=== PATIENT | male | born 1960 | race Caucasian/White ===

== ENCOUNTER 2022-08-12 09:40 | Inpatient (IN) ==
--- NOTE | 2022-08-12 10:23 | Emergency Department Note ---
Impression & Plan Acute hypoxemic respiratory failure, Acute hyperglycemia, Acute dehydration, COVID-19 ED Provider Note NAME: KOKO ALLEN AGE: 61 SEX: M : 1960 ARRIVES VIA: Ambulance INFORMANT: Patient, ED PROVIDER(S): Salinas Sharp MD Chief Complaint: Shortness of breath, respiratory distress, concern for self-injurious behavior HPI: Very limited history as per review of the medical record the patient does have a known history of aphasia from a prior stroke. Only report is that EMS had been called out as there was concern for superficial lacerations to bilateral list and upon presentation they noted the patient to be in respiratory distress with associated rhonchi and oxygen saturations in the 70s. The patient was placed on BiPAP and brought in. Patient does have difficulty with communicating as the patient is aphasic but the patient does respond to yes or no questions by shaking or nodding his head. Patient denies any chest pain or shortness of breath. The patient denies any true abdominal pain and there is a history of aspiration. Patient denies any current nausea. Patient did receive a breathing treatment and 125 Solu-Medrol in route. ROS: See HPI for pertinent positives and negatives. A total of 10 systems were reviewed and otherwise negative. Past medical history: See below Surgical history: See below Social history: See below Physical Exam: GENERAL: Mild tachypnea, BiPAP mask in place. EYE EXAM: Normal conjunctiva. PERRL, no anisocoria and EOM's grossly intact w/o pain. NECK: Supple, no nuchal rigidity, no adenopathy, non-tender. No signs of meningismus. FROM of the neck with good chin to chest and neck extension. No stridor. LUNGS: Tachypnea noted, rhonchi throughout. HEART: Tachycardic and regular, no MRG. ABDOMEN: Abdomen soft, non-tender, normo-active bowel sounds, no masses, no rebound or guarding. BACK: No CVA TTP. SKIN: No rashes and no bruising. UPPER EXTREMITIES: Upper extremities are grossly normal. LOWER EXTREMITIES: Grossly normal, no edema. NEURO EXAM: A&O x3, cranial nerves II-XII grossly intact, normal speech, moves all 4 extremities. Differential diagnoses: Reactive airway disease, pneumonia, pneumothorax, COPD, CHF, infections, cardiac ischemia, pulmonary embolism, musculoskeletal, gastrointestinal, as well as other pathologies. Course: Patient was seen and evaluated the bedside. Full history physical exam was performed. EKG interpreted by me Sinus tachycardia, rate of 116 normal intervals normal axis T wave version in aVL noncontiguous leads, significant motion artifact in V1 and V2 no obvious ST elevations. Imaging Studies: See Below Cardiac monitoring: An order was placed for continuous cardiac monitoring. The monitor shows a rate of 112 with tachycardic and regular rhythm. MDM: Patient was seen due to concern for shortness of breath. No obvious concerns with regard to self-injurious behavior. The patient did have superficial abrasions noted. No large laceration. Sepsis protocol was initiated. I did review the patient's medical records which show no evidence of prior heart failure and the patient does not appear to be volume overloaded although the patient does have significant rhonchi throughout. The patient did have a 2 L IV fluid bolus ordered vancomycin and Zosyn, MRSA swab viral imaging as well as Pro-Ilya and blood work. Patient was ordered additional breathing treatments. The patient had received Solu-Medrol and a breathing treatment in route. Patient was noted to have a significant leukocytosis. Patient was ordered dose of vancomycin. The patient did have a CT angiography of the chest as well as abdomen pelvis ordered given the patient significant leukocytosis and coarse breath sounds. Hemoglobin is elevated. The patient does have significant prerenal azotemia. Patient was ordered IV fluids. Patient's bicarb is normal. Sodium of 125 likely pseudohyponatremia given the sugar of 608. Patient was ordered 10 of IV insulin. Positive for COVID-negative for flu and RSV. Patient did already see Methylpred 125 with regard to the patient's COVID hypoxemia. Patient did have a CT of the abdomen pelvis as well as chest ordered given patient's significant leukocytosis. Patient's CT of the abdomen pelvis as well as CT angiography of the chest does not show any evidence of PE. The patient does have findings suggestive of infectious or inflammatory pneumonitis. Hepatic steatosis noted. The patient may have evidence of esophagitis. The patient does appear clinically improved and stable on the BiPAP. I did speak with the on-call hospitalist Dr. Thibodeaux and the patient was admitted to the medicine service. Critical Care: I have personally spent 75 minutes of critical care time in direct management of this patient. This includes bedside care, interpretation of diagnostic studies, and testing, discussion with consultants, patient, and family members, and other require inpatient management activities. This 75 minutes is in excess of all separately billable procedures. Past Med/Surg History Medical History Aphasia following cerebral infarction Asthma BPH (benign prostatic hyperplasia) Cerebral infarction due to unspecified 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 COPD (chronic obstructive pulmonary disease) Dysphagia, oropharyngeal phase Dysphasia following cerebral infarction Essential (primary) hypertension History of CVA with residual deficit Opioid abuse Opioid dependence 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 Type 2 diabetes mellitus Surgical History Gastrostomy status S/P percutaneous endoscopic gastrostomy (PEG) tube placement Family History Other Family history non-contributory Social History Smoking Status: Unknown if ever smoked Tobacco Type: Cigarettes Preferred Language: Brazilian Current Living Situation: Other Current Living Situation Comment: [facility] Feels Safe at Home: Yes Assistive Devices: Other Allergies Allergies Allergy/AdvReac Type Severity Reaction Status Date / Time No Known Drug Allergies Allergy Unknown Verified 07/26/22 09:53 Home Meds Home Medications Medication Instructions Recorded Confirmed acetaminophen 325 mg capsule 650 mg PO Q6H PRN pain/fever > 100 07/26/22 07/26/22 F or above acetaminophen 500 mg tablet 500 mg PO BID 07/26/22 07/26/22 (Tylenol Extra Strength) acetylcysteine 100 mg/mL (10 %) 6 ml inhalation QID copd/hypoxemia 07/26/22 07/26/22 solution ascorbic acid (vitamin C) 500 mg 500 mg PO DAILY 07/26/22 07/26/22 capsule aspirin 81 mg tablet,delayed 81 mg PO DAILY 07/26/22 07/26/22 release bisacodyl 10 mg rectal suppository 10 mg NV UD PRN CONSTIPATION 07/26/22 07/26/22 (Dulcolax (bisacodyl)) cholecalciferol (vitamin D3) 25 25 mcg PO DAILY 07/26/22 07/26/22 mcg (1,000 unit) tablet clopidogrel 75 mg tablet 75 mg PO DAILY 07/26/22 07/26/22 diclofenac sodium 1 % topical gel 2 g topical Q8H PRN left shoulder 07/26/22 07/26/22 pain doxazosin 1 mg tablet 1 mg PO DAILY 07/26/22 07/26/22 gabapentin 300 mg tablet 300 mg PO TID 07/26/22 07/26/22 guaifenesin 100 mg/5 mL oral 200 mg PO Q8H PRN cough 07/26/22 07/26/22 liquid (Evon-Tussin) lisinopril 2.5 mg tablet 2.5 mg PO DAILY 07/26/22 07/26/22 ondansetron HCl 4 mg tablet 4 mg PO Q6H PRN nausea/vomiting 07/26/22 07/26/22 salmeterol 50 mcg/dose blister 1 inh inhalation BID copd 07/26/22 07/26/22 powder for inhalation tiotropium bromide 18 mcg capsule 1 cap inhalation DAILY 07/26/22 07/26/22 with inhalation device (Spiriva with HandiHaler) zinc oxide 1 applic topical BID for prevention 07/26/22 07/26/22 zinc oxide 20 % topical ointment 1 applic topical UD preventative 07/26/22 07/26/22 care Results & Data (ED) Vital Signs Vital Signs - 24 hr 08/12/22 10:03 08/12/22 10:06 08/12/22 10:06 Temperature 36.6 C Temperature Source Temporal Artery Scan Pulse Rate 114 H 107 H Pulse Rate [Finger] Pulse Rate from SpO2 Sensor Pulse Rhythm Regular Respiratory Rate 28 H 28 H Respiratory Effort / Characteristics Spontaneous Labored Short of Breath Short of Breath Respiratory Depth Deep Respiratory Pattern Tachypnea Regular Blood Pressure 139/87 Blood Pressure Mean 104 Blood Pressure Position Sitting Pulse Oximetry 93 93 Oxygen Delivery Method BiPAP BiPAP Fraction of Inspired Oxygen 50 40 40 SaO2/FiO2 Ratio 232 Sepsis Recent Fever Within 48 Hours No Sepsis New/Unexplained Change in Mental Status No Sepsis Action Taken by Nursing Physician Notified 08/12/22 10:17 08/12/22 10:54 08/12/22 10:00 Temperature Temperature Source Pulse Rate 116 H Pulse Rate [Finger] 104 H Pulse Rate from SpO2 Sensor 116 H Pulse Rhythm Respiratory Rate 28 H 31 H Respiratory Effort / Characteristics Spontaneous Respiratory Depth Respiratory Pattern Blood Pressure 139/87 Blood Pressure Mean 104 Blood Pressure Position Pulse Oximetry 95 96 90 Oxygen Delivery Method BiPAP BiPAP Fraction of Inspired Oxygen 40 40 SaO2/FiO2 Ratio 237 Sepsis Recent Fever Within 48 Hours Sepsis New/Unexplained Change in Mental Status Sepsis Action Taken by Nursing 08/12/22 10:30 08/12/22 11:30 08/12/22 12:16 Temperature Temperature Source Pulse Rate 106 H 94 H 91 H Pulse Rate [Finger] Pulse Rate from SpO2 Sensor 94 H 91 H Pulse Rhythm Respiratory Rate 26 H 16 17 Respiratory Effort / Characteristics Respiratory Depth Respiratory Pattern Blood Pressure 132/87 131/87 105/72 Blood Pressure Mean 102 101 83 Blood Pressure Position Pulse Oximetry 97 99 Oxygen Delivery Method Fraction of Inspired Oxygen SaO2/FiO2 Ratio Sepsis Recent Fever Within 48 Hours Sepsis New/Unexplained Change in Mental Status Sepsis Action Taken by Nursing 08/12/22 12:30 Temperature Temperature Source Pulse Rate 89 Pulse Rate [Finger] Pulse Rate from SpO2 Sensor 89 Pulse Rhythm Respiratory Rate 18 Respiratory Effort / Characteristics Respiratory Depth Respiratory Pattern Blood Pressure 115/67 Blood Pressure Mean 83 Blood Pressure Position Pulse Oximetry 97 Oxygen Delivery Method Fraction of Inspired Oxygen SaO2/FiO2 Ratio Sepsis Recent Fever Within 48 Hours Sepsis New/Unexplained Change in Mental Status Sepsis Action Taken by Intermediate Medications Current Medication List: was personally reviewed by me Laboratory Data Attestation: I reviewed the patient's lab results. Result diagrams: 08/12/22 09:55 08/12/22 13:35 Lab Results 08/12/22 08/12/22 08/12/22 Range/Units 09:55 09:55 09:55 WBC 34.14 H* (4.8-10.8) K/ul RBC 6.44 H (4.63-6.08) M/uL Hgb 19.4 H (14.0-18.0) g/dl Hct 55.0 H (40.1-51.0) % MCV 85.4 (80.0-100.0) fL MCH 30.1 (25.0-34.0) pg MCHC 35.3 (32.0-36.0) g/dL RDW Std Deviation 39.8 (36.4-46.3) fL RDW Coeff of Jessica 13.2 (11.5-14.5) % Plt Count 370 (130-400) K/uL MPV 11.0 (9.4-12.4) fL Immature Gran % (Auto) 1.1 % Neut % (Auto) 85.0 % Lymph % (Auto) 6.6 % Dougherty % (Auto) 7.0 % Eos % (Auto) 0.0 % Baso % (Auto) 0.3 % Neut # (Auto) 29.03 H (1.4-6.5) K/uL Lymph # (Auto) 2.27 (1.2-3.4) K/uL Dougherty # (Auto) 2.38 H (0.24-0.82) K/uL Eos # (Auto) 0.01 (0-0.50) K/uL Baso # (Auto) 0.09 (0-0.2) K/uL Immature Gran # (Auto) 0.36 H (0.00-0.02) K/uL Toxic Vacuolation 1+ Polychromasia 1+ Tear Drop Cells 1+ PT 10.4 (9.0-12.0) Seconds INR 1.0 (0.9-1.1) APTT 25.0 (21.0-31.0) Seconds PTT Ratio 0.9 Sodium 125 L (136-145) mmol/L Potassium 5.5 H (3.5-5.1) mmol/L Chloride 90 L (98-107) mmol/L Carbon Dioxide 23 (21-32) mmol/L Anion Gap 12 H (3-11) BUN 53 H (6-23) mg/dl Creatinine 1.39 (0.6-1.4) mg/dl Est Cr Clr Drug Dosing Not Reportable Est GFR ( Amer) 62.9 ml/min Est GFR (Non-Af Amer) 54.3 ml/min BUN/Creatinine Ratio 38.1 H (10-20) Glucose 608 H* (70-99(Fasting)) mg/dl Lactate (0.4-2.0) mmol/L Calcium 9.4 (8.5-10.1) mg/dl Magnesium 2.2 (1.7-2.4) mg/dl Total Bilirubin 0.8 (0.2-1.0) mg/dl AST 8 L (13-39) U/L ALT 9 (7-52) U/L Alkaline Phosphatase 60 (34-104) U/L Troponin I High Sens 16.0 (0-20) pg/ml Total Protein 7.0 (6.0-8.3) gm/dl Albumin 3.6 (3.4-5.0) gm/dl Globulin 3.4 (2.5-4.0) gm/dl Albumin/Globulin Ratio 1.1 (0.9-2) Procalcitonin (0-0.5) ng/ml Urine Color Urine Appearance (Clear) Urine pH (4.5-7.5) Ur Specific [place] (1.000-1.030) Urine Protein (Negative) Urine Glucose (UA) (Negative) Urine Ketones (Negative) Urine Blood (Negative) Urine Nitrite (Negative) Urine Bilirubin (Negative) Urine Urobilinogen (Negative) Ur Leukocyte Esterase (Negative) SARS-CoV-2 (PCR) (Negative) Influenza Type A (PCR) (Neg) Influenza Type B (PCR) (Neg) RSV (RT-PCR) (Neg) 08/12/22 08/12/22 08/12/22 Range/Units 09:55 10:00 10:52 WBC (4.8-10.8) K/ul RBC (4.63-6.08) M/uL Hgb (14.0-18.0) g/dl Hct (40.1-51.0) % MCV (80.0-100.0) fL MCH (25.0-34.0) pg MCHC (32.0-36.0) g/dL RDW Std Deviation (36.4-46.3) fL RDW Coeff of Jessica (11.5-14.5) % Plt Count (130-400) K/uL MPV (9.4-12.4) fL Immature Gran % (Auto) % Neut % (Auto) % Lymph % (Auto) % Dougherty % (Auto) % Eos % (Auto) % Baso % (Auto) % Neut # (Auto) (1.4-6.5) K/uL Lymph # (Auto) (1.2-3.4) K/uL Dougherty # (Auto) (0.24-0.82) K/uL Eos # (Auto) (0-0.50) K/uL Baso # (Auto) (0-0.2) K/uL Immature Gran # (Auto) (0.00-0.02) K/uL Toxic Vacuolation Polychromasia Tear Drop Cells PT (9.0-12.0) Seconds INR (0.9-1.1) APTT (21.0-31.0) Seconds PTT Ratio Sodium (136-145) mmol/L Potassium (3.5-5.1) mmol/L Chloride (98-107) mmol/L Carbon Dioxide (21-32) mmol/L Anion Gap (3-11) BUN (6-23) mg/dl Creatinine (0.6-1.4) mg/dl Est Cr Clr Drug Dosing Est GFR ( Amer) ml/min Est GFR (Non-Af Amer) ml/min BUN/Creatinine Ratio (10-20) Glucose (70-99(Fasting)) mg/dl Lactate 1.3 (0.4-2.0) mmol/L Calcium (8.5-10.1) mg/dl Magnesium (1.7-2.4) mg/dl Total Bilirubin (0.2-1.0) mg/dl AST (13-39) U/L ALT (7-52) U/L Alkaline Phosphatase (34-104) U/L Troponin I High Sens (0-20) pg/ml Total Protein (6.0-8.3) gm/dl Albumin (3.4-5.0) gm/dl Globulin (2.5-4.0) gm/dl Albumin/Globulin Ratio (0.9-2) Procalcitonin 0.26 (0-0.5) ng/ml Urine Color Urine Appearance (Clear) Urine pH (4.5-7.5) Ur Specific [place] (1.000-1.030) Urine Protein (Negative) Urine Glucose (UA) (Negative) Urine Ketones (Negative) Urine Blood (Negative) Urine Nitrite (Negative) Urine Bilirubin (Negative) Urine Urobilinogen (Negative) Ur Leukocyte Esterase (Negative) SARS-CoV-2 (PCR) POSITIVE A* (Negative) Influenza Type A (PCR) Negative (Neg) Influenza Type B (PCR) Negative (Neg) RSV (RT-PCR) Negative (Neg) 08/12/22 Range/Units 11:27 WBC (4.8-10.8) K/ul RBC (4.63-6.08) M/uL Hgb (14.0-18.0) g/dl Hct (40.1-51.0) % MCV (80.0-100.0) fL MCH (25.0-34.0) pg MCHC (32.0-36.0) g/dL RDW Std Deviation (36.4-46.3) fL RDW Coeff of Jessica (11.5-14.5) % Plt Count (130-400) K/uL MPV (9.4-12.4) fL Immature Gran % (Auto) % Neut % (Auto) % Lymph % (Auto) % Dougherty % (Auto) % Eos % (Auto) % Baso % (Auto) % Neut # (Auto) (1.4-6.5) K/uL Lymph # (Auto) (1.2-3.4) K/uL Dougherty # (Auto) (0.24-0.82) K/uL Eos # (Auto) (0-0.50) K/uL Baso # (Auto) (0-0.2) K/uL Immature Gran # (Auto) (0.00-0.02) K/uL Toxic Vacuolation Polychromasia Tear Drop Cells PT (9.0-12.0) Seconds INR (0.9-1.1) APTT (21.0-31.0) Seconds PTT Ratio Sodium (136-145) mmol/L Potassium (3.5-5.1) mmol/L Chloride (98-107) mmol/L Carbon Dioxide (21-32) mmol/L Anion Gap (3-11) BUN (6-23) mg/dl Creatinine (0.6-1.4) mg/dl Est Cr Clr Drug Dosing Est GFR ( Amer) ml/min Est GFR (Non-Af Amer) ml/min BUN/Creatinine Ratio (10-20) Glucose (70-99(Fasting)) mg/dl Lactate (0.4-2.0) mmol/L Calcium (8.5-10.1) mg/dl Magnesium (1.7-2.4) mg/dl Total Bilirubin (0.2-1.0) mg/dl AST (13-39) U/L ALT (7-52) U/L Alkaline Phosphatase (34-104) U/L Troponin I High Sens (0-20) pg/ml Total Protein (6.0-8.3) gm/dl Albumin (3.4-5.0) gm/dl Globulin (2.5-4.0) gm/dl Albumin/Globulin Ratio (0.9-2) Procalcitonin (0-0.5) ng/ml Urine Color Yellow Urine Appearance Clear (Clear) Urine pH 5.5 (4.5-7.5) Ur Specific [place] 1.034 H (1.000-1.030) Urine Protein Negative (Negative) Urine Glucose (UA) 3+ H (Negative) Urine Ketones Trace H (Negative) Urine Blood Negative (Negative) Urine Nitrite Negative (Negative) Urine Bilirubin Negative (Negative) Urine Urobilinogen Negative (Negative) Ur Leukocyte Esterase Negative (Negative) SARS-CoV-2 (PCR) (Negative) Influenza Type A (PCR) (Neg) Influenza Type B (PCR) (Neg) RSV (RT-PCR) (Neg) Administered Medications Insulin Human Regular 250 (units/ Sodium Chloride) 250 mls @ 2.6 mls/hr IV .Q24H [facility]; Protocol Stop: 09/11/22 13:14 Last Titration: 08/12/22 15:00 Dose: 2.6 units/hr, 2.6 mls/hr Documented By: VICTORINO Co-signed By: ROME Admin: 08/12/22 13:48 Dose: 2.2 units/hr, 2.2 mls/hr Documented By: VICTORINO Co-signed By: HS Discontinued Medications Albuterol (Albut/Ipratrop 3mg/0.5mg Neb 3 Ml Vial) 12 ml NEB ONE ONE; Protocol Stop: 08/12/22 10:33 Last Admin: 08/12/22 10:53 Dose: 12 ml Documented By: JUANPABLO Piperacillin Sod/Tazobactam Sod (Zosyn) 4.5 gm in 120 mls @ 240 mls/hr IV NOW ONE Stop: 08/12/22 11:01 Last Infusion: 08/12/22 12:55 Dose: 0 mls/hr Documented By: Admin: 08/12/22 11:26 Dose: 240 mls/hr Documented By: VICTORINO Sodium Chloride (Nss 1000ml) 2,000 mls @ 999 mls/hr IV .Q2H1M ONE Stop: 08/12/22 12:49 Last Infusion: 08/12/22 15:04 Dose: 0 mls/hr Documented By: Admin: 08/12/22 11:26 Dose: 999 mls/hr Documented By: VICTORINO Vancomycin HCl 2,250 mg/ (Sodium Chloride) 545 mls @ 200 mls/hr IV NOW ONE Stop: 08/12/22 13:37 Last Admin: 08/12/22 11:26 Dose: 200 mls/hr Documented By: VICTORINO Pantoprazole Sodium 40 mg/ (Syringe) 10 mls @ 5 mls/min IV 1315 ONE Stop: 08/12/22 13:16 Last Admin: 08/12/22 13:37 Dose: 5 mls/min Documented By: VICTORINO Insulin Human Regular (Novolin-R Insulin Per Unit Charge) 10 units IV NOW STA Stop: 08/12/22 11:18 Last Admin: 08/12/22 11:52 Dose: 10 units Documented By: RODRIGUEZ Co-signed By: VICTORINO Insulin Human Regular (Novolin-R Bolus From Bag) 2 units IV ONE ONE Stop: 08/12/22 13:16 Last Admin: 08/12/22 13:48 Dose: 2 units Documented By: VICTORINO Co-signed By: RODRIGUEZ Ioversol (Optiray 320 500ml) 106 ml IV ONCE ONE Stop: 08/12/22 12:05 Last Admin: 08/12/22 12:08 Dose: 106 ml Documented By: TIERA Ondansetron HCl (Ondansetron Inj 2 Mg/Ml 2 Ml Vial) 4 mg IV NOW STA Stop: 08/12/22 11:20 Last Admin: 08/12/22 11:53 Dose: 4 mg Documented By: RODRIGUEZ Imaging Data Radiologist's Impression: Chest X-Ray 08/12/22 10:04 SINGLE VIEW CHEST CLINICAL HISTORY: Sepsis FINDINGS: An AP, portable, upright chest radiograph is compared to study dated 04/16/2022. The examination is degraded by portable technique and apical lordotic positioning. The cardiomediastinal silhouette is unremarkable noting atherosclerotic calcification of the thoracic aorta. Emphysema and chronic interstitial thickening is similar to previous. Postoperative change is seen in the right midlung. Airspace opacities are seen in the mid to lower lungs. No large pleural effusion or pneumothorax is identified. The skeletal structures are osteopenic. There are numerous healed left-sided rib fractures. A left shoulder arthroplasty is in place. IMPRESSION: 1. There are airspace opacities in the lower lungs typical for pneumonia/aspiration pneumonitis. Clinical correlation required and radiographic follow-up to resolution is recommended. 2. Emphysema. ACT 112: Negative or not required by law. Electronically signed by: Douglas Colunga M.D. 08/12/2022 10:33 AM Abdomen/Pelvis CT 08/12/22 10:58 CT ANGIOGRAM OF THE CHEST; CT SCAN OF THE ABDOMEN AND PELVIS WITH IV CONTRAST CLINICAL HISTORY: Aphasia. Leukocytosis. Respiratory distress. COMPARISON STUDY: Chest x-ray dated 08/12/2022. TECHNIQUE: Following the IV administration of 106 of Optiray 320, CT angiogram of the chest is performed from the upper abdomen to the thoracic inlet utilizing the pulmonary embolus protocol. Images are reviewed in the axial, sagittal, coronal planes. 3-D MIPS images are created and assessed. Subsequently, CT scan of the abdomen and pelvis was performed from the lung bases to the proximal femora. Images are reviewed in the axial, sagittal, and coronal planes. IV contrast was administered without complication. A dose lowering technique was utilized adhering to the principles of ALARA. The examinations are degraded by motion artifact. CT DOSE: 1051.15 mGy.cm FINDINGS: CHEST: Thyroid: Imaged portions of the thyroid gland are normal in size and attenuation. Thoracic aorta: There is a sclerotic calcification of the thoracic aorta, which is normal in caliber and demonstrates standard 3-vessel arch anatomy. No dissection is seen. Pulmonary vasculature: The pulmonary trunk is normal in caliber. There are no filling defects identified in the main, lobar, or proximal segmental pulmonary arteries to indicate pulmonary embolus. Evaluation of the distal segmental and subsegmental branches is compromised by motion artifact. Heart: The heart is normal in size and without pericardial effusion. There are coronary artery calcifications. Lungs and pleural spaces: Emphysematous change is noted. Postsurgical changes seen in the right upper lung. The trachea and central airways are clear. Extensive tree-in-bud nodularity seen throughout both lungs with associated patchy groundglass change. More irregular nodular foci are noted. A independent sales representative nodule at the right apex on image #[id number] measures 10 mm, and within the left lower lobe on image #150 measures 11 mm. No pleural effusion is identified. Foci of parenchymal scarring are seen throughout both lungs. Subpleural fat deposition is noted the right lung base. Mediastinum: There is no mediastinal lymphadenopathy. Esophagus: The esophageal wall appears thickened. Ale: Mildly enlarged hilar nodes measuring up to 12 mm in short axis are likely reactive. Axillae: There is no axillary lymphadenopathy. Bony thorax: The skeletal structures are osteopenic. No lytic or blastic lesions are identified. A left shoulder arthroplasty is in place. Arthritic change is seen in the right shoulder. There is chronic deformity of the ribs seen bilaterally. ABDOMEN AND PELVIS: Liver: The contrast-enhanced liver is normal in size and contour. The liver demonstrates diffusely diminished attenuation indicating steatosis. There is no intrahepatic biliary ductal dilatation. The hepatic veins and portal veins are patent. Gallbladder: Unremarkable. Spleen: Normal in size and attenuation. Pancreas: Unremarkable. Adrenal glands: Unremarkable. Kidneys: The contrast enhanced kidneys are normal in size and without hydronephrosis. The kidneys enhance symmetrically. Abdominal vasculature: There is moderate to advanced atherosclerotic calcification and mild ectasia of the abdominal aorta. Stomach and bowel: A small hiatal hernia is noted: A percutaneous gastrostomy is in place. There is moderate colonic fecal retention. No bowel obstruction is seen. The appendix is well-visualized and normal. Peritoneum: There is no intraperitoneal free air or abdominal ascites. A small hiatal hernia is noted. Lymphadenopathy: A mildly enlarged gastrohepatic node on image #103 measures up to 11 mm short axis. Pelvic viscera: The prostate gland is diminutive and heterogeneous. The bladder and seminal vesicles are normal as imaged. There are small bilateral fat- containing inguinal hernias. Skeletal structures: The skeletal structures are osteopenic. There is mild to moderate lumbosacral spondylosis. Bilateral pars defects are noted at L5 with grade 1 anterolisthesis at L5-S1. No lytic or blastic lesions are seen. There are healed left pubic ring fractures. IMPRESSION: 1. Emphysema with postoperative change from right-sided pulmonary resection. 2. There is no evidence of pulmonary embolus in the main, lobar, or proximal segmental pulmonary arteries. Evaluation of the distal segmental and subsegmental branches is compromised by motion artifact. 3. There is extensive tree-in-bud nodularity and groundglass consolidation seen throughout both lungs. The appearance suggests an infectious/inflammatory pneumonitis. Clinical correlation will be required. A follow-up chest CT in 3-4 months time is recommend diagnostic and resolution, and to evaluate for underlying nodularity. 4. No acute infectious or inflammatory findings are identified in the abdomen or pelvis. 5. Hepatic steatosis. 6. The esophageal wall appears circumferentially thickened. Correlate clinically for evidence of esophagitis. 7. A mildly enlarged gastrohepatic node is nonspecific and may be reactive. 8. Additional findings as above. ACT 112: Negative or not required by law. Electronically signed by: Douglas Colunga M.D. 08/12/2022 12:27 PM Chest CTA 08/12/22 10:58 CT ANGIOGRAM OF THE CHEST; CT SCAN OF THE ABDOMEN AND PELVIS WITH IV CONTRAST CLINICAL HISTORY: Aphasia. Leukocytosis. Respiratory distress. COMPARISON STUDY: Chest x-ray dated 08/12/2022. TECHNIQUE: Following the IV administration of 106 of Optiray 320, CT angiogram of the chest is performed from the upper abdomen to the thoracic inlet utilizing the pulmonary embolus protocol. Images are reviewed in the axial, sagittal, coronal planes. 3-D MIPS images are created and assessed. Subsequently, CT scan of the abdomen and pelvis was performed from the lung bases to the proximal femora. Images are reviewed in the axial, sagittal, and coronal planes. IV contrast was administered without complication. A dose lowering technique was utilized adhering to the principles of ALARA. The examinations are degraded by motion artifact. CT DOSE: 1051.15 mGy.cm FINDINGS: CHEST: Thyroid: Imaged portions of the thyroid gland are normal in size and attenuation. Thoracic aorta: There is a sclerotic calcification of the thoracic aorta, which is normal in caliber and demonstrates standard 3-vessel arch anatomy. No dissection is seen. Pulmonary vasculature: The pulmonary trunk is normal in caliber. There are no filling defects identified in the main, lobar, or proximal segmental pulmonary arteries to indicate pulmonary embolus. Evaluation of the distal segmental and subsegmental branches is compromised by motion artifact. Heart: The heart is normal in size and without pericardial effusion. There are coronary artery calcifications. Lungs and pleural spaces: Emphysematous change is noted. Postsurgical changes seen in the right upper lung. The trachea and central airways are clear. Extensive tree-in-bud nodularity seen throughout both lungs with associated patchy groundglass change. More irregular nodular foci are noted. A independent sales representative nodule at the right apex on image #[id number] measures 10 mm, and within the left lower lobe on image #150 measures 11 mm. No pleural effusion is identified. Foci of parenchymal scarring are seen throughout both lungs. Subpleural fat deposition is noted the right lung base. Mediastinum: There is no mediastinal lymphadenopathy. Esophagus: The esophageal wall appears thickened. Ale: Mildly enlarged hilar nodes measuring up to 12 mm in short axis are likely reactive. Axillae: There is no axillary lymphadenopathy. Bony thorax: The skeletal structures are osteopenic. No lytic or blastic lesions are identified. A left shoulder arthroplasty is in place. Arthritic change is seen in the right shoulder. There is chronic deformity of the ribs seen bilaterally. ABDOMEN AND PELVIS: Liver: The contrast-enhanced liver is normal in size and contour. The liver demonstrates diffusely diminished attenuation indicating steatosis. There is no intrahepatic biliary ductal dilatation. The hepatic veins and portal veins are patent. Gallbladder: Unremarkable. Spleen: Normal in size and attenuation. Pancreas: Unremarkable. Adrenal glands: Unremarkable. Kidneys: The contrast enhanced kidneys are normal in size and without hydronephrosis. The kidneys enhance symmetrically. Abdominal vasculature: There is moderate to advanced atherosclerotic calcification and mild ectasia of the abdominal aorta. Stomach and bowel: A small hiatal hernia is noted: A percutaneous gastrostomy is in place. There is moderate colonic fecal retention. No bowel obstruction is seen. The appendix is well-visualized and normal. Peritoneum: There is no intraperitoneal free air or abdominal ascites. A small hiatal hernia is noted. Lymphadenopathy: A mildly enlarged gastrohepatic node on image #103 measures up to 11 mm short axis. Pelvic viscera: The prostate gland is diminutive and heterogeneous. The bladder and seminal vesicles are normal as imaged. There are small bilateral fat- containing inguinal hernias. Skeletal structures: The skeletal structures are osteopenic. There is mild to moderate lumbosacral spondylosis. Bilateral pars defects are noted at L5 with grade 1 anterolisthesis at L5-S1. No lytic or blastic lesions are seen. There are healed left pubic ring fractures. IMPRESSION: 1. Emphysema with postoperative change from right-sided pulmonary resection. 2. There is no evidence of pulmonary embolus in the main, lobar, or proximal segmental pulmonary arteries. Evaluation of the distal segmental and subsegm ental branches is compromised by motion artifact. 3. There is extensive tree-in-bud nodularity and groundglass consolidation seen throughout both lungs. The appearance suggests an infectious/inflammatory pneumonitis. Clinical correlation will be required. A follow-up chest CT in 3-4 months time is recommend diagnostic and resolution, and to evaluate for underlying nodularity. 4. No acute infectious or inflammatory findings are identified in the abdomen or pelvis. 5. Hepatic steatosis. 6. The esophageal wall appears circumferentially thickened. Correlate clinically for evidence of esophagitis. 7. A mildly enlarged gastrohepatic node is nonspecific and may be reactive. 8. Additional findings as above. ACT 112: Negative or not required by law. Electronically signed by: Douglas Colunga M.D. 08/12/2022 12:27 PM Discharge Plan Visit Data Chief Complaint: Respiratory Distress Stated Complaint: RESP. DISTRESS, CUTS TO WRIST ED Provider: [facility] Sharp Discharge Problem: Acute hypoxemic respiratory failure, Acute hyperglycemia, Acute dehydration, COVID-19 Patient Disposition: Admitted As Inpatient Discharge Instructions Interventions: ED Discharge Assessment Last Done: 08/12/22 15:12
[2022-08-12 10:32] LABS: Partial Thromboplastin Ratio 0.9; Prothrombin Time 10.4 Seconds (9.0-12.0)
[2022-08-12] MEDS ORDERED: PIPERACILLIN/TAZOBACTAM 4.5 GM/120 ML BAG IV ONE (10:32)
[2022-08-12] MEDS ORDERED: ALBUT/IPRATROP 3MG/0.5MG NEB 3 ML VIAL NEB ONE (10:32)
--- NOTE | 2022-08-12 10:34 | XRay Report ---
SINGLE VIEW CHEST CLINICAL HISTORY: Sepsis FINDINGS: An AP, portable, upright chest radiograph is compared to study dated 04/16/2022. The examina tion is degraded by portable technique and apical lordotic positioning. The cardiomediastinal silhoue tte is unremarkable noting atherosclerotic calcification of the thoracic aorta. Emphysema and chronic interstitial thickening is similar to previous. Postoperative change is seen in the right midlung. A irspace opacities are seen in the mid to lower lungs. No large pleural effusion or pneumothorax is id entified. The skeletal structures are osteopenic. There are numerous healed left-sided rib fractures. A left shoulder arthroplasty is in place. IMPRESSION: 1. There are airspace opacities in the lower lungs typical for pneumonia/aspiration pneumonitis. Clin ical correlation required and radiographic follow-up to resolution is recommended. 2. Emphysema. ACT 112: Negative or not required by law. Electronically signed by: Douglas Colunga M.D. 08/12/2022 10:33 AM
[2022-08-12 10:40] LABS: Basophils # (auto) 0.09 K/uL (0-0.2); Basophils % (auto) 0.3 %; Eosinophils # (auto) 0.01 K/uL (0-0.50); Hemoglobin 19.4 g/dl (14.0-18.0); Immature Granulocytes # (auto) 0.36 K/uL (0.00-0.02); Immature Granulocytes % (auto) 1.1 %; Lymphocytes # (auto) 2.27 K/uL (1.2-3.4); Lymphocytes % (auto) 6.6 %; Mean Corpuscular Hemoglobin 30.1 pg (25.0-34.0); Mean Corpuscular Hgb Conc 35.3 g/dL (32.0-36.0); Mean Corpuscular Volume 85.4 fL (80.0-100.0); Monocytes # (auto) 2.38 K/uL (0.24-0.82); Neutrophils # (auto) 29.03 K/uL (1.4-6.5); Platelet Count 370 K/uL (130-400); Polychromasia 1+; RDW Coefficient of Variation 13.2 % (11.5-14.5); RDW Standard Deviation 39.8 fL (36.4-46.3); Red Blood Count 6.44 M/uL (4.63-6.08); Tear Drop Cells 1+; Toxic Vacuolation 1+
[2022-08-12] MEDS ORDERED: SODIUM CHLORIDE 0.9% 1000ML 2,000 ML IV ONE (10:49)
[2022-08-12 10:52] LABS: White Blood Count 34.14 K/ul (4.8-10.8)
[2022-08-12] MEDS ORDERED: VANCOMYCIN HCL 2,250 MG in SODIUM CHLORIDE 0.9% 500 ML IV ONE (10:54)
[2022-08-12] MEDS ORDERED: VANCOMYCIN CONSULT ACTIVE PRN ×2 (10:54→15:13)
[2022-08-12 11:02] LABS: Influenza A virus by PCR Negative (Neg); Influenza B virus by PCR Negative (Neg); RSV by PCR Negative (Neg)
[2022-08-12 11:11] LABS: Alanine Aminotransferase 9 U/L (7-52); Albumin Globulin Ratio 1.1 (0.9-2); Albumin Level 3.6 gm/dl (3.4-5.0); Alkaline Phosphatase 60 U/L (34-104); Anion Gap 12 (3-11); Aspartate Aminotransferase 8 U/L (13-39); BUN Creatinine Ratio 38.1 (10-20); Bilirubin,Total 0.8 mg/dl (0.2-1.0); Blood Urea Nitrogen 53 mg/dl (6-23); Calcium 9.4 mg/dl (8.5-10.1); Carbon Dioxide 23 mmol/L (21-32); Chloride 90 mmol/L (98-107); Est GFR (African American) 62.9 ml/min; Est GFR (Non-African American) 54.3 ml/min; Globulin 3.4 gm/dl (2.5-4.0); Glucose 608 mg/dl (70-99(Fasting)); Magnesium 2.2 mg/dl (1.7-2.4); Potassium 5.5 mmol/L (3.5-5.1); Sodium 125 mmol/L (136-145)
[2022-08-12 11:15] LABS: SARS CoV2 RNA(COVID-19) Ceph POSITIVE (Negative)
[2022-08-12] MEDS ORDERED: NovoLIN-R INSULIN PER UNIT CHARGE IV STA (11:17)
[2022-08-12] MEDS ORDERED: ONDANSETRON INJ 2 MG/ML 2 ML VIAL IV STA (11:19)
[2022-08-12 11:39] LABS: Appearance Urine Clear (Clear); Bilirubin Urine Negative (Negative); Blood Urine Negative (Negative); Color Urine Yellow; Glucose Urine UA 3+ (Negative); Ketones Urine Trace (Negative); Leukocyte Esterase Urine Negative (Negative); Nitrite Urine Negative (Negative); Protein Urine Negative (Negative); Specific Gravity Urine 1.034 (1.000-1.030); Urobilinogen Urine Negative (Negative); pH Urine 5.5 (4.5-7.5)
[2022-08-12] MEDS ORDERED: OPTIRAY 320 500ml IV ONE (12:04)
--- NOTE | 2022-08-12 12:28 | CT Scan Report ---
CT ANGIOGRAM OF THE CHEST; CT SCAN OF THE ABDOMEN AND PELVIS WITH IV CONTRAST CLINICAL HISTORY: Aphasia. Leukocytosis. Respiratory distress. COMPARISON STUDY: Chest x-ray dated 08/12/2022. TECHNIQUE: Following the IV administration of 106 of Optiray 320, CT angiogram of the chest is perfor med from the upper abdomen to the thoracic inlet utilizing the pulmonary embolus protocol. Images are reviewed in the axial, sagittal, coronal planes. 3-D MIPS images are created and assessed. Subsequen tly, CT scan of the abdomen and pelvis was performed from the lung bases to the proximal femora. Imag es are reviewed in the axial, sagittal, and coronal planes. IV contrast was administered without comp lication. A dose lowering technique was utilized adhering to the principles of ALARA. The examination s are degraded by motion artifact. CT DOSE: 1051.15 mGy.cm FINDINGS: CHEST: Thyroid: Imaged portions of the thyroid gland are normal in size and attenuation. Thoracic aorta: There is a sclerotic calcification of the thoracic aorta, which is normal in caliber and demonstrates standard 3-vessel arch anatomy. No dissection is seen. Pulmonary vasculature: The pulmonary trunk is normal in caliber. There are no filling defects identif ied in the main, lobar, or proximal segmental pulmonary arteries to indicate pulmonary embolus. Evalu ation of the distal segmental and subsegmental branches is compromised by motion artifact. Heart: The heart is normal in size and without pericardial effusion. There are coronary artery calcif ications. Lungs and pleural spaces: Emphysematous change is noted. Postsurgical changes seen in the right upper lung. The trachea and central airways are clear. Extensive tree-in-bud nodularity seen throughout jaxon th lungs with associated patchy groundglass change. More irregular nodular foci are noted. A represen tative nodule at the right apex on image #[id number] measures 10 mm, and within the left lower lobe on imag e #150 measures 11 mm. No pleural effusion is identified. Foci of parenchymal scarring are seen throu ghout both lungs. Subpleural fat deposition is noted the right lung base. Mediastinum: There is no mediastinal lymphadenopathy. Esophagus: The esophageal wall appears thickened. Ale: Mildly enlarged hilar nodes measuring up to 12 mm in short axis are likely reactive. Axillae: There is no axillary lymphadenopathy. Bony thorax: The skeletal structures are osteopenic. No lytic or blastic lesions are identified. A le ft shoulder arthroplasty is in place. Arthritic change is seen in the right shoulder. There is chroni c deformity of the ribs seen bilaterally. ABDOMEN AND PELVIS: Liver: The contrast-enhanced liver is normal in size and contour. The liver demonstrates diffusely di minished attenuation indicating steatosis. There is no intrahepatic biliary ductal dilatation. The he patic veins and portal veins are patent. Gallbladder: Unremarkable. Spleen: Normal in size and attenuation. Pancreas: Unremarkable. Adrenal glands: Unremarkable. Kidneys: The contrast enhanced kidneys are normal in size and without hydronephrosis. The kidneys enh ance symmetrically. Abdominal vasculature: There is moderate to advanced atherosclerotic calcification and mild ectasia o f the abdominal aorta. Stomach and bowel: A small hiatal hernia is noted: A percutaneous gastrostomy is in place. There is m oderate colonic fecal retention. No bowel obstruction is seen. The appendix is well-visualized and n ormal. Peritoneum: There is no intraperitoneal free air or abdominal ascites. A small hiatal hernia is noted . Lymphadenopathy: A mildly enlarged gastrohepatic node on image #103 measures up to 11 mm short axis. Pelvic viscera: The prostate gland is diminutive and heterogeneous. The bladder and seminal vesicles are normal as imaged. There are small bilateral fat-containing inguinal hernias. Skeletal structures: The skeletal structures are osteopenic. There is mild to moderate lumbosacral sp ondylosis. Bilateral pars defects are noted at L5 with grade 1 anterolisthesis at L5-S1. No lytic or blastic lesions are seen. There are healed left pubic ring fractures. IMPRESSION: 1. Emphysema with postoperative change from right-sided pulmonary resection. 2. There is no evidence of pulmonary embolus in the main, lobar, or proximal segmental pulmonary fermín helene. Evaluation of the distal segmental and subsegmental branches is compromised by motion artifact. 3. There is extensive tree-in-bud nodularity and groundglass consolidation seen throughout both lungs . The appearance suggests an infectious/inflammatory pneumonitis. Clinical correlation will be requir ed. A follow-up chest CT in 3-4 months time is recommend diagnostic and resolution, and to evaluate f or underlying nodularity. 4. No acute infectious or inflammatory findings are identified in the abdomen or pelvis. 5. Hepatic steatosis. 6. The esophageal wall appears circumferentially thickened. Correlate clinically for evidence of esop hagitis. 7. A mildly enlarged gastrohepatic node is nonspecific and may be reactive. 8. Additional findings as above. ACT 112: Negative or not required by law. Electronically signed by: Douglas Colunga M.D. 08/12/2022 12:27 PM
--- NOTE | 2022-08-12 12:43 | History & Physical Report ---
Date of Service August 12, 2022 Assessment & Plan (1) Acute hypoxemic respiratory failure: Plan: - Patient was tachypneic with accessory muscle use on presentation, placed on BIPAP by EMS. - No home O2 requirement. - WBC 34, lactate and procal wnl. - Suspect leukocytosis is in part due to severe dehydration/reactive with elevated BSG. - CXR: There are airspace opacities in the lower lungs typical for pneumonia/aspiration pneumonitis. Clinical correlation required and radiographic follow-up to resolution is recommended. Emphysema. - Chest CTA: There is extensive tree-in-bud nodularity and groundglass consolidation seen throughout both lungs. The appearance suggests an infectious/inflammatory pneumonitis. Clinical correlation will be required. A follow-up chest CT in 3-4 months time is recommend diagnostic and resolution, and to evaluate for underlying nodularity. There is no evidence of pulmonary embolus in the main, lobar, or proximal segmental pulmonary arteries. Evaluation of the distal segmental and subsegmental branches is compromised by motion artifact. Emphysema with postoperative change from right-sided pulmonary resection. - Covering with vancomycin and Zosyn for now for healthcare associated pneumonia, blood cultures collected in ED. - Will continue home inhalers, incentive spirometry/flutter valve. Tylenol for pain/fever. - NPO except meds. Aspiration precautions. Speech evaluation ordered. - LRs overnight. - Continue to wean off BIPAP. (2) Pneumonia: (3) Aphasia following cerebral infarction: Plan: - Patient is difficulty with verbal communication, can nod head yes/no. - Has a PEG tube, however speech evaluation this March cleared him for p.o. intake, however patient has continued to aspirate. - He has been allowed a regular diet at [facility], as he is refusing to use the PEG and refuses further speech evalustiond. - We will make him n.p.o. except for meds given concern for aspiration pneumonia, and placed speech evaluate while admitted. - Continue ASA + Plavix. (4) Acute hyperglycemia: Plan: - Secondary to daily Decadron since 07/29 for COVID infection, with ? history of DM2. Not on any meds for this per [facility] report. - Presented with BSG of 608, AG 8. - Started on insulin drip, pharmacy consulted to assist with glycemic management. - BMP/electrolytes Q6h/daily. - Oral steroids will be discontinued as he is >10 days out from COVID infection. - Suspect a degree of his leukocytosis is due to dehydration secondary to elevated BSG as his Hgb is also quite elevated at 19.4. (5) Essential (primary) hypertension: Plan: - Continue lisinopril, hold for SBP < 100. (6) COPD (chronic obstructive pulmonary disease): Plan: - Acute respiratory failure secondary to pneumonia, on BiPAP. - Continue home inhalers. (7) BPH (benign prostatic hyperplasia): Plan: - Continue doxazosin. (8) Wrist laceration: Plan: - EMS initially called to [facility] due to superficial b/l wrist lacerations. None are deep, patient currently denying active SI/HI. - Given the above findings above as well as patient pulling at PEG tube, patient will have 1-1 sitter and a psychiatry consult while admitted. (9) Esophagitis: Plan: - Noted on CT, no complaints of abdominal pain, n/v, melena. - IV PPI daily. Plan - Admit to PCU. - SCDs, Lovenox for VTE PPx. History of Present Illness Chief Complaint: EMS summoned for b/l wrist lacerations, found to be in respiratory distress Primary Care Provider: [facility] Anthony Guerrero is a 61-year-old male with past medical history of CVA with residual aphasia, COPD, hypertension, recent COVID infection earlier this month who is presenting today from [facility]. Apparently, EMS was initially summoned d/t concern for self injurious behavior as patient has b/l superficial wrist la cerations. When EMS arrived, he was noted to be tachypneic and using respiratory muscles to breathe. He was diagnosed with COVID on 07/29 and has been treated with steroids since then. He is also recently diagnosed with an aspiration pneumonia by CXR taken at [facility], staff notes that due to his previous stroke he does aspirate, however was cleared for regular diet by speech study in March. He has been taking clindamycin and continued on steroids. He was given DuoNebs and Solu-Medrol en route to the ED, also placed on BIPAP. Allergies Allergy/AdvReac Type Severity Reaction Status Date / Time No Known Drug Allergies Allergy Unknown Verified 07/26/22 09:53 Home Medications Medication Instructions Recorded Confirmed Type acetaminophen 325 mg capsule 650 mg PO Q6H PRN pain/fever > 100 07/26/22 08/12/22 History F or above acetaminophen 500 mg tablet 500 mg PO BID 07/26/22 08/12/22 History (Tylenol Extra Strength) acetylcysteine 100 mg/mL (10 %) 6 ml inhalation QID copd/hypoxemia 07/26/22 08/12/22 History solution ascorbic acid (vitamin C) 500 mg 500 mg PO DAILY 07/26/22 08/12/22 History capsule aspirin 81 mg tablet,delayed 81 mg PO DAILY 07/26/22 08/12/22 History release bisacodyl 10 mg rectal suppository 10 mg [place] UD PRN CONSTIPATION 07/26/22 08/12/22 History (Dulcolax (bisacodyl)) cholecalciferol (vitamin D3) 25 25 mcg PO DAILY 07/26/22 08/12/22 History mcg (1,000 unit) tablet clopidogrel 75 mg tablet 75 mg PO DAILY 07/26/22 08/12/22 History diclofenac sodium 1 % topical gel 2 g topical Q8H PRN left shoulder 07/26/22 08/12/22 History pain doxazosin 1 mg tablet 1 mg PO DAILY 07/26/22 08/12/22 History guaifenesin 100 mg/5 mL oral 200 mg PO Q8H PRN cough 07/26/22 08/12/22 History liquid (Evon-Tussin) lisinopril 2.5 mg tablet 2.5 mg PO DAILY 07/26/22 08/12/22 History ondansetron HCl 4 mg tablet 4 mg PO Q6H PRN nausea/vomiting 07/26/22 08/12/22 History salmeterol 50 mcg/dose blister 1 inh inhalation BID copd 07/26/22 08/12/22 History powder for inhalation tiotropium bromide 18 mcg capsule 1 cap inhalation DAILY 07/26/22 08/12/22 History with inhalation device (Spiriva with HandiHaler) zinc oxide 1 applic topical BID for prevention 07/26/22 08/12/22 History gabapentin 300 mg capsule 300 mg PO TID 08/12/22 08/12/22 History Past Med/Surg History Medical History (Updated 08/12/22 @ 18:46 by Yolanda Brantley PA-C) Aphasia following cerebral infarction Asthma BPH (benign prostatic hyperplasia) Cerebral infarction due to unspecified 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 COPD (chronic obstructive pulmonary disease) Dysphagia, oropharyngeal phase Dysphasia following cerebral infarction Essential (primary) hypertension History of CVA with residual deficit Opioid abuse Opioid dependence 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 Type 2 diabetes mellitus Surgical History Gastrostomy status S/P percutaneous endoscopic gastrostomy (PEG) tube placement Family History Other Family history non-contributory Social History Smoking Status: Current every day smoker Tobacco Type: Cigarettes Second Hand Exposure: No; Do You Dip or Chew Tobacco: No; Tobacco Cessation Education Requested by Patient: No Hx Alcohol Use: No Hx Substance Use: Yes Substance Use Type Other:: OPIOD ABUSE LISTED WITH FAXED INFORMATION...UNKNOWN FURTHER DETAILS Preferred Language: Greenlandic Communication Ability: Unable Log Loader Required: No Beliefs That Will Affect Care: None Current Living Situation: Half-Way Current Living Situation Comment: [facility] Other Information That Helps Us Care for You: No Feels Safe at Home: Yes Safety Concerns: Feels Safe At This Time Assistive Devices: None, Denture - Upper, Denture - Lower and Glasses Review of Systems Review of Systems: Other HPI/ROS limited to residual aphasia from prior CVA Physical Exam Physical Exam: General: awake, alert, no apparent distress Head: Normocephalic, atraumatic ENT: PERRL, EOMI, no pharyngeal exudate, mucous membranes moist Chest: Rhonchi heard throughout lung [place], on BiPAP Cardiac: Regular rate and rhythm, no murmur, no JVD, normal peripheral pulses, good capillary refill Abdominal: NABS x 4 quadrants, soft, nontender to palpation, no rebound, guarding or tenderness Extremities: Normal inspection, no peripheral edema or erythema, calfs nontender to palpation Psych: Normal mood and affect Neuro: AAO x 3, strength intact bilaterally and rated 5/5, no motor deficits, speech is clear, no peripheral sensory deficits Skin: superficial b/l wrist abrasions, nonbleeding Results & Data Results & Data ([facility]) Vital Signs (Past 12 Hours) Vital Signs Temp Pulse Pulse Resp BP Pulse Ox O2 Del Method 08/12/22 11:30 94 H 16 131/87 97 08/12/22 10:30 106 H 26 H 132/87 08/12/22 10:00 116 H 31 H 139/87 90 08/12/22 10:54 104 H 28 H 96 BiPAP 08/12/22 10:17 95 BiPAP 08/12/22 10:06 BiPAP 08/12/22 10:06 36.6 C 107 H 28 H 139/87 93 BiPAP 08/12/22 10:03 114 H 28 H 93 FiO2 08/12/22 11:30 08/12/22 10:30 08/12/22 10:00 08/12/22 10:54 40 08/12/22 10:17 40 08/12/22 10:06 40 08/12/22 10:06 40 08/12/22 10:03 50 Laboratory Results Abnormal lab results 08/12/22 08/12/22 08/12/22 Range/Units 09:55 09:55 10:00 WBC 34.14 H* (4.8-10.8) K/ul RBC 6.44 H (4.63-6.08) M/uL Hgb 19.4 H (14.0-18.0) g/dl Hct 55.0 H (40.1-51.0) % Neut # (Auto) 29.03 H (1.4-6.5) K/uL [place] # (Auto) 2.38 H (0.24-0.82) K/uL Immature Gran # (Auto) 0.36 H (0.00-0.02) K/uL Sodium 125 L (136-145) mmol/L Potassium 5.5 H (3.5-5.1) mmol/L Chloride 90 L (98-107) mmol/L Anion Gap 12 H (3-11) BUN 53 H (6-23) mg/dl BUN/Creatinine Ratio 38.1 H (10-20) Glucose 608 H* (70-99(Fasting)) mg/dl POC Glucose (70-99) mg/dl AST 8 L (13-39) U/L Ur Specific [place] (1.000-1.030) Urine Glucose (UA) (Negative) Urine Ketones (Negative) SARS-CoV-2 (PCR) POSITIVE A* (Negative) 08/12/22 08/12/22 08/12/22 Range/Units 11:27 13:32 13:35 WBC (4.8-10.8) K/ul RBC (4.63-6.08) M/uL Hgb (14.0-18.0) g/dl Hct (40.1-51.0) % Neut # (Auto) (1.4-6.5) K/uL [place] # (Auto) (0.24-0.82) K/uL Immature Gran # (Auto) (0.00-0.02) K/uL Sodium 129 L (136-145) mmol/L Potassium (3.5-5.1) mmol/L Chloride 96 L (98-107) mmol/L Anion Gap (3-11) BUN 50 H (6-23) mg/dl BUN/Creatinine Ratio 38.5 H (10-20) Glucose 434 H* (70-99(Fasting)) mg/dl POC Glucose 422 H* (70-99) mg/dl AST (13-39) U/L Ur Specific [place] 1.034 H (1.000-1.030) Urine Glucose (UA) 3+ H (Negative) Urine Ketones Trace H (Negative) SARS-CoV-2 (PCR) (Negative) 08/12/22 Range/Units 14:53 WBC (4.8-10.8) K/ul RBC (4.63-6.08) M/uL Hgb (14.0-18.0) g/dl Hct (40.1-51.0) % Neut # (Auto) (1.4-6.5) K/uL [place] # (Auto) (0.24-0.82) K/uL Immature Gran # (Auto) (0.00-0.02) K/uL Sodium (136-145) mmol/L Potassium (3.5-5.1) mmol/L Chloride (98-107) mmol/L Anion Gap (3-11) BUN (6-23) mg/dl BUN/Creatinine Ratio (10-20) Glucose (70-99(Fasting)) mg/dl POC Glucose 415 H* (70-99) mg/dl AST (13-39) U/L Ur Specific [place] (1.000-1.030) Urine Glucose (UA) (Negative) Urine Ketones (Negative) SARS-CoV-2 (PCR) (Negative) Diagnostic Findings Chest X-Ray 08/12/22 10:04 SINGLE VIEW CHEST CLINICAL HISTORY: Sepsis FINDINGS: An AP, portable, upright chest radiograph is compared to study dated 04/16/2022. The examination is degraded by portable technique and apical lordotic positioning. The cardiomediastinal silhouette is unremarkable noting atherosclerotic calcification of the thoracic aorta. Emphysema and chronic interstitial thickening is similar to previous. Postoperative change is seen in the right midlung. Airspace opacities are seen in the mid to lower lungs. No large pleural effusion or pneumothorax is identified. The skeletal structures are osteopenic. There are numerous healed left-sided rib fractures. A left shoulder arthroplasty is in place. IMPRESSION: 1. There are airspace opacities in the lower lungs typical for pneumonia/aspiration pneumonitis. Clinical correlation required and radiographic follow-up to resolution is recommended. 2. Emphysema. ACT 112: Negative or not required by law. Electronically signed by: Douglas Colunga M.D. 08/12/2022 10:33 AM Abdomen/Pelvis CT 08/12/22 10:58 CT ANGIOGRAM OF THE CHEST; CT SCAN OF THE ABDOMEN AND PELVIS WITH IV CONTRAST CLINICAL HISTORY: Aphasia. Leukocytosis. Respiratory distress. COMPARISON STUDY: Chest x-ray dated 08/12/2022. TECHNIQUE: Following the IV administration of 106 of Optiray 320, CT angiogram of the chest is performed from the upper abdomen to the thoracic inlet utilizing the pulmonary embolus protocol. Images are reviewed in the axial, sagittal, coronal planes. 3-D MIPS images are created and assessed. Subsequently, CT scan of the abdomen and pelvis was performed from the lung bases to the proximal femora. Images are reviewed in the axial, sagittal, and coronal planes. IV contrast was administered without complication. A dose lowering technique was utilized adhering to the principles of ALARA. The examinations are degraded by motion artifact. CT DOSE: 1051.15 mGy.cm FINDINGS: CHEST: Thyroid: Imaged portions of the thyroid gland are normal in size and attenuation. Thoracic aorta: There is a sclerotic calcification of the thoracic aorta, which is normal in caliber and demonstrates standard 3-vessel arch anatomy. No dissection is seen. Pulmonary vasculature: The pulmonary trunk is normal in caliber. There are no filling defects identified in the main, lobar, or proximal segmental pulmonary arteries to indicate pulmonary embolus. Evaluation of the distal segmental and subsegmental branches is compromised by motion artifact. Heart: The heart is normal in size and without pericardial effusion. There are coronary artery calcifications. Lungs and pleural spaces: Emphysematous change is noted. Postsurgical changes seen in the right upper lung. The trachea and central airways are clear. Extensive tree-in-bud nodularity seen throughout both lungs with associated patchy groundglass change. More irregular nodular foci are noted. A factory representative nodule at the right apex on image #[id number] measures 10 mm, and within the left lower lobe on image #150 measures 11 mm. No pleural effusion is identified. Foci of parenchymal scarring are seen throughout both lungs. Subpleural fat deposition is noted the right lung base. Mediastinum: There is no mediastinal lymphadenopathy. Esophagus: The esophageal wall appears thickened. Ale: Mildly enlarged hilar nodes measuring up to 12 mm in short axis are likely reactive. Axillae: There is no axillary lymphadenopathy. Bony thorax: The skeletal structures are osteopenic. No lytic or blastic lesions are identified. A left shoulder arthroplasty is in place. Arthritic change is seen in the right shoulder. There is chronic deformity of the ribs seen bilaterally. ABDOMEN AND PELVIS: Liver: The contrast-enhanced liver is normal in size and contour. The liver demonstrates diffusely diminished attenuation indicating steatosis. There is no intrahepatic biliary ductal dilatation. The hepatic veins and portal veins are patent. Gallbladder: Unremarkable. Spleen: Normal in size and attenuation. Pancreas: Unremarkable. Adrenal glands: Unremarkable. Kidneys: The contrast enhanced kidneys are normal in size and without hydronephrosis. The kidneys enhance symmetrically. Abdominal vasculature: There is moderate to advanced atherosclerotic calcification and mild ectasia of the abdominal aorta. Stomach and bowel: A small hiatal hernia is noted: A percutaneous gastrostomy is in place. There is moderate colonic fecal retention. No bowel obstruction is seen. The appendix is well-visualized and normal. Peritoneum: There is no intraperitoneal free air or abdominal ascites. A small hiatal hernia is noted. Lymphadenopathy: A mildly enlarged gastrohepatic node on image #103 measures up to 11 mm short axis. Pelvic viscera: The prostate gland is diminutive and heterogeneous. The bladder and seminal vesicles are normal as imaged. There are small bilateral fat- containing inguinal hernias. Skeletal structures: The skeletal structures are osteopenic. There is mild to moderate lumbosacral spondylosis. Bilateral pars defects are noted at L5 with grade 1 anterolisthesis at L5-S1. No lytic or blastic lesions are seen. There a re healed left pubic ring fractures. IMPRESSION: 1. Emphysema with postoperative change from right-sided pulmonary resection. 2. There is no evidence of pulmonary embolus in the main, lobar, or proximal segmental pulmonary arteries. Evaluation of the distal segmental and subsegmental branches is compromised by motion artifact. 3. There is extensive tree-in-bud nodularity and groundglass consolidation seen throughout both lungs. The appearance suggests an infectious/inflammatory pneumonitis. Clinical correlation will be required. A follow-up chest CT in 3-4 months time is recommend diagnostic and resolution, and to evaluate for underlying nodularity. 4. No acute infectious or inflammatory findings are identified in the abdomen or pelvis. 5. Hepatic steatosis. 6. The esophageal wall appears circumferentially thickened. Correlate clinically for evidence of esophagitis. 7. A mildly enlarged gastrohepatic node is nonspecific and may be reactive. 8. Additional findings as above. ACT 112: Negative or not required by law. Electronically signed by: Douglas Colunga M.D. 08/12/2022 12:27 PM Chest CTA 08/12/22 10:58 CT ANGIOGRAM OF THE CHEST; CT SCAN OF THE ABDOMEN AND PELVIS WITH IV CONTRAST CLINICAL HISTORY: Aphasia. Leukocytosis. Respiratory distress. COMPARISON STUDY: Chest x-ray dated 08/12/2022. TECHNIQUE: Following the IV administration of 106 of Optiray 320, CT angiogram of the chest is performed from the upper abdomen to the thoracic inlet utilizing the pulmonary embolus protocol. Images are reviewed in the axial, sagittal, coronal planes. 3-D MIPS images are created and assessed. Subsequently, CT scan of the abdomen and pelvis was performed from the lung bases to the proximal femora. Images are reviewed in the axial, sagittal, and coronal planes. IV contrast was administered without complication. A dose lowering technique was utilized adhering to the principles of ALARA. The examinations are degraded by motion artifact. CT DOSE: 1051.15 mGy.cm FINDINGS: CHEST: Thyroid: Imaged portions of the thyroid gland are normal in size and attenuation. Thoracic aorta: There is a sclerotic calcification of the thoracic aorta, which is normal in caliber and demonstrates standard 3-vessel arch anatomy. No dissection is seen. Pulmonary vasculature: The pulmonary trunk is normal in caliber. There are no filling defects identified in the main, lobar, or proximal segmental pulmonary arteries to indicate pulmonary embolus. Evaluation of the distal segmental and subsegmental branches is compromised by motion artifact. Heart: The heart is normal in size and without pericardial effusion. There are coronary artery calcifications. Lungs and pleural spaces: Emphysematous change is noted. Postsurgical changes seen in the right upper lung. The trachea and central airways are clear. Extensive tree-in-bud nodularity seen throughout both lungs with associated patchy groundglass change. More irregular nodular foci are noted. A factory representative nodule at the right apex on image #[id number] measures 10 mm, and within the left lower lobe on image #150 measures 11 mm. No pleural effusion is identified. Foci of parenchymal scarring are seen throughout both lungs. Subpleural fat deposition is noted the right lung base. Mediastinum: There is no mediastinal lymphadenopathy. Esophagus: The esophageal wall appears thickened. Ale: Mildly enlarged hilar nodes measuring up to 12 mm in short axis are likely reactive. Axillae: There is no axillary lymphadenopathy. Bony thorax: The skeletal structures are osteopenic. No lytic or blastic lesions are identified. A left shoulder arthroplasty is in place. Arthritic change is seen in the right shoulder. There is chronic deformity of the ribs seen bi laterally. ABDOMEN AND PELVIS: Liver: The contrast-enhanced liver is normal in size and contour. The liver demonstrates diffusely diminished attenuation indicating steatosis. There is no intrahepatic biliary ductal dilatation. The hepatic veins and portal veins are patent. Gallbladder: Unremarkable. Spleen: Normal in size and attenuation. Pancreas: Unremarkable. Adrenal glands: Unremarkable. Kidneys: The contrast enhanced kidneys are normal in size and without hydronephrosis. The kidneys enhance symmetrically. Abdominal vasculature: There is moderate to advanced atherosclerotic calcification and mild ectasia of the abdominal aorta. Stomach and bowel: A small hiatal hernia is noted: A percutaneous gastrostomy is in place. There is moderate colonic fecal retention. No bowel obstruction is seen. The appendix is well-visualized and normal. Peritoneum: There is no intraperitoneal free air or abdominal ascites. A small hiatal hernia is noted. Lymphadenopathy: A mildly enlarged gastrohepatic node on image #103 measures up to 11 mm short axis. Pelvic viscera: The prostate gland is diminutive and heterogeneous. The bladder and seminal vesicles are normal as imaged. There are small bilateral fat- containing inguinal hernias. Skeletal structures: The skeletal structures are osteopenic. There is mild to moderate lumbosacral spondylosis. Bilateral pars defects are noted at L5 with grade 1 anterolisthesis at L5-S1. No lytic or blastic lesions are seen. There are healed left pubic ring fractures. IMPRESSION: 1. Emphysema with postoperative change from right-sided pulmonary resection. 2. There is no evidence of pulmonary embolus in the main, lobar, or proximal segmental pulmonary arteries. Evaluation of the distal segmental and subsegmental branches is compromised by motion artifact. 3. There is extensive tree-in-bud nodularity and groundglass consolidation seen throughout both lungs. The appearance suggests an infectious/inflammatory pneumonitis. Clinical correlation will be required. A follow-up chest CT in 3-4 months time is recommend diagnostic and resolution, and to evaluate for underlying nodularity. 4. No acute infectious or inflammatory findings are identified in the abdomen or pelvis. 5. Hepatic steatosis. 6. The esophageal wall appears circumferentially thickened. Correlate clinically for evidence of esophagitis. 7. A mildly enlarged gastrohepatic node is nonspecific and may be reactive. 8. Additional findings as above. ACT 112: Negative or not required by law. Electronically signed by: Douglas Colunga M.D. 08/12/2022 12:27 PM Code Status & VTE Plan Code Status Full Code. Supervising Physician Co-Signing Physician Notes I personally saw and examined the patient. I verified all cuellar points and agree with Yolanda Brantley PA-C with the following exceptions and/or additions: 61-year-old male presents to the ER due to a respiratory distress. Patient is a resident of [facility]. EMS initially called due to concern for self-injurious behavior however was noted to be tachypneic and in respiratory distress on arrival. He was diagnosed with COVID on July 29 and has been treated with steroids. Currently on clindamycin for concerns for aspiration pneumonia. Unable to get any history from the patient due to aphasia. When I entered the room his main concern was gesturing to drink water. He was given a few sips of water and clearly aspirated at bedside while still requesting more water. O/E patient is alert and chronically aphasic, Chest b/l rhonchi anteriorly, HS RRR, no murmurs, Abdo SNT A/P COVID-19 -initial diagnosis on July 29 however is still symptomatic therefore will continue on isolation precautions. Since he is over 10 days of steroids will discontinue further steroids at this time, especially since they are c ausing steroid-induced hyperglycemia. HAP/aspiration PNA - Vancomycin + zosyn pending MRSA nasal swab. SLT assessment. Suspect acutely more risk from aspiration due to COVID-19 diagnosis and acutely dehydrated due to his glucose levels running high due to steroid-induced hyperglycemia. Steroid-induced hyperglycemia with type 2 diabetes -recommended insulin intravenously given Solu-Medrol was given on route in addition to mild hyperkalemia unlikely to overshoot/undershoot subcutaneous dosing at this time. Likely can be transitioned off intravenous insulin tomorrow. Esophagitis -noted on CT scan. 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
[2022-08-12] MEDS ORDERED: STAT INSULIN DRIP STA (12:55)
[2022-08-12] MEDS ORDERED: STAT IV STA (13:03)
[2022-08-12] MEDS ORDERED: MODERATE STRESS LEVEL ONE (13:03)
[2022-08-12] MEDS ORDERED: INSULIN PROTOCOL GOAL RANGE ONE (13:03)
[2022-08-12] MEDS ORDERED: DEXTROSE 50% 50 ML SYRINGE IV PRN ×2 (13:15→15:13)
[2022-08-12] MEDS ORDERED: PANTOprazole 40 MG in SYRINGE 0 ML IV ONE (13:15)
[2022-08-12] MEDS ORDERED: INSULIN REGULAR 250 UNITS in SODIUM CHLORIDE 0.9% 247.5 ML IV SCH (13:15)
[2022-08-12] MEDS ORDERED: GLUCAGON FOR INJ 1 MG VIAL IM PRN (13:15)
[2022-08-12] MEDS ORDERED: GLUCOSE 40% GEL 15 GM TUBE PO PRN ×2 (13:15→15:13)
[2022-08-12] MEDS ORDERED: CARBOHYDRATES FOR HYPOGLYCEMIA PO PRN ×2 (13:15→15:13)
[2022-08-12] MEDS ORDERED: NovoLIN-R BOLUS FROM BAG IV ONE (13:15)
[2022-08-12] MEDS ORDERED: GLUCOSE 10 TAB/TUBE PO PRN ×2 (13:15→15:13)
[2022-08-12] MEDS ORDERED: Patient's HEIGHT &/or WEIGHT Needed SCH (13:30)
[2022-08-12] MEDS ORDERED: Patient's HEIGHT &/or WEIGHT Needed STA (14:19)
[2022-08-12 14:25] LABS: Anion Gap 8 (3-11); BUN Creatinine Ratio 38.5 (10-20); Blood Urea Nitrogen 50 mg/dl (6-23); Calcium 8.5 mg/dl (8.5-10.1); Carbon Dioxide 25 mmol/L (21-32); Chloride 96 mmol/L (98-107); Est GFR (African American) 68.3 ml/min; Est GFR (Non-African American) 58.9 ml/min; Glucose 434 mg/dl (70-99(Fasting)); Magnesium 2.2 mg/dl (1.7-2.4); Phosphorus 3.6 mg/dl (2.5-4.9); Potassium 4.7 mmol/L (3.5-5.1); Sodium 129 mmol/L (136-145)
[2022-08-12] MEDS ORDERED: PHARMACY GLYCEMIC MGMT CONSULT PRN (15:13)
[2022-08-12] MEDS ORDERED: ONDANSETRON INJ 2 MG/ML 2 ML VIAL IV PRN (15:13)
[2022-08-12] MEDS ORDERED: GLUCAGON FOR INJ 1 MG VIAL SQ PRN (15:13)
[2022-08-12] MEDS ORDERED: guaiFENesin SUGAR FREE 100 MG/5 ML UDC PO PRN (15:13)
[2022-08-12] MEDS ORDERED: DICLOFENAC SOD 1% GEL 100 GM TUBE EXT PRN (15:13)
[2022-08-12] MEDS ORDERED: bisacodyL 10 MG SUPP PR PRN (15:13)
[2022-08-12] MEDS ORDERED: ALUMINUM/MAGNESIUM SUSP 30 ML UDC PO PRN (15:13)
[2022-08-12] MEDS ORDERED: NON-FORMULARY MEDICATION (Zinc Oxide 20 % Ointment) TOP SCH (15:13)
[2022-08-12] MEDS ORDERED: PIPERACILLIN/TAZOBACTAM 4.5 GM in DEXTROSE 5% 100 ML IV SCH (15:13)
[2022-08-12] MEDS ORDERED: POLYETHYLENE (MIRALAX) 17 GM PACK PO PRN (15:13)
[2022-08-12] MEDS: ACETYLCYSTEINE 10% INHAL SOLN 4 ML **DISPENSED BY RESP. INH SCH ×2 (15:31→19:41)
[2022-08-12] MEDS ORDERED: ALBUTEROL 0.083% NEBU SOLN 3 ML VIAL NEB PRN (16:10)
[2022-08-12] MEDS: GABAPENTIN 300 MG CAP PO SCH ×2 (17:44→20:54)
[2022-08-12] MEDS: INSULIN ASPART PER UNIT SC SCH ×2 (17:45→20:04)
[2022-08-12] MEDS: ENOXAPARIN INJ 40 MG/0.4 ML SYR SQ SCH (17:45)
[2022-08-12] MEDS: PIPERACILLIN/TAZOBACTAM 3.375 GM in DEXTROSE 5% 100 ML IV SCH (18:15)
[2022-08-12] MEDS: LACTATED RINGER'S 1,000 ML IV SCH (19:39)
[2022-08-12] MEDS ORDERED: PNEUMOCOCCAL Polysaccharide Vaccine 25mcg/0.5mL vial/Syr IM ONE (20:15)
[2022-08-12 20:25] LABS: BUN Creatinine Ratio 36.1 (10-20); Calcium 8.3 mg/dl (8.5-10.1); Creatinine Clr Calc Pharmacy 76.8 ml/min; Est GFR (African American) 85.4 ml/min; Est GFR (Non-African American) 73.7 ml/min; Magnesium 2.2 mg/dl (1.7-2.4); Phosphorus 3.2 mg/dl (2.5-4.9); Potassium 4.6 mmol/L (3.5-5.1)
[2022-08-12] MEDS ORDERED: BUTT PASTE (ZINC OXIDE 16%) 171 APPLN/57 GM JAR EXT SCH (21:00)
[2022-08-12] MEDS: OLODATEROL HCL 2.5MCG/ACTUATION 60 PUFFS/INHALER INH SCH (22:11)
[2022-08-13] MEDS ORDERED: VANCOMYCIN HCL 1,500 MG in SODIUM CHLORIDE 0.9% 500 ML IV SCH
[2022-08-13] MEDS: PIPERACILLIN/TAZOBACTAM 3.375 GM in DEXTROSE 5% 100 ML IV SCH ×4 (01:30→23:56)
[2022-08-13] MEDS: LACTATED RINGER'S 1,000 ML IV SCH ×3 (03:04→20:58)
[2022-08-13] MEDS ORDERED: INSULIN ASPART PER UNIT SC SCH ×2 (07:05→07:30)
[2022-08-13] MEDS ORDERED: LANTUS PER UNIT CHARGE SQ ONE ×2 (07:15→21:00)
[2022-08-13] MEDS: ACETYLCYSTEINE 10% INHAL SOLN 4 ML **DISPENSED BY RESP. INH SCH ×2 (07:22→11:34)
[2022-08-13 08:08] LABS: Estimated Average Glucose 243 mg/dl; Hemoglobin A1C 10.1 % (4.5-5.6)
[2022-08-13 08:12] LABS: Basophils # (auto) 0.03 K/uL (0-0.2); Basophils % (auto) 0.1 %; Eosinophils # (auto) 0.01 K/uL (0-0.50); Hematocrit (blood only) 45.1 % (40.1-51.0); Hemoglobin 15.5 g/dl (14.0-18.0); Immature Granulocytes # (auto) 0.16 K/uL (0.00-0.02); Immature Granulocytes % (auto) 0.7 %; Lymphocytes # (auto) 2.09 K/uL (1.2-3.4); Lymphocytes % (auto) 9.7 %; Mean Corpuscular Hemoglobin 29.9 pg (25.0-34.0); Mean Corpuscular Hgb Conc 34.4 g/dL (32.0-36.0); Mean Corpuscular Volume 86.9 fL (80.0-100.0); Mean Platelet Volume 10.6 fL (9.4-12.4); Monocytes # (auto) 1.31 K/uL (0.24-0.82); Monocytes % (auto) 6.1 %; Neutrophils # (auto) 17.84 K/uL (1.4-6.5); Neutrophils % (auto) 83.4 %; Platelet Count 267 K/uL (130-400); RDW Coefficient of Variation 13.1 % (11.5-14.5); RDW Standard Deviation 41.3 fL (36.4-46.3); Red Blood Count 5.19 M/uL (4.63-6.08); White Blood Count 21.44 K/ul (4.8-10.8)
[2022-08-13] MEDS: BUTT PASTE (ZINC OXIDE 16%) 171 APPLN/57 GM JAR EXT SCH (08:32)
[2022-08-13] MEDS: UMECLIDINIUM BROMIDE 62.5MCG/BLISTER 7 PUFFS/INHALER INH SCH (08:32)
[2022-08-13] MEDS: OLODATEROL HCL 2.5MCG/ACTUATION 60 PUFFS/INHALER INH SCH (08:33)
[2022-08-13] MEDS: NYSTATIN SUSP 500,000 U/5 ML UDC PO SCH ×4 (08:35→21:00)
--- NOTE | 2022-08-13 08:52 | Pharmacy Report ---
Pharmacy Glycemic Short Note 2 - Date of Service August 13, 2022 - Glycemic Short BSG Results (Last 24 hours): 08/12/22 08/12/22 08/12/22 09:55 13:32 13:35 Glucose 608 H* 434 H* POC Glucose 422 H* 08/12/22 08/12/22 08/12/22 14:53 15:51 16:56 Glucose POC Glucose 415 H* 425 H* 364 H* 08/12/22 08/12/22 08/12/22 18:25 19:28 19:47 Glucose 344 H* POC Glucose 348 H* 306 H* 08/12/22 08/12/22 08/12/22 20:29 21:32 22:27 Glucose POC Glucose 284 H 260 H 212 H 08/12/22 08/13/22 08/13/22 23:27 00:25 01:26 Glucose POC Glucose 286 H 145 H 151 H 08/13/22 08/13/22 08/13/22 02:26 02:29 02:31 Glucose POC Glucose 61 L* 77 64 L* 08/13/22 08/13/22 08/13/22 02:57 03:27 03:46 Glucose POC Glucose 129 H 96 146 H 08/13/22 08/13/22 08/13/22 04:29 05:27 06:30 Glucose POC Glucose 161 H 197 H 141 H 08/13/22 07:29 Glucose POC Glucose 128 H OUTPATIENT ANTIDIABETIC REGIMEN: * n/a * HbA1c 10.1% (08/13/22) ASSESSMENT: * DC is a 61 year old male who presented from [facility] via EMS on 08/12/22 with acute hypoxemic respiratory failure * Vancomycin/Zosyn initiated upon presentation given concern for pneumonia (subsequently de-escalated to Zosyn monotherapy) * Presumed new diagnosis of T2DM based on HbA1c of 10.1% and lack of history noted in PMH * Acute hyperglycemia on admission (BSG of 608 mg/dL), insulin infusion initiated and continued throughout the day/evening yesterday * Insulin gtt max rate overnight of 10.4 units/hr, more recently ~2 units/hr, gtt ultimately held for most recent BSG of 128 mg/dL * Will transition insulin gtt to SC basal/bolus today, patient remains NPO so will give ~0.2 unit/kg Lantus dose this morning and reassess for increased dose this afternoon. Patient remains NPO at this time. * Patient will require antidiabetic regimen upon discharge (CDE consulted) PLAN FOR INPATIENT GLYCEMIC CONTROL: * Basal insulin * Lantus 16 units SC x 1 this morning (~0.2 unit/kg) * Lantus 0-15 units SC HS (see EHR for details) - to provide dose ~up to weight-based stress of 2 * Bolus insulin * NovoLog per scale ACHS or Q6hrs while NPO * Goal Range: Low 110 mg/dL - High 140 mg/dL * Correction Factor: 25 mg/dL/unit * Nutritional / Prandial insulin per carb ratio of 1 unit per 8 grams CHO consumed
[2022-08-13] MEDS ORDERED: VANCOMYCIN HCL 1,250 MG in SODIUM CHLORIDE 0.9% 500 ML IV SCH (09:00)
[2022-08-13] MEDS: CHOLECALCIFEROL 1,000 UNITS 25 MCG TAB PO SCH (09:26)
[2022-08-13] MEDS: lisinopril 2.5 MG TAB PO SCH (09:26)
[2022-08-13] MEDS: ASCORBIC ACID 500 MG TAB PO SCH (09:26)
[2022-08-13] MEDS: DOXAZOSIN MESYLATE 1 MG TAB PO SCH (09:26)
[2022-08-13] MEDS: CLOPIDOGREL BISULFATE 75 MG TAB PO SCH (09:26)
[2022-08-13] MEDS: ASPIRIN 81 MG ECTAB PO SCH (09:26)
[2022-08-13] MEDS: GABAPENTIN 300 MG CAP PO SCH ×3 (09:27→21:00)
[2022-08-13 10:09] LABS: Creatinine Clr Calc Pharmacy 82.5 ml/min; Est GFR (African American) 93.7 ml/min; Est GFR (Non-African American) 80.9 ml/min; Phosphorus 3.2 mg/dl (2.5-4.9); Potassium 4.3 mmol/L (3.5-5.1)
[2022-08-13] MEDS: INSULIN ASPART PER UNIT SC SCH ×3 (11:19→20:52)
[2022-08-13] MEDS: PANTOprazole 40 MG in SYRINGE 0 ML IV SCH (11:22)
--- NOTE | 2022-08-13 12:47 | Communication Note ---
Date of Service: August 13, 2022 consult request reviewed. Patient has difficulty communicating at baseline due to aphasia and is currently in isolation. Liaison spoke with David, reconfirmed 07/29 dx COVID, appears daily decadron since with bingeing on food. 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 Was found on toilet at SNF with safety razor, will only have electric razor and plastic silverware on return. differential includes delirium, COVID encephalopathy, mixed episode due to steroids--multiple metabolic derangements with sepsis, hypoxia (found with O2 sats in 70s), steroid, hyponatremia. does not appear to be acutely agitated but reached out to hospitalist to determine best timing for full consultation. If requires prn would suggest low dose Haldol for delirium, less likely to affect blood sugars than Zyprexa was hyperphagic while on steroids.
[2022-08-13] MEDS: ENOXAPARIN INJ 40 MG/0.4 ML SYR SQ SCH (15:51)
--- NOTE | 2022-08-13 18:10 | Hospitalist Progress Note ---
Date of Service August 13, 2022 Assessment & Plan (1) Acute hypoxemic respiratory failure: Plan: -Presented with acute hypoxic respiratory failure, bilateral multifocal pneumonia presented on the imaging studies, responded well, white cell count dropped to 25,000 today, currently on room air, continue current management, possible discharge within next 24 to 48 hours, off BiPAP - WBC 34, lactate and procal wnl. - Suspect leukocytosis is in part due to severe dehydration/reactive with elevated BSG. - CXR: There are airspace opacities in the lower lungs typical for pneumonia/aspiration pneumonitis. Clinical correlation required and radiographic follow-up to resolution is recommended. Emphysema. - Chest CTA: There is extensive tree-in-bud nodularity and groundglass consolidation seen throughout both lungs. The appearance suggests an infectious/inflammatory pneumonitis. Clinical correlation will be required. A follow-up chest CT in 3-4 months time is recommend diagnostic and resolution, and to evaluate for underlying nodularity. There is no evidence of pulmonary embolus in the main, lobar, or proximal segmental pulmonary arteries. Evaluation of the distal segmental and subsegmental branches is compromised by motion artifact. Emphysema with postoperative change from right-sided pulmonary resection. - Covering with vancomycin and Zosyn for now for healthcare associated pneumonia, blood cultures collected in ED. - Will continue home inhalers, incentive spirometry/flutter valve. Tylenol for pain/fever. - NPO except meds. Aspiration precautions. Speech evaluation ordered. - LRs overnight. P. (2) Pneumonia: (3) Aphasia following cerebral infarction: Plan: - Patient history of stroke complicated with expressive aphasia, only can speak few words, extensive PEG tube, patient seen prior and today by speech, patient can answer regular diet, however after initiating him a regular diet he complains of abdominal pain, no patient full liquid diet patient would like to take PEG tube out before discharging from the hospital, will be discussed with the GI if we need to stop aspirin and Plavix. - Continue ASA + Plavix. (4) Acute hyperglycemia: Plan: - Secondary to daily Decadron since 07/29 for COVID infection, with ? history of DM2. Not on any meds for this per [facility] report. - Presented with BSG of 608, AG 8. - Started on insulin drip, pharmacy consulted to assist with glycemic management. - BMP/electrolytes Q6h/daily. - Oral steroids will be discontinued as he is >10 days out from COVID infection. - Suspect a degree of his leukocytosis is due to dehydration secondary to elevated BSG as his Hgb is also quite elevated at 19.4. (5) Essential (primary) hypertension: Plan: - Continue lisinopril, hold for SBP < 100. (6) COPD (chronic obstructive pulmonary disease): Plan: - Acute respiratory failure secondary to pneumonia, on BiPAP. - Continue home inhalers. (7) BPH (benign prostatic hyperplasia): Plan: - Continue doxazosin. (8) Wrist laceration: Plan: - EMS initially called to [facility] due to superficial b/l wrist lacerations. None are deep, patient currently denying active SI/HI. - Given the above findings above as well as patient pulling at PEG tube, patient will have 1-1 sitter and a psychiatry consult while admitted. (9) Esophagitis: Plan: - Noted on CT, no complaints of abdominal pain, n/v, melena. - IV PPI daily. Plan - Admit to PCU. - SCDs, Lovenox for VTE PPx. Admission and Anticipated Discharge Date Admission Date: August 12, 2022 Review of Systems Review of Systems: HPI/ROS limited to residual aphasia from prior CVA Physical Exam Physical Exam: General: awake, alert, no apparent distress Head: Normocephalic, atraumatic ENT: PERRL, EOMI, no pharyngeal exudate, mucous membranes moist Chest: Rhonchi heard throughout lung is[place], on BiPAP Cardiac: Regular rate and rhythm, no murmur, no JVD, normal peripheral pulses, good capillary refill Abdominal: NABS x 4 quadrants, soft, nontender to palpation, no rebound, guarding or tenderness Extremities: Normal inspection, no peripheral edema or erythema, calfs nontender to palpation Psych: Normal mood and affect Neuro: AAO x 3, strength intact bilaterally and rated 5/5, no motor deficits, speech is clear, no peripheral sensory deficits Skin: superficial b/l wrist abrasions, nonbleeding Results & Data Results & Data ([facility]) Vital Signs (Past 12 Hours) Vital Signs Temp Pulse Pulse Resp BP Pulse Ox Pulse Ox 08/13/22 16:12 98 H 08/13/22 15:13 98 08/13/22 15:45 98 08/13/22 14:25 12/20/22 09:00 08/13/22 11:04 36.3 C L 70 18 132/63 96 08/13/22 07:00 54 L 08/13/22 07:22 54 L 18 95 08/13/22 07:03 36.3 C L 57 L 18 155/79 H 100 Pulse Ox O2 Del Method O2 Del Method O2 Flow Rate O2 Flow Rate O2 Flow Rate 08/13/22 16:12 08/13/22 15:13 Nasal Cannula 3 08/13/22 15:45 08/13/22 14:25 97 3 08/13/22 09:00 Nasal Cannula 2 08/13/22 11:04 Nasal Cannula 3 08/13/22 07:00 08/13/22 07:22 Oxymask 5 08/13/22 07:03 Oxymask 5 PG Care Time/CCT Total # of Minutes Spent Total Time Spent with Patient: Total time spent is greater than 50% in coordination of care (as documented) at patient's floor/unit and/or counseling patient: Coding Level of Care Code 96213 Inpt Consult Level 2 Diagnoses Acute hypoxemic respiratory failure J96.01 Pneumonia J18.9 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
[2022-08-13] MEDS: ACETAMINOPHEN 325 MG TAB PO PRN (21:40)
--- NOTE | 2022-08-13 22:04 | Electrocardiogram Report ---
Test Reason : Blood Pressure : / mmHG Vent. Rate : 116 BPM Atrial Rate : 116 BPM P-R Int : 132 ms QRS Dur : 068 ms QT Int : 312 ms P-R-T Axes : 079 039 073 degrees QTc Int : 433 ms Poor data quality, interpretation may be adversely affected Sinus tachycardia Right atrial enlargement Borderline ECG When compared with ECG of 16-APR-2022 00:18, DC interval has decreased Vent. rate has increased BY 60 BPM Confirmed by Jamarcus Chinchilla ([id number]) on 08/13/2022 10:04:16 PM Referred By: REFERRED SELF Confirmed By:Jamarcus Chinchilla
[2022-08-14] MEDS: LACTATED RINGER'S 1,000 ML IV SCH ×2 (05:29→14:02)
[2022-08-14] MEDS: LANTUS PER UNIT CHARGE SQ SCH ×2 (08:35→20:53)
[2022-08-14] MEDS: INSULIN ASPART PER UNIT SC SCH ×4 (08:35→20:52)
[2022-08-14] MEDS: CLOPIDOGREL BISULFATE 75 MG TAB PO SCH (08:44)
[2022-08-14] MEDS: CHOLECALCIFEROL 1,000 UNITS 25 MCG TAB PO SCH (08:44)
[2022-08-14] MEDS: ASPIRIN 81 MG ECTAB PO SCH (08:44)
[2022-08-14] MEDS: ASCORBIC ACID 500 MG TAB PO SCH (08:44)
[2022-08-14] MEDS: DOXAZOSIN MESYLATE 1 MG TAB PO SCH (08:45)
[2022-08-14] MEDS: NYSTATIN SUSP 500,000 U/5 ML UDC PO SCH ×4 (08:45→19:52)
[2022-08-14] MEDS: GABAPENTIN 300 MG CAP PO SCH ×3 (08:45→19:53)
[2022-08-14] MEDS: lisinopril 2.5 MG TAB PO SCH (08:45)
[2022-08-14] MEDS: OLODATEROL HCL 2.5MCG/ACTUATION 60 PUFFS/INHALER INH SCH (08:46)
[2022-08-14] MEDS: UMECLIDINIUM BROMIDE 62.5MCG/BLISTER 7 PUFFS/INHALER INH SCH (08:46)
[2022-08-14] MEDS: BUTT PASTE (ZINC OXIDE 16%) 171 APPLN/57 GM JAR EXT SCH (08:47)
[2022-08-14] MEDS: PIPERACILLIN/TAZOBACTAM 3.375 GM in DEXTROSE 5% 100 ML IV SCH ×2 (09:27→16:53)
--- NOTE | 2022-08-14 11:55 | Communication Note ---
Date of Service: August 14, [address] Gutierrez confirms no acute management issue pending full consult. Remains on 02 with productive cough and garbled speech at baseline, elevated WBC. Liaison spoke with brother for collateral yesterday who outlined a significant D&A hx. Possible the SIB during his delirium was actually seeking pain meds and possible concerns for intoxication on moutwash as a contributing factor. per liaison on 08/13/22: Call placed to patient's brother, Kevin, for collateral. No patient information was provided to Kevin. Kevin reports patient has an extensive history of substance abuse including ETOH, Crack cocaine, and opioids. He has had ~ 14 DUIs. Patient experienced a stroke in ~ December of 2020, patient laid in his house for 6 days before calling 911. Patient went to a nursing facility called [facility] and then transferred to [facility] to continue rehab. Patient often will seek pain medications and [facility] staff were concerned that he was drinking mouth wash since was running out so frequently. Kevin now buys alcohol free mouth wash for patient. 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 Patient is and going through a divorce. His also abuses substances and is unable to fully function most days. Kevin is now patient's POA and opted to give patient money to finalize his divorce. The goal is for patient to eventually get an apartment with services and live independently. Kevin is concerned patient is going to go back to using substances once he is out of [facility].
[2022-08-14] MEDS: PANTOprazole 40 MG in SYRINGE 0 ML IV SCH (12:51)
[2022-08-14 13:21] LABS: Basophils # (auto) 0.01 K/uL (0-0.2); Basophils % (auto) 0.1 %; Eosinophils # (auto) 0.16 K/uL (0-0.50); Eosinophils % (auto) 1.3 %; Hematocrit (blood only) 46.2 % (40.1-51.0); Hemoglobin 15.7 g/dl (14.0-18.0); Immature Granulocytes # (auto) 0.06 K/uL (0.00-0.02); Immature Granulocytes % (auto) 0.5 %; Lymphocytes # (auto) 2.67 K/uL (1.2-3.4); Lymphocytes % (auto) 20.9 %; Mean Corpuscular Hemoglobin 29.9 pg (25.0-34.0); Mean Platelet Volume 10.9 fL (9.4-12.4); Monocytes # (auto) 0.89 K/uL (0.24-0.82); Neutrophils % (auto) 70.2 %; Platelet Count 239 K/uL (130-400); RDW Coefficient of Variation 12.8 % (11.5-14.5); RDW Standard Deviation 41.4 fL (36.4-46.3); Red Blood Count 5.25 M/uL (4.63-6.08); White Blood Count 12.79 K/ul (4.8-10.8)
--- NOTE | 2022-08-14 14:56 | Fluoroscopy Report ---
FL video swallow CLINICAL HISTORY: r/o worsening dysphagia TECHNIQUE: Video fluoroscopy of the pharyngeal region was performed as barium mixtures of varying con sistencies were administered to the patient by the speech pathologist. A formal esophagram was not pe rformed. Comparison: Comparison is made to video swallow study 04/23/2022 FINDINGS: Total fluoroscopy time: 2.8 minutes. Aspiration with cough was seen with thin and mildly thick liquids. Pooling of barium was noted in the bilateral piriform sinuses and valleculae. IMPRESSION: Aspiration was seen. Please see the speech pathology report for further details. ACT 112: Negative or not required by law. Electronically signed by: Yanick Coulter M.D. 08/14/2022 2:54 PM
[2022-08-14] MEDS: ENOXAPARIN INJ 40 MG/0.4 ML SYR SQ SCH (16:53)
--- NOTE | 2022-08-14 18:22 | Hospitalist Progress Note ---
Date of Service August 14, 2022 Assessment & Plan (1) Acute hypoxemic respiratory failure: Plan: -Presented with acute hypoxic respiratory failure, bilateral multifocal pneumonia presented on the imaging studies, responded well, white cell count dropped to 12,000 today, currently on room air, stop IV Zosyn, switch to Augmentin -Presented with WBC 34, lactate and procal wnl. -On exam today patient had wheezing, start prednisone current, continue nebulizer treatment - CXR: There are airspace opacities in the lower lungs typical for pneumonia/aspiration pneumonitis. Clinical correlation required and radiographic follow-up to resolution is recommended. Emphysema. - Chest CTA: There is extensive tree-in-bud nodularity and groundglass consolidation seen throughout both lungs. The appearance suggests an infectious/inflammatory pneumonitis. Clinical correlation will be required. A follow-up chest CT in 3-4 months time is recommend diagnostic and resolution, and to evaluate for underlying nodularity. There is no evidence of pulmonary embolus in the main, lobar, or proximal segmental pulmonary arteries. Evaluation of the distal segmental and subsegmental branches is compromised by motion artifact. Emphysema with postoperative change from right-sided pulmonary resection. High risk of aspiration followed by speech (2) Pneumonia: Plan: The plan is as mentioned above (3) Aphasia following cerebral infarction: Plan: - Patient history of stroke complicated with expressive aphasia, only can speak few words, status post PEG tube, Complaint of having abdominal pain after he was started on carbohydrate consistent diet, switch to full liquid, will advance diet again today to carbohydrate consistent diet (4) Acute hyperglycemia: Plan: - Secondary to daily Decadron since 07/29 for COVID infection, with ? history of DM2. Not on any meds for this per [facility] report. - Presented with BSG of 608, AG 8. - Started on insulin drip, pharmacy consulted to assist with glycemic management. (5) Essential (primary) hypertension: Plan: - Continue lisinopril, hold for SBP < 100. Blood pressure fairly managed (6) COPD (chronic obstructive pulmonary disease): Plan: - Continue inhalers, continue inhaler, today patient had wheezing on exam, started on prednisone 40 mg daily - Continue home inhalers. (7) BPH (benign prostatic hyperplasia): Plan: - Continue doxazosin. (8) Wrist laceration: Plan: - EMS initially called to [facility] due to superficial b/l wrist lacerations. None are deep, patient currently denying active SI/HI. - Given the above findings above as well as patient pulling at PEG tube, patient will have 1-1 sitter and a psychiatry consult while admitted. (9) Esophagitis: Plan: - Noted on CT, no complaints of abdominal pain, n/v, melena. - IV PPI daily. 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, case management assistant , Admission and Anticipated Discharge Date Admission Date: August 12, 2022 Physical Exam Physical Exam: General: awake, alert, no apparent distress Head: Normocephalic, atraumatic ENT: PERRL, EOMI, no pharyngeal exudate, mucous membranes moist Chest: Rhonchi heard throughout lung [place], on BiPAP Cardiac: Regular rate and rhythm, no murmur, no JVD, normal peripheral pulses, good capillary refill Abdominal: NABS x 4 quadrants, soft, nontender to palpation, no rebound, guarding or tenderness Extremities: Normal inspection, no peripheral edema or erythema, calfs nontender to palpation Psych: Normal mood and affect Neuro: AAO x 3, strength intact bilaterally and rated 5/5, no motor deficits, speech is clear, no peripheral sensory deficits Skin: superficial b/l wrist abrasions, nonbleeding Results & Data Results & Data ([facility]) Vital Signs (Past 12 Hours) Vital Signs Temp Pulse Pulse Resp BP Pulse Ox O2 Del Method 08/14/22 16:00 72 08/14/22 15:00 08/14/22 12:00 36.7 C 95 H 18 130/84 95 Nasal Cannula 08/14/22 09:00 Nasal Cannula 08/14/22 08:00 50 L 08/14/22 08:45 36.5 C 62 18 108/63 95 Nasal Cannula O2 Del Method O2 Flow Rate O2 Flow Rate 08/14/22 16:00 08/14/22 15:00 Nasal Cannula 3 08/14/22 12:00 2 08/14/22 09:00 3 08/14/22 08:00 08/14/22 08:45 PG Care Time/CCT Total # of Minutes Spent Total Time Spent with Patient: Total time spent is greater than 50% in coordination of care (as documented) at patient's floor/unit and/or counseling patient: Coding Level of Care Code 52009 Inpt Consult Level 3 Diagnoses Acute hypoxemic respiratory failure J96.01 Pneumonia J18.9 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
[2022-08-14] MEDS ORDERED: predniSONE 20 MG TAB PO SCH (18:30)
[2022-08-14] MEDS: predniSONE 20 MG TAB PO SCH (19:52)
[2022-08-14] MEDS: DICLOFENAC SOD 1% GEL 100 GM TUBE EXT SCH (19:53)
[2022-08-14] MEDS: EMPAGLIFLOZIN 25 MG TAB PO SCH (19:53)
[2022-08-15] MEDS: INSULIN ASPART PER UNIT SC SCH ×4 (08:05→21:08)
[2022-08-15] MEDS: LANTUS PER UNIT CHARGE SQ SCH (09:00)
[2022-08-15] MEDS: PANTOprazole 40 MG in SYRINGE 0 ML IV SCH (09:37)
[2022-08-15] MEDS: CHOLECALCIFEROL 1,000 UNITS 25 MCG TAB PO SCH (09:37)
[2022-08-15] MEDS: CLOPIDOGREL BISULFATE 75 MG TAB PO SCH (09:37)
[2022-08-15] MEDS: EMPAGLIFLOZIN 25 MG TAB PO SCH (09:37)
[2022-08-15] MEDS: DICLOFENAC SOD 1% GEL 100 GM TUBE EXT SCH ×2 (09:37→20:36)
[2022-08-15] MEDS: predniSONE 20 MG TAB PO SCH (09:37)
[2022-08-15] MEDS: AMOXICILLIN/CLAVULANATE 875 MG TAB PO SCH ×2 (09:37→17:47)
[2022-08-15] MEDS: lisinopril 2.5 MG TAB PO SCH (09:38)
[2022-08-15] MEDS: ASPIRIN 81 MG ECTAB PO SCH (09:38)
[2022-08-15] MEDS: ASCORBIC ACID 500 MG TAB PO SCH (09:38)
[2022-08-15] MEDS: DOXAZOSIN MESYLATE 1 MG TAB PO SCH (09:38)
[2022-08-15] MEDS: GABAPENTIN 300 MG CAP PO SCH ×3 (09:38→20:37)
[2022-08-15] MEDS: NYSTATIN SUSP 500,000 U/5 ML UDC PO SCH ×4 (09:38→20:38)
[2022-08-15] MEDS: BUTT PASTE (ZINC OXIDE 16%) 171 APPLN/57 GM JAR EXT SCH (09:39)
[2022-08-15] MEDS: OLODATEROL HCL 2.5MCG/ACTUATION 60 PUFFS/INHALER INH SCH (09:39)
[2022-08-15] MEDS: UMECLIDINIUM BROMIDE 62.5MCG/BLISTER 7 PUFFS/INHALER INH SCH (09:39)
--- NOTE | 2022-08-15 10:35 | Psychiatric Consultation ---
Date of Consultation August 15, 2022 Impression / Recommendations Impression upon admission: differential includes delirium, COVID encephalopathy, mixed episode mood do secondary to steroids--multiple metabolic derangements with sepsis, hypoxia (found with O2 sats in 70s), steroid, hyponatremia. later was notified significant D&A hx so intoxication (from mouthwash or ticket scheduler) or drug seeking behavior also possible has been behaviorally calmer here so likely resolving delirium with mood side effects of steroids (1) Aphasia following cerebral infarction: (2) Wrist laceration: Plan again has not been acutely agitated but if would worsen suggest low dose Haldol for delirium, less likely to affect blood sugars than Zyprexa was hyperphagic while on steroids. continue supervision at meals, no silverware will be returning to [facility] (supervised setting) when medically cleared an empiric trial of an SSRI may prove beneficial, particularly if frustration interferes with clinical rehabilitation but would not add at this moment given other overriding medical. Psych History Identifying Data 61 yo male has been residing at [facility] rehab. Consult is by hospitalist service for SIB. Chief Complaint Consult is extremely limited due to aphasia and marked difficulties communicating with nursing even with white board. He has difficulty processing simple education around aspiration precautions. History of Present Illness Patient becomes easily frustrated when can't communicate with staff, his writing is often illegible at times. He doesn't like honey thick liquids. He remains in COVID isolation on 2L NC. Have been following case as per 08/13/22 review: 2/5 dx COVID, appears daily decadron since with bingeing on food. 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 Was found on toilet at [facility] with safety razor, will only have electric razor and plastic silverware on return. Brother was able to provide some collateral hx: Kevin reports patient has an ex tensive history of substance abuse including ETOH, Crack cocaine, and opioids. He has had ~ 14 DUIs. Patient experienced a stroke in ~ December of 2020, patient laid in his house for 6 days before calling 911. Patient went to a nursing facility called [facility] and then transferred to [facility] to continue rehab. Patient often will seek pain medications and [facility] staff were concerned that he was drinking mouth wash since was running out so frequently. Kevin now buys alcohol free mouth wash for patient. 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 Patient is and going through a divorce. His also abuses substances and is unable to fully function most days. Kevin is now patient's POA and opted to give patient money to finalize his divorce. The goal is for patient to eventually get an apartment with services and live independently. Kevin is concerned patient is going to go back to using substances once he is out of [facility]. Past Psychiatric History Previous Psych History: no formal Allergies Allergy/AdvReac Type Severity Reaction Status Date / Time No Known Drug Allergies Allergy Unknown Verified 07/26/22 09:53 Home Medications Medication Instructions Recorded Confirmed Type acetaminophen 325 mg capsule 650 mg PO Q6H PRN pain/fever > 100 07/26/22 08/12/22 History F or above acetaminophen 500 mg tablet 500 mg PO BID 07/26/22 08/12/22 History (Tylenol Extra Strength) acetylcysteine 100 mg/mL (10 %) 6 ml inhalation QID copd/hypoxemia 07/26/22 08/12/22 History solution ascorbic acid (vitamin C) 500 mg 500 mg PO DAILY 07/26/22 08/12/22 History capsule aspirin 81 mg tablet,delayed 81 mg PO DAILY 07/26/22 08/12/22 History release bisacodyl 10 mg rectal suppository 10 mg [place] UD PRN CONSTIPATION 07/26/22 08/12/22 History (Dulcolax (bisacodyl)) cholecalciferol (vitamin D3) 25 25 mcg PO DAILY 07/26/22 08/12/22 History mcg (1,000 unit) tablet clopidogrel 75 mg tablet 75 mg PO DAILY 07/26/22 08/12/22 History diclofenac sodium 1 % topical gel 2 g topical Q8H PRN left shoulder 07/26/22 08/12/22 History pain doxazosin 1 mg tablet 1 mg PO DAILY 07/26/22 08/12/22 History guaifenesin 100 mg/5 mL oral 200 mg PO Q8H PRN cough 07/26/22 08/12/22 History liquid (Evon-Tussin) lisinopril 2.5 mg tablet 2.5 mg PO DAILY 07/26/22 08/12/22 History ondansetron HCl 4 mg tablet 4 mg PO Q6H PRN nausea/vomiting 07/26/22 08/12/22 History salmeterol 50 mcg/dose blister 1 inh inhalation BID copd 07/26/22 08/12/22 History powder for inhalation tiotropium bromide 18 mcg capsule 1 cap inhalation DAILY 07/26/22 08/12/22 History with inhalation device (Spiriva with HandiHaler) zinc oxide 1 applic topical BID for prevention 07/26/22 08/12/22 History gabapentin 300 mg capsule 300 mg PO TID 08/12/22 08/12/22 History Personal History Beliefs That Will Affect Care: None Patient History Medical History Aphasia following cerebral infarction Asthma BPH (benign prostatic hyperplasia) Cerebral infarction due to unspecified 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 COPD (chronic obstructive pulmonary disease) Dysphagia, oropharyngeal phase Dysphasia following cerebral infarction Essential (primary) hypertension History of CVA with residual deficit Opioid abuse Opioid dependence 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 Type 2 diabetes mellitus Surgical History Gastrostomy status S/P percutaneous endoscopic gastrostomy (PEG) tube placement Family History Other Family history non-contributory Social History Smoking Status: Current every day smoker Tobacco Type: Cigarettes Second Hand Exposure: No; Do You Dip or Chew Tobacco: No; Tobacco Cessation Education Requested by Patient: No Hx Alcohol Use: No Hx Substance Use: Yes Substance Use Type Other:: OPIOD ABUSE LISTED WITH FAXED INFORMATION...UNKNOWN FURTHER DETAILS Preferred Language: [place] Zealander Communication Ability: Unable Web Content Director Required: No Beliefs That Will Affect Care: None Current Living Situation: Long-Term Current Living Situation Comment: [facility] Other Information That Helps Us Care for You: No Feels Safe at Home: Yes Safety Concerns: Feels Safe At This Time Assistive Devices: None, Denture - Upper, Denture - Lower and Glasses Physical Exam Psychiatric: essentially observation only: variable eye contact, cooperative with nurse, hand gestures, affect blunted. asphasic Vital Signs (Past 24 Hours): Last Vital Signs Temp 36.5 C 08/15/22 10:21 Pulse 72 08/15/22 10:21 Resp 16 08/15/22 10:21 BP 153/83 H 08/15/22 10:21 Pulse Ox 98 08/15/22 10:21 O2 Del Method 08/15/22 10:21 O2 Flow Rate 2 08/15/22 10:21 FiO2 40 08/12/22 19:41 Review of Systems Unobtainable due to cognitive status Results & Data (PSY) Medications Administered Acetaminophen (Acetaminophen 325 Mg Tab) 650 mg PO Q6H PRN PRN Reason: pain/fever > 100 F or above Last Admin: 08/13/22 21:40 Dose: 650 mg Documented By: MARIA LUZ Albuterol (Albuterol 0.083% Nebu Soln 3 Ml Vial) 2.5 mg NEB Q4 PRN; Protocol PRN Reason: Shortness Of Breath Or Wheezing Stop: 09/11/22 16:09 Last Admin: 08/13/22 07:22 Dose: 2.5 mg Documented By: AUDRA Amoxicillin/Clavulanate Potassium (Amoxicillin/Clavulanate 875 Mg Tab) 1 tab PO BIDM [facility] Stop: 08/17/22 07:59 Last Admin: 08/15/22 09:37 Dose: 1 tab Documented By: DOUGIE Ascorbic Acid (Ascorbic Acid 500 Mg Tab) 500 mg PO DAILY [facility] Stop: 09/12/22 08:59 Last Admin: 08/15/22 09:38 Dose: 500 mg Documented By: Admin: 08/14/22 08:44 Dose: 500 mg Documented By: Admin: 08/13/22 09:26 Dose: 500 mg Documented By: JEFRY Aspirin (Aspirin 81 Mg Ectab) 81 mg PO DAILY [facility] Stop: 09/12/22 08:59 Last Admin: 08/15/22 09:38 Dose: 81 mg Documented By: Admin: 08/14/22 08:44 Dose: 81 mg Documented By: Admin: 08/13/22 09:26 Dose: 81 mg Documented By: JEFRY Clopidogrel Bisulfate (Clopidogrel Bisulfate 75 Mg Tab) 75 mg PO DAILY [facility] Stop: 09/12/22 08:59 Last Admin: 08/15/22 09:37 Dose: 75 mg Documented By: Admin: 08/14/22 08:44 Dose: 75 mg Documented By: Admin: 08/13/22 09:26 Dose: 75 mg Documented By: JEFRY Dextrose (Dextrose 50% 50 Ml Syringe) 25 - 50 ml IV UD PRN; Protocol PRN Reason: Hypoglycemia Protocol Stop: 09/11/22 13:14 Last Admin: 08/13/22 02:41 Dose: 25 ml Documented By: RIC Diclofenac Sodium (Diclofenac Sod 1% Gel 100 Gm Tube) 2 gm EXT BID ANKUR; Protocol Stop: 09/13/22 20:59 Last Admin: 08/15/22 09:37 Dose: 2 gm Documented By: Admin: 08/14/22 19:53 Dose: 2 gm Documented By: MARIA LUZ Doxazosin Mesylate (Doxazosin Mesylate 1 Mg Tab) 1 mg PO DAILY [facility] Stop: 09/12/22 08:59 Last Admin: 08/15/22 09:38 Dose: 1 mg Documented By: Admin: 08/14/22 08:45 Dose: 1 mg Documented By: Admin: 08/13/22 09:26 Dose: 1 mg Documented By: JEFRY Empagliflozin (Empagliflozin 25 Mg Tab) 25 mg PO DAILY [facility] Stop: 09/13/22 18:59 Last Admin: 08/15/22 09:37 Dose: 25 mg Documented By: Admin: 08/14/22 19:53 Dose: 25 mg Documented By: MARIA LUZ Enoxaparin Sodium (Enoxaparin Inj 40 Mg/0.4 Ml Syr) 40 mg SQ Q24H [facility] Stop: 09/11/22 15:12 Last Admin: 08/14/22 16:53 Dose: 40 mg Documented By: Admin: 08/13/22 15:51 Dose: 40 mg Documented By: Admin: 08/12/22 17:45 Dose: Not Given Documented By: VICTORINO Gabapentin (Gabapentin 300 Mg Cap) 300 mg PO TID [facility] Stop: 09/11/22 15:59 Last Admin: 08/15/22 09:38 Dose: 300 mg Documented By: Admin: 08/14/22 19:53 Dose: 300 mg Documented By: MARIA LUZ Admin: 08/14/22 14:03 Dose: 300 mg Documented By: Admin: 08/14/22 08:45 Dose: 300 mg Documented By: Admin: 08/13/22 21:00 Dose: 300 mg Documented By: MARIA LUZ Admin: 08/13/22 14:47 Dose: 300 mg Documented By: Admin: 08/13/22 09:27 Dose: 300 mg Documented By: Admin: 08/12/22 20:54 Dose: 300 mg Documented By: Admin: 08/12/22 17:44 Dose: Not Given Documented By: VICTORINO Pantoprazole Sodium 40 mg/ (Syringe) 10 mls @ 5 mls/min IV DAILY@1100 [facility] Stop: 09/12/22 10:59 Last Admin: 08/15/22 09:37 Dose: 5 mls/min Documented By: Admin: 08/14/22 12:51 Dose: 5 mls/min Documented By: Admin: 08/13/22 11:22 Dose: 5 mls/min Documented By: JEFRY Insulin Aspart (Insulin Aspart Per Unit) 0 units SC ACHS [facility] Stop: 09/12/22 07:04 Last Admin: 08/15/22 08:05 Dose: Not Given Documented By: Admin: 08/14/22 20:52 Dose: 4 units Documented By: MARIA LUZ Co-signed By: TWAN Admin: 08/14/22 17:13 Dose: 6 units Documented By: TOO Co-signed By: DOUGIE Admin: 08/14/22 12:21 Dose: 7 units Documented By: TOO Co-signed By: ASAD Admin: 08/14/22 08:35 Dose: 7 units Documented By: TOO Co-signed By: ASAD Admin: 08/13/22 20:52 Dose: 1 units Documented By: MARIA LUZ Co-signed By: TWAN Admin: 08/13/22 16:47 Dose: 9 units Documented By: JEFRY Co-signed By: LIZBETH Admin: 08/13/22 11:19 Dose: 1 units Documented By: JEFRY Co-signed By: LIZBETH Insulin Glargine (Lantus Per Unit Charge) 12 units SQ BID [facility] Stop: 09/13/22 08:59 Last Admin: 08/14/22 20:53 Dose: 12 units Documented By: MARIA LUZ Co-signed By: TWAN Admin: 08/14/22 08:35 Dose: 12 units Documented By: TOO Co-signed By: ASAD Lisinopril (Lisinopril 2.5 Mg Tab) 2.5 mg PO DAILY [facility] Stop: 09/12/22 08:59 Last Admin: 08/15/22 09:38 Dose: 2.5 mg Documented By: Admin: 08/14/22 08:45 Dose: 2.5 mg Documented By: Admin: 08/13/22 09:26 Dose: 2.5 mg Documented By: [facility] Nystatin (Nystatin Susp 500,000 U/5 Ml Udc) 5 ml PO QID [facility] Stop: 08/23/22 08:59 Last Admin: 08/15/22 09:38 Dose: 5 ml Documented By: Admin: 08/14/22 19:52 Dose: 5 ml Documented By: [facility] Admin: 08/14/22 16:54 Dose: 5 ml Documented By: Admin: 08/14/22 12:27 Dose: 5 ml Documented By: Admin: 08/14/22 08:45 Dose: 5 ml Documented By: Admin: 08/13/22 21:00 Dose: 5 ml Documented By: [facility] Admin: 08/13/22 17:38 Dose: 5 ml Documented By: [facility] Admin: 08/13/22 14:47 Dose: 5 ml Documented By: [facility] Admin: 08/13/22 08:35 Dose: 5 ml Documented By: [facility] Olodaterol (Olodaterol Hcl 2.5mcg/Actuation 60 Puffs/Inhaler) 2 puffs INH DAILY ANKUR; Protocol Stop: 09/11/22 20:59 Last Admin: 08/15/22 09:39 Dose: 2 puffs Documented By: Admin: 08/14/22 08:46 Dose: 2 puffs Documented By: Admin: 08/13/22 08:33 Dose: 2 puffs Documented By: [facility] Admin: 08/12/22 22:11 Dose: 2 puffs Documented By: RIC Petrolatum (Butt Paste (Zinc Oxide 16%) 171 Appln/57 Gm Jar) 1 appln EXT DAILY [facility] Stop: 09/11/22 20:59 Last Admin: 08/15/22 09:39 Dose: 1 appln Documented By: Admin: 08/14/22 08:47 Dose: Not Given Documented By: Admin: 08/13/22 08:32 Dose: 1 appln Documented By: [facility] Prednisone (Prednisone 20 Mg Tab) 40 mg PO DAILY [facility] Stop: 09/13/22 18:44 Last Admin: 08/15/22 09:37 Dose: 40 mg Documented By: Admin: 08/14/22 19:52 Dose: 40 mg Documented By: MARIA LUZ Umeclidinium Belmond (Umeclidinium Belmond 62.5mcg/Blister 7 Puffs/Inhaler) 1 puffs INH DAILY ANKUR; Protocol Stop: 09/12/22 08:59 Last Admin: 08/15/22 09:39 Dose: 1 puffs Documented By: Admin: 08/14/22 08:46 Dose: 1 puffs Documented By: Admin: 08/13/22 08:32 Dose: 1 puffs Documented By: JEFRY Vitamin D (Cholecalciferol 1,000 Units 25 Mcg Tab) 1,000 units PO DAILY [facility] Stop: 09/12/22 08:59 Last Admin: 08/15/22 09:37 Dose: 1,000 units Documented By: Admin: 08/14/22 08:44 Dose: 1,000 units Documented By: Admin: 08/13/22 09:26 Dose: 1,000 units Documented By: JEFRY Coding Level of Care Code 17918 [facility] Intl Hosp Care Lvl 1 Diagnoses Aphasia following cerebral infarction I69.320 Wrist laceration S61.519A
--- NOTE | 2022-08-15 13:56 | Pharmacy Report ---
Pharmacy Glycemic Short Note 2 - Date of Service August 15, 2022 - Glycemic Short BSG Results (Last 24 hours): 08/14/22 08/14/22 08/15/22 17:08 20:42 07:08 POC Glucose 86 170 H 100 H 08/15/22 10:27 POC Glucose 150 H OUTPATIENT ANTIDIABETIC REGIMEN: * n/a * HbA1c 10.1% (08/13/22) ASSESSMENT: 08/15/22 * Patient's BSGs yesterday were 172-119-60-170 mg/dL. Patient received 48 units of insulin (24 units of basal and 24 units of bolus). patient also received Jardiance 25 mg. * Patient started on prednisone 40 mg daily yesterday. (dose given in the evening). * Reduce Lantus by 20% since fasting today was 100 mg/dL. (uncertain if this was due to Jardiance or excessive basal). * Loosen CF since patient overcorrected at dinner. Background * DC is a 61 year old male who presented from [facility] via EMS on 08/12/22 with acute hypoxemic respiratory failure * Vancomycin/Zosyn initiated upon presentation given concern for pneumonia (subsequently de-escalated to Zosyn monotherapy) * Presumed new diagnosis of T2DM based on HbA1c of 10.1% and lack of history noted in PMH * Acute hyperglycemia on admission (BSG of 608 mg/dL), insulin infusion initiated and continued throughout the day/evening yesterday * Insulin gtt max rate overnight of 10.4 units/hr, more recently ~2 units/hr, gtt ultimately held for most recent BSG of 128 mg/dL * Will transition insulin gtt to SC basal/bolus today, patient remains NPO so will give ~0.2 unit/kg Lantus dose this morning and reassess for increased dose this afternoon. Patient remains NPO at this time. * Patient will require antidiabetic regimen upon discharge (CDE consulted) PLAN FOR INPATIENT GLYCEMIC CONTROL: * Basal insulin * Lantus 10 units BID starting the evening of 08/15/22 * Bolus insulin * NovoLog per scale ACHS or Q6hrs while NPO * Goal Range: Low 110 mg/dL - High 140 mg/dL * Correction Factor: 30 mg/dL/unit * Nutritional / Prandial insulin per carb ratio of 1 unit per 6 grams CHO consumed
--- NOTE | 2022-08-15 17:41 | Hospitalist Progress Note ---
Date of Service August 15, 2022 Assessment & Plan (1) Acute hypoxemic respiratory failure: Plan: -Presented with acute hypoxic respiratory failure, bilateral multifocal pneumonia presented on the imaging studies, responded well, white cell count dropped to 12,000, currently on room air, stop IV Zosyn, switch to Augmentin -Presented with WBC 34, lactate and procal wnl. -had wheezing, started prednisone , doing better today - CXR: There are airspace opacities in the lower lungs typical for pneumonia/aspiration pneumonitis. Clinical correlation required and radiographic follow-up to resolution is recommended. Emphysema. - Chest CTA: There is extensive tree-in-bud nodularity and groundglass consolidation seen throughout both lungs. The appearance suggests an infectious/inflammatory pneumonitis. Clinical correlation will be required. A follow-up chest CT in 3-4 months time is recommend diagnostic and resolution, and to evaluate for underlying nodularity. There is no evidence of pulmonary embolus in the main, lobar, or proximal segmental pulmonary arteries. Evaluation of the distal segmental and subsegmental branches is compromised by motion artifact. Emphysema with postoperative change from right-sided pulmonary resection. High risk of aspiration followed by speech (2) Pneumonia: Plan: The plan is as mentioned above (3) Aphasia following cerebral infarction: Plan: - Patient history of stroke complicated with expressive aphasia, only can speak few words, status post PEG tube, Complaint of having abdominal pain after he was started on carbohydrate consistent diet, switch to full liquid, will advance diet again today to carbohydrate consistent diet (4) Acute hyperglycemia: Plan: - Secondary to daily Decadron since 07/29 for COVID infection, -Resolved (5) Essential (primary) hypertension: Plan: - Continue lisinopril, hold for SBP < 100. Blood pressure fairly managed (6) COPD (chronic obstructive pulmonary disease): Plan: With exacerbation, wheezing yesterday, started on prednisone 40 mg daily, DuoNeb as needed (7) BPH (benign prostatic hyperplasia): Plan: - Continue doxazosin. (8) Wrist laceration: Plan: - EMS initially called to [facility] due to superficial b/l wrist lacerations. None are deep, patient currently denying active SI/HI. - Given the above findings above as well as patient pulling at PEG tube, patient will have 1-1 sitter and a psychiatry consult while admitted. (9) Esophagitis: Plan: - Noted on CT, no complaints of abdominal pain, n/v, melena. - IV PPI daily. 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, home health care case manager , Admission and Anticipated Discharge Date Admission Date: August 12, 2022 Subjective Complaining of left shoulder pain, started on Flexeril, continue Voltaren gel Results & Data Results & Data ([facility]) Vital Signs (Past 12 Hours) Vital Signs Temp Pulse Resp BP Pulse Ox O2 Del Method O2 Del Method 08/15/22 15:25 Nasal Cannula 08/15/22 08:00 Nasal Cannula 08/15/22 10:21 36.5 C 72 16 153/83 H 98 Nasal Cannula 08/15/22 07:26 36.6 C 62 18 134/82 97 Nasal Cannula O2 Flow Rate O2 Flow Rate 08/15/22 15:25 3 08/15/22 08:00 2 08/15/22 10:21 2 08/15/22 07:26 2 PG Care Time/CCT Total # of Minutes Spent Total Time Spent with Patient: Total time spent is greater than 50% in coordination of care (as documented) at patient's floor/unit and/or counseling patient: Coding Level of Care Code 48562 Subseq Hosp Care Lvl 3 Diagnoses Acute hypoxemic respiratory failure J96.01 Pneumonia J18.9 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
[2022-08-15] MEDS: ENOXAPARIN INJ 40 MG/0.4 ML SYR SQ SCH (17:46)
[2022-08-15] MEDS: ACETAMINOPHEN 325 MG TAB PO PRN (20:36)
[2022-08-15] MEDS: CYCLOBENZAPRINE HCL 5 MG TAB PO SCH (20:36)
[2022-08-15] MEDS ORDERED: LANTUS PER UNIT CHARGE SQ SCH (21:00)
[2022-08-16] MEDS: INSULIN ASPART PER UNIT SC SCH ×4 (08:00→20:32)
--- NOTE | 2022-08-16 08:06 | Pharmacy Report ---
Pharmacy Glycemic Short Note 2 - Date of Service August 16, 2022 - Glycemic Short BSG Results (Last 24 hours): 08/15/22 08/15/22 08/15/22 10:27 17:33 20:15 POC Glucose 150 H 223 H 159 H 08/16/22 07:45 POC Glucose 99 OUTPATIENT ANTIDIABETIC REGIMEN: * n/a * HbA1c 10.1% (08/13/22) ASSESSMENT: 08/16/22 * Patient's BSGs yesterday were [phone] mg/dL. Patient received 44 units of insulin yesterday - evenly split between basal/bolus. * Patient continues on prednisone 40 mg daily. * Fasting today 100 mg/dL. * Decrease basal by 20% due to fasting below goal. Will combine to once daily dosing and start with dinner. * Tighten CR since patient on steroids + decrease in basal. 08/15/22 * Patient's BSGs yesterday were [phone] mg/dL. Patient received 48 units of insulin (24 units of basal and 24 units of bolus). patient also received Jardiance 25 mg. * Patient started on prednisone 40 mg daily yesterday. (dose given in the evening). * Reduce Lantus by 20% since fasting today was 100 mg/dL. (uncertain if this was due to Jardiance or excessive basal). * Loosen CF since patient overcorrected at dinner. Background * DC is a 61 year old male who presented from [facility] via EMS on 08/12/22 with acute hypoxemic respiratory failure * Vancomycin/Zosyn initiated upon presentation given concern for pneumonia (subsequently de-escalated to Zosyn monotherapy) * Presumed new diagnosis of T2DM based on HbA1c of 10.1% and lack of history noted in PMH * Acute hyperglycemia on admission (BSG of 608 mg/dL), insulin infusion initiated and continued throughout the day/evening yesterday * Insulin gtt max rate overnight of 10.4 units/hr, more recently ~2 units/hr, gtt ultimately held for most recent BSG of 128 mg/dL * Will transition insulin gtt to SC basal/bolus today, patient remains NPO so will give ~0.2 unit/kg Lantus dose this morning and reassess for increased dose this afternoon. Patient remains NPO at this time. * Patient will require antidiabetic regimen upon discharge (CDE consulted) PLAN FOR INPATIENT GLYCEMIC CONTROL: * Basal insulin * Lantus 15 units HS * Bolus insulin * NovoLog per scale ACHS or Q6hrs while NPO * Goal Range: Low 110 mg/dL - High 140 mg/dL * Correction Factor: 30 mg/dL/unit * Nutritional / Prandial insulin per carb ratio of 1 unit per 5 grams CHO consumed
[2022-08-16 08:58] LABS: Hematocrit (blood only) 47.2 % (40.1-51.0); Hemoglobin 16.1 g/dl (14.0-18.0); Mean Corpuscular Hemoglobin 29.7 pg (25.0-34.0); Mean Corpuscular Hgb Conc 34.1 g/dL (32.0-36.0); Mean Corpuscular Volume 86.9 fL (80.0-100.0); Mean Platelet Volume 10.3 fL (9.4-12.4); Platelet Count 277 K/uL (130-400); RDW Coefficient of Variation 12.6 % (11.5-14.5); RDW Standard Deviation 39.9 fL (36.4-46.3); Red Blood Count 5.43 M/uL (4.63-6.08); White Blood Count 12.26 K/ul (4.8-10.8)
[2022-08-16] MEDS: ASCORBIC ACID 500 MG TAB PO SCH (09:26)
[2022-08-16] MEDS: AMOXICILLIN/CLAVULANATE 875 MG TAB PO SCH ×2 (09:26→16:32)
[2022-08-16] MEDS: predniSONE 20 MG TAB PO SCH (09:26)
[2022-08-16] MEDS: GABAPENTIN 300 MG CAP PO SCH ×3 (09:26→19:50)
[2022-08-16] MEDS: ASPIRIN 81 MG ECTAB PO SCH (09:26)
[2022-08-16] MEDS: CHOLECALCIFEROL 1,000 UNITS 25 MCG TAB PO SCH (09:26)
[2022-08-16] MEDS: DOXAZOSIN MESYLATE 1 MG TAB PO SCH (09:26)
[2022-08-16] MEDS: NYSTATIN SUSP 500,000 U/5 ML UDC PO SCH ×4 (09:26→19:49)
[2022-08-16] MEDS: lisinopril 2.5 MG TAB PO SCH (09:26)
[2022-08-16] MEDS: CYCLOBENZAPRINE HCL 5 MG TAB PO SCH ×3 (09:27→19:50)
[2022-08-16] MEDS: OLODATEROL HCL 2.5MCG/ACTUATION 60 PUFFS/INHALER INH SCH (09:27)
[2022-08-16] MEDS: CLOPIDOGREL BISULFATE 75 MG TAB PO SCH (09:27)
[2022-08-16] MEDS: DICLOFENAC SOD 1% GEL 100 GM TUBE EXT SCH ×2 (09:27→19:50)
[2022-08-16] MEDS: UMECLIDINIUM BROMIDE 62.5MCG/BLISTER 7 PUFFS/INHALER INH SCH (09:28)
[2022-08-16] MEDS: BUTT PASTE (ZINC OXIDE 16%) 171 APPLN/57 GM JAR EXT SCH (09:28)
[2022-08-16] MEDS: PANTOprazole 40 MG TAB PO SCH (09:29)
[2022-08-16] MEDS: ENOXAPARIN INJ 40 MG/0.4 ML SYR SQ SCH (15:26)
[2022-08-16] MEDS: LANTUS PER UNIT CHARGE SQ SCH (16:30)
--- NOTE | 2022-08-16 18:10 | Hospitalist Progress Note ---
Date of Service August 16, 2022 Assessment & Plan (1) Acute hypoxemic respiratory failure: Plan: -Presented with acute hypoxic respiratory failure, bilateral multifocal pneumonia presented on the imaging studies, responded well, white cell count dropped to 12,000, currently on room air, stop IV Zosyn, switch to Augmentin -Presented with WBC 34, lactate and procal wnl. -had wheezing, started prednisone , doing better today - CXR: There are airspace opacities in the lower lungs typical for pneumonia/aspiration pneumonitis. Clinical correlation required and radiographic follow-up to resolution is recommended. Emphysema. - Chest CTA: There is extensive tree-in-bud nodularity and groundglass consolidation seen throughout both lungs. The appearance suggests an infectious/inflammatory pneumonitis. Clinical correlation will be required. A follow-up chest CT in 3-4 months time is recommend diagnostic and resolution, and to evaluate for underlying nodularity. There is no evidence of pulmonary embolus in the main, lobar, or proximal segmental pulmonary arteries. Evaluation of the distal segmental and subsegmental branches is compromised by motion artifact. Emphysema with postoperative change from right-sided pulmonary resection. High risk of aspiration followed by speech (2) Pneumonia: Plan: The plan is as mentioned above (3) Aphasia following cerebral infarction: Plan: - Patient history of stroke complicated with expressive aphasia, only can speak few words, status post PEG tube, Complaint of having abdominal pain after he was started on carbohydrate consistent diet, switch to full liquid, will advance diet again today to carbohydrate consistent diet (4) Acute hyperglycemia: Plan: - Secondary to daily Decadron since 07/29 for COVID infection, -Resolved (5) Essential (primary) hypertension: Plan: - Continue lisinopril, hold for SBP < 100. Blood pressure fairly managed (6) COPD (chronic obstructive pulmonary disease): Plan: With exacerbation, wheezing yesterday, started on prednisone 40 mg daily, DuoNeb as needed (7) BPH (benign prostatic hyperplasia): Plan: - Continue doxazosin. (8) Wrist laceration: Plan: - EMS initially called to [facility] due to superficial b/l wrist lacerations. None are deep, patient currently denying active SI/HI. - Given the above findings above as well as patient pulling at PEG tube, patient will have 1-1 sitter and a psychiatry consult while admitted. (9) Esophagitis: Plan: - Noted on CT, no complaints of abdominal pain, n/v, melena. - IV PPI daily. 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 , Admission and Anticipated Discharge Date Admission Date: August 12, 2022 Subjective No acute issue continue current meds waiting for placement Physical Exam Physical Exam: General: awake, alert, no apparent distress Head: Normocephalic, atraumatic ENT: PERRL, EOMI, no pharyngeal exudate, mucous membranes moist Chest: Rhonchi heard throughout lung [place], on BiPAP Cardiac: Regular rate and rhythm, no murmur, no JVD, normal peripheral pulses, good capillary refill Abdominal: NABS x 4 quadrants, soft, nontender to palpation, no rebound, guarding or tenderness Extremities: Normal inspection, no peripheral edema or erythema, calfs nontender to palpation Psych: Normal mood and affect Neuro: AAO x 3, strength intact bilaterally and rated 5/5, no motor deficits, speech is clear, no peripheral sensory deficits Skin: superficial b/l wrist abrasions, nonbleeding Results & Data Results & Data ([facility]) Vital Signs (Past 12 Hours) Vital Signs Temp Pulse Resp BP Pulse Ox O2 Del Method O2 Flow Rate 08/16/22 09:00 Nasal Cannula 2 08/16/22 11:52 36.8 C 68 19 121/70 96 Nasal Cannula 3 08/16/22 07:46 36.6 C 69 20 147/80 H 96 Nasal Cannula 3 PG Care Time/CCT Total # of Minutes Spent Total Time Spent with Patient: Total time spent is greater than 50% in coordination of care (as documented) at patient's floor/unit and/or counseling patient: Coding Level of Care Code 06835 Subseq Hosp Care Lvl 2 Diagnoses Acute hypoxemic respiratory failure J96.01 Pneumonia J18.9 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
[2022-08-17] MEDS: INSULIN ASPART PER UNIT SC SCH ×4 (08:00→20:51)
[2022-08-17] MEDS: NYSTATIN SUSP 500,000 U/5 ML UDC PO SCH ×4 (08:35→20:02)
[2022-08-17] MEDS: GABAPENTIN 300 MG CAP PO SCH ×3 (08:35→20:02)
[2022-08-17] MEDS: CYCLOBENZAPRINE HCL 5 MG TAB PO SCH ×3 (08:35→20:02)
[2022-08-17] MEDS: ASCORBIC ACID 500 MG TAB PO SCH (08:36)
[2022-08-17] MEDS: DOXAZOSIN MESYLATE 1 MG TAB PO SCH (08:36)
[2022-08-17] MEDS: lisinopril 2.5 MG TAB PO SCH (08:36)
[2022-08-17] MEDS: PANTOprazole 40 MG TAB PO SCH (08:36)
[2022-08-17] MEDS: CHOLECALCIFEROL 1,000 UNITS 25 MCG TAB PO SCH (08:36)
[2022-08-17] MEDS: ASPIRIN 81 MG ECTAB PO SCH (08:36)
[2022-08-17] MEDS: predniSONE 20 MG TAB PO SCH (08:36)
[2022-08-17] MEDS: CLOPIDOGREL BISULFATE 75 MG TAB PO SCH (08:36)
[2022-08-17] MEDS: UMECLIDINIUM BROMIDE 62.5MCG/BLISTER 7 PUFFS/INHALER INH SCH (08:37)
[2022-08-17] MEDS: OLODATEROL HCL 2.5MCG/ACTUATION 60 PUFFS/INHALER INH SCH (08:37)
[2022-08-17] MEDS: BUTT PASTE (ZINC OXIDE 16%) 171 APPLN/57 GM JAR EXT SCH (08:38)
[2022-08-17] MEDS: DICLOFENAC SOD 1% GEL 100 GM TUBE EXT SCH ×2 (08:38→20:02)
[2022-08-17] MEDS: ENOXAPARIN INJ 40 MG/0.4 ML SYR SQ SCH (15:00)
[2022-08-17] MEDS: LANTUS PER UNIT CHARGE SQ SCH (22:45)
[2022-08-18] MEDS: INSULIN ASPART PER UNIT SC SCH ×4 (08:23→21:02)
[2022-08-18] MEDS: ASCORBIC ACID 500 MG TAB PO SCH (08:47)
[2022-08-18] MEDS: ASPIRIN 81 MG ECTAB PO SCH (08:47)
[2022-08-18] MEDS: CYCLOBENZAPRINE HCL 5 MG TAB PO SCH ×3 (08:47→21:18)
[2022-08-18] MEDS: lisinopril 2.5 MG TAB PO SCH (08:48)
[2022-08-18] MEDS: DOXAZOSIN MESYLATE 1 MG TAB PO SCH (08:48)
[2022-08-18] MEDS: PANTOprazole 40 MG TAB PO SCH (08:48)
[2022-08-18] MEDS: GABAPENTIN 300 MG CAP PO SCH ×3 (08:48→21:18)
[2022-08-18] MEDS: CHOLECALCIFEROL 1,000 UNITS 25 MCG TAB PO SCH (08:48)
[2022-08-18] MEDS: OLODATEROL HCL 2.5MCG/ACTUATION 60 PUFFS/INHALER INH SCH (08:48)
[2022-08-18] MEDS: predniSONE 20 MG TAB PO SCH (08:48)
[2022-08-18] MEDS: CLOPIDOGREL BISULFATE 75 MG TAB PO SCH (08:48)
[2022-08-18] MEDS: NYSTATIN SUSP 500,000 U/5 ML UDC PO SCH ×4 (08:48→21:18)
[2022-08-18] MEDS: UMECLIDINIUM BROMIDE 62.5MCG/BLISTER 7 PUFFS/INHALER INH SCH (08:49)
[2022-08-18] MEDS: BUTT PASTE (ZINC OXIDE 16%) 171 APPLN/57 GM JAR EXT SCH (08:55)
[2022-08-18] MEDS: DICLOFENAC SOD 1% GEL 100 GM TUBE EXT SCH ×2 (08:55→21:18)
--- NOTE | 2022-08-18 12:45 | Gastrointestinal Consultation ---
Date of Consultation August 18, 2022 History of Present Illness Reason for Consultation: "removing PEG tube" Attending Physician: Remberto Gutierrez MD History of Present Illness \\61 yo M with h/o severe CVA s/p PEG placement now admit for aspiration pneumonia. Recent speech eval Allergies Allergy/AdvReac Type Severity Reaction Status Date / Time No Known Drug Allergies Allergy Unknown Verified 07/26/22 09:53 Home Medications Medication Instructions Recorded Confirmed Type acetaminophen 325 mg capsule 650 mg PO Q6H PRN pain/fever > 100 07/26/22 08/12/22 History F or above acetaminophen 500 mg tablet 500 mg PO BID 07/26/22 08/12/22 History (Tylenol Extra Strength) acetylcysteine 100 mg/mL (10 %) 6 ml inhalation QID copd/hypoxemia 07/26/22 08/12/22 History solution ascorbic acid (vitamin C) 500 mg 500 mg PO DAILY 07/26/22 08/12/22 History capsule aspirin 81 mg tablet,delayed 81 mg PO DAILY 07/26/22 08/12/22 History release bisacodyl 10 mg rectal suppository 10 mg AL UD PRN CONSTIPATION 07/26/22 2 History (Dulcolax (bisacodyl)) cholecalciferol (vitamin D3) 25 25 mcg PO DAILY 07/26/22 08/12/22 History mcg (1,000 unit) tablet clopidogrel 75 mg tablet 75 mg PO DAILY 07/26/22 08/12/22 History diclofenac sodium 1 % topical gel 2 g topical Q8H PRN left shoulder 07/26/22 08/12/22 History pain doxazosin 1 mg tablet 1 mg PO DAILY 07/26/22 08/12/22 History guaifenesin 100 mg/5 mL oral 200 mg PO Q8H PRN cough 07/26/22 08/12/22 History liquid (Evon-Tussin) lisinopril 2.5 mg tablet 2.5 mg PO DAILY 07/26/22 08/12/22 History ondansetron HCl 4 mg tablet 4 mg PO Q6H PRN nausea/vomiting 07/26/22 08/12/22 History salmeterol 50 mcg/dose blister 1 inh inhalation BID copd 07/26/22 08/12/22 History powder for inhalation tiotropium bromide 18 mcg capsule 1 cap inhalation DAILY 07/26/22 08/12/22 History with inhalation device (Spiriva with HandiHaler) zinc oxide 1 applic topical BID for prevention 07/26/22 08/12/22 History gabapentin 300 mg capsule 300 mg PO TID 08/12/22 08/12/22 History Patient History Medical History Aphasia following cerebral infarction Asthma BPH (benign prostatic hyperplasia) Cerebral infarction due to unspecified 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 COPD (chronic obstructive pulmonary disease) Dysphagia, oropharyngeal phase Dysphasia following cerebral infarction Essential (primary) hypertension History of CVA with residual deficit Opioid abuse Opioid dependence 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 Type 2 diabetes mellitus Surgical History Gastrostomy status S/P percutaneous endoscopic gastrostomy (PEG) tube placement Family History Other Family history non-contributory Social History Smoking Status: Current every day smoker Tobacco Type: Cigarettes Second Hand Exposure: No; Do You Dip or Chew Tobacco: No; Tobacco Cessation Education Requested by Patient: No Hx Alcohol Use: No Hx Substance Use: Yes Substance Use Type Other:: OPIOD ABUSE LISTED WITH FAXED INFORMATION...UNKNOWN FURTHER DETAILS Preferred Language: Tajik Communication Ability: Unable Contract Loader Required: No Beliefs That Will Affect Care: None Current Living Situation: [facility] Current Living Situation Comment: [facility] Other Information That Helps Us Care for You: No Feels Safe at Home: Yes Safety Concerns: Feels Safe At This Time Assistive Devices: None, Denture - Upper, Denture - Lower and Glasses Results & Data ([facility]) Vital Signs (Past 12 Hours) Vital Signs Temp Pulse Pulse Resp BP BP Pulse Ox 08/18/22 11:18 36.4 C L 67 20 123/72 94 08/18/22 08:00 60 08/18/22 07:34 36.4 C L 64 16 106/68 94 08/18/22 03:18 36.4 C L 60 16 105/62 94 O2 Del Method 08/18/22 11:18 Room Air 08/18/22 08:00 08/18/22 07:34 Room Air 08/18/22 03:18 Room Air
--- NOTE | 2022-08-18 12:49 | Communication Note ---
Date of Service: August 18, 2022 Consult was placed for 'removal of PEG tube." Pt is a patient of [facility] service, chart reviewed while I am skilled nursing facilities professional. 61 yo M with oropharyngeal dysfunction caused by CVA. He is now admitted for aspiration penumonia, initially requiring BiPAP. Review of speech pathology notes from this admission show that pt has severe oropharyngeal dysphagia; speech pathology notes also mention that pt is likely to be non-compliant with dietary recommendations. Pt appears to be at high risk for future aspiration. It seems likely that PEG will be needed for both present and future care. I would not recommend removal of PEG at this time. If PEG removal is desired by pt, would recommend follow up and removal with either service that placed the PEG or pt's primary care doctor.
[2022-08-18] MEDS: ENOXAPARIN INJ 40 MG/0.4 ML SYR SQ SCH (14:37)
--- NOTE | 2022-08-18 15:10 | Hospitalist Progress Note ---
Date of Service August 18, 2022 Assessment & Plan (1) Acute hypoxemic respiratory failure: Plan: -Presented with acute hypoxic respiratory failure, bilateral multifocal pneumonia presented on the imaging studies, responded well, white cell count dropped to 12,000, currently on room air, stop IV Zosyn, switch to Augmentin -Presented with WBC 34, lactate and procal wnl. -had wheezing, started prednisone , doing better today - CXR: There are airspace opacities in the lower lungs typical for pneumonia/aspiration pneumonitis. Clinical correlation required and radiographic follow-up to resolution is recommended. Emphysema. - Chest CTA: There is extensive tree-in-bud nodularity and groundglass consolidation seen throughout both lungs. The appearance suggests an infectious/inflammatory pneumonitis. Clinical correlation will be required. A follow-up chest CT in 3-4 months time is recommend diagnostic and resolution, and to evaluate for underlying nodularity. There is no evidence of pulmonary embolus in the main, lobar, or proximal segmental pulmonary arteries. Evaluation of the distal segmental and subsegmental branches is compromised by motion artifact. Emphysema with postoperative change from right-sided pulmonary resection. High risk of aspiration followed by speech (2) Pneumonia: Plan: The plan is as mentioned above (3) Aphasia following cerebral infarction: Plan: - Patient history of stroke complicated with expressive aphasia, only can speak few words, status post PEG tube, -Diet advance as per speech therapy's recommendation, however patient states he would like to remove the PEG tube out, patient has a scheduled outpatient to remove the PEG tube, GI was consulted however GI declined to remove the PEG tube indicating patient is high risk of aspiration and may need to use the tube again (4) Acute hyperglycemia: Plan: - Secondary to daily Decadron since 07/29 for COVID infection, -Resolved (5) Essential (primary) hypertension: Plan: - Continue lisinopril, hold for SBP < 100. Blood pressure fairly managed (6) COPD (chronic obstructive pulmonary disease): Plan: With exacerbation, wheezing yesterday, started on prednisone 40 mg daily, DuoNeb as needed -Taper prednisone over the next few days (7) BPH (benign prostatic hyperplasia): Plan: - Continue doxazosin. (8) Wrist laceration: Plan: - EMS initially called to [facility] due to superficial b/l wrist lacerations. None are deep, patient currently denying active SI/HI. - Given the above findings above as well as patient pulling at PEG tube, patient will have 1-1 sitter and a psychiatry consult while admitted. (9) Esophagitis: Plan: - Noted on CT, no complaints of abdominal pain, n/v, melena. - IV PPI daily. 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 , Admission and Anticipated Discharge Date Admission Date: August 12, 2022 Subjective No acute issue continue current meds waiting for placement Physical Exam Physical Exam: General: awake, alert, no apparent distress Head: Normocephalic, atraumatic ENT: PERRL, EOMI, no pharyngeal exudate, mucous membranes moist Chest: Rhonchi heard throughout lung [place], on BiPAP Cardiac: Regular rate and rhythm, no murmur, no JVD, normal peripheral pulses, good capillary refill Abdominal: NABS x 4 quadrants, soft, nontender to palpation, no rebound, guarding or tenderness Extremities: Normal inspection, no peripheral edema or erythema, calfs nontender to palpation Psych: Normal mood and affect Neuro: AAO x 3, strength intact bilaterally and rated 5/5, no motor deficits, speech is clear, no peripheral sensory deficits Skin: superficial b/l wrist abrasions, nonbleeding Results & Data Results & Data ([facility]) Vital Signs (Past 12 Hours) Vital Signs Temp Pulse Pulse Resp BP BP Pulse Ox 08/18/22 11:18 36.4 C L 67 20 123/72 94 08/18/22 08:00 60 08/18/22 07:34 36.4 C L 64 16 106/68 94 08/18/22 03:18 36.4 C L 60 16 105/62 94 O2 Del Method 08/18/22 11:18 Room Air 08/18/22 08:00 08/18/22 07:34 Room Air 08/18/22 03:18 Room Air PG Care Time/CCT Total # of Minutes Spent Total Time Spent with Patient: Total time spent is greater than 50% in coordination of care (as documented) at patient's floor/unit and/or counseling patient: Coding Level of Care Code 13926 Subseq Hosp Care Lvl 2 Diagnoses Acute hypoxemic respiratory failure J96.01 Pneumonia J18.9 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
[2022-08-18] MEDS: LANTUS PER UNIT CHARGE SQ SCH (21:03)
[2022-08-19 06:58] LABS: Hematocrit (blood only) 45.1 % (40.1-51.0); Hemoglobin 15.4 g/dl (14.0-18.0); Mean Corpuscular Hgb Conc 34.1 g/dL (32.0-36.0); Mean Corpuscular Volume 87.9 fL (80.0-100.0); Mean Platelet Volume 9.8 fL (9.4-12.4); Platelet Count 284 K/uL (130-400); RDW Coefficient of Variation 12.7 % (11.5-14.5); RDW Standard Deviation 41.1 fL (36.4-46.3); Red Blood Count 5.13 M/uL (4.63-6.08); White Blood Count 16.53 K/ul (4.8-10.8)
[2022-08-19] MEDS: INSULIN ASPART PER UNIT SC SCH ×4 (08:19→20:02)
[2022-08-19] MEDS: ASPIRIN 81 MG ECTAB PO SCH (08:23)
[2022-08-19] MEDS: CHOLECALCIFEROL 1,000 UNITS 25 MCG TAB PO SCH (08:23)
[2022-08-19] MEDS: ASCORBIC ACID 500 MG TAB PO SCH (08:23)
[2022-08-19] MEDS: CYCLOBENZAPRINE HCL 5 MG TAB PO SCH ×3 (08:24→20:19)
[2022-08-19] MEDS: PANTOprazole 40 MG TAB PO SCH (08:24)
[2022-08-19] MEDS: CLOPIDOGREL BISULFATE 75 MG TAB PO SCH (08:24)
[2022-08-19] MEDS: GABAPENTIN 300 MG CAP PO SCH ×3 (08:24→20:18)
[2022-08-19] MEDS: lisinopril 2.5 MG TAB PO SCH (08:24)
[2022-08-19] MEDS: DOXAZOSIN MESYLATE 1 MG TAB PO SCH (08:24)
[2022-08-19] MEDS: predniSONE 20 MG TAB PO SCH (08:24)
[2022-08-19] MEDS: NYSTATIN SUSP 500,000 U/5 ML UDC PO SCH ×4 (08:25→20:18)
[2022-08-19] MEDS: DICLOFENAC SOD 1% GEL 100 GM TUBE EXT SCH ×2 (08:26→20:19)
[2022-08-19] MEDS: BUTT PASTE (ZINC OXIDE 16%) 171 APPLN/57 GM JAR EXT SCH (08:27)
[2022-08-19] MEDS: OLODATEROL HCL 2.5MCG/ACTUATION 60 PUFFS/INHALER INH SCH (08:27)
[2022-08-19] MEDS: UMECLIDINIUM BROMIDE 62.5MCG/BLISTER 7 PUFFS/INHALER INH SCH (11:55)
--- NOTE | 2022-08-19 11:59 | Pharmacy Report ---
Pharmacy Glycemic Short Note 2 - Date of Service August 19, 2022 - Glycemic Short BSG Results (Last 24 hours): 08/18/22 08/18/22 08/19/22 16:38 20:24 07:16 POC Glucose 161 H 200 H 227 H 08/19/22 11:49 POC Glucose 123 H OUTPATIENT ANTIDIABETIC REGIMEN: * n/a * HbA1c 10.1% (08/13/22) ASSESSMENT: 08/19/22 * Patient's BSGs yesterday were [phone] mg/dL. Patient received 47 units of insulin (15 units of basal and 32 units of bolus) * Fasting today is 227 mg/dL. This is out of the norm for patient (past 3 days were 99-121-113 mg/dL). Therefore will not react. Continue Lantus 15 units HS. * Tighten up Novolog as patient trends upwards through out the day. 08/16/22 * Patient's BSGs yesterday were [phone] mg/dL. Patient received 44 units of insulin yesterday - evenly split between basal/bolus. * Patient continues on prednisone 40 mg daily. * Fasting today 100 mg/dL. * Decrease basal by 20% due to fasting below goal. Will combine to once daily dosing and start with dinner. * Tighten CR since patient on steroids + decrease in basal. 08/15/22 * Patient's BSGs yesterday were [phone] mg/dL. Patient received 48 units of insulin (24 units of basal and 24 units of bolus). patient also received Jardiance 25 mg. * Patient started on prednisone 40 mg daily yesterday. (dose given in the evening). * Reduce Lantus by 20% since fasting today was 100 mg/dL. (uncertain if this was due to Jardiance or excessive basal). * Loosen CF since patient overcorrected at dinner. Background * DC is a 61 year old male who presented from [facility] via EMS on 08/12/22 with acute hypoxemic respiratory failure * Vancomycin/Zosyn initiated upon presentation given concern for pneumonia (subsequently de-escalated to Zosyn monotherapy) * Presumed new diagnosis of T2DM based on HbA1c of 10.1% and lack of history noted in PMH * Acute hyperglycemia on admission (BSG of 608 mg/dL), insulin infusion initiated and continued throughout the day/evening yesterday * Insulin gtt max rate overnight of 10.4 units/hr, more recently ~2 units/hr, gtt ultimately held for most recent BSG of 128 mg/dL * Will transition insulin gtt to SC basal/bolus today, patient remains NPO so wi ll give ~0.2 unit/kg Lantus dose this morning and reassess for increased dose this afternoon. Patient remains NPO at this time. * Patient will require antidiabetic regimen upon discharge (CDE consulted) PLAN FOR INPATIENT GLYCEMIC CONTROL: * Basal insulin * Lantus 15 units HS * Bolus insulin * NovoLog per scale ACHS or Q6hrs while NPO * Goal Range: Low 110 mg/dL - High 140 mg/dL * Correction Factor: 25 mg/dL/unit * Nutritional / Prandial insulin per carb ratio of 1 unit per 4 grams CHO consumed
[2022-08-19] MEDS: ENOXAPARIN INJ 40 MG/0.4 ML SYR SQ SCH (17:13)
--- NOTE | 2022-08-19 19:37 | Hospitalist Progress Note ---
Date of Service August 19, 2022 Assessment & Plan (1) Acute hypoxemic respiratory failure: Plan: -Presented with acute hypoxic respiratory failure, bilateral multifocal pneumonia presented on the imaging studies, responded well, white cell count dropped to 12,000, currently on room air, stop IV Zosyn, switch to Augmentin -Presented with WBC 34, lactate and procal wnl. -had wheezing, started prednisone , doing better today - CXR: There are airspace opacities in the lower lungs typical for pneumonia/aspiration pneumonitis. Clinical correlation required and radiographic follow-up to resolution is recommended. Emphysema. - Chest CTA: There is extensive tree-in-bud nodularity and groundglass consolidation seen throughout both lungs. The appearance suggests an infectious/inflammatory pneumonitis. Clinical correlation will be required. A follow-up chest CT in 3-4 months time is recommend diagnostic and resolution, and to evaluate for underlying nodularity. There is no evidence of pulmonary embolus in the main, lobar, or proximal segmental pulmonary arteries. Evaluation of the distal segmental and subsegmental branches is compromised by motion artifact. Emphysema with postoperative change from right-sided pulmonary resection. High risk of aspiration followed by speech (2) Pneumonia: Plan: The plan is as mentioned above (3) Aphasia following cerebral infarction: Plan: - Patient history of stroke complicated with expressive aphasia, only can speak few words, status post PEG tube, -Diet advance as per speech therapy's recommendation, however patient states he would like to remove the PEG tube out, patient has a scheduled outpatient to remove the PEG tube, GI was consulted however GI declined to remove the PEG tube indicating patient is high risk of aspiration and may need to use the tube again (4) Acute hyperglycemia: Plan: - Secondary to daily Decadron since 07/29 for COVID infection, -Resolved (5) Essential (primary) hypertension: Plan: - Continue lisinopril, hold for SBP < 100. Blood pressure fairly managed (6) COPD (chronic obstructive pulmonary disease): Plan: With exacerbation, wheezing yesterday, started on prednisone 40 mg daily, DuoNeb as needed -Taper prednisone over the next few days (7) BPH (benign prostatic hyperplasia): Plan: - Continue doxazosin. (8) Wrist laceration: Plan: - EMS initially called to [facility] due to superficial b/l wrist lacerations. None are deep, patient currently denying active SI/HI. - Given the above findings above as well as patient pulling at PEG tube, patient will have 1-1 sitter and a psychiatry consult while admitted. (9) Esophagitis: Plan: - Noted on CT, no complaints of abdominal pain, n/v, melena. - IV PPI daily. 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 , Admission and Anticipated Discharge Date Admission Date: August 12, 2022 Subjective No acute issue continue current meds waiting for placement Physical Exam Physical Exam: General: awake, alert, no apparent distress Head: Normocephalic, atraumatic ENT: PERRL, EOMI, no pharyngeal exudate, mucous membranes moist Chest: Rhonchi heard throughout lung [place], on BiPAP Cardiac: Regular rate and rhythm, no murmur, no JVD, normal peripheral pulses, good capillary refill Abdominal: NABS x 4 quadrants, soft, nontender to palpation, no rebound, guarding or tenderness Extremities: Normal inspection, no peripheral edema or erythema, calfs nontender to palpation Psych: Normal mood and affect Neuro: AAO x 3, strength intact bilaterally and rated 5/5, no motor deficits, speech is clear, no peripheral sensory deficits Skin: superficial b/l wrist abrasions, nonbleeding Results & Data Results & Data ([facility]) Vital Signs (Past 12 Hours) Vital Signs Temp Pulse Resp BP Pulse Ox O2 Del Method 08/19/22 17:27 36.5 C 60 18 130/64 97 Room Air 08/19/22 08:00 Room Air 08/19/22 11:51 36.8 C 60 20 123/74 96 Room Air 08/19/22 08:05 36.4 C L 65 18 128/97 94 Room Air PG Care Time/CCT Total # of Minutes Spent Total Time Spent with Patient: Total time spent is greater than 50% in coordination of care (as documented) at patient's floor/unit and/or counseling patient: Coding Level of Care Code 40732 Subseq Hosp Care Lvl 1 Diagnoses Acute hypoxemic respiratory failure J96.01 Pneumonia J18.9 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
[2022-08-19] MEDS: LANTUS PER UNIT CHARGE SQ SCH (20:03)
[2022-08-20] MEDS: CYCLOBENZAPRINE HCL 5 MG TAB PO SCH ×3 (08:43→20:07)
[2022-08-20] MEDS: INSULIN ASPART PER UNIT SC SCH ×4 (08:43→20:06)
[2022-08-20] MEDS: ASPIRIN 81 MG ECTAB PO SCH (08:43)
[2022-08-20] MEDS: lisinopril 2.5 MG TAB PO SCH (08:43)
[2022-08-20] MEDS: NYSTATIN SUSP 500,000 U/5 ML UDC PO SCH ×4 (08:44→20:06)
[2022-08-20] MEDS: DOXAZOSIN MESYLATE 1 MG TAB PO SCH (08:44)
[2022-08-20] MEDS: CLOPIDOGREL BISULFATE 75 MG TAB PO SCH (08:44)
[2022-08-20] MEDS: GABAPENTIN 300 MG CAP PO SCH ×3 (08:44→20:07)
[2022-08-20] MEDS: ASCORBIC ACID 500 MG TAB PO SCH (08:44)
[2022-08-20] MEDS: PANTOprazole 40 MG TAB PO SCH (08:44)
[2022-08-20] MEDS: CHOLECALCIFEROL 1,000 UNITS 25 MCG TAB PO SCH (08:44)
[2022-08-20] MEDS: predniSONE 20 MG TAB PO SCH (08:44)
[2022-08-20] MEDS: OLODATEROL HCL 2.5MCG/ACTUATION 60 PUFFS/INHALER INH SCH (08:45)
[2022-08-20] MEDS: DICLOFENAC SOD 1% GEL 100 GM TUBE EXT SCH ×2 (08:45→20:07)
[2022-08-20] MEDS: UMECLIDINIUM BROMIDE 62.5MCG/BLISTER 7 PUFFS/INHALER INH SCH (08:45)
[2022-08-20] MEDS: BUTT PASTE (ZINC OXIDE 16%) 171 APPLN/57 GM JAR EXT SCH (08:45)
--- NOTE | 2022-08-20 10:11 | Psychiatric Progress Note ---
Date of Service August 20, 2022 Impression / Recommendations Impression 61 yo man with history of asphasia following cerebral infarct admitted with self-harm and found to have COVID pneumonia with concern for delirium leading to self-harm prior to admission as he had multiple metabolic derangements with sepsis, hypoxia (found with O2 sats in 70s), steroid use, and hyponatremia on admission versus possible drug seeking behavior. Throughout admission mood has improved with no further episodes of self-harm. From psychiatric standpoint is stable for discharge once medically appropriate as continues to deny SI, self- harm and feels safe. Acute risk of self-harm is low given denial of depression symptoms, denial of SI and no recent self-harming behaviors since delirium/medical status has been treated. (1) Aphasia following cerebral infarction: (2) Wrist laceration: Plan -felt to be safe to return to [facility] which is a supervised setting when medically cleared -in future if mood symptoms re-emerge would consider addition of an SSRI, not felt to be needed at this time and could add to GI symptoms/PEG issues Interval History Identifying Information 61 yo man with a history of aphasia following a stroke and has been residing at [facility] for rehab. Consult was by hospitalist service for SIB. Chief Complaint incomprehensible words Review of Systems Notes sleeping, has PEG tube Subjective Subjective Patient was seen & assessed and interval progress reviewed. Anthony is nearing medical stability and mood has remained stable with no further episodes of self- harm or injury. Today he expresses himself at times with vocalizations which I could not interpret so he sat up and started to use the white board but then was able to show me his main concern is his PEG tube and preferred to communicate by nodding or shaking his head in response to questions. He notes some pain related to his PEG. Denies any depression symptoms. Denies SI. Denies any urges for self-harm. Physical Exam Psychiatric Orientation: alert, oriented to person and oriented to place Apperance: appropriately dressed and appropriately groomed Eye Contact: good eye contact Motor Behavior: no abnormal motor movements Speech: + abnormal rate/rhythm/volume of speech (aphasia) Affect: euthymic affect Mood: no depressed mood and no anxious mood Thought Process: goal directed thought process (focused on issue with PEG) Thought Content: reality based without delusions Suicidal Thoughts: denies suicidal thoughts Homicidal Thoughts: denies homicidal thoughts Hallucinations: no auditory hallucinations and no visual hallucinations Cognition: recent memory grossly intact and attention grossly intact; + language not intact Insight: + limited insight Judgement: + limited judgement Vital Signs (Past 24 Hours) Last Vital Signs Temp 36.3 C L 08/20/22 07:42 Pulse 58 L 08/20/22 07:42 Resp 16 08/20/22 07:42 BP 121/71 08/20/22 07:42 Pulse Ox 90 08/20/22 07:42 O2 Del Method 08/20/22 07:42 O2 Flow Rate 3 08/17/22 11:50 FiO2 40 08/12/22 19:41 Results & Data ([facility]) Laboratory Results Laboratory Results - last 24 hr 08/19/22 08/19/22 08/19/22 11:49 16:15 19:58 POC Glucose 123 H 118 H 160 H 08/20/22 07:33 POC Glucose 129 H Current Inpatient Medications Current Inpatient Medications: Current Inpatient Medications Acetaminophen (Acetaminophen 325 Mg Tab) 650 mg PO Q6H PRN PRN Reason: pain/fever > 100 F or above Last Admin: 08/15/22 20:36 Dose: 650 mg Al Hydrox/Mg Hydrox/Simethicone (Aluminum/Magnesium Susp 30 Ml Udc) 15 ml PO Q4H PRN PRN Reason: Dyspepsia Stop: 09/11/22 15:12 Albuterol (Albuterol 0.083% Nebu Soln 3 Ml Vial) 2.5 mg NEB Q4 PRN; Protocol PRN Reason: Shortness Of Breath Or Wheezing Stop: 09/11/22 16:09 Last Admin: 08/13/22 07:22 Dose: 2.5 mg Ascorbic Acid (Ascorbic Acid 500 Mg Tab) 500 mg PO DAILY [facility] Stop: 09/12/22 08:59 Last Admin: 08/20/22 08:44 Dose: 500 mg Aspirin (Aspirin 81 Mg Ectab) 81 mg PO DAILY [facility] Stop: 09/12/22 08:59 Last Admin: 08/20/22 08:43 Dose: 81 mg Bisacodyl (Bisacodyl 10 Mg Supp) 10 mg OK DAILY PRN PRN Reason: CONSTIPATION Stop: 09/11/22 15:12 Clopidogrel Bisulfate (Clopidogrel Bisulfate 75 Mg Tab) 75 mg PO DAILY [facility] Stop: 09/12/22 08:59 Last Admin: 08/20/22 08:44 Dose: 75 mg Cyclobenzaprine HCl (Cyclobenzaprine Hcl 5 Mg Tab) 5 mg PO TID [facility] Stop: 09/14/22 20:59 Last Admin: 08/20/22 08:43 Dose: 5 mg Dextrose (Dextrose 50% 50 Ml Syringe) 25 - 50 ml IV UD PRN; Protocol PRN Reason: Hypoglycemia Protocol Stop: 09/11/22 13:14 Last Admin: 08/13/22 02:41 Dose: 25 ml Diclofenac Sodium (Diclofenac Sod 1% Gel 100 Gm Tube) 2 gm EXT BID [facility]; Protocol Stop: 09/13/22 20:59 Last Admin: 08/20/22 08:45 Dose: 2 gm Doxazosin Mesylate (Doxazosin Mesylate 1 Mg Tab) 1 mg PO DAILY [facility] Stop: 09/12/22 08:59 Last Admin: 08/20/22 08:44 Dose: 1 mg Empagliflozin (Empagliflozin 25 Mg Tab) 25 mg PO DAILY [facility] Stop: 09/13/22 18:59 Last Admin: 08/15/22 09:37 Dose: 25 mg Enoxaparin Sodium (Enoxaparin Inj 40 Mg/0.4 Ml Syr) 40 mg SQ Q24H [facility] Stop: 09/11/22 15:12 Last Admin: 08/19/22 17:13 Dose: 40 mg Gabapentin (Gabapentin 300 Mg Cap) 300 mg PO TID [facility] Stop: 09/11/22 15:59 Last Admin: 08/20/22 08:44 Dose: 300 mg Glucagon (Glucagon For Inj 1 Mg Vial) 1 mg IM UD PRN; Protocol PRN Reason: Hypoglycemia Protocol Stop: 09/11/22 13:14 Glucose (Glucose 40% Gel 15 Gm Tube) 15 - 30 gm PO UD PRN; Protocol PRN Reason: Hypoglycemia Protocol Stop: 09/11/22 13:14 Glucose (Glucose 10 Tab/Tube) 4 - 8 tab PO UD PRN; Protocol PRN Reason: Hypoglycemia Protocol Stop: 09/11/22 13:14 Guaifenesin (Guaifenesin Sugar Free 100 Mg/5 Ml Udc) 200 mg PO Q8H PRN PRN Reason: cough Stop: 09/11/22 15:12 Insulin Aspart (Insulin Aspart Per Unit) 0 units SC ACHS [facility] Stop: 09/12/22 07:04 Last Admin: 08/20/22 08:43 Dose: 18 units Insulin Glargine (Lantus Per Unit Charge) 15 units SQ HS [facility] Stop: 09/15/22 16:29 Last Admin: 08/19/22 20:03 Dose: 15 units Lisinopril (Lisinopril 2.5 Mg Tab) 2.5 mg PO DAILY [facility] Stop: 09/12/22 08:59 Last Admin: 08/20/22 08:43 Dose: 2.5 mg Miscellaneous (Carbohydrates For Hypoglycemia ) 15 - 30 gm PO UD PRN PRN Reason: Hypoglycemia Treatment Stop: 09/11/22 13:14 Miscellaneous Information (Pharmacy Glycemic Mgmt Consult) 1 each N/A UD PRN PRN Reason: Consult Stop: 09/11/22 15:12 Nystatin (Nystatin Susp 500,000 U/5 Ml Udc) 5 ml PO QID [facility] Stop: 08/23/22 08:59 Last Admin: 08/20/22 08:44 Dose: 5 ml Olodaterol (Olodaterol Hcl 2.5mcg/Actuation 60 Puffs/Inhaler) 2 puffs INH DAILY [facility]; Protocol Stop: 09/11/22 20:59 Last Admin: 08/20/22 08:45 Dose: 2 puffs Ondansetron HCl (Ondansetron Inj 2 Mg/Ml 2 Ml Vial) 4 mg IV Q6H PRN PRN Reason: Nausea Stop: 09/11/22 15:12 Pantoprazole Sodium (Pantoprazole 40 Mg Tab) 40 mg PO QAM [facility] Stop: 09/15/22 08:59 Last Admin: 08/20/22 08:44 Dose: 40 mg Petrolatum (Butt Paste (Zinc Oxide 16%) 171 Appln/57 Gm Jar) 1 appln EXT DAILY [facility] Stop: 09/11/22 20:59 Last Admin: 08/20/22 08:45 Dose: 1 appln Polyethylene Glycol (Polyethylene (Miralax) 17 Gm Pack) 17 gm PO DAILY PRN PRN Reason: Constipation Stop: 09/11/22 15:12 Prednisone (Prednisone 20 Mg Tab) 40 mg PO DAILY [facility] Stop: 09/13/22 18:44 Last Admin: 08/20/22 08:44 Dose: 40 mg Umeclidinium [place] (Umeclidinium [place] 62.5mcg/Blister 7 Puffs/Inhaler) 1 puffs INH DAILY [facility]; Protocol Stop: 09/12/22 08:59 Last Admin: 08/20/22 08:45 Dose: 1 puffs Vitamin D (Cholecalciferol 1,000 Units 25 Mcg Tab) 1,000 units PO DAILY [facility] Stop: 09/12/22 08:59 Last Admin: 08/20/22 08:44 Dose: 1,000 units
[2022-08-20] MEDS: ENOXAPARIN INJ 40 MG/0.4 ML SYR SQ SCH (14:32)
[2022-08-20] MEDS: LANTUS PER UNIT CHARGE SQ SCH (20:06)
--- NOTE | 2022-08-20 20:25 | Hospitalist Progress Note ---
Date of Service August 20, 2022 Assessment & Plan (1) Acute hypoxemic respiratory failure: Plan: -Presented with acute hypoxic respiratory failure, bilateral multifocal pneumonia presented on the imaging studies, responded well, white cell count dropped to 12,000, currently on room air, stop IV Zosyn, switch to Augmentin -Presented with WBC 34, lactate and procal wnl. -had wheezing, started prednisone , doing better today - CXR: There are airspace opacities in the lower lungs typical for pneumonia/aspiration pneumonitis. Clinical correlation required and radiographic follow-up to resolution is recommended. Emphysema. - Chest CTA: There is extensive tree-in-bud nodularity and groundglass consolidation seen throughout both lungs. The appearance suggests an infectious/inflammatory pneumonitis. Clinical correlation will be required. A follow-up chest CT in 3-4 months time is recommend diagnostic and resolution, and to evaluate for underlying nodularity. There is no evidence of pulmonary embolus in the main, lobar, or proximal segmental pulmonary arteries. Evaluation of the distal segmental and subsegmental branches is compromised by motion artifact. Emphysema with postoperative change from right-sided pulmonary resection. High risk of aspiration followed by speech (2) Pneumonia: Plan: The plan is as mentioned above (3) Aphasia following cerebral infarction: Plan: - Patient history of stroke complicated with expressive aphasia, only can speak few words, status post PEG tube, -Diet advance as per speech therapy's recommendation, however patient states he would like to remove the PEG tube out, patient has a scheduled outpatient to remove the PEG tube, GI was consulted however GI declined to remove the PEG tube indicating patient is high risk of aspiration and may need to use the tube again (4) Acute hyperglycemia: Plan: - Secondary to daily Decadron since 07/29 for COVID infection, -Resolved (5) Essential (primary) hypertension: Plan: - Continue lisinopril, hold for SBP < 100. Blood pressure fairly managed (6) COPD (chronic obstructive pulmonary disease): Plan: With exacerbation, wheezing yesterday, started on prednisone 40 mg daily, DuoNeb as needed -Taper prednisone over the next few days (7) BPH (benign prostatic hyperplasia): Plan: - Continue doxazosin. (8) Wrist laceration: Plan: - EMS initially called to [facility] due to superficial b/l wrist lacerations. None are deep, patient currently denying active SI/HI. - Given the above findings above as well as patient pulling at PEG tube, patient will have 1-1 sitter and a psychiatry consult while admitted. (9) Esophagitis: Plan: - Noted on CT, no complaints of abdominal pain, n/v, melena. - IV PPI daily. 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, block and case maker , Admission and Anticipated Discharge Date Admission Date: August 12, 2022 Subjective No acute issue continue current meds waiting for placement Review of Systems Review of Systems: HPI/ROS limited to residual aphasia from prior CVA Physical Exam Physical Exam: General: awake, alert, no apparent distress Head: Normocephalic, atraumatic ENT: PERRL, EOMI, no pharyngeal exudate, mucous membranes moist Chest: Rhonchi heard throughout lung [place], on BiPAP Cardiac: Regular rate and rhythm, no murmur, no JVD, normal peripheral pulses, good capillary refill Abdominal: NABS x 4 quadrants, soft, nontender to palpation, no rebound, guarding or tenderness Extremities: Normal inspection, no peripheral edema or erythema, calfs nontender to palpation Psych: Normal mood and affect Neuro: AAO x 3, strength intact bilaterally and rated 5/5, no motor deficits, speech is clear, no peripheral sensory deficits Skin: superficial b/l wrist abrasions, nonbleeding Results & Data Results & Data ([facility]) Vital Signs (Past 12 Hours) Vital Signs Temp Pulse Resp BP Pulse Ox O2 Del Method 08/20/22 19:50 36.6 C 66 20 119/68 94 Room Air 08/20/22 15:37 36.4 C L 63 20 118/72 91 Room Air 08/20/22 11:59 36.4 C L 74 17 109/66 96 Room Air PG Care Time/CCT Total # of Minutes Spent Total Time Spent with Patient: Total time spent is greater than 50% in coordination of care (as documented) at patient's floor/unit and/or counseling patient: Coding Level of Care Code 67787 Subseq Hosp Care Lvl 2 Diagnoses Acute hypoxemic respiratory failure J96.01 Pneumonia J18.9 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
[2022-08-20] MEDS: MUPIROCIN 2% OINT 22 GM TUBE EXT SCH (22:25)
[2022-08-21] MEDS: lisinopril 2.5 MG TAB PO SCH (08:34)
[2022-08-21] MEDS: CHOLECALCIFEROL 1,000 UNITS 25 MCG TAB PO SCH (08:34)
[2022-08-21] MEDS: ASCORBIC ACID 500 MG TAB PO SCH (08:34)
[2022-08-21] MEDS: GABAPENTIN 300 MG CAP PO SCH ×2 (08:34→12:54)
[2022-08-21] MEDS: CYCLOBENZAPRINE HCL 5 MG TAB PO SCH ×2 (08:34→12:54)
[2022-08-21] MEDS: ASPIRIN 81 MG ECTAB PO SCH (08:35)
[2022-08-21] MEDS: PANTOprazole 40 MG TAB PO SCH (08:35)
[2022-08-21] MEDS: DOXAZOSIN MESYLATE 1 MG TAB PO SCH (08:35)
[2022-08-21] MEDS: UMECLIDINIUM BROMIDE 62.5MCG/BLISTER 7 PUFFS/INHALER INH SCH (08:36)
[2022-08-21] MEDS: CLOPIDOGREL BISULFATE 75 MG TAB PO SCH (08:37)
[2022-08-21] MEDS: DICLOFENAC SOD 1% GEL 100 GM TUBE EXT SCH (08:37)
[2022-08-21] MEDS: MUPIROCIN 2% OINT 22 GM TUBE EXT SCH (08:38)
[2022-08-21] MEDS: BUTT PASTE (ZINC OXIDE 16%) 171 APPLN/57 GM JAR EXT SCH (08:38)
[2022-08-21] MEDS: NYSTATIN SUSP 500,000 U/5 ML UDC PO SCH ×2 (08:38→12:54)
[2022-08-21] MEDS: OLODATEROL HCL 2.5MCG/ACTUATION 60 PUFFS/INHALER INH SCH (08:38)
[2022-08-21] MEDS ORDERED: predniSONE 20 MG TAB PO SCH (09:00)
[2022-08-21] MEDS: INSULIN ASPART PER UNIT SC SCH ×2 (09:04→12:45)
--- NOTE | 2022-08-21 13:22 | Pharmacy Report ---
Pharmacy Glycemic Short Note 2 - Date of Service August 21, 2022 - Glycemic Short BSG Results (Last 24 hours): 08/20/22 08/20/22 08/21/22 16:12 19:51 07:38 POC Glucose 145 H 198 H 181 H 08/21/22 11:27 POC Glucose 179 H OUTPATIENT ANTIDIABETIC REGIMEN: * n/a * HbA1c 10.1% (08/13/22) ASSESSMENT: 08/21/22 * Patient's BSGs yesterday were [phone] mg/dL. Patient received 74 units of insulin (15 units of basal and 59 units of bolus). * Fasting today is 181 mg/dL. Still continue Lantus at 15 units daily. Fasting from day before in goal range. * Prednisone decreased to 20 mg daily. * Since BSGs were slightly elevated with prednisone 40 mg, will continue current parameters. Carbohydrate ratio may require loosening depending on how patient reacts to decrease in steroids. 08/19/22 * Patient's BSGs yesterday were [phone] mg/dL. Patient received 47 units of insulin (15 units of basal and 32 units of bolus) * Fasting today is 227 mg/dL. This is out of the norm for patient (past 3 days were 99-121-113 mg/dL). Therefore will not react. Continue Lantus 15 units HS. * Tighten up Novolog as patient trends upwards through out the day. 08/16/22 * Patient's BSGs yesterday were [phone] mg/dL. Patient received 44 units of insulin yesterday - evenly split between basal/bolus. * Patient continues on prednisone 40 mg daily. * Fasting today 100 mg/dL. * Decrease basal by 20% due to fasting below goal. Will combine to once daily dosing and start with dinner. * Tighten CR since patient on steroids + decrease in basal. 08/15/22 * Patient's BSGs yesterday were [phone] mg/dL. Patient received 48 units of insulin (24 units of basal and 24 units of bolus). patient also received Jardiance 25 mg. * Patient started on prednisone 40 mg daily yesterday. (dose given in the eveni ng). * Reduce Lantus by 20% since fasting today was 100 mg/dL. (uncertain if this was due to Jardiance or excessive basal). * Loosen CF since patient overcorrected at dinner. Background * DC is a 61 year old male who presented from [facility] via EMS on 08/12/22 with acute hypoxemic respiratory failure * Vancomycin/Zosyn initiated upon presentation given concern for pneumonia (subsequently de-escalated to Zosyn monotherapy) * Presumed new diagnosis of T2DM based on HbA1c of 10.1% and lack of history noted in PMH * Acute hyperglycemia on admission (BSG of 608 mg/dL), insulin infusion initiated and continued throughout the day/evening yesterday * Insulin gtt max rate overnight of 10.4 units/hr, more recently ~2 units/hr, gtt ultimately held for most recent BSG of 128 mg/dL * Will transition insulin gtt to SC basal/bolus today, patient remains NPO so will give ~0.2 unit/kg Lantus dose this morning and reassess for increased dose this afternoon. Patient remains NPO at this time. * Patient will require antidiabetic regimen upon discharge (CDE consulted) PLAN FOR INPATIENT GLYCEMIC CONTROL: * Basal insulin * Lantus 15 units HS * Bolus insulin * NovoLog per scale ACHS or Q6hrs while NPO * Goal Range: Low 110 mg/dL - High 140 mg/dL * Correction Factor: 25 mg/dL/unit * Nutritional / Prandial insulin per carb ratio of 1 unit per 4 grams CHO consumed
[2022-08-21] MEDS: ENOXAPARIN INJ 40 MG/0.4 ML SYR SQ SCH (15:01)
--- NOTE | 2022-08-21 15:15 | Discharge Summary ---
Date of Service August 21, 2022 Admission HPI Per Admitting Provider Anthony Guerrero is a 61-year-old male with past medical history of CVA with residual aphasia, COPD, hypertension, recent COVID infection earlier this month who is presenting today from [facility]. Apparently, EMS was initially summoned d/t concern for self injurious behavior as patient has b/l superficial wrist lacerations. When EMS arrived, he was noted to be tachypneic and using respiratory muscles to breathe. He was diagnosed with COVID on 07/29 and has been treated with steroids since then. He is also recently diagnosed with an aspiration pneumonia by CXR taken at [facility], staff notes that due to his pr evious stroke he does aspirate, however was cleared for regular diet by speech study in March. He has been taking clindamycin and continued on steroids. He was given DuoNebs and Solu-Medrol en route to the ED, also placed on BIPAP. Principal Diagnosis Pneumonia possible aspiration pneumonia COPD exacerbation versus aspiration pneumonitis Discharge Exam General: awake, alert, no apparent distress Head: Normocephalic, atraumatic ENT: PERRL, EOMI, no pharyngeal exudate, mucous membranes moist Chest: Rhonchi heard throughout lung [place], on BiPAP Cardiac: Regular rate and rhythm, no murmur, no JVD, normal peripheral pulses, good capillary refill Abdominal: NABS x 4 quadrants, soft, nontender to palpation, no rebound, guarding or tenderness Extremities: Normal inspection, no peripheral edema or erythema, calfs nontender to palpation Psych: Normal mood and affect Neuro: AAO x 3, strength intact bilaterally and rated 5/5, no motor deficits, speech is clear, no peripheral sensory deficits Skin: superficial b/l wrist abrasions, nonbleeding Discharge Data Allergies Allergy/AdvReac Type Severity Reaction Status Date / Time No Known Drug Allergies Allergy Unknown Verified 07/26/22 09:53 Consultations 08/12/22 12:56 ED Decision to Admit Stat 08/12/22 15:13 Consult Psychiatry Routine 08/12/22 19:05 Consult Behavioral Health Liaison Routine 08/18/22 12:15 Consult Gastroenterology Routine Ordered Studies 08/12/22 10:58 CT abd pelvis IV con only Stat CT angio chest PE protocol Stat 08/14/22 13:45 FL video swallow Routine Diabetes Follow up Diabetes Follow-up Needed for HgbA1c >9% Hospital Course (1) Acute hypoxemic respiratory failure: -Presented with acute hypoxic respiratory failure, bilateral multifocal pneumonia presented on the imaging studies, responded well to Zosyn, white cell count dropped to 12,000, currently on room air, stop IV Zosyn, switch to Augmentin -Presented with WBC 34, lactate and procal wnl. -had wheezing, started prednisone , doing better today - CXR: There are airspace opacities in the lower lungs typical for pneumonia/aspiration pneumonitis. Clinical correlation required and radiographic follow-up to resolution is recommended. Emphysema. - Chest CTA: There is extensive tree-in-bud nodularity and groundglass consolidation seen throughout both lungs. The appearance suggests an infectious/inflammatory pneumonitis. Clinical correlation will be required. A follow-up chest CT in 3-4 months time is recommend diagnostic and resolution, and to evaluate for underlying nodularity. There is no evidence of pulmonary embolus in the main, lobar, or proximal segmental pulmonary arteries. Evaluation of the distal segmental and subsegmental branches is compromised by motion artifact. Emphysema with postoperative change from right-sided pulmonary resection. High risk of aspiration followed by speech The End date of documented in his 08/28/2021 (2) Pneumonia: The plan is as mentioned above (3) Aphasia following cerebral infarction: - Patient history of stroke complicated with expressive aphasia, only can speak few words, status post PEG tube, -Diet advance as per speech therapy's recommendation, however patient states he would like to remove the PEG tube out, patient has a scheduled outpatient to remove the PEG tube, GI was consulted however GI declined to remove the PEG tube indicating patient is high risk of aspiration and may need to use the tube again He has some superficial cellulitis around the periphery of the PEG tube site, started on mupirocin (4) Acute hyperglycemia: - Secondary to daily Decadron since 07/29 for COVID infection, -Resolved (5) Essential (primary) hypertension: - Continue lisinopril, hold for SBP < 100. Blood pressure fairly managed (6) COPD (chronic obstructive pulmonary disease): With exacerbation, wheezing yesterday, started on prednisone 40 mg daily, DuoNeb as needed -Taper prednisone to 10 mg upon discharge, continue 5 days (7) BPH (benign prostatic hyperplasia): - Continue doxazosin. (8) Wrist laceration: - EMS initially called to [facility] due to superficial b/l wrist lacerations. None are deep, patient currently denying active SI/HI. - Given the above findings above as well as patient pulling at PEG tube, patient will have 1-1 sitter and a psychiatry consult while admitted. (9) Esophagitis: - Noted on CT, no complaints of abdominal pain, n/v, melena. -Received PPI during this admission, needs to follow-up with GI in outpatient, PPI was discontinued upon discharge, I defer to PCP/GI to continue PPI for now (10) CVA (cerebral vascular accident): History of a stroke, currently the patient on dual antiplatelet agent plus statin complicated with expressive aphasia, as per PT OT consult Please follow-up with neurology/PCP to decide how long patient needs to be on dual antiplatelet agent (11) Leukocytosis: Initially was because of pneumonia and currently is steroid-induced Total Time Total Time Spent Total Time Spent (In Minutes): 45 Discharge Plan Discharge Items Patient Disposition: Transfer [facility] Reason For Visit: ACUTE RESPIRATORY FAILURE Discharge Diagnosis: Pneumonia COPD exacrebation Activity: Resume your previous activity Lifting: Gradually increase as tolerated Bathing: No limitations Non-emergency contact: Primary Care Provider and Pain Management Call non-emergency contact if: you have any medication questions, your symptoms worsen and your pain is not controlled Follow-up/Referrals: [facility] [Primary Care Provider] - Diet: Carb Consistent or DM2 and Other - See Diet Comment Diet Comment: Honet Thicken diet Addtl Attending Provider Instructions: Aspiration precaution with diet, needs to be followed by speech Pending Studies at Discharge: No Stand-Alone Forms: My [facility] Skilled Items Patient informed of condition?: Yes DNR: No Discharge Level of Care: Skilled Communicable Disease: No Discharge Prognosis: Stable Lines: None Urinary Catheter: No Medications and DC Order Prescriptions: New insulin glargine [Lantus U-100 Insulin] 100 unit/mL Solution 15 unit subcut HS Qty: 10 0RF polyethylene glycol 3350 [Miralax] 17 gram Powder In Packet 17 g PO DAILY PRN (Reason: constipation) Qty: 5 0RF Jardiance 25 mg Tablet 25 mg PO DAILY Qty: 45 0RF prednisone 20 mg Tablet 10 mg PO DAILY Qty: 5 0RF mupirocin 2 % Ointment 1 applic EXT BID Qty: 8 0RF Continued doxazosin 1 mg Tablet 1 mg PO DAILY clopidogrel 75 mg Tablet 75 mg PO DAILY aspirin 81 mg Tablet,Delayed Release (Dr/Ec) 81 mg PO DAILY acetaminophen [Tylenol Extra Strength] 500 mg Tablet 500 mg PO BID guaifenesin [Evon-Tussin] 100 mg/5 mL Liquid 200 mg PO Q8H PRN (Reason: cough ) bisacodyl [Dulcolax (bisacodyl)] 10 mg Suppository 10 mg FL UD PRN (Reason: CONSTIPATION ) salmeterol 50 mcg/dose Blister With Device 1 inh INHALATION BID lisinopril 2.5 mg Tablet 2.5 mg PO DAILY Spiriva with HandiHaler 18 mcg Capsule, W/Inhalation Device 1 cap INHALATION DAILY acetaminophen 325 mg Capsule 650 mg PO Q6H PRN (Reason: pain/fever > 100 F or above ) cholecalciferol (vitamin D3) 25 mcg (1,000 unit) Tablet 25 mcg PO DAILY diclofenac sodium 1 % Gel 2 g TOPICAL Q8H PRN (Reason: left shoulder pain) ascorbic acid (vitamin C) 500 mg Capsule 500 mg PO DAILY zinc oxide Ointment 1 applic TOPICAL BID gabapentin 300 mg capsule 300 mg PO TID Discontinued ondansetron HCl [Zofran] 4 mg Tablet 4 mg PO Q6H PRN (Reason: nausea/vomiting) acetylcysteine 100 mg/mL (10 %) Solution 6 ml INHALATION QID Discharge Orders: Discharge Order (Routine); Ordered 08/21/22 Ordered By: Remberto Gutierrez Admission Data Admit Date/Time: 08/12/22 12:54 Attending Provider: Remberto Gutierrez Admit Provider: Tutu Thibodeaux Primary Care Provider: [facility] Other Providers: Tutu Thibodeaux ; Archana Jane ; Reny Shields ; Jocy Felton Other Interventions: Discharge Summary Assessment (RN) Last Done: 08/21/22 14:54 Coding Level of Care Code D/C DAY MANAGEMENT >30 MINS Diagnoses Acute hypoxemic respiratory failure J96.01 Pneumonia J18.9 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 Leukocytosis D72.829
== END 2022-08-21 17:23 | DRG 177 ==
LOC: ED 09:40 → SUATTDRO 12:54 → EDINP 12:54 → 2S 15:12 → UNDODISIN 08-21 17:23

== ENCOUNTER 2024-04-04 20:33 | Inpatient (IN) ==
--- NOTE | 2024-04-04 21:05 | Emergency Department Note ---
Impression & Plan Acute alteration in mental status, Weakness ED Provider Note NAME: KOKO ALLEN AGE: 63 SEX: M : 1960 ARRIVES VIA: Walk-In INFORMANT: Patient, the patient's brother ED PROVIDER(S): Jeff Gautam DO CHIEF COMPLAINT: Altered mental status HPI: The patient is a 63-year-old male who presented to the emergency department with his brother for an evaluation of altered mental status. Apparently the patient's been having more weakness than usual. He has a history of a stroke in the past. He has been in a residential. They are currently trying to move him to a different residential but he was told to come to the emergency department for further evaluation as you are unsure if they can take the patient because of his new onset of weakness. There is no reported fever. The patient does not complain of any chest pain or difficulty breathing although his brother states he may have some labored breathing tonight. His brother states he has been weaker than usual and not being able to walk as usual. There is no reported trauma. The patient is a history of seizure and his brother is unsure if he has been getting his seizure medication. ROS: See above HPI for pertinent positives & negatives. A total of 10 systems reviewed and were otherwise negative. PAST MEDICAL HISTORY: See Below PAST SURGICAL HISTORY: See Below FAMILY HISTORY: See Below SOCIAL HISTORY: See Below HOME MEDICATIONS: See Below ALLERGIES: See Below VITALS: See Below PHYSICAL EXAMINATION: GENERAL: The patient is awake and alert. He does appear anxious. EYES: The conjunctivae are clear. The pupils are round and reactive. EARS, NOSE, MOUTH AND THROAT: The nose is without any evidence of any deformity. NECK: The neck is nontender and supple. RESPIRATORY: Diminished breath sounds are noted throughout with scattered rhonchi. CARDIOVASCULAR: Regular rate and rhythm noted there no murmurs rubs or gallops normal S1 normal S2. GASTROINTESTINAL: The abdomen is soft. Abdomen is nontender. MUSCULOSKELETAL/EXTREMITIES: There is no evidence of gross deformity full range of motion is noted in the hips and shoulders. SKIN: Skin is warm and dry. There is no significant pedal edema. NEUROLOGIC: The patient is awake and alert. He is moving all extremities well but he is weak on the right compared to the left. The patient has a drift in right upper extremity. He denies a slight facial droop on the right. MEDICAL DECISION MAKING: The patient is a 63-year-old male who presented to the emergency department for an evaluation of altered mental status. The patient has a history of stroke in the past. He also has a history of alcohol abuse and tobacco use. He was taken from his personal snf to a new personal-snf. He was not able to be admitted to his new personal-snf because of his mental status. The patient was brought to the emergency department at the request of his new personal-snf. His brother presented with him. He does have a history of a COPD as well as a stroke in the past. The patient was medically cleared and no new findings were noted. He had no seizure in the emergency department. His valproic acid level is acceptable. I discussed his condition with the on-call social work case manager in the emergency department. They do not feel the patient is going to be a good candidate for outpatient management at this time for that reason [facility] Nursing notes reviewed. Prior medical records reviewed Vital Signs: reviewed and remarkable for no significant abnormalities Differential diagnosis: Infection, hypoglycemia, electrolyte abnormalities, overdose, toxicologic, cardiac sources, intracerebral event, neurologic, trauma, as well as other pathologies. ER treatment provided: See below Diagnostics interpreted by me: ECG: EKG was obtained in the emergency department. My interpretation is sinus bradycardia at 58 bpm. There is no ectopy. There is no acute ST segment abnormalities noted. This was compared to a tracing from August 12, 2022. There was a decrease in the rate otherwise no specific changes were noted. Cardiac Monitoring: An order was placed for continuous cardiac monitoring. The monitor shows a rate of 57 bpm with sinus bradycardia. Laboratory studies: As stated above and show below. Imaging studies: See below. Radiographic imaging was reviewed by myself Consultation(s): I discussed case with Dr. Collins who [facility] Past Med/Surg History Problem List (Updated 04/04/24 @ 22:44 by Jeff Gautam DO) Weakness (Acute) Acute alteration in mental status (Acute) Leukocytosis CVA (cerebral vascular accident) BPH (benign prostatic hyperplasia) Essential (primary) hypertension COPD (chronic obstructive pulmonary disease) Aphasia following cerebral infarction Medical History Esophagitis Pneumonia COVID-19 Acute hypoxemic respiratory failure Dysphagia, oropharyngeal phase Opioid dependence with opioid-induced mood disorder Asthma Opioid abuse Type 2 diabetes mellitus Cerebral infarction due to unspecified 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 Dysphasia following cerebral infarction Other recurrent depressive disorders History of CVA with residual deficit Surgical History Gastrostomy status S/P percutaneous endoscopic gastrostomy (PEG) tube placement Family History Other Family history non-contributory Social History Smoking Status: Current every day smoker Tobacco Type: Cigarettes Second Hand Exposure: No; Do You Dip or Chew Tobacco: No; Hx Alcohol Use: No Hx Substance Use: Yes Substance Use Type Other:: OPIOD ABUSE LISTED WITH FAXED INFORMATION...UNKNOWN FURTHER DETAILS Preferred Language: Uzbek Communication Ability: Unable Edge Polisher Required: No Beliefs That Will Affect Care: None Current Living Situation: [facility] Current Living Situation Comment: [facility] Feels Safe at Home: Yes Assistive Devices: None, Denture - Upper, Denture - Lower and Glasses Allergies Allergies Allergy/AdvReac Type Severity Reaction Status Date / Time No Known Allergies Allergy Verified 04/04/24 22:06 Home Meds Home Medications Medication Instructions Recorded Confirmed acetaminophen 325 mg capsule 650 mg PO Q6H PRN Pain 07/26/22 04/04/24 aspirin 81 mg tablet,delayed 81 mg PO DAILY 07/26/22 04/04/24 release guaifenesin 100 mg/5 mL oral 200 mg PO Q8H PRN cough 07/26/22 04/04/24 liquid (Evon-Tussin) albuterol sulfate 2.5 mg/3 mL 2.5 mg inhalation Q6H PRN COPD 04/04/24 04/04/24 (0.083 %) solution for nebulization albuterol sulfate 90 mcg/actuation 2 puff inhalation Q6H PRN COPD 04/04/24 04/04/24 aerosol inhaler divalproex 500 mg tablet,extended 1,000 mg PO HS 04/04/24 04/04/24 release 24 hr (Depakote ER) gabapentin 800 mg tablet 800 mg PO QID 04/04/24 04/04/24 hydrochlorothiazide 25 mg tablet 25 mg PO DAILY 04/04/24 04/04/24 hydroxyzine HCl 25 mg tablet 25 mg PO Q8H PRN Anxiety 04/04/24 04/04/24 insulin aspart U-100 100 unit/mL 4 unit subcut TIDM 04/04/24 04/04/24 subcutaneous solution (Novolog U-100 Insulin aspart) insulin glargine 100 unit/mL 30 unit subcut HS 04/04/24 04/04/24 subcutaneous solution (Lantus U-100 Insulin) melatonin 3 mg tablet 6 mg PO HS PRN Insomnia 04/04/24 04/04/24 mometasone 100 mcg/actuation HFA 2 puff inhalation BID 04/04/24 04/04/24 aerosol inhaler (Asmanex HFA) nifedipine 60 mg tablet,extended 60 mg PO DAILY 04/04/24 04/04/24 release polyethylene glycol 3350 17 gram 17 g PO DAILY 04/04/24 04/04/24 oral powder packet (Miralax) rosuvastatin 20 mg tablet 20 mg PO HS 04/04/24 04/04/24 tamsulosin 0.4 mg capsule (Flomax) 0.4 mg PO HS 04/04/24 04/04/24 tiotropium 2.5 mcg-olodaterol 2.5 2 puff inhalation DAILY 04/04/24 04/04/24 mcg/actuation mist for inhalation (Stiolto Respimat) Results & Data (ED) Vital Signs Vital Signs - 24 hr 04/04/24 20:35 04/04/24 21:02 04/04/24 21:06 Temperature 36.6 C Temperature Source Temporal Artery Scan Pulse Rate 60 59 L 57 L Pulse Rate [Right Finger] Pulse Rate from SpO2 Sensor 57 L Pulse Rhythm [Right Finger] Pulse Strength [Right Finger] Respiratory Rate 20 20 Respiratory Effort / Characteristics Non-Labored Respiratory Depth Normal Respiratory Pattern Regular Blood Pressure 148/70 H Blood Pressure [Right Arm] Blood Pressure Mean 96 Blood Pressure Mean [Right Arm] Blood Pressure Position [Right Arm] Pulse Oximetry 92 91 Oxygen Delivery Method Room Air Room Air Sepsis Recent Fever Within 48 Hours No Sepsis New/Unexplained Change in Mental Status N/A Sepsis Action Taken by Nursing No Action Required 04/04/24 22:55 04/04/24 23:00 Temperature Temperature Source Pulse Rate 64 Pulse Rate [Right Finger] 64 Pulse Rate from SpO2 Sensor 59 L Pulse Rhythm [Right Finger] Regular Pulse Strength [Right Finger] Normal Respiratory Rate 20 20 Respiratory Effort / Characteristics Non-Labored Respiratory Depth Normal Respiratory Pattern Regular Blood Pressure 153/72 H Blood Pressure [Right Arm] 160/93 H Blood Pressure Mean 99 Blood Pressure Mean [Right Arm] 115 Blood Pressure Position [Right Arm] Sitting Pulse Oximetry 92 92 Oxygen Delivery Method Room Air Room Air Sepsis Recent Fever Within 48 Hours Sepsis New/Unexplained Change in Mental Status Sepsis Action Taken by [facility] Medications Current Medication List: was personally reviewed by me Laboratory Data Attestation: I reviewed the patient's lab results. 04/04/24 21:02 04/04/24 22:28 Lab Results 04/04/24 04/04/24 Range/Units 21:02 22:28 WBC 10.99 H (4.8-10.8) K/ul RBC 6.11 H (4.70-6.10) M/uL Hgb 17.9 (14.0-18.0) g/dl Hct 54.8 H (42.0-52.0) % MCV 89.7 (80.0-100.0) fL MCH 29.3 (25.0-34.0) pg MCHC 32.7 (32.0-36.0) g/dL RDW Std Deviation 43.8 (36.4-46.3) fL RDW Coeff of Jessica 13.6 (11.5-14.5) % Plt Count 247 (130-400) K/uL MPV 11.2 (9.4-12.4) fL Immature Gran % (Auto) 0.2 % Neut % (Auto) 59.2 % Lymph % (Auto) 30.5 % [place] % (Auto) 6.0 % Eos % (Auto) 3.2 % Baso % (Auto) 0.9 % Neut # (Auto) 6.51 H (1.40-6.50) K/uL Lymph # (Auto) 3.35 (1.20-3.40) K/uL [place] # (Auto) 0.66 H (0.11-0.59) K/uL Eos # (Auto) 0.35 (0.00-0.50) K/uL Baso # (Auto) 0.10 (0.00-0.20) K/uL Immature Gran # (Auto) 0.02 (0.01-0.20) K/uL PT 10.6 (9.0-12.0) Seconds INR 1.0 (0.9-1.1) APTT 28 (21-31) Seconds PTT Ratio 1.0 Sodium 137 (136-145) mmol/L Potassium TNP 3.6 Chloride 100 (98-107) mmol/L Carbon Dioxide 26 (21-32) mmol/L Anion Gap 11 (3-11) BUN 21 (6-23) mg/dl Creatinine 1.04 (0.6-1.4) mg/dl Est Cr Clr Drug Dosing Not Reportable Est GFR ( Amer) 88.1 ml/min Est GFR (Non-Af Amer) 76.1 ml/min BUN/Creatinine Ratio 20.2 H (10-20) Glucose 77 (70-99(Fasting)) mg/dl Calcium 9.9 (8.6-10.3) mg/dl Magnesium 2.1 (1.7-2.4) mg/dl Total Bilirubin 0.4 (0.2-1.0) mg/dl AST 18 (13-39) U/L ALT 9 (7-52) U/L Alkaline Phosphatase 58 (34-104) U/L Total Creatine Kinase 77 (30-223) U/L Troponin I High Sens 4.9 (0-20) pg/ml Total Protein 8.2 (6.0-8.3) gm/dl Albumin 4.3 (3.4-5.0) gm/dl Globulin 3.9 (2.5-4.0) gm/dl Albumin/Globulin Ratio 1.1 (0.9-2) TSH 1.929 (0.300-4.500) uIu/ml Valproic Acid 89 (50-100) mcg/ml Ethyl Alcohol mg/dL < 10.0 (<10.0) mg/dl Administered Medications Sodium Chloride (Nss) 1,000 mls @ 80 mls/hr IV .[id number] ANKUR Stop: 04/05/24 23:59 Last Admin: 04/04/24 23:10 Dose: 80 mls/hr [place] [facility] [place]ith[place] 500 mg/ Dextrose 255 mls @ 127.5 mls/hr IV Q24H [facility] Stop: 04/11/24 22:59 Last Admin: 04/04/24 23:13 Dose: 127.5 mls/hr [place]ed [place] [facility] [place] Medications Methylprednisolone (Methylprednisolone 125 Mg/2 Ml Vial) 125 mg IV NOW STA Stop: 04/04/24 22:49 Last Admin: 04/04/24 23:08 Dose: 125 mg Documented By[place] [facility] [place] Data Attestation: I personally reviewed and interpreted this imaging study as follows: My Impression: 1 view chest x-ray was obtained in the emergency department. My interpretation is no free air or definite infiltrate, left shoulder replacement was noted, this was compared to a chest x-ray from August 12, 2022. No specific changes were noted, final report pending. CT of the brain was obtained in the emergency department. Previous stroke was noted, there is no intracranial hemorrhage or mass effect, final report pending. Radiologist's Impression: Head CT 04/04/24 20:59 Exam(s): CT HEAD Without Contrast EXAM: CT Head Without Intravenous Contrast CLINICAL HISTORY: Reason for exam: ams. TECHNIQUE: Axial computed tomography images of the head/brain without intravenous contrast. CTDI is 38.38 mGy and DLP is 703.85 mGy-cm. Automated exposure control was utilized for the study. A dose lowering technique was utilized adhering to the principles of ALARA. COMPARISON: No relevant prior studies available. FINDINGS: Brain: No intracranial hemorrhage, mass-effect, or cerebral edema. Chronic left MCA infarct. Ventricles: Unremarkable. Bones/joints: Unremarkable. No fracture. Soft tissues: Unremarkable. Sinuses: No acute sinusitis. Mastoid air cells: Unremarkable as visualized. IMPRESSION: 1. No acute intracranial abnormality. Electronically signed by: Alec Gonzalez MD 04/04/24 23:25 PM Discharge Plan Visit Data Chief Complaint: Lethargic Stated Complaint: LETHARGIC, WEAKNESS, NON VERBAL, ALL PHYSICAL ED Provider: Jeff Gautam Discharge Problem: Acute alteration in mental status, Weakness Patient Disposition: Being Evaluated by Hospitalist Forms Stand Alone Forms: My [facility] Prescriptions Prescriptions: No Action aspirin 81 mg Tablet,Delayed Release (Dr/Ec) 81 mg PO DAILY guaifenesin [Evon-Tussin] 100 mg/5 mL Liquid 200 mg PO Q8H PRN (Reason: cough ) acetaminophen 325 mg Capsule 650 mg PO Q6H PRN (Reason: Pain) albuterol sulfate 2.5 mg /3 mL (0.083 %) Solution For Nebulization 2.5 mg INHALATION Q6H PRN (Reason: COPD) melatonin 3 mg Tablet 6 mg PO HS PRN (Reason: Insomnia) tamsulosin [Flomax] 0.4 mg Capsule 0.4 mg PO HS gabapentin 800 mg Tablet 800 mg PO QID insulin aspart U-100 [Novolog U-100 Insulin aspart] 100 unit/mL Solution 4 unit SUBCUT TIDM Rx Instructions: PLUS SLIDING SCALE NEEDED divalproex [Depakote ER] 500 mg Tablet Extended Release 24 Hr 1,000 mg PO HS hydroxyzine HCl 25 mg Tablet 25 mg PO Q8H PRN (Reason: Anxiety) hydrochlorothiazide 25 mg Tablet 25 mg PO DAILY albuterol sulfate 90 mcg/actuation Hfa Aerosol Inhaler 2 puff INHALATION Q6H PRN (Reason: COPD) nifedipine 60 mg Tablet Extended Release 60 mg PO DAILY rosuvastatin 20 mg Tablet 20 mg PO HS Asmanex HFA 100 mcg/actuation Hfa Aerosol Inhaler 2 puff INHALATION BID Stiolto Respimat 2.5-2.5 mcg/actuation Mist 2 puff INHALATION DAILY insulin glargine [Lantus U-100 Insulin] 100 unit/mL solution 30 unit subcut HS polyethylene glycol 3350 [Miralax] 17 gram powder in packet 17 g PO DAILY Referrals Referrals: [facility] [Primary Care Provider] -
[2024-04-04 21:30] LABS: Basophils % (auto) 0.9 %; Eosinophils # (auto) 0.35 K/uL (0.00-0.50); Eosinophils % (auto) 3.2 %; Hematocrit (blood only) 54.8 % (42.0-52.0); Hemoglobin 17.9 g/dl (14.0-18.0); Immature Granulocytes # (auto) 0.02 K/uL (0.01-0.20); Immature Granulocytes % (auto) 0.2 %; Lymphocytes # (auto) 3.35 K/uL (1.20-3.40); Lymphocytes % (auto) 30.5 %; Mean Corpuscular Hemoglobin 29.3 pg (25.0-34.0); Mean Corpuscular Hgb Conc 32.7 g/dL (32.0-36.0); Mean Corpuscular Volume 89.7 fL (80.0-100.0); Mean Platelet Volume 11.2 fL (9.4-12.4); Monocytes # (auto) 0.66 K/uL (0.11-0.59); Neutrophils # (auto) 6.51 K/uL (1.40-6.50); Neutrophils % (auto) 59.2 %; Platelet Count 247 K/uL (130-400); RDW Coefficient of Variation 13.6 % (11.5-14.5); RDW Standard Deviation 43.8 fL (36.4-46.3); Red Blood Count 6.11 M/uL (4.70-6.10); White Blood Count 10.99 K/ul (4.8-10.8)
[2024-04-04 21:44] LABS: Alanine Aminotransferase 9 U/L (7-52); Albumin Level 4.3 gm/dl (3.4-5.0); Alkaline Phosphatase 58 U/L (34-104); Aspartate Aminotransferase 18 U/L (13-39); BUN Creatinine Ratio 20.2 (10-20); Blood Urea Nitrogen 21 mg/dl (6-23); Calcium 9.9 mg/dl (8.6-10.3); Carbon Dioxide 26 mmol/L (21-32); Chloride 100 mmol/L (98-107); Creatine Kinase 77 U/L (30-223); Est GFR (African American) 88.1 ml/min; Est GFR (Non-African American) 76.1 ml/min; Glucose 77 mg/dl (70-99(Fasting))
[2024-04-04 21:47] LABS: Troponin I High Sensitivity 4.9 pg/ml (0-20)
[2024-04-04 21:50] LABS: Anion Gap 11 (3-11); Bilirubin,Total 0.4 mg/dl (0.2-1.0); Magnesium 2.1 mg/dl (1.7-2.4); Sodium 137 mmol/L (136-145)
[2024-04-04 21:51] LABS: Partial Thromboplastin Time 28 Seconds (21-31); Prothrombin Time 10.6 Seconds (9.0-12.0)
[2024-04-04 21:57] LABS: Albumin Globulin Ratio 1.1 (0.9-2); Globulin 3.9 gm/dl (2.5-4.0); Thyroid Stimulating Hormone 1.929 uIu/ml (0.300-4.500); Total Protein 8.2 gm/dl (6.0-8.3)
[2024-04-04] MEDS ORDERED: ONDANSETRON INJ 2 MG/ML 2 ML VIAL IV PRN (22:52)
[2024-04-04] MEDS: methylPREDNISolone 125 MG/2 ML VIAL IV STA (23:08)
--- NOTE | 2024-04-04 23:08 | History & Physical Report ---
Date of Service April 04, 2024 Assessment & Plan (1) Cerebral infarction involving left middle cerebral artery: (2) Weakness: (3) Aphasia following cerebral infarction: (4) COPD (chronic obstructive pulmonary disease): (5) Essential (primary) hypertension: (6) BPH (benign prostatic hyperplasia): (7) Asthma exacerbation with COPD (chronic obstructive pulmonary disease): (8) Seizure disorder as sequela of cerebrovascular accident: (9) Type 2 diabetes mellitus: Plan Weakness/need for correction care- Patient was being transferred from his present facility to [place], but when he got there was told that they could not take care of him there. Consult PT/OT Consult to social science professor History of left MCA CVA- Patient is aphasic Concern regarding and taking anything orally at this time N.p.o. until assessed by speech therapy Asthma exacerbation and COPD- Give Solu-Medrol 125 mg IV now and then 40 mg IV every 12 hours Duonebs every 4 hours while awake and every 2 hours when necessary. Azithromycin 500 mg IV daily Diabetes mellitus- Glucose 77 on admission Hold glargine this evening, consider resuming tomorrow night Placed on Accu-Cheks with NovoLog SSI Hypertension- Holding aspirin, HCTZ, nifedipine Hydralazine 10 mg IV every 4 hours as needed for systolic blood pressure greater than 160 Seizure disorder- Changing Depakote ER to IV valproic acid GERD- Pantoprazole 40 mg IV daily History of Present Illness Chief Complaint: The patient is accompanied to the emergency department by his brother, due to concerns regarding altered mental status, and difficulty in transferring the patient from his current living situation to [place], who felt that the patient's need for more than they could handle there Primary Care Provider: [facility] The patient is a 63-year-old male with a past medical history including CVA with residual right-sided weakness, BPH and LUTS, hypertension, COPD, aphasia following cerebral infarction. The patient was brought to the emergency department by his brother, due to difficulty in having the patient accepted at [place] for inpatient care, as he thought the patient was going to be. The patient had been taken to [place], however, when I saw his present state, they felt they could not take care of him properly there, and the patient was referred to the ED for assessment. The patient is aphasic, and not able to answer questions, other than to nod his head yes or no. Allergies Allergy/AdvReac Type Severity Reaction Status Date / Time No Known Allergies Allergy Verified 04/04/24 22:06 Home Medications Medication Instructions Recorded Confirmed Type acetaminophen 325 mg capsule 650 mg PO Q6H PRN Pain 07/26/22 04/04/24 History aspirin 81 mg tablet,delayed 81 mg PO DAILY 07/26/22 04/04/24 History release guaifenesin 100 mg/5 mL oral 200 mg PO Q8H PRN cough 07/26/22 04/04/24 History liquid (Evon-Tussin) albuterol sulfate 2.5 mg/3 mL 2.5 mg inhalation Q6H PRN COPD 04/04/24 04/04/24 History (0.083 %) solution for nebulization albuterol sulfate 90 mcg/actuation 2 puff inhalation Q6H PRN COPD 04/04/24 04/04/24 History aerosol inhaler divalproex 500 mg tablet,extended 1,000 mg PO HS 04/04/24 04/04/24 History release 24 hr (Depakote ER) gabapentin 800 mg tablet 800 mg PO QID 04/04/24 04/04/24 History hydrochlorothiazide 25 mg tablet 25 mg PO DAILY 04/04/24 04/04/24 History hydroxyzine HCl 25 mg tablet 25 mg PO Q8H PRN Anxiety 04/04/24 04/04/24 History insulin aspart U-100 100 unit/mL 4 unit subcut TIDM 04/04/24 04/04/24 History subcutaneous solution (Novolog U-100 Insulin aspart) insulin glargine 100 unit/mL 30 unit subcut HS 04/04/24 04/04/24 History subcutaneous solution (Lantus U-100 Insulin) melatonin 3 mg tablet 6 mg PO HS PRN Insomnia 04/04/24 04/04/24 History mometasone 100 mcg/actuation HFA 2 puff inhalation BID 04/04/24 04/04/24 History aerosol inhaler (Asmanex HFA) nifedipine 60 mg tablet,extended 60 mg PO DAILY 04/04/24 04/04/24 History release polyethylene glycol 3350 17 gram 17 g PO DAILY 04/04/24 04/04/24 History oral powder packet (Miralax) rosuvastatin 20 mg tablet 20 mg PO HS 04/04/24 04/04/24 History tamsulosin 0.4 mg capsule (Flomax) 0.4 mg PO HS 04/04/24 04/04/24 History tiotropium 2.5 mcg-olodaterol 2.5 2 puff inhalation DAILY 04/04/24 04/04/24 History mcg/actuation mist for inhalation (Stiolto Respimat) Past Med/Surg History Problem List (Updated 04/05/24 @ 02:54 by Fletcher Suárez MD) Type 2 diabetes mellitus Seizure disorder as sequela of cerebrovascular accident Asthma exacerbation with COPD (chronic obstructive pulmonary disease) Cerebral infarction involving left middle cerebral artery Weakness (Acute) Acute alteration in mental status (Acute) Leukocytosis CVA (cerebral vascular accident) BPH (benign prostatic hyperplasia) Essential (primary) hypertension COPD (chronic obstructive pulmonary disease) Aphasia following cerebral infarction Medical History Esophagitis Pneumonia COVID-19 Acute hypoxemic respiratory failure Dysphagia, oropharyngeal phase Opioid dependence with opioid-induced mood disorder Asthma Opioid abuse Type 2 diabetes mellitus Cerebral infarction due to unspecified 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 Dysphasia following cerebral infarction Other recurrent depressive disorders History of CVA with residual deficit Surgical History Gastrostomy status S/P percutaneous endoscopic gastrostomy (PEG) tube placement Family History Other Family history non-contributory Social History Smoking Status: Current every day smoker Tobacco Type: Cigarettes Second Hand Exposure: No; Do You Dip or Chew Tobacco: No; Hx Alcohol Use: No Hx Substance Use: Yes Substance Use Type Other:: OPIOD ABUSE LISTED WITH FAXED INFORMATION...UNKNOWN FURTHER DETAILS Preferred Language: Frisian Communication Ability: Unable Flower Grower Required: No Beliefs That Will Affect Care: None Current Living Situation: Senior Care Current Living Situation Comment: [facility] Feels Safe at Home: Yes Assistive Devices: None, Denture - Upper, Denture - Lower and Glasses Review of Systems Review of Systems: Review of systems is limited due to the patient being able to nod his head yes or no. The patient denies chest pain, palpitations, shortness of breath, dyspnea on exertion, cough, lower extremity swelling, sore throat, fevers, chills, sweats, nausea, vomiting, diarrhea , constipation, abdominal pain, pelvic pain, blood in urine or stool, dysuria, urinary frequency or urgency, lightheadedness, dizziness, headache, loss of consciousness, rash, abnormal bruising or bleeding, focal weakness, numbness or tingling in left arm or leg, back or neck pain, or night sweats. The review of systems is otherwise negative other than for that already noted above, and at least 10 systems have been reviewed. Physical Exam Physical Exam: The patient is awake, alert, ormocephalic and atraumatic, lying in bed and in no acute distress. HEENT--PERRL, EOMI, mucous membranes and oropharynx dry. Neck--supple. No JVD. No bruits. Thyroid normal, trachea midline, no adenopathy. Heart--normal S1 and S2. No murmurs, rubs or gallops. Lungs--diffuse inspiratory and expiratory wheezing bilaterally Abdomen--normal bowel sounds and soft. Nontender. Nondistended, no hernias or masses, no organomegaly. Extremities--no cyanosis or clubbing. No edema. There are good distal pulses b/l. Dermatologic--normal skin turgor, normal color, no abnormal lymph nodes, no rash. Neurologic--cranial nerves II through XII grossly intact. Right upper extremity 4+/5 motor strength. Aphasic Rheumatologic--decreased range of motion and pipeline executive strength right upper extremity Psychiatric--normal affect. Results & Data Results & Data Vital Signs (Past 12 Hours) Vital Signs Temp Pulse Pulse Resp BP BP Pulse Ox 04/04/24 23:00 64 20 153/72 H 92 04/04/24 22:55 64 20 160/93 H 92 04/04/24 21:06 57 L 20 91 04/04/24 21:02 59 L 04/04/24 20:35 36.6 C 60 20 148/70 H 92 O2 Del Method 04/04/24 23:00 Room Air 04/04/24 22:55 Room Air 04/04/24 21:06 Room Air 04/04/24 21:02 04/04/24 20:35 Room Air Laboratory Results Laboratory Results WBC 10.99 K/ul (4.8-10.8) H 04/04/24 21:02 RBC 6.11 M/uL (4.70-6.10) H 04/04/24 21:02 Hgb 17.9 g/dl (14.0-18.0) 04/04/24 21:02 Hct 54.8 % (42.0-52.0) H 04/04/24 21:02 MCV 89.7 fL (80.0-100.0) 04/04/24 21:02 MCH 29.3 pg (25.0-34.0) 04/04/24 21: MCHC 32.7 g/dL (32.0-36.0) 04/04/24 21: RDW Std Deviation 43.8 fL (36.4-46.3) 04/04/24 21: RDW Coeff of Jessica 13.6 % (11.5-14.5) 04/04/24 21: Plt Count 247 K/uL (130-400) 04/04/24 21:02 MPV 11.2 fL (9.4-12.4) 04/04/24 21: Immature Gran % (Auto) 0.2 % 04/04/24 21: Neut % (Auto) 59.2 % 04/04/24 21:02 Lymph % (Auto) 30.5 % 04/04/24 21:02 Grant % (Auto) 6.0 % 04/04/24 21:02 Eos % (Auto) 3.2 % 04/04/24 21:02 Baso % (Auto) 0.9 % 04/04/24 21:02 Neut # (Auto) 6.51 K/uL (1.40-6.50) H 04/04/24 21:02 Lymph # (Auto) 3.35 K/uL (1.20-3.40) 04/04/24 21:02 Grant # (Auto) 0.66 K/uL (0.11-0.59) H 04/04/24 21:02 Eos # (Auto) 0.35 K/uL (0.00-0.50) 04/04/24 21: Baso # (Auto) 0.10 K/uL (0.00-0.20) 04/04/24 21:02 Immature Gran # (Auto) 0.02 K/uL (0.01-0.20) 04/04/24 21:02 PT 10.6 Seconds (9.0-12.0) 04/04/24 21:02 INR 1.0 (0.9-1.1) 04/04/24 21:02 APTT 28 Seconds (21-31) 04/04/24 21:02 PTT Ratio 1.0 04/04/24 21:02 Sodium 137 mmol/L (136-145) 04/04/24 21:02 Potassium 3.6 mmol/L (3.5-5.1) 04/04/24 22:28 Chloride 100 mmol/L (98-107) 04/04/24 21:02 Carbon Dioxide 26 mmol/L (21-32) 04/04/24 21:02 Anion Gap 11 (3-11) 04/04/24 21:02 BUN 21 mg/dl (6-23) 04/04/24 21:02 Creatinine 1.04 mg/dl (0.6-1.4) 04/04/24 21:02 Est Cr Clr Drug Dosing Not Reportable 04/04/24 21:02 Est GFR ( Amer) 88.1 ml/min 04/04/24 21:02 Est GFR (Non-Af Amer) 76.1 ml/min 04/04/24 21:02 BUN/Creatinine Ratio 20.2 (10-20) H 04/04/24 21:02 Glucose 77 mg/dl (70-99(Fasting)) 04/04/24 21:02 Calcium 9.9 mg/dl (8.6-10.3) 04/04/24 21:02 Magnesium 2.1 mg/dl (1.7-2.4) 04/04/24 21:02 Total Bilirubin 0.4 mg/dl (0.2-1.0) 04/04/24 21:02 AST 18 U/L (13-39) 04/04/24 21:02 ALT 9 U/L (7-52) 04/04/24 21:02 Alkaline Phosphatase 58 U/L (34-104) 04/04/24 21:02 Total Creatine Kinase 77 U/L (30-223) 04/04/24 21:02 Troponin I High Sens 4.9 pg/ml (0-20) 04/04/24 21:02 Total Protein 8.2 gm/dl (6.0-8.3) 04/04/24 21:02 Albumin 4.3 gm/dl (3.4-5.0) 04/04/24 21:02 Globulin 3.9 gm/dl (2.5-4.0) 04/04/24 21:02 Albumin/Globulin Ratio 1.1 (0.9-2) 04/04/24 21:02 TSH 1.929 uIu/ml (0.300-4.500) 04/04/24 21:02 Nasal Screen MRSA (PCR) Negative (Negative) 04/05/24 Unknown Valproic Acid 89 mcg/ml (50-100) 04/04/24 21:02 Ethyl Alcohol mg/dL < 10.0 mg/dl (<10.0) 04/04/24 22:[address] 04/04/24 20:59 Exam(s): CT HEAD Without Contrast EXAM: CT Head Without Intravenous Contrast CLINICAL HISTORY: Reason for exam: ams. TECHNIQUE: Axial computed tomography images of the head/brain without intravenous contrast. CTDI is 38.38 mGy and DLP is 703.85 mGy-cm. Automated exposure control was utilized for the study. A dose lowering technique was utilized adhering to the principles of ALARA. COMPARISON: No relevant prior studies available. FINDINGS: Brain: No intracranial hemorrhage, mass-effect, or cerebral edema. Chronic left MCA infarct. Ventricles: Unremarkable. Bones/joints: Unremarkable. No fracture. Soft tissues: Unremarkable. Sinuses: No acute sinusitis. Mastoid air cells: Unremarkable as visualized. IMPRESSION: 1. No acute intracranial abnormality. Electronically signed by: Alec Gonzalez MD 04/04/24 23:25 PM Code Status & VTE Plan Code Status Full code VTE Prophylaxis Plan VTE Prophylaxis will be ordered: Yes PG Care Time/CCT Total # of Minutes Spent Total Time Spent with Patient: Total time spent is greater than 50% in coordination of care (as documented) at patient's floor/unit and/or counseling patient: Coding Level of Care Code 56989 INT INP/OBS CARE 3/75MIN Diagnoses Cerebral infarction involving left middle cerebral artery I63.512 Weakness R53.1 Aphasia following cerebral infarction I69.320 COPD (chronic obstructive pulmonary disease) J44.9 Essential (primary) hypertension I10 BPH (benign prostatic hyperplasia) N40.0 Asthma exacerbation with COPD (chronic obstructive pulmonary disease) J44.1; J45.901 Seizure disorder as sequela of cerebrovascular accident I69.398; G40.909 Type 2 diabetes mellitus E11.9
[2024-04-04] MEDS: SODIUM CHLORIDE 0.9% 1,000 ML IV SCH (23:10)
[2024-04-04] MEDS: AZITHROMYCIN 500 MG in DEXTROSE 5% 250 ML IV SCH (23:13)
--- NOTE | 2024-04-04 23:25 | CT Scan Report ---
Exam(s): CT HEAD Without Contrast EXAM: CT Head Without Intravenous Contrast CLINICAL HISTORY: Reason for exam: ams. TECHNIQUE: Axial computed tomography images of the head/brain without intravenous contrast. CTDI is 38.38 mGy and DLP is 703.85 mGy-cm. Automated exposure control was utilized for the study. A dose lowering technique was utilized adhering to the principles of ALARA. COMPARISON: No relevant prior studies available. FINDINGS: Brain: No intracranial hemorrhage, mass-effect, or cerebral edema. Chronic left MCA infarct. Ventricles: Unremarkable. Bones/joints: Unremarkable. No fracture. Soft tissues: Unremarkable. Sinuses: No acute sinusitis. Mastoid air cells: Unremarkable as visualized. IMPRESSION: 1. No acute intracranial abnormality. Electronically signed by: Alec Gonzalez MD 04/04/24 23:25 PM
[2024-04-05] MEDS: ALBUT/IPRATROP 3MG/0.5MG NEB 3 ML VIAL NEB PRN (00:08)
[2024-04-05] MEDS: VALPROATE SOD 250 MG in DEXTROSE 5% 50 ML IV SCH (01:17)
[2024-04-05] MEDS ORDERED: ACETAMINOPHEN 1000 MG/100 ML IV IV PRN (01:42)
[2024-04-05 04:10] LABS: Basophils # (auto) 0.04 K/uL (0.00-0.20); Basophils % (auto) 0.5 %; Eosinophils # (auto) 0.03 K/uL (0.00-0.50); Eosinophils % (auto) 0.4 %; Hematocrit (blood only) 51.1 % (42.0-52.0); Hemoglobin 16.8 g/dl (14.0-18.0); Immature Granulocytes # (auto) 0.03 K/uL (0.01-0.20); Immature Granulocytes % (auto) 0.4 %; Lymphocytes # (auto) 1.19 K/uL (1.20-3.40); Lymphocytes % (auto) 14.5 %; Mean Corpuscular Hemoglobin 28.9 pg (25.0-34.0); Mean Corpuscular Hgb Conc 32.9 g/dL (32.0-36.0); Mean Corpuscular Volume 87.8 fL (80.0-100.0); Mean Platelet Volume 10.9 fL (9.4-12.4); Monocytes # (auto) 0.06 K/uL (0.11-0.59); Monocytes % (auto) 0.7 %; Neutrophils # (auto) 6.88 K/uL (1.40-6.50); Neutrophils % (auto) 83.5 %; Platelet Count 192 K/uL (130-400); RDW Coefficient of Variation 13.2 % (11.5-14.5); RDW Standard Deviation 42.5 fL (36.4-46.3); Red Blood Count 5.82 M/uL (4.70-6.10); White Blood Count 8.23 K/ul (4.8-10.8)
[2024-04-05 04:17] LABS: Alanine Aminotransferase 9 U/L (7-52); Albumin Globulin Ratio 1.1 (0.9-2); Albumin Level 3.9 gm/dl (3.4-5.0); Alkaline Phosphatase 55 U/L (34-104); Anion Gap 9 (3-11); Aspartate Aminotransferase 13 U/L (13-39); Bilirubin,Total 0.5 mg/dl (0.2-1.0); Blood Urea Nitrogen 23 mg/dl (6-23); Calcium 9.3 mg/dl (8.6-10.3); Carbon Dioxide 28 mmol/L (21-32); Chloride 101 mmol/L (98-107); Est GFR (African American) 97.1 ml/min; Est GFR (Non-African American) 83.8 ml/min; Globulin 3.5 gm/dl (2.5-4.0); Glucose 112 mg/dl (70-99(Fasting)); Magnesium 1.9 mg/dl (1.7-2.4); Potassium 3.9 mmol/L (3.5-5.1); Sodium 138 mmol/L (136-145); Total Protein 7.4 gm/dl (6.0-8.3)
--- NOTE | 2024-04-05 06:43 | XRay Report ---
XR chest 1V portable HISTORY: 63 years-old Male weakness COMPARISON: 08/12/2022 TECHNIQUE: AP view of the chest FINDINGS: Left shoulder arthroplasty. Heart is normal in size. No pneumothorax or pleural effusion. Right great er than left mid to lower lung zone predominant reticular nodular opacities redemonstrated, improved from prior. IMPRESSION: Mid to lower lung zone predominant reticulonodular opacities redemonstrated suggestive of a chronic infectious or inflammatory pneumonitis. Findings have overall improved from the 2021 tiffany rison. ACT 112: Negative or not required by law. The above report was generated using voice recognition software. It may contain grammatical, syntax o r spelling errors. Electronically signed by: Octaviano Kraft M.D. 04/05/2024 6:41 AM
[2024-04-05] MEDS: ALBUT/IPRATROP 3MG/0.5MG NEB 3 ML VIAL NEB SCH (06:53)
--- NOTE | 2024-04-05 08:19 | Hospitalist Progress Note ---
Date of Service April 05, 2024 Assessment & Plan (1) Weakness: Plan: Weakness/need for [facility] care- Patient was being transferred from his present facility to [place], but when he got there was told that they could not take care of him there. Consult PT/OT, pt can only walk 12 ft with assistance Consult to adoption social worker 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, lamictal is therapeutic Patient is aphasic, right hemipelegia pt has seen speech in 2021, will have modified diet (2) Asthma exacerbation with COPD (chronic obstructive pulmonary disease): Plan: Asthma exacerbation and COPD-wheezing improved transition steroid to po Duonebs every 2 hours when necessary. Azithromycin daily (3) Essential (primary) hypertension: Plan: Hypertension- resume aspirin, follow blood pressure for need to restart hctz and nifedipine Hydralazine 10 mg IV every 4 hours as needed for systolic blood pressure greater than 160 (4) Type 2 diabetes mellitus: Plan: Diabetes mellitus- Glucose 77 on admission start lantus and lower dose adjusted ssi with steroid use (5) BPH (benign prostatic hyperplasia): Plan GERD- Pantoprazole 40 mg IV daily Admission and Anticipated Discharge Date Admission Date: April 04, 2024 Subjective pt aphasia with some hemiplegia, history of mca stroke was taken to boarding house but needs exceed their level of support Physical Exam Physical Exam: aphasic, right arm weakness, wobbly with walking Results & Data Results & Data Vital Signs (Past 12 Hours) Vital Signs Temp Pulse Pulse Resp BP BP BP 04/05/24 07:54 97.9 F 63 18 106/55 L 04/05/24 06:53 88 18 04/05/24 05:40 04/05/24 05:34 97.5 F L 57 L 18 151/82 H 04/05/24 03:06 55 L 9 L 145/73 H 04/05/24 02:39 60 18 123/60 04/05/24 02:30 04/05/24 01:54 04/05/24 01:42 04/05/24 01:30 58 L 16 127/66 04/05/24 01:18 60 04/05/24 01:15 61 18 122/65 04/05/24 00:09 67 20 113/61 04/04/24 23:00 64 20 153/72 H 04/04/24 22:55 64 20 160/93 H 04/04/24 21:06 57 L 20 04/04/24 21:02 59 L 04/04/24 20:35 97.9 F 60 20 148/70 H Pulse Ox Pulse Ox O2 Del Method O2 Del Method O2 Flow Rate O2 Flow Rate 04/05/24 07:54 96 Nasal Cannula 3 04/05/24 06:53 94 Nasal Cannula 3 04/05/24 05:40 Nasal Cannula 3 04/05/24 05:34 93 Nasal Cannula 3 04/05/24 03:06 96 Nasal Cannula 3 04/05/24 02:39 90 Nasal Cannula 3 04/05/24 02:30 Nasal Cannula 3 04/05/24 01:54 87 L Room Air 0 04/05/24 01:42 92 Nasal Cannula 3 04/05/24 01:30 96 Nasal Cannula 3 04/05/24 01:18 04/05/24 01:15 92 04/05/24 00:09 88 L 04/04/24 23:00 92 Room Air 04/04/24 22:55 92 Room Air 04/04/24 21:06 91 Room Air 04/04/24 21:02 04/04/24 20:35 92 Room Air Laboratory Results reviewed cbc, chemistry and coags PG Care Time/CCT Total # of Minutes Spent Total Time Spent with Patient: Total time spent is greater than 50% in coordination of care (as documented) at patient's floor/unit and/or counseling patient: Coding Level of Care Code 23594 SUB INP/OBS CARE 3/50MIN Diagnoses Weakness R53.1 Asthma exacerbation with COPD (chronic obstructive pulmonary disease) J44.1; J45.901 Essential (primary) hypertension I10 Type 2 diabetes mellitus E11.9 BPH (benign prostatic hyperplasia) N40.0
[2024-04-05] MEDS ORDERED: DEXTROSE 50% 50 ML SYRINGE IV PRN (08:26)
[2024-04-05] MEDS ORDERED: GLUCOSE 40% GEL 15 GM TUBE PO PRN (08:26)
[2024-04-05] MEDS ORDERED: CARBOHYDRATES FOR HYPOGLYCEMIA PO PRN (08:26)
[2024-04-05] MEDS ORDERED: GLUCOSE 10 TAB/TUBE PO PRN (08:26)
[2024-04-05] MEDS ORDERED: GLUCAGON FOR INJ 1 MG VIAL SQ PRN (08:26)
[2024-04-05] MEDS: methylPREDNISolone 40 MG in SYRINGE 0 ML IV SCH (08:43)
[2024-04-05] MEDS ORDERED: methylPREDNISolone 1000 MG/16 ML IV SCH (09:00)
[2024-04-05] MEDS: PANTOprazole 40 MG in SYRINGE 0 ML IV SCH (10:48)
[2024-04-05] MEDS ORDERED: Nursing to Pharmacy Communication SCH ×2 (11:45→12:00)
[2024-04-05] MEDS: INSULIN ASPART PER UNIT CHARGE SC SCH (12:45)
--- NOTE | 2024-04-05 13:11 | Electrocardiogram Report ---
Test Reason : Blood Pressure : */* mmHG Vent. Rate : 58 BPM Atrial Rate : 58 BPM P-R Int : 208 ms QRS Dur : 78 ms QT Int : 412 ms P-R-T Axes : 71 19 43 degrees QTcB Int : 404 ms Sinus bradycardia Septal infarct , age undetermined Abnormal ECG When compared with ECG of 12-Aug-2022 09:49, Fusion complexes are no longer Present Vent. rate has decreased by 58 bpm Confirmed by Jeff Mcnamara ([id number]) on 04/05/2024 1:11:30 PM Referred By: REFERRED SELF Confirmed By: Jeff Mcnamara
[2024-04-05] MEDS ORDERED: ALBUT/IPRATROP 3MG/0.5MG NEB 3 ML VIAL NEB PRN (14:36)
[2024-04-05 19:51] LABS: Appearance Urine Clear (Clear); Bilirubin Urine Negative (Negative); Blood Urine Negative (Negative); Color Urine Yellow; Glucose Urine UA 3+ (Negative); Ketones Urine 1+ (Negative); Leukocyte Esterase Urine Negative (Negative); Nitrite Urine Negative (Negative); Protein Urine Negative (Negative); Specific Gravity Urine 1.032 (1.000-1.030); Urobilinogen Urine Negative (Negative)
[2024-04-05 20:30] LABS: Amphetamines+Metham, Urine Neg (Neg); Barbiturates, Urine Neg (Neg); Benzodiazepine, Urine Neg (Neg); Cocaine, Urine Neg (Neg); Fentanyl, Urine Neg (Neg); MDMA (Ecstacy), Urine Neg (Neg); Marijuana, Urine Neg (Neg); Methadone, Urine Neg (Neg); Opiate, Urine Neg (Neg); Phencyclidine, Urine Neg (Neg)
[2024-04-05] MEDS: LANTUS PER UNIT CHARGE SQ SCH (20:43)
[2024-04-06 06:00] LABS: Basophils # (auto) 0.02 K/uL (0.00-0.20); Basophils % (auto) 0.2 %; Hematocrit (blood only) 48.6 % (42.0-52.0); Immature Granulocytes # (auto) 0.03 K/uL (0.01-0.20); Immature Granulocytes % (auto) 0.2 %; Lymphocytes # (auto) 1.21 K/uL (1.20-3.40); Lymphocytes % (auto) 9.8 %; Mean Corpuscular Hemoglobin 28.7 pg (25.0-34.0); Mean Corpuscular Hgb Conc 32.9 g/dL (32.0-36.0); Mean Corpuscular Volume 87.1 fL (80.0-100.0); Mean Platelet Volume 10.6 fL (9.4-12.4); Monocytes # (auto) 0.42 K/uL (0.11-0.59); Monocytes % (auto) 3.4 %; Neutrophils # (auto) 10.63 K/uL (1.40-6.50); Neutrophils % (auto) 86.4 %; Platelet Count 210 K/uL (130-400); RDW Coefficient of Variation 13.2 % (11.5-14.5); Red Blood Count 5.58 M/uL (4.70-6.10); White Blood Count 12.31 K/ul (4.8-10.8)
[2024-04-06 06:14] LABS: Albumin Globulin Ratio 1.1 (0.9-2); Albumin Level 3.6 gm/dl (3.4-5.0); BUN Creatinine Ratio 28.3 (10-20); Bilirubin,Total 0.4 mg/dl (0.2-1.0); Calcium 8.8 mg/dl (8.6-10.3); Creatinine Clr Calc Pharmacy 81.8 ml/min; Est GFR (African American) 93.6 ml/min; Est GFR (Non-African American) 80.7 ml/min; Globulin 3.2 gm/dl (2.5-4.0); Potassium 4.3 mmol/L (3.5-5.1); Total Protein 6.8 gm/dl (6.0-8.3)
[2024-04-06] MEDS: predniSONE 20 MG TAB PO SCH (09:29)
[2024-04-06] MEDS: AZITHROMYCIN 250 MG TAB PO SCH (09:29)
[2024-04-06] MEDS: FLUTICASONE/VILANTEROL 100/25MCG 14 PUFFS/INHALER INH SCH (17:17)
--- NOTE | 2024-04-06 17:52 | Hospitalist Progress Note ---
Date of Service April 06, 2024 Assessment & Plan (1) Weakness: Plan: Weakness/need for senior care care- Patient was being transferred from his present facility to [place], but when he got there was told that they could not take care of him there. Consult PT/OT, pt can only walk 12 ft with assistance Consult to social media executive 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, lamictal is therapeutic Patient is aphasic, right hemipelegia pt has seen speech in 2021, will have modified diet (2) Asthma exacerbation with COPD (chronic obstructive pulmonary disease): Plan: Asthma exacerbation and COPD-wheezing improved transition steroid to po Duonebs every 2 hours when necessary. Azithromycin daily (3) Essential (primary) hypertension: Plan: Hypertension- resume aspirin, follow blood pressure for need to restart hctz and nifedipine Hydralazine 10 mg IV every 4 hours as needed for systolic blood pressure greater than 160 (4) Type 2 diabetes mellitus: Plan: Diabetes mellitus- Glucose 77 on admission start lantus and lower dose adjusted ssi with steroid use (5) BPH (benign prostatic hyperplasia): Plan GERD- Pantoprazole 40 mg IV daily Admission and Anticipated Discharge Date Admission Date: April 04, 2024 Subjective pt aphasia with some hemiplegia, history of mca stroke was taken to boarding house but needs exceed their level of support, PT/OT states that would be better in snf situation Physical Exam Physical Exam: aphasic, right arm weakness, wobbly with walking Results & Data Results & Data Vital Signs (Past 12 Hours) Vital Signs Temp Pulse Pulse Resp BP Pulse Ox O2 Del Method 04/06/24 15:34 98.1 F 61 18 150/73 H 98 Nasal Cannula 04/06/24 15:30 61 04/06/24 13:59 72 20 92 Nasal Cannula 04/06/24 12:07 97.5 F L 60 22 118/62 92 Nasal Cannula 04/06/24 08:00 Nasal Cannula 04/06/24 07:32 54 L 04/06/24 07:24 97.7 F 52 L 18 151/74 H 96 Nasal Cannula O2 Flow Rate 04/06/24 15:34 3 04/06/24 15:30 04/06/24 13:59 3 04/06/24 12:07 3 04/06/24 08:00 3 04/06/24 07:32 04/06/24 07:24 3 Laboratory Results review cbc review chemistry PG Care Time/CCT Total # of Minutes Spent Total Time Spent with Patient: Total time spent is greater than 50% in coordination of care (as documented) at patient's floor/unit and/or counseling patient: Coding Level of Care Code 13396 SUB INP/OBS CARE 2/35MIN Diagnoses Weakness R53.1 Asthma exacerbation with COPD (chronic obstructive pulmonary disease) J44.1; J45.901 Essential (primary) hypertension I10 Type 2 diabetes mellitus E11.9 BPH (benign prostatic hyperplasia) N40.0
[2024-04-07 06:13] LABS: Basophils # (auto) 0.07 K/uL (0.00-0.20); Basophils % (auto) 0.6 %; Eosinophils # (auto) 0.02 K/uL (0.00-0.50); Eosinophils % (auto) 0.2 %; Hematocrit (blood only) 45.7 % (42.0-52.0); Hemoglobin 15.3 g/dl (14.0-18.0); Immature Granulocytes # (auto) 0.03 K/uL (0.01-0.20); Immature Granulocytes % (auto) 0.3 %; Lymphocytes # (auto) 3.28 K/uL (1.20-3.40); Lymphocytes % (auto) 30.5 %; Mean Corpuscular Hgb Conc 33.5 g/dL (32.0-36.0); Mean Corpuscular Volume 86.6 fL (80.0-100.0); Mean Platelet Volume 11.1 fL (9.4-12.4); Monocytes # (auto) 0.62 K/uL (0.11-0.59); Monocytes % (auto) 5.8 %; Neutrophils # (auto) 6.75 K/uL (1.40-6.50); Neutrophils % (auto) 62.6 %; Platelet Count 179 K/uL (130-400); RDW Coefficient of Variation 13.4 % (11.5-14.5); RDW Standard Deviation 42.6 fL (36.4-46.3); Red Blood Count 5.28 M/uL (4.70-6.10); White Blood Count 10.77 K/ul (4.8-10.8)
[2024-04-07 06:26] LABS: Albumin Globulin Ratio 1.2 (0.9-2); Albumin Level 3.4 gm/dl (3.4-5.0); BUN Creatinine Ratio 27.1 (10-20); Bilirubin,Total 0.3 mg/dl (0.2-1.0); Calcium 8.5 mg/dl (8.6-10.3); Creatinine Clr Calc Pharmacy 95.5 ml/min; Est GFR (African American) 107.5 ml/min; Est GFR (Non-African American) 92.7 ml/min; Globulin 2.9 gm/dl (2.5-4.0); Potassium 3.6 mmol/L (3.5-5.1); Total Protein 6.3 gm/dl (6.0-8.3)
--- NOTE | 2024-04-07 08:02 | Hospitalist Progress Note ---
Date of Service April 07, 2024 Assessment & Plan (1) Weakness: Plan: Weakness/need for more supportive environment, [facility] director immunology living Patient was being transferred from his present facility to [place], but when he got there was told that they could not take care of him there. Consult PT/OT, pt can only walk 12 ft with assistance 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, lamictal is therapeutic Patient is aphasic, right hemipelegia pt has seen speech in 2021, will have modified diet (2) Asthma exacerbation with COPD (chronic obstructive pulmonary disease): Plan: Asthma exacerbation and COPD-wheezing improved transition steroid to po added long acting breo 04/05 Duonebs every 2 hours when necessary. Azithromycin daily cxr 04/07 without pneumonia, will have one dose lasix, on azitho if bronchitis (3) Essential (primary) hypertension: Plan: Hypertension- resume aspirin, follow blood pressure restart hctz Hydralazine 10 mg IV prn (4) Type 2 diabetes mellitus: Plan: Diabetes mellitus- Glucose 77 on admission start lantus and lower dose adjusted ssi with steroid use (5) BPH (benign prostatic hyperplasia): Plan GERD- Pantoprazole 40 mg IV daily Admission and Anticipated Discharge Date Admission Date: April 04, 2024 Subjective pt aphasia with some hemiplegia, history of mca stroke some coughing with drinking. no respiratory distress was taken to boarding house but needs exceed their level of support, PT/OT states that would be better in snf situation Physical Exam Physical Exam: pt has some rhonchi at the bases non labored no focal loss Results & Data Results & Data Vital Signs (Past 12 Hours) Vital Signs Temp Pulse Pulse Resp BP BP Pulse Ox 04/07/24 07:58 44 L 04/07/24 07:55 04/07/24 07:43 98.2 F 51 L 16 141/63 H 95 04/07/24 02:53 98.1 F 48 L 18 149/76 H 93 04/06/24 23:24 60 04/06/24 22:32 97.7 F 58 L 18 155/82 H 93 04/06/24 22:14 O2 Del Method O2 Flow Rate 04/07/24 07:58 04/07/24 07:55 Nasal Cannula 3 04/07/24 07:43 Nasal Cannula 2 04/07/24 02:53 Nasal Cannula 3 04/06/24 23:24 04/06/24 22:32 Nasal Cannula 3 04/06/24 22:14 Nasal Cannula 3 Laboratory Results review cbc review chemistry PG Care Time/CCT Total # of Minutes Spent Total Time Spent with Patient: Total time spent is greater than 50% in coordination of care (as documented) at patient's floor/unit and/or counseling patient: Coding Level of Care Code 96722 SUB INP/OBS CARE 2/35MIN Diagnoses Weakness R53.1 Asthma exacerbation with COPD (chronic obstructive pulmonary disease) J44.1; J45.901 Essential (primary) hypertension I10 Type 2 diabetes mellitus E11.9 BPH (benign prostatic hyperplasia) N40.0
--- NOTE | 2024-04-07 11:23 | XRay Report ---
XR chest 1V portable CLINICAL HISTORY: Cough. eval for aspiration pnx. COMPARISON STUDY: Chest CT August 12, 2022. Chest radiograph April 04, 2024. FINDINGS: There is no pneumothorax. Blunting of the right costophrenic angle is likely chronic. No lo bar consolidation is present. Cardiomediastinal silhouette is stable. Mild interstitial thickening jenkins s progressed. Left shoulder arthroplasty is incidentally noted. IMPRESSION: 1. Increase in interstitial thickening. This may reflect pulmonary edema or an infectious process suc h as bronchiolitis. 2. No lobar consolidation identified. ACT 112: Negative or not required by law. Electronically signed by: Roel Ricketts M.D. 04/07/2024 11:22 AM
[2024-04-07] MEDS: FUROSEMIDE INJ 20 MG/2 ML VIAL IV ONE (16:08)
[2024-04-07] MEDS: ACETAMINOPHEN 1,000 MG/100 ML VIAL IV PRN (20:58)
[2024-04-08] MEDS: hydroCHLOROthiazide 25 MG TAB PO SCH (08:46)
[2024-04-08] MEDS: PANTOprazole 40 MG TAB PO SCH (12:39)
--- NOTE | 2024-04-08 16:57 | Hospitalist Progress Note ---
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 Azithromycin daily cxr 04/07 without pneumonia, will have one dose lasix, on azitho if bronchitis (3) Essential (primary) hypertension: Plan: Hypertension- resume aspirin, follow blood pressure restart hctz Hydralazine 10 mg IV prn (4) Type 2 diabetes mellitus: Plan: Diabetes mellitus- Glucose 77 on admission start lantus and lower dose adjusted ssi with steroid use (5) BPH (benign prostatic hyperplasia): Plan GERD- Pantoprazole 40 mg IV daily pt medically stable awaiting medical placement Admission and Anticipated Discharge Date Admission Date: April 04, 2024 Subjective pt aphasia with some hemiplegia, history of mca stroke some coughing with drinking. no respiratory distress PT doing well , did have some cp 04/08, ecg negative maybe from swallowing, is having some bradycardia on monitor, tsh normal, lyme negative. Lamictal level therapeutic Physical Exam Physical Exam: pt has some rhonchi at the bases non labored, no focal loss cardiac exam regular no murmur no rub Results & Data Results & Data Vital Signs (Past 12 Hours) Vital Signs Temp Pulse Pulse Resp BP BP Pulse Ox 04/08/24 16:33 97.5 F L 62 18 161/72 H 95 04/08/24 14:27 49 L 04/08/24 11:41 90 04/08/24 11:29 98.2 F 49 L 22 174/96 H 93 04/08/24 10:28 04/08/24 07:42 98.1 F 44 L 18 157/70 H 96 04/08/24 07:22 46 L 04/08/24 05:57 146/76 H O2 Del Method O2 Flow Rate 04/08/24 16:33 Nasal Cannula 3 04/08/24 14:27 04/08/24 11:41 3 04/08/24 11:29 Nasal Cannula 3 04/08/24 10:28 Nasal Cannula 3 04/08/24 07:42 Nasal Cannula 3 04/08/24 07:22 04/08/24 05:57 Laboratory Results review poc glucose review valproic acid level review lyme disease test PG Care Time/CCT Total # of Minutes Spent Total Time Spent with Patient: Total time spent is greater than 50% in coordination of care (as documented) at patient's floor/unit and/or counseling patient: Coding Level of Care Code 18523 SUB INP/OBS CARE 2/35MIN Diagnoses Weakness R53.1 Asthma exacerbation with COPD (chronic obstructive pulmonary disease) J44.1; J45.901 Essential (primary) hypertension I10 Type 2 diabetes mellitus E11.9 BPH (benign prostatic hyperplasia) N40.0
[2024-04-08] MEDS: VALPROIC ACID SOLN 500 MG/10 ML UDC PO SCH (20:40)
[2024-04-08] MEDS: ACETAMINOPHEN 325 MG TAB PO PRN (22:48)
[2024-04-09] MEDS: ATORVASTATIN 40 MG TAB PO SCH (08:43)
[2024-04-09] MEDS: ASPIRIN 81 MG ECTAB PO SCH (08:43)
[2024-04-09] MEDS: POLYETHYLENE (MIRALAX) 17 GM PACK PO PRN (08:44)
--- NOTE | 2024-04-09 14:30 | Hospitalist Progress Note ---
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 Azithromycin daily cxr 04/07 without pneumonia, will have one dose lasix, on azitho if bronchitis added nicotine patch 04/09 (3) Essential (primary) hypertension: Plan: Hypertension- resume aspirin, follow blood pressure restart hctz Hydralazine 10 mg IV prn (4) Type 2 diabetes mellitus: Plan: Diabetes mellitus- Glucose 77 on admission start lantus and lower dose adjusted ssi with steroid use (5) BPH (benign prostatic hyperplasia): Plan GERD- Pantoprazole 40 mg IV daily pt medically stable awaiting medical placement Admission and Anticipated Discharge Date Admission Date: April 04, 2024 Subjective pt aphasia with some hemiplegia, history of mca stroke some coughing with drinking. no respiratory distress PT doing well , did have some cp 04/08, ecg negative maybe from swallowing, is having some bradycardia on monitor, tsh normal, lyme negative. Lamictal level therapeutic Physical Exam Physical Exam: improving breath sounds non labored, no focal loss , has pulmonary mechanics and finger clubbing consistent with copd cardiac exam regular no murmur no rub Results & Data Results & Data Vital Signs (Past 12 Hours) Vital Signs Temp Pulse Pulse Resp BP BP Pulse Ox 04/09/24 11:16 97.2 F L 56 L 16 132/57 L 95 04/09/24 07:30 04/09/24 07:20 97.9 F 48 L 16 156/71 H 98 04/09/24 07:15 47 L 04/09/24 06:27 133/69 04/09/24 03:00 97.7 F 45 L 18 162/77 H 96 O2 Del Method O2 Flow Rate 04/09/24 11:16 Nasal Cannula 3 04/09/24 07:30 Nasal Cannula 3 04/09/24 07:20 Nasal Cannula 3 04/09/24 07:15 04/09/24 06:27 04/09/24 03:00 Nasal Cannula 3 PG Care Time/CCT Total # of Minutes Spent Total Time Spent with Patient: Total time spent is greater than 50% in coordination of care (as documented) at patient's floor/unit and/or counseling patient: Coding Level of Care Code 89249 SUB INP/OBS CARE 2/35MIN Diagnoses Weakness R53.1 Asthma exacerbation with COPD (chronic obstructive pulmonary disease) J44.1; J45.901 Essential (primary) hypertension I10 Type 2 diabetes mellitus E11.9 BPH (benign prostatic hyperplasia) N40.0
[2024-04-09] MEDS: NICOTINE 21 MG/24 HR TDSY TD ONE (15:05)
--- NOTE | 2024-04-09 15:21 | Electrocardiogram Report ---
Test Reason : Blood Pressure : */* mmHG Vent. Rate : 48 BPM Atrial Rate : 48 BPM P-R Int : 186 ms QRS Dur : 106 ms QT Int : 432 ms P-R-T Axes : 68 42 63 degrees QTcB Int : 385 ms Sinus bradycardia Otherwise normal ECG When compared with ECG of 04-Apr-2024 20:48, QRS duration has increased Confirmed by Jeff Mcnamara ([id number]) on 04/09/2024 3:21:22 PM Referred By: REFERRED SELF Confirmed By: Jeff Mcnamara
[2024-04-09] MEDS: KETOROLAC TROMETHAMINE 15 MG/ML VIAL IV ONE (15:39)
--- NOTE | 2024-04-09 15:58 | XRay Report ---
KUB CLINICAL HISTORY: Left lower quadrant abdominal pain. COMPARISON STUDY: CT of the abdomen and pelvis August 12, 2022. FINDINGS: The bowel gas pattern is normal. There is a moderate amount of stool within the colon. Smal l amount of stool within the rectum. No urinary calculi are identified. There is no evidence for free air on supine exam. There is moderate vascular calcification. IMPRESSION: No evidence for a bowel obstruction. ACT 112: Negative or not required by law. Electronically signed by: Roel Ricketts M.D. 04/09/2024 3:57 PM
[2024-04-10] MEDS: ACETAMINOPHEN 500 MG TAB PO PRN (05:03)
[2024-04-10] MEDS: KETOROLAC TROMETHAMINE 15 MG/ML VIAL IV PRN (08:09)
[2024-04-10] MEDS: predniSONE 10 MG TABLET PO SCH (08:12)
[2024-04-10] MEDS: POLYETHYLENE (MIRALAX) 17 GM PACK PO SCH (08:13)
--- NOTE | 2024-04-10 10:56 | Hospitalist Progress Note ---
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 Azithromycin daily cxr 04/07 without pneumonia, will have one dose lasix, on azitho if bronchitis added nicotine patch 04/09 (3) Essential (primary) hypertension: Plan: Hypertension- resume aspirin, follow blood pressure restart hctz Hydralazine 10 mg IV prn (4) Type 2 diabetes mellitus: Plan: Diabetes mellitus- Glucose 77 on admission start lantus and lower dose adjusted ssi with steroid use (5) BPH (benign prostatic hyperplasia): Plan PT with belly discomfort and moderate stool on KUB, increased miralax on 04/10 GERD- Pantoprazole 40 mg IV daily pt medically stable awaiting medical placement Admission and Anticipated Discharge Date Admission Date: April 04, 2024 Subjective pt aphasia with some hemiplegia, history of mca stroke some coughing with drinking. no respiratory distress PT doing well , did have some cp 04/08, ecg negative maybe from swallowing, is having some bradycardia on monitor, tsh normal, lyme negative. some abd pain 04/09, KUB shows constipation increasing miralax Lamictal level therapeutic, on bid dosing can change to xr on dc Physical Exam Physical Exam: good breath sounds non labored, no focal loss , has pulmonary mechanics and finger clubbing consistent with copd abd is doughy but not acute cardiac exam regular no murmur no rub Results & Data Results & Data Vital Signs (Past 12 Hours) Vital Signs Temp Pulse Pulse Resp BP Pulse Ox O2 Del Method 04/10/24 07:45 Room Air, Nasal Cannula 04/10/24 07:45 Room Air 04/10/24 07:41 97.9 F 50 L 18 156/68 H 91 Room Air 04/10/24 05:53 44 L 04/10/24 02:38 97.5 F L 49 L 18 168/75 H 93 Nasal Cannula 04/09/24 23:07 97.0 F L 51 L 18 162/86 H 96 Nasal Cannula O2 Flow Rate 04/10/24 07:45 3 04/10/24 07:45 04/10/24 07:41 04/10/24 05:53 04/10/24 02:38 3 04/09/24 23:07 3 PG Care Time/CCT Total # of Minutes Spent Total Time Spent with Patient: Total time spent is greater than 50% in coordination of care (as documented) at patient's floor/unit and/or counseling patient: Coding Level of Care Code 49342 SUB INP/OBS CARE 2/35MIN Diagnoses Weakness R53.1 Asthma exacerbation with COPD (chronic obstructive pulmonary disease) J44.1; J45.901 Essential (primary) hypertension I10 Type 2 diabetes mellitus E11.9 BPH (benign prostatic hyperplasia) N40.0
[2024-04-10] MEDS: NICOTINE 21 MG/24 HR TDSY TD SCH (16:04)
[2024-04-11 06:35] LABS: Hematocrit (blood only) 51.2 % (42.0-52.0); Hemoglobin 17.1 g/dl (14.0-18.0); Mean Corpuscular Hgb Conc 33.4 g/dL (32.0-36.0); Mean Corpuscular Volume 86.9 fL (80.0-100.0); Mean Platelet Volume 11.2 fL (9.4-12.4); Platelet Count 180 K/uL (130-400); RDW Coefficient of Variation 13.1 % (11.5-14.5); RDW Standard Deviation 41.1 fL (36.4-46.3); Red Blood Count 5.89 M/uL (4.70-6.10); White Blood Count 13.96 K/ul (4.8-10.8)
[2024-04-11 07:01] LABS: Est GFR (African American) 93.6 ml/min; Potassium 3.8 mmol/L (3.5-5.1)
[2024-04-11 07:02] LABS: Albumin Globulin Ratio 1.3 (0.9-2); Albumin Level 3.6 gm/dl (3.4-5.0); BUN Creatinine Ratio 26.3 (10-20); Bilirubin,Total 0.5 mg/dl (0.2-1.0); Creatinine Clr Calc Pharmacy 81.9 ml/min; Est GFR (Non-African American) 80.7 ml/min; Globulin 2.8 gm/dl (2.5-4.0); Total Protein 6.4 gm/dl (6.0-8.3)
--- NOTE | 2024-04-11 12:08 | Hospitalist Progress Note ---
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 Azithromycin daily cxr 04/07 without pneumonia, will have one dose lasix, on azitho if bronchitis added nicotine patch 04/09 (3) Essential (primary) hypertension: Plan: Hypertension- resume aspirin, follow blood pressure restart hctz Hydralazine 10 mg IV prn (4) Type 2 diabetes mellitus: Plan: Diabetes mellitus- Glucose 77 on admission start lantus and lower dose adjusted ssi with steroid use (5) BPH (benign prostatic hyperplasia): Plan PT with belly discomfort and moderate stool on KUB, increased miralax on 04/10 GERD- Pantoprazole 40 mg IV daily pt medically stable awaiting medical placement Admission and Anticipated Discharge Date Admission Date: April 04, 2024 Subjective pt aphasia with some hemiplegia, history of mca stroke some abd pain 04/09, KUB shows constipation good result after miralax Lamictal level therapeutic, on bid dosing can change to xr on dc Physical Exam Physical Exam: good breath sounds non labored, no focal loss , has pulmonary mechanics and finger clubbing consistent with copd abd is doughy but not acute cardiac exam regular no murmur no rub Results & Data Results & Data Vital Signs (Past 12 Hours) Vital Signs Temp Pulse Pulse Resp BP Pulse Ox O2 Del Method 04/11/24 11:12 97.7 F 60 18 138/72 94 Nasal Cannula 04/11/24 08:30 Room Air 04/11/24 07:33 98.2 F 51 L 16 156/84 H 95 Nasal Cannula 04/11/24 07:14 50 L 04/11/24 03:50 97.3 F L 57 L 18 151/69 H 94 Nasal Cannula O2 Flow Rate 04/11/24 11:12 4 04/11/24 08:30 04/11/24 07:33 2 04/11/24 07:14 04/11/24 03:50 2 PG Care Time/CCT Total # of Minutes Spent Total Time Spent with Patient: Total time spent is greater than 50% in coordination of care (as documented) at patient's floor/unit and/or counseling patient: Coding Level of Care Code 68904 SUB INP/OBS CARE 2/35MIN Diagnoses Weakness R53.1 Asthma exacerbation with COPD (chronic obstructive pulmonary disease) J44.1; J45.901 Essential (primary) hypertension I10 Type 2 diabetes mellitus E11.9 BPH (benign prostatic hyperplasia) N40.0
--- NOTE | 2024-04-12 10:38 | Hospitalist Progress Note ---
Date of Service April 12, 2024 Assessment & Plan (1) Weakness: Plan: Weakness/need for more supportive environment, [facility] Patient was being transferred from his present facility to [place], but when he got there was told that they could not take care of him there. 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 Azithromycin daily cxr 04/07 without pneumonia, will have one dose lasix, on azitho if bronchitis added nicotine patch 04/09 given his coarse breath sounds on 04/12, will order VBG, Chest xray, inflammatory markers, cbc will also assess his peak flow. May be difficult to obtain given his aphasia, but patient is able to show understanding. (3) Essential (primary) hypertension: Plan: Hypertension- resume aspirin, follow blood pressure restart hctz Hydralazine 10 mg IV prn (4) Type 2 diabetes mellitus: Plan: Diabetes mellitus- Glucose 77 on admission start lantus and lower dose adjusted ssi with steroid use (5) BPH (benign prostatic hyperplasia): Plan PT with belly discomfort and moderate stool on KUB, increased miralax on 04/10 GERD- Pantoprazole 40 mg IV daily pt medically stable awaiting medical placement Admission and Anticipated Discharge Date Admission Date: April 04, 2024 Subjective 63 yo male is aphasic However, he wants his phone. Gave him phone. Nurse reports patient has been having coarse breath sounds today. Review of Systems Review of Systems: All systems reviewed & are unremarkable except as noted in HPI & below Physical Exam Physical Exam: NC/AT No acute distress. No JVD. Lungs: coarse breath sounds has pulmonary mechanics and finger clubbing consistent with copd abd is soft but not acute cardiac exam regular no murmur no rub Results & Data Results & Data Vital Signs (Past 12 Hours) Vital Signs Temp Pulse Pulse Resp BP Pulse Ox O2 Del Method 04/12/24 09:37 Room Air 04/12/24 08:00 36.4 C L 60 17 173/78 H 91 Room Air 04/12/24 07:00 48 L 04/12/24 04:00 36.5 C 53 L 18 142/78 H 93 Room Air 04/11/24 23:54 56 L 04/11/24 23:13 36.5 C 57 L 18 132/72 94 Room Air PG Care Time/CCT Total # of Minutes Spent Total Time Spent with Patient: Total time spent is greater than 50% in coordination of care (as documented) at patient's floor/unit and/or counseling patient: Coding Level of Care Code 52818 SUB INP/OBS CARE 2/35MIN Diagnoses Weakness R53.1 Asthma exacerbation with COPD (chronic obstructive pulmonary disease) J44.1; J45.901 Essential (primary) hypertension I10 Type 2 diabetes mellitus E11.9 BPH (benign prostatic hyperplasia) N40.0
[2024-04-12 10:58] LABS: Base Excess VBG 6.4 mEq/L; HCO3 VBG 31 mmol/L; Oxygen Saturation VBG 90.6 %; PCO2 VBG 45 mmHg (38-50); PO2 VBG 58 mmHg; pH VBG 7.45 (7.36-7.41)
[2024-04-12 10:59] LABS: Basophils # (auto) 0.04 K/uL (0.00-0.20); Basophils % (auto) 0.3 %; Eosinophils # (auto) 0.06 K/uL (0.00-0.50); Eosinophils % (auto) 0.5 %; Hematocrit (blood only) 49.4 % (42.0-52.0); Hemoglobin 16.9 g/dl (14.0-18.0); Immature Granulocytes # (auto) 0.03 K/uL (0.01-0.20); Immature Granulocytes % (auto) 0.3 %; Lymphocytes # (auto) 2.71 K/uL (1.20-3.40); Lymphocytes % (auto) 23.7 %; Mean Corpuscular Hemoglobin 29.3 pg (25.0-34.0); Mean Corpuscular Hgb Conc 34.2 g/dL (32.0-36.0); Mean Corpuscular Volume 85.6 fL (80.0-100.0); Mean Platelet Volume 11.1 fL (9.4-12.4); Monocytes # (auto) 0.43 K/uL (0.11-0.59); Monocytes % (auto) 3.8 %; Neutrophils # (auto) 8.17 K/uL (1.40-6.50); Neutrophils % (auto) 71.4 %; Platelet Count 172 K/uL (130-400); RDW Coefficient of Variation 13.2 % (11.5-14.5); RDW Standard Deviation 41.2 fL (36.4-46.3); Red Blood Count 5.77 M/uL (4.70-6.10); White Blood Count 11.44 K/ul (4.8-10.8)
[2024-04-12 11:16] LABS: Anion Gap 6 (3-11); BUN Creatinine Ratio 23.6 (10-20); Blood Urea Nitrogen 25 mg/dl (6-23); C Reactive Protein < 0.50 mg/dl (0-0.5); Calcium 8.9 mg/dl (8.6-10.3); Carbon Dioxide 31 mmol/L (21-32); Chloride 98 mmol/L (98-107); Creatinine Clr Calc Pharmacy 75.7 ml/min; Est GFR (African American) 86.1 ml/min; Est GFR (Non-African American) 74.3 ml/min; Glucose 196 mg/dl (70-99(Fasting)); Potassium 4.1 mmol/L (3.5-5.1); Sodium 135 mmol/L (136-145)
--- NOTE | 2024-04-12 13:34 | XRay Report ---
XR chest 2V PA/lateral CLINICAL HISTORY: wheezing TECHNIQUE: 2 views of the chest were obtained. Comparison: Comparison is made to chest radiograph 04/07/2024 FINDINGS: Left shoulder arthroplasty is seen. The cardiomediastinal silhouette is normal. Peribronchial thicken ing is seen. No evidence of pleural effusion or pneumothorax. IMPRESSION: Peribronchial thickening is seen compatible with infectious/inflammatory airways disease or viral pne umonia. No adelaida consolidation is seen. ACT 112: Negative or not required by law. Electronically signed by: Yanick Coulter M.D. 04/12/2024 1:33 PM
[2024-04-13 10:09] LABS: Base Excess VBG 6.9 mEq/L; HCO3 VBG 32 mmol/L; Oxygen Saturation VBG 96.6 %; PCO2 VBG 46 mmHg (38-50); PO2 VBG 66 mmHg; pH VBG 7.45 (7.36-7.41)
[2024-04-13 10:18] LABS: Hematocrit (blood only) 46.7 % (42.0-52.0); Hemoglobin 15.8 g/dl (14.0-18.0); Mean Corpuscular Hemoglobin 28.9 pg (25.0-34.0); Mean Corpuscular Hgb Conc 33.8 g/dL (32.0-36.0); Mean Corpuscular Volume 85.5 fL (80.0-100.0); Mean Platelet Volume 11.2 fL (9.4-12.4); Platelet Count 184 K/uL (130-400); RDW Coefficient of Variation 13.3 % (11.5-14.5); RDW Standard Deviation 41.4 fL (36.4-46.3); Red Blood Count 5.46 M/uL (4.70-6.10); White Blood Count 12.01 K/ul (4.8-10.8)
[2024-04-13 10:26] LABS: BUN Creatinine Ratio 30.8 (10-20); Calcium 8.7 mg/dl (8.6-10.3); Creatinine Clr Calc Pharmacy 75.8 ml/min; Est GFR (African American) 85.2 ml/min; Est GFR (Non-African American) 73.5 ml/min; Potassium 3.8 mmol/L (3.5-5.1)
--- NOTE | 2024-04-13 21:44 | Hospitalist Progress Note ---
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 Azithromycin daily cxr 04/07 without pneumonia, will have one dose lasix, on azitho if bronchitis added nicotine patch 04/09 given his coarse breath sounds on 04/12, will order VBG, Chest xray, inflammatory markers, cbc unable to assesss peak flow. May be difficult to obtain given his aphasia, but patient is able to show understanding. lungs appear more clear (3) Essential (primary) hypertension: Plan: Hypertension- resume aspirin, follow blood pressure restart hctz Hydralazine 10 mg IV prn (4) Type 2 diabetes mellitus: Plan: Diabetes mellitus- Glucose 77 on admission start lantus and lower dose adjusted ssi with steroid use (5) BPH (benign prostatic hyperplasia): Plan PT with belly discomfort and moderate stool on KUB, increased miralax on 04/10 GERD- Pantoprazole 40 mg IV daily pt medically stable awaiting medical placement Admission and Anticipated Discharge Date Admission Date: April 04, 2024 Subjective Patient reports sayra new symptoms. Review of Systems Review of Systems: All systems reviewed & are unremarkable except as noted in HPI & below Physical Exam Physical Exam: NC/AT No acute distress. No JVD. Lungs: clearer breath sounds has pulmonary mechanics and finger clubbing consistent with copd abd is soft but not acute cardiac exam regular no murmur no rub Results & Data Results & Data Vital Signs (Past 12 Hours) Vital Signs Temp Pulse Pulse Resp BP Pulse Ox O2 Del Method 08/20/24 19:19 36.6 C 54 L 18 168/71 H 90 Room Air 04/13/24 15:07 36.4 C L 60 18 173/78 H 90 Room Air 04/13/24 14:00 51 L 04/13/24 11:11 36.4 C L 54 L 18 142/66 H 91 Room Air PG Care Time/CCT Total # of Minutes Spent Total Time Spent with Patient: Total time spent is greater than 50% in coordination of care (as documented) at patient's floor/unit and/or counseling patient: Coding Level of Care Code 59967 SUB INP/OBS CARE 2/35MIN Diagnoses Weakness R53.1 Asthma exacerbation with COPD (chronic obstructive pulmonary disease) J44.1; J45.901 Essential (primary) hypertension I10 Type 2 diabetes mellitus E11.9 BPH (benign prostatic hyperplasia) N40.0
[2024-04-13] MEDS: hydrALAZINE HCL 20 MG/ML VIAL IV PRN (23:47)
[2024-04-14 05:45] LABS: Hematocrit (blood only) 49.2 % (42.0-52.0); Hemoglobin 16.7 g/dl (14.0-18.0); Mean Corpuscular Hemoglobin 29.2 pg (25.0-34.0); Mean Corpuscular Hgb Conc 33.9 g/dL (32.0-36.0); Mean Corpuscular Volume 86.2 fL (80.0-100.0); Mean Platelet Volume 11.1 fL (9.4-12.4); Platelet Count 202 K/uL (130-400); RDW Coefficient of Variation 13.2 % (11.5-14.5); RDW Standard Deviation 41.4 fL (36.4-46.3); Red Blood Count 5.71 M/uL (4.70-6.10); White Blood Count 14.82 K/ul (4.8-10.8)
[2024-04-14 05:55] LABS: Calcium 8.8 mg/dl (8.6-10.3); Creatinine Clr Calc Pharmacy 76.5 ml/min; Est GFR (African American) 86.1 ml/min; Est GFR (Non-African American) 74.3 ml/min; Magnesium 1.9 mg/dl (1.7-2.4); Potassium 3.9 mmol/L (3.5-5.1)
[2024-04-14] MEDS: hydroCHLOROthiazide 25 MG TAB PO SCH (08:34)
[2024-04-14] MEDS: predniSONE 20 MG TAB PO SCH (08:34)
[2024-04-14] MEDS: oxyCODONE HCL IR 5 MG TAB (IMMEDIATE RELEASE) PO PRN (11:59)
--- NOTE | 2024-04-14 12:48 | Hospitalist Progress Note ---
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 Azithromycin daily cxr 04/07 and 04/12 without pneumonia, continues to treat for bronchitis VBG ordered appears in alignment added nicotine patch 04/09 May be difficult to obtain given his aphasia, but patient is able to show understanding. lungs appear more clear (3) Essential (primary) hypertension: Plan: Hypertension- resume aspirin, follow blood pressure restart hctz Hydralazine 10 mg IV prn (4) Type 2 diabetes mellitus: Plan: Diabetes mellitus- Glucose 77 on admission start lantus and lower dose adjusted ssi with steroid use (5) BPH (benign prostatic hyperplasia): Plan Patient right hand discomfort without trauma. Pain control and x-ray ordered could be neuropathic pain given its his affected side he could have had it positional given its the hemiplegic side. Will continue to follow clinically pt medically stable awaiting medical placement Admission and Anticipated Discharge Date Admission Date: April 04, 2024 Subjective Patient reports complaints of right hand discomfort. This is affected hemiplegic side. He denies any recent trauma. He however is nonverbal and difficult to communicate completely with. Physical Exam Physical Exam: good breath sounds non labored, no focal loss , has pulmonary mechanics and finger clubbing consistent with copd abd is doughy but not acute cardiac exam regular no murmur no rub Right hand is without redness swelling or warmth. He seems to be most tender at the base of the metatarsal and the thumb. X-rays are ordered pain control is also ordered Results & Data Results & Data Vital Signs (Past 12 Hours) Vital Signs Temp Pulse Pulse Pulse Resp BP Pulse Ox 04/14/24 11:52 97.9 F 60 16 154/49 H 90 04/14/24 10:12 52 L 04/14/24 08:02 97.9 F 54 L 18 138/76 95 04/14/24 06:28 98.2 F 60 18 161/77 H 95 04/14/24 04:06 97.7 F 47 L 20 178/79 H 95 O2 Del Method 04/14/24 11:52 Room Air 04/14/24 10:12 04/14/24 08:02 Room Air 04/14/24 06:28 Room Air 04/14/24 04:06 Room Air Laboratory Results Reviewed CBC reviewed chemistry oRdered hand x-ray PG Care Time/CCT Total # of Minutes Spent Total Time Spent with Patient: Total time spent is greater than 50% in coordination of care (as documented) at patient's floor/unit and/or counseling patient: Coding Level of Care Code 61944 SUB INP/OBS CARE 2/35MIN Diagnoses Weakness R53.1 Asthma exacerbation with COPD (chronic obstructive pulmonary disease) J44.1; J45.901 Essential (primary) hypertension I10 Type 2 diabetes mellitus E11.9 BPH (benign prostatic hyperplasia) N40.0
[2024-04-14] MEDS: hydrOXYzine HCl 25 MG TAB PO PRN (19:24)
--- NOTE | 2024-04-14 19:58 | XRay Report ---
XR hand RT min 3V routine CLINICAL HISTORY: pain near thumb mtp TECHNIQUE: 3 views of the right hand were obtained. Comparison: None available at the time of this dictation. FINDINGS: There is no evidence of an acute fracture. Osteophyte formation and joint space narrowing is seen mos t prominently in the interphalangeal joints. No soft tissue abnormality is seen. IMPRESSION: Osteoarthritis is seen without evidence of acute fracture. ACT 112: Negative or not required by law. Electronically signed by: Yanick Coulter M.D. 04/14/2024 7:56 PM
[2024-04-14] MEDS ORDERED: GABAPENTIN 800 MG TAB PO SCH (21:00)
[2024-04-14] MEDS: GABAPENTIN 600 MG TAB PO SCH (22:15)
[2024-04-14] MEDS: MELATONIN 3 MG TAB PO PRN (22:16)
--- NOTE | 2024-04-15 14:44 | Hospitalist Progress Note ---
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 Azithromycin daily cxr 04/07 and 04/12 without pneumonia, continues to treat for bronchitis VBG ordered appears in alignment added nicotine patch 04/09 May be difficult to obtain given his aphasia, but patient is able to show understanding. pulmonary status improved (3) Essential (primary) hypertension: Plan: Hypertension- resume aspirin, follow blood pressure restart hctz Hydralazine 10 mg IV prn (4) Type 2 diabetes mellitus: Plan: Diabetes mellitus- Glucose 77 on admission start lantus and lower dose adjusted ssi with steroid use (5) BPH (benign prostatic hyperplasia): Plan Patient right hand discomfort without trauma. Pain control and x-ray ordered could be neuropathic pain given its his affected side he could have had it positional given its the hemiplegic side. Will continue to follow clinically pt medically stable awaiting medical placement Admission and Anticipated Discharge Date Admission Date: April 04, 2024 Subjective improved right hand discomfort, improved breathing informed pt of x ray results chronic stable medical problems awaiting placement Physical Exam Physical Exam: good breath sounds non labored, no focal loss , has pulmonary mechanics and finger clubbing consistent with copd abd is doughy but not acute cardiac exam regular no murmur no rub Right hand is improved x rays negative Results & Data Results & Data Vital Signs (Past 12 Hours) Vital Signs Temp Pulse Pulse Resp BP BP Pulse Ox 04/15/24 11:48 97.5 F L 60 18 149/79 H 90 04/15/24 08:00 04/15/24 07:23 97.3 F L 47 L 18 168/76 H 95 04/15/24 07:00 43 L 04/15/24 05:15 158/77 H 156/78 H 04/15/24 04:58 98.3 F 44 L 18 177/81 H 191/93 H 95 04/15/24 04:08 97.7 F 50 L 18 156/75 H 94 O2 Del Method 04/15/24 11:48 Room Air 04/15/24 08:00 Room Air 04/15/24 07:23 Room Air 04/15/24 07:00 04/15/24 05:15 04/15/24 04:58 Room Air 04/15/24 04:08 Room Air PG Care Time/CCT Total # of Minutes Spent Total Time Spent with Patient: Total time spent is greater than 50% in coordination of care (as documented) at patient's floor/unit and/or counseling patient: Coding Level of Care Code 20155 SUB INP/OBS CARE 09/18MIN Diagnoses Weakness R53.1 Asthma exacerbation with COPD (chronic obstructive pulmonary disease) J44.1; J45.901 Essential (primary) hypertension I10 Type 2 diabetes mellitus E11.9 BPH (benign prostatic hyperplasia) N40.0
--- NOTE | 2024-04-16 22:08 | Hospitalist Progress Note ---
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 Azithromycin daily cxr 04/07 and 04/12 without pneumonia, continues to treat for bronchitis VBG ordered appears in alignment added nicotine patch 04/09 pulmonary status improved (3) Essential (primary) hypertension: Plan: Hypertension- resume aspirin, follow blood pressure restart hctz Hydralazine 10 mg IV prn (4) Type 2 diabetes mellitus: Plan: Diabetes mellitus- Glucose 77 on admission start lantus and lower dose adjusted ssi with steroid use (5) BPH (benign prostatic hyperplasia): Plan Patient right hand discomfort without trauma. Pain control and x-ray ordered could be neuropathic pain given its his affected side he could have had it positional given its the hemiplegic side. Will continue to follow clinically pt medically stable awaiting medical placement Admission and Anticipated Discharge Date Admission Date: April 04, 2024 Subjective Patient is resting comfortably. Physical Exam Physical Exam: NC/AT No acute distress. No JVD. Lungs: clearer breath sounds has pulmonary mechanics and finger clubbing consistent with copd abd is soft but not acute cardiac exam regular no murmur no rub Results & Data Results & Data Vital Signs (Past 12 Hours) Vital Signs Temp Pulse Pulse Resp BP BP Pulse Ox 04/16/24 20:31 36.5 C 65 18 143/75 H 95 04/16/24 19:44 04/16/24 16:53 64 04/16/24 15:20 36.4 C L 53 L 16 130/71 93 04/16/24 11:46 36.6 C 49 L 18 123/70 93 O2 Del Method 04/16/24 20:31 Room Air 04/16/24 19:44 Room Air 04/16/24 16:53 04/16/24 15:20 Room Air 04/16/24 11:46 Room Air PG Care Time/CCT Total # of Minutes Spent Total Time Spent with Patient: Total time spent is greater than 50% in coordination of care (as documented) at patient's floor/unit and/or counseling patient: Coding Level of Care Code 61616 SUB INP/OBS CARE 09/18MIN Diagnoses Weakness R53.1 Asthma exacerbation with COPD (chronic obstructive pulmonary disease) J44.1; J45.901 Essential (primary) hypertension I10 Type 2 diabetes mellitus E11.9 BPH (benign prostatic hyperplasia) N40.0
[2024-04-17] MEDS: ACETAMINOPHEN 500 MG TAB PO SCH (10:11)
[2024-04-17] MEDS: DOCUSATE SODIUM/SENNA 50/8.6MG TAB PO SCH ×2 (10:12→20:54)
--- NOTE | 2024-04-17 15:51 | Hospitalist Progress Note ---
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 Azithromycin daily cxr 04/07 and 04/12 without pneumonia, continues to treat for bronchitis VBG ordered appears in alignment added nicotine patch 04/09 pulmonary status improved (3) Essential (primary) hypertension: Plan: Hypertension- resume aspirin, follow blood pressure restart hctz Hydralazine 10 mg IV prn (4) Type 2 diabetes mellitus: Plan: Diabetes mellitus- Glucose 77 on admission start lantus and lower dose adjusted ssi with steroid use (5) BPH (benign prostatic hyperplasia): Plan Patient right hand discomfort without trauma. Pain control and x-ray ordered could be neuropathic pain given its his affected side he could have had it positional given its the hemiplegic side. Schedule tylenol, cont prn oxycodone. scheduled bowel regimen. Will continue to follow clinically pt medically stable awaiting medical placement Admission and Anticipated Discharge Date Admission Date: April 04, 2024 Subjective No acute events overnight Current complaints include abdominal discomfort and right sided pain. Due to aphasia, pt unable to elaborate further Physical Exam Physical Exam: Gen: no acute distress HEENT: NC/AT CVS: s1s2 nl, RRR Lungs: CTAB Abd: protuberant, soft, mild tenderness epigastric region, normal bowel sounds Ext: no edema Results & Data Results & Data Vital Signs (Past 12 Hours) Vital Signs Temp Pulse Pulse Resp BP BP Pulse Ox 04/17/24 15:28 36.6 C 62 18 173/80 H 93 04/17/24 14:32 66 04/17/24 08:30 04/17/24 07:53 36.6 C 50 L 16 158/85 H 94 04/17/24 07:11 48 L O2 Del Method 04/17/24 15:28 Room Air 04/17/24 14:32 04/17/24 08:30 Room Air 04/17/24 07:53 Room Air 04/17/24 07:11 PG Care Time/CCT Total # of Minutes Spent Total Time Spent with Patient: Total time spent is greater than 50% in coordination of care (as documented) at patient's floor/unit and/or counseling patient: Coding Level of Care Code 11049 SUB INP/OBS CARE 2/35MIN Diagnoses Weakness R53.1 Asthma exacerbation with COPD (chronic obstructive pulmonary disease) J44.1; J45.901 Essential (primary) hypertension I10 Type 2 diabetes mellitus E11.9 BPH (benign prostatic hyperplasia) N40.0
[2024-04-18 06:25] LABS: Hematocrit (blood only) 49.6 % (42.0-52.0); Hemoglobin 16.5 g/dl (14.0-18.0); Mean Corpuscular Hgb Conc 33.3 g/dL (32.0-36.0); Mean Corpuscular Volume 87.3 fL (80.0-100.0); Mean Platelet Volume 11.2 fL (9.4-12.4); Platelet Count 278 K/uL (130-400); RDW Coefficient of Variation 13.2 % (11.5-14.5); RDW Standard Deviation 42.5 fL (36.4-46.3); Red Blood Count 5.68 M/uL (4.70-6.10); White Blood Count 20.23 K/ul (4.8-10.8)
[2024-04-18 07:25] LABS: BUN Creatinine Ratio 21.7 (10-20); Calcium 8.9 mg/dl (8.6-10.3); Creatinine Clr Calc Pharmacy 67.9 ml/min; Est GFR (African American) 74.1 ml/min; Magnesium 1.8 mg/dl (1.7-2.4); Potassium 3.9 mmol/L (3.5-5.1)
--- NOTE | 2024-04-18 08:20 | Hospitalist Progress Note ---
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 Consult PT/OT, pt can only walk 12 ft with assistance claudia benefit from rehab unclear of intermittent sinus leighton, no meds to affect, maybe intrinsic conducting system disease 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, lamictal is therapeutic Patient is aphasic, right hemiplegia, resume aspirin a day add atorvastatin pt has seen speech in 2021, will have modified diet #Asthma exacerbation with COPD (chronic obstructive pulmonary disease): Asthma exacerbation and COPD-wheezing improved/resolved transition steroid to po-taper dose added long acting breo 04/05 Duonebs every 2 hours when necessary. Azithromycin daily cxr 04/07 and 04/12 without pneumonia, continues to treat for bronchitis VBG ordered appears in alignment added nicotine patch 04/09 pulmonary status improved #Essential (primary) hypertension: resume aspirin, follow blood pressure restart hctz Hydralazine 10 mg IV prn #Type 2 diabetes mellitus: Glucose 77 on admission start lantus and lower dose adjusted ssi with steroid use #BPH (benign prostatic hyperplasia): #Right arm pain - hand xray reveals osteoarthritis, but no fracture - cont schedule tylenol and prn oxycodone (frequency increased today) - cont bowel regimen to avoid OIC #Dispo: pt medically stable awaiting medical placement Admission and Anticipated Discharge Date Admission Date: April 04, 2024 Subjective No acute events overnight Still complaining about right arm pain Physical Exam Physical Exam: Gen: no acute distress HEENT: NC/AT CVS: s1s2 nl, RRR Lungs: CTAB Abd: protuberant, soft, mild tenderness epigastric region, normal bowel sounds Ext: no edema Results & Data Results & Data Vital Signs (Past 12 Hours) Vital Signs Temp Pulse Pulse Resp BP BP Pulse Ox 04/18/24 07:29 36.4 C L 47 L 17 136/74 92 04/18/24 07:11 48 L 04/18/24 03:10 36.6 C 59 L 18 131/64 96 04/18/24 00:13 54 L 04/17/24 23:29 36.7 C 54 L 18 131/62 96 O2 Del Method 04/18/24 07:29 Room Air 04/18/24 07:11 04/18/24 03:10 Room Air 04/18/24 00:13 04/17/24 23:29 Room Air PG Care Time/CCT Total # of Minutes Spent Total Time Spent with Patient: Total time spent is greater than 50% in coordination of care (as documented) at patient's floor/unit and/or counseling patient: Coding Level of Care Code 19154 SUB INP/OBS CARE 2/35MIN Diagnoses Weakness R53.1 Asthma exacerbation with COPD (chronic obstructive pulmonary disease) J44.1; J45.901 Essential (primary) hypertension I10 Type 2 diabetes mellitus E11.9 BPH (benign prostatic hyperplasia) N40.0
[2024-04-18] MEDS: oxyCODONE HCL IR 5 MG TAB (IMMEDIATE RELEASE) PO PRN (12:00)
--- NOTE | 2024-04-19 03:51 | Communication Note ---
Date of Service: April 19, 2024 Alerted that patient with increased rhonchi/rattles now significantly more audible. Had nursing contact RT - bedside for PRN neb. Ordered CXR. After neb RT did suction a good bit removing mucous with significant improvement in rhonchi/rattles. Likely mucous plugging. Patient satting well on room air throughout. No other changes in regimen made. Resident Activity Tracking Resident Involvement: Resident Care Provided Care Provided: Adult [facility] Medicine
--- NOTE | 2024-04-19 06:57 | XRay Report ---
SINGLE VIEW CHEST CLINICAL HISTORY: Aspiration FINDINGS: An AP, portable, upright chest radiograph is compared to study dated 04/12/2024. Correlation is made with chest CT dated 08/12/2022. The cardiomediastinal silhouette is unremarkable noting athe rosclerotic calcification of the thoracic aorta. Emphysematous change and reticulonodular airspace op acities are similar to previous. There is bibasilar scarring/atelectasis. No airspace consolidation o r large pleural effusion is identified. No pneumothorax is seen. The skeletal structures are osteopen ic. There are chronic/healed left-sided rib fractures. A left shoulder arthroplasty is in place. Arth ritic changes seen in the right shoulder. IMPRESSION: 1. There is no airspace consolidation or large pleural effusion. 2. Mild emphysematous change and chronic reticulonodular airspace opacities are similar to previous. ACT 112: Negative or not required by law. Electronically signed by: Douglas Colugna M.D. 04/19/2024 6:54 AM
[2024-04-19 08:02] LABS: Hematocrit (blood only) 53.4 % (42.0-52.0); Hemoglobin 17.5 g/dl (14.0-18.0); Mean Corpuscular Hgb Conc 32.8 g/dL (32.0-36.0); Mean Corpuscular Volume 88.6 fL (80.0-100.0); Platelet Count 265 K/uL (130-400); RDW Coefficient of Variation 13.6 % (11.5-14.5); RDW Standard Deviation 43.6 fL (36.4-46.3); Red Blood Count 6.03 M/uL (4.70-6.10); White Blood Count 23.58 K/ul (4.8-10.8)
--- NOTE | 2024-04-19 08:08 | Hospitalist Progress Note ---
Date of Service April 19, 2024 Assessment & Plan (1) Weakness: (2) Asthma exacerbation with COPD (chronic obstructive pulmonary disease): (3) Essential (primary) hypertension: (4) Type 2 diabetes mellitus: (5) BPH (benign prostatic hyperplasia): Plan 63-year-old male with a past medical history including CVA with residual right- sided weakness, BPH and LUTS, hypertension, COPD, aphasia following cerebral infarction. The patient was brought to the emergency department by his brother, due to difficulty in having the patient accepted at [place] for inpatient care, as he thought the patient was going to be. 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 Consult PT/OT, pt can only walk 12 ft with assistance claudia benefit from rehab unclear of intermittent sinus leighton, no meds to affect, maybe intrinsic conducting system disease 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, lamictal is therapeutic Patient is aphasic, right hemiplegia, resume aspirin a day add atorvastatin pt has seen speech in 2021, will have modified diet #Asthma exacerbation with COPD (chronic obstructive pulmonary disease): Asthma exacerbation and COPD-wheezing improved/resolved transition steroid to po-taper dose added long acting breo 04/05 Duonebs every 2 hours when necessary. Azithromycin daily cxr 04/07 and 04/12 without pneumonia, continues to treat for bronchitis VBG ordered appears in alignment added nicotine patch 04/09 pulmonary status improved #Leukocytosis - unclear etiology, afebrile, UA neg, CXR w/o evidence of infection, neg procal, minimally elevated CRP, no skin wounds - peripheral smear pending #Hypoxia - CXR: ?pulm edema - check BNP, if elevated will obtain ECHO - will give lasix 20mg IV x1 (diuretic naive) - supplemental oxygen prn - guaifenesin prn #Essential (primary) hypertension: - pt on HCTZ and nifedipine at home - resume - cont aspirin #Type 2 diabetes mellitus: Glucose 77 on admission start lantus and lower dose adjusted ssi with steroid use #Seizure d/o - cont depakote #BPH (benign prostatic hyperplasia): #Right arm pain - hand xray reveals osteoarthritis, but no fracture - cont schedule tylenol and prn oxycodone (frequency increased today) - cont bowel regimen to avoid OIC #Dispo: pt medically stable awaiting medical placement Admission and Anticipated Discharge Date Admission Date: April 04, 2024 Subjective Overnight pt had a mucus plug which resolved with neb and suction No new complaints this morning Review of Systems Review of Systems: Limited due to aphasia Physical Exam Physical Exam: Gen: no acute distress, but pt appears very bland, not as peppy as yesterday HEENT: NC/AT CVS: s1s2 nl, RRR Lungs: diminished / congested b/l Abd: protuberant, soft, mild tenderness epigastric region, normal bowel sounds Ext: no edema Results & Data Results & Data Vital Signs (Past 12 Hours) Vital Signs Temp Pulse Pulse Resp BP BP Pulse Ox 04/19/24 07:27 54 L 04/19/24 07:04 36.7 C 78 20 182/80 H 97 04/19/24 04:05 36.3 C L 60 18 148/60 H 96 04/19/24 03:49 65 25 H 99 04/19/24 00:37 186/88 H 04/19/24 00:04 36.4 C L 56 L 16 180/84 H 93 04/18/24 21:34 58 L 04/18/24 21:25 36.3 C L 64 16 178/84 H 95 O2 Del Method 04/19/24 07:27 04/19/24 07:04 Room Air 04/19/24 04:05 Room Air 04/19/24 03:49 Room Air 04/19/24 00:37 04/19/24 00:04 Room Air 04/18/24 21:34 04/18/24 21:25 Room Air PG Care Time/CCT Total # of Minutes Spent Total Time Spent with Patient: Total time spent is greater than 50% in coordination of care (as documented) at patient's floor/unit and/or counseling patient: Coding Level of Care Code 98159 SUB INP/OBS CARE 2/35MIN Diagnoses Weakness R53.1 Asthma exacerbation with COPD (chronic obstructive pulmonary disease) J44.1; J45.901 Essential (primary) hypertension I10 Type 2 diabetes mellitus E11.9 BPH (benign prostatic hyperplasia) N40.0
[2024-04-19 08:27] LABS: BUN Creatinine Ratio 14.9 (10-20); Calcium 9.7 mg/dl (8.6-10.3); Creatinine Clr Calc Pharmacy 66.5 ml/min; Est GFR (African American) 73.4 ml/min; Est GFR (Non-African American) 63.3 ml/min; Magnesium 1.7 mg/dl (1.7-2.4); Phosphorus 3.9 mg/dl (2.5-4.9); Potassium 4.2 mmol/L (3.5-5.1)
[2024-04-19] MEDS ORDERED: amLODIPine BESYLATE 5 MG TAB PO SCH (09:00)
[2024-04-19] MEDS: NIFEdipine EXTENDED REL 30 MG TABCR PO SCH (09:47)
[2024-04-19 10:28] LABS: C Reactive Protein 1.93 mg/dl (0-0.5)
[2024-04-19] MEDS: guaiFENesin SUGAR FREE 100 MG/5 ML UDC PO SCH (13:38)
[2024-04-19 13:46] LABS: Appearance Urine Clear (Clear); Bacteria Urine Automated None Seen (None Seen); Bilirubin Urine Negative (Negative); Blood Urine Negative (Negative); Cast Urine Automated 0-2 /lpf (0-2); Color Urine Yellow; Epithelial Cell Urine Auto 0-2 /hpf (0-2); Glucose Urine UA Negative (Negative); Ketones Urine Trace (Negative); Leukocyte Esterase Urine Trace (Negative); Nitrite Urine Negative (Negative); Protein Urine Negative (Negative); RBC Urine Automated 0-2 /hpf (0-2); Urobilinogen Urine Negative (Negative); WBC Urine Automated 0-5 /hpf (0-5); pH Urine 7.5 (4.5-7.5)
[2024-04-19] MEDS: FUROSEMIDE INJ 20 MG/2 ML VIAL IV ONE (15:36)
--- NOTE | 2024-04-19 16:29 | XRay Report ---
SINGLE VIEW CHEST CLINICAL HISTORY: Leukocytosis FINDINGS: An AP, portable, upright chest radiograph is compared to study performed earlier the same d ay 04/19/2024. Correlation is made with chest CT dated 08/12/2022. The cardiomediastinal silhouette is unremarkable noting atherosclerotic calcification of the thoracic aorta. Emphysematous change is aga in noted. There is increasing interstitial thickening with patchy airspace opacities as compared to shawna rao's earlier examination. This favors multifocal pneumonia. Trace pleural effusions are observed. N o pneumothorax is seen. The skeletal structures are osteopenic. There are chronic/healed left-sided r ib fractures. A left shoulder arthroplasty is in place. Arthritic change is seen in the right shoulde r. IMPRESSION: 1. There is increasing interstitial thickening with developing multifocal airspace opacities. This fa vors pneumonia. Clinical correlation will be required and radiographic follow-up to resolution is rec ommended. 2. Mild emphysema. 3. Trace pleural effusions ACT 112: Negative or not required by law. Electronically signed by: Douglas Colunga M.D. 04/19/2024 4:28 PM
[2024-04-19] MEDS ORDERED: VANCOMYCIN HCL 1,750 MG in SODIUM CHLORIDE 0.9% 500 ML IV ONE (16:34)
[2024-04-19] MEDS ORDERED: VANCOMYCIN CONSULT ACTIVE PRN (16:34)
--- NOTE | 2024-04-19 17:21 | Communication Note ---
Date of Service: April 19, 2024 Given worsening WBC, possible pna on CXR, will BCx , MRSA swab ordered. Add vanc / zosyn for now. will also CT chest abd / pelvis UA neg Lactate elevated, will add fluids
[2024-04-19] MEDS: OPTIRAY 320 100ml IV ONE (17:36)
[2024-04-19] MEDS: PLASMA-LYTE A 1,000 ML IV SCH (17:48)
[2024-04-19] MEDS: 4.5GM X1 IV STA (17:49)
--- NOTE | 2024-04-19 18:08 | CT Scan Report ---
CT OF THE CHEST WITH IV CONTRAST CLINICAL HISTORY: Significant leukocytosis, unclear etiology. COMPARISON STUDY: Chest CT August 12, 2022. Chest radiograph performed earlier today. TECHNIQUE: Following IV administration of 93 mL of Optiray, helical axial images of the chest were o btained. Sagittal and coronal reconstructions were viewed as well as maximal intensity projections o n an independent 3-D workstation. Automated exposure control was utilized for the study. A dose low ering technique was utilized adhering to the principles of ALARA. FINDINGS: Prominent mediastinal and bilateral hilar lymph nodes are present. These are similar to pr ior chest CT. The heart is mildly enlarged. There is moderate coronary artery calcification. There is no pericardial effusion. No pneumothorax or pleural effusion is noted. Numerous alveolar opacities t hroughout the lungs are present, including a 4.3 cm subpleural focus of consolidation within the left lower lobe. Lucencies within several airspace opacities likely reflect airways. Small foci of cavita tion could appear similar There are moderate secretions within the distal trachea and arianne as well as proximal thickening and secretions within the lower lobe, right middle lobe and lingular bronchi. No central obstructing mass is present. Left shoulder arthroplasty is incidentally noted. The abdomen and pelvis CT will be reported separately. IMPRESSION: 1. Numerous alveolar opacities throughout the lungs suggestive of multifocal pneumonia or aspiration pneumonitis. Lucencies within several of these foci likely reflect airways. Small developing small fo ci of cavitation could appear similar. A follow-up chest CT in 2 months to ensure resolution is recom mended. 2. Secretions throughout the airways with bronchial wall thickening, as above. 3. Prominent mediastinal and bilateral hilar lymph nodes, likely reactive. ACT 112: Negative or not required by law. Electronically signed by: Roel Ricketts M.D. 04/19/2024 6:06 PM
--- NOTE | 2024-04-19 18:17 | CT Scan Report ---
CT OF THE ABDOMEN AND PELVIS WITH CONTRAST CLINICAL HISTORY: Leukocytosis, unclear etiology. COMPARISON STUDY: CT of the abdomen and this August 12, 2022. KUB April 09, 2024. TECHNIQUE: Following IV administration of 93 mL of Optiray, axial images of the abdomen and pelvis we re obtained from the lung bases to the proximal femurs. Images were reviewed in the axial, sagittal, and coronal planes. IV contrast was administered without complication. Automated exposure control wa s utilized for the study. A dose lowering technique was utilized adhering to the principles of ALARA . CT DOSE: 2165.26 mGy.cm FINDINGS: Multifocal alveolar opacities within the lower lungs are better depicted on the chest CT. B ronchial wall thickening is present. There is no pneumatosis, free air or portal venous gas. Liver, s pleen, adrenal glands, kidneys and pancreas are unremarkable. There is no biliary or pancreatic ducta l dilatation. There is no hydronephrosis. No peripancreatic or pericholecystic infiltration is presen t. Extensive aortoiliac atherosclerotic plaque. Caliber and wall thickness of small and large bowel a re normal. The appendix is normal. There is a moderate amount of stool within the colon and rectum. T here is no lymphadenopathy. There are no fluid collections. IMPRESSION: 1. No acute process within the abdomen or pelvis. 2. Alveolar opacities within the lower lungs suggestive of multifocal pneumonia or aspiration pneumon itis. 3. Moderate amount of stool within the colon and rectum. 4. Normal appendix. No bowel obstruction. No bowel wall thickening. ACT 112: Negative or not required by law. Electronically signed by: Roel Ricketts M.D. 04/19/2024 6:15 PM
[2024-04-19] MEDS: VANCOMYCIN HCL 2,000 MG in SODIUM CHLORIDE 0.9% 500 ML IV STA (18:27)
[2024-04-19] MEDS: guaiFENesin SUGAR FREE 200 MG/10 ML UDC PO SCH (18:35)
[2024-04-19] MEDS: PIPERACILLIN/TAZOBACTAM 4.5 GM/100 ML BAG IV SCH (21:26)
[2024-04-20] MEDS ORDERED: VANCOMYCIN CONSULT ACTIVE PRN (00:09)
[2024-04-20] MEDS: PLASMA-LYTE A 500 ML IV ONE (00:12)
--- NOTE | 2024-04-20 00:19 | Communication Note ---
Date of Service: April 20, 2024 Alerted by nursing that patient is hypotensive. Typically more on the hypertensive side requiring PRN IV hydralazine. Was started on nifedipine 60 mg today and given a dose of Lasix during the day as CXR with possible pulmonary vascular congestion. Did hold these as patient hypotensive. Would defer to day team on re-initiation. Patient did likely have an aspiration event last evening. He is now on 4L NC and broad spectrum antibiotics. Blood cultures pending. Lactate elevated at 2.9 repeat 2.4. Started on low maintenance IVF. No bolus given. Not on any heart failure medications. No ECHO available for review. Reviewed BNP which was WNL. With hypotension, leukocytosis, and lactic acidosis patient meets SIRs criteria will give 500 mL bolus and reassess. Oxygen requirement likely from aspiration pneumonitis not fluid overload. If does seem hypervolemic would trial additional Lasix. BP with appropriate fluid response. Continue low maintenance. No other bolus indicated at this time. Ordered 2 hour repeat lactate to trend, VBG, random cortisol. Patient unable to void. Bladder scan 380 cc. Per chart review patient not getting his home tamsul osin. Will restart now. If continues to retain trial straight cath then Cheng if needed. Resident Activity Tracking Resident Involvement: Resident Care Provided Care Provided: Adult Hospital Medicine
[2024-04-20 00:51] LABS: Base Excess VBG 9.4 mEq/L; HCO3 VBG 35 mmol/L; Oxygen Saturation VBG 91.1 %; PCO2 VBG 52 mmHg (38-50); PO2 VBG 58 mmHg; pH VBG 7.44 (7.36-7.41)
[2024-04-20] MEDS ORDERED: VANCOMYCIN HCL 1,250 MG in SODIUM CHLORIDE 0.9% 500 ML IV SCH (01:00)
[2024-04-20] MEDS: TAMSULOSIN HCL 0.4 MG CAP PO SCH (01:12)
[2024-04-20] MEDS: VANCOMYCIN HCL 1,250 MG in SODIUM CHLORIDE 0.9% 250 ML IV SCH (03:03)
[2024-04-20 03:17] LABS: Hematocrit (blood only) 45.1 % (42.0-52.0); Hemoglobin 15.1 g/dl (14.0-18.0); Mean Corpuscular Hgb Conc 33.5 g/dL (32.0-36.0); Mean Corpuscular Volume 86.7 fL (80.0-100.0); Platelet Count 251 K/uL (130-400); RDW Coefficient of Variation 13.7 % (11.5-14.5); White Blood Count 22.59 K/ul (4.8-10.8)
[2024-04-20 03:43] LABS: BUN Creatinine Ratio 18.8 (10-20); Calcium 8.5 mg/dl (8.6-10.3); Creatinine Clr Calc Pharmacy 71.9 ml/min; Est GFR (African American) 80.6 ml/min; Est GFR (Non-African American) 69.5 ml/min; Magnesium 1.9 mg/dl (1.7-2.4); Potassium 3.4 mmol/L (3.5-5.1)
--- NOTE | 2024-04-20 08:29 | Hospitalist Progress Note ---
Date of Service April 20, 2024 Assessment & Plan (1) Asthma exacerbation with COPD (chronic obstructive pulmonary disease): Plan: Asthma exacerbation and COPD- Multifocal pneumonia seen on CT chest, on Zosyn, concern for aspiration pneuonia transition steroid to po-taper dose added long acting breo 04/05 Duonebs every 2 hours when necessary. Azithromycin daily May be difficult to obtain given his aphasia, but patient is able to show understanding. 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 Pain control and x-ray ordered could be neuropathic pain given its his affected side he could have had it positional given its the hemiplegic side. Will continue to follow clinically pt medically stable awaiting medical placement hypokalemia will Augmentin Admission and Anticipated Discharge Date Admission Date: April 04, 2024 Subjective pt is stable, no coughing, some basilar rhonchi for placement improving on iv antibiotics Physical Exam Physical Exam: good breath sounds, improving pneumonia non labored, no focal loss , has pulmonary mechanics and finger clubbing consistent with copd cardiac exam regular no murmur no rub Results & Data Results & Data Vital Signs (Past 12 Hours) Vital Signs Temp Pulse Pulse Resp BP BP Pulse Ox 04/20/24 07:35 97.5 F L 50 L 18 107/58 L 90 04/20/24 05:57 93 04/20/24 05:46 93 04/20/24 02:00 97.5 F L 50 L 16 112/56 L 96 04/20/24 01:18 97.5 F L 55 L 18 113/62 95 04/20/24 00:16 20 94 04/19/24 23:58 97.5 F L 54 L 18 98/55 L 93 04/19/24 23:50 100/57 L 87 L 04/19/24 22:47 97.5 F L 52 L 17 100/57 L 92 04/19/24 22:36 04/19/24 22:33 57 L O2 Del Method O2 Flow Rate 04/20/24 07:35 Room Air 04/20/24 05:57 Room Air 04/20/24 05:46 Room Air 04/20/24 02:00 Nasal Cannula 3 04/20/24 01:18 Nasal Cannula 4 04/20/24 00:16 Nasal Cannula 4 04/19/24 23:58 Nasal Cannula 4 04/19/24 23:50 Room Air 04/19/24 22:47 Room Air 04/19/24 22:36 Room Air 04/19/24 22:33 Laboratory Results review cbc review chemistry PG Care Time/CCT Total # of Minutes Spent Total Time Spent with Patient: Total time spent is greater than 50% in coordination of care (as documented) at patient's floor/unit and/or counseling patient: Coding Level of Care Code 37521 SUB INP/OBS CARE 2/35MIN Diagnoses Asthma exacerbation with COPD (chronic obstructive pulmonary disease) J44.1; J45.901 Weakness R53.1 Essential (primary) hypertension I10 Type 2 diabetes mellitus E11.9
--- NOTE | 2024-04-20 08:44 | Pharmacy Report ---
Pharmacy PK ABX Note - Date of Service April 20, 2024 - Assessment and Plan Assessment 63 year old M receiving vancomycin/zosyn for potential pneumonia. Broad spectrum antibiotics started as concerns for aspiration event last evening. Per notes, patient hypotensive overnight and also requiring increased oxygen. Lactate elevated, procalcitonin negative. MRSA nasal swab negative. Blood cultures pending. Plan Vancomycin * Loading dose: 2000 mg IV x 1 * Maintenance dose: 1250 mg IV every 18 hours * Regimen is predicted to achieve target AUC/DYLAN of 400-600 mg/L.hr * Will plan to collect random vancomycin level tomorrow if continued Pharmacy will continue to follow and will adjust dose/frequency as necessary. Thank you. Pharmacy has transitioned to AUC monitoring for vancomycin. AUC/DYLAN is the preferred PK/PD target and is associated with decreased risk of nephrotoxicity compared to traditional trough targets.
[2024-04-20 15:59] LABS: Influenza A virus by PCR Negative (Neg); Influenza B virus by PCR Negative (Neg); RSV by PCR Negative (Neg); SARS CoV2 RNA(COVID-19) Ceph NEGATIVE (Negative)
[2024-04-20] MEDS: POTASSIUM CHLORIDE CRTAB 20 MEQ TABCR PO STA (18:23)
[2024-04-20 22:40] LABS: A calco-baum cmplx NotReported Not Detected (NotDetected); Bact fragilis Not Reported Not Detected (NotDetected); Blood Culture Id Panel See PCR Comment (NotDetected); C auris Not Reported Not Detected (NotDetected); Calbicans Not Reported Not Detected (NotDetected); Candida glabrata Not Reported Not Detected (NotDetected); Candida krusei Not Reported Not Detected (NotDetected); Cneoformans/gatti Not Reported Not Detected (NotDetected); Cparapsilosis Not Reported Not Detected (NotDetected); E cloacae compx Not Reported Not Detected (NotDetected); Efaecalis Not Reported Not Detected (NotDetected); Efaecium Not Reported Not Detected (NotDetected); Enterobacterales Not Reported Not Detected (NotDetected); Escherichia coli Not Reported Not Detected (NotDetected); H influenzae Not Reported Not Detected (NotDetected); K aerogenes Not Reported Not Detected (NotDetected); Koxytoca Not Reported Not Detected (NotDetected); Kpneumoniae grp Not Reported Not Detected (NotDetected); Lmonocyt Not Reported Not Detected (NotDetected); N meningitidis Not Reported Not Detected (NotDetected); P aeruginosa Not Reported Not Detected (NotDetected); Proteus spp Not Reported Not Detected (NotDetected); Salmonella spp Not Reported Not Detected (NotDetected); Staph lugdunensis Not Reported Not Detected (NotDetected); Staph spp. Not Reported DETECTED (NotDetected); Staphaureus Not Reported Not Detected (NotDetected); Staphepi Not Reported Not Detected (NotDetected); Stenmaltophilia Not Reported Not Detected (NotDetected); Strep agal(GrpB) Not Reported Not Detected (NotDetected); Strep pneum Not Reported Not Detected (NotDetected); Strep pyog (GrpA) Not Reported Not Detected (NotDetected); Strep spp Not Reported Not Detected (NotDetected)
[2024-04-20 22:47] LABS: Staphylococcus spp. DETECTED (NotDetected)
[2024-04-21 06:10] LABS: Hematocrit (blood only) 44.7 % (42.0-52.0); Mean Corpuscular Hemoglobin 28.7 pg (25.0-34.0); Mean Corpuscular Hgb Conc 33.6 g/dL (32.0-36.0); Mean Corpuscular Volume 85.6 fL (80.0-100.0); Mean Platelet Volume 11.1 fL (9.4-12.4); Platelet Count 267 K/uL (130-400); RDW Coefficient of Variation 13.6 % (11.5-14.5); RDW Standard Deviation 42.8 fL (36.4-46.3); Red Blood Count 5.22 M/uL (4.70-6.10); White Blood Count 15.55 K/ul (4.8-10.8)
[2024-04-21 06:32] LABS: BUN Creatinine Ratio 17.7 (10-20); Calcium 8.6 mg/dl (8.6-10.3); Creatinine Clr Calc Pharmacy 84.6 ml/min; Est GFR (African American) 97.1 ml/min; Est GFR (Non-African American) 83.8 ml/min
--- NOTE | 2024-04-21 07:46 | Hospitalist Progress Note ---
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, lamictal is therapeutic Patient is aphasic, right hemiplegia, resume aspirin a day add atorvastatin pt has seen speech in 2021, will have modified diet (3) Essential (primary) hypertension: Plan: Hypertension- resume aspirin, follow blood pressure has had lower BP's home meds on hold ( nifedaine and hctz) Hydralazine 10 mg IV prn (4) Type 2 diabetes mellitus: Plan: Diabetes mellitus- Glucose 77 on admission start lantus and lower dose adjusted ssi with steroid use Plan Patient right hand discomfort without trauma. Pain control and x-ray ordered could be neuropathic pain given its his affected side he could have had it positional given its the hemiplegic side. Will continue to follow clinically pt medically stable awaiting medical placement hypokalemia will Augmentin Admission and Anticipated Discharge Date Admission Date: April 04, 2024 Subjective pt is with some tachypnea, some wheezing, basilar rhonchi pt is bothered by my presence just wants to be left alone Physical Exam Physical Exam: labored, mild distress, wheezing , has pulmonary mechanics and finger clubbing consistent with copd cardiac exam regular no murmur no rub Results & Data Results & Data Vital Signs (Past 12 Hours) Vital Signs Temp Pulse Pulse Resp BP BP Pulse Ox 04/21/24 07:23 98.2 F 52 L 18 158/70 H 92 04/21/24 03:57 98.1 F 58 L 20 142/73 H 92 04/21/24 00:04 63 04/20/24 23:39 98.2 F 60 18 123/62 93 O2 Del Method 04/21/24 07:23 Room Air 04/21/24 03:57 Room Air 04/21/24 00:04 04/20/24 23:39 Room Air Laboratory Results review cbc review chemistry PG Care Time/CCT Total # of Minutes Spent Total Time Spent with Patient: Total time spent is greater than 50% in coordination of care (as documented) at patient's floor/unit and/or counseling patient: Coding Level of Care Code 76432 SUB INP/OBS CARE 2/35MIN Diagnoses Asthma exacerbation with COPD (chronic obstructive pulmonary disease) J44.1; J45.901 Weakness R53.1 Essential (primary) hypertension I10 Type 2 diabetes mellitus E11.9
[2024-04-21] MEDS: POTASSIUM CHLORIDE CRTAB 20 MEQ TABCR PO SCH (08:50)
[2024-04-21] MEDS: FUROSEMIDE INJ 20 MG/2 ML VIAL IV ONE (19:57)
[2024-04-21] MEDS: AMOXICILLIN/CLAVULANATE 875 MG TAB PO SCH (20:05)
[2024-04-21] MEDS: ALBUT/IPRATROP 3MG/0.5MG NEB 3 ML VIAL NEB SCH (20:10)
[2024-04-22] MEDS: DOCUSATE SODIUM/SENNA 50/8.6MG TAB PO SCH (08:06)
--- NOTE | 2024-04-22 17:20 | XCELERA ---
[id number]
--- NOTE | 2024-04-22 17:24 | Hospitalist Progress Note ---
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, lamictal is therapeutic Patient is aphasic, right hemiplegia, resume aspirin a day add atorvastatin pt has seen speech in 2021, will have modified diet (3) Essential (primary) hypertension: Plan: Hypertension- resume aspirin, follow blood pressure has had lower BP's home meds on hold ( nifedaine and hctz) Hydralazine 10 mg IV prn (4) Type 2 diabetes mellitus: Plan: Diabetes mellitus- Glucose 77 on admission start lantus and lower dose adjusted ssi with steroid use Plan Patient right hand discomfort without trauma. Pain control and x-ray ordered could be neuropathic pain given its his affected side he could have had it positional given its the hemiplegic side. Will continue to follow clinically pt medically stable awaiting medical placement hypokalemia will Augmentin Admission and Anticipated Discharge Date Admission Date: April 04, 2024 Subjective pt is with some tachypnea, some wheezing, basilar rhonchi pt is bothered by my presence just wants to be left alone overall has improved on a pulmonary standpoint Physical Exam Physical Exam: labored, mild distress, wheezing , has pulmonary mechanics and finger clubbing consistent with copd cardiac exam regular no murmur no rub Results & Data Results & Data Vital Signs (Past 12 Hours) Vital Signs Temp Pulse Pulse Resp BP Pulse Ox O2 Del Method 04/22/24 16:00 61 04/22/24 15:43 98.1 F 57 L 16 133/69 94 Room Air 04/22/24 11:46 97.7 F 53 L 18 149/73 H 93 Room Air 04/22/24 08:00 Room Air 04/22/24 08:00 54 L 04/22/24 07:50 97.5 F L 53 L 19 163/68 H 96 Room Air Laboratory Results ordered cbc and chem 7 for 04/23 PG Care Time/CCT Total # of Minutes Spent Total Time Spent with Patient: Total time spent is greater than 50% in coordination of care (as documented) at patient's floor/unit and/or counseling patient: Coding Level of Care Code 90098 SUB INP/OBS CARE 2/35MIN Diagnoses Asthma exacerbation with COPD (chronic obstructive pulmonary disease) J44.1; J45.901 Weakness R53.1 Essential (primary) hypertension I10 Type 2 diabetes mellitus E11.9
[2024-04-23 06:11] LABS: Hematocrit (blood only) 45.6 % (42.0-52.0); Hemoglobin 15.2 g/dl (14.0-18.0); Mean Corpuscular Hgb Conc 33.3 g/dL (32.0-36.0); Mean Corpuscular Volume 86.9 fL (80.0-100.0); Mean Platelet Volume 10.6 fL (9.4-12.4); Platelet Count 265 K/uL (130-400); RDW Coefficient of Variation 13.9 % (11.5-14.5); RDW Standard Deviation 44.6 fL (36.4-46.3); Red Blood Count 5.25 M/uL (4.70-6.10); White Blood Count 11.22 K/ul (4.8-10.8)
[2024-04-23 06:31] LABS: BUN Creatinine Ratio 20.7 (10-20); Calcium 8.7 mg/dl (8.6-10.3); Creatinine Clr Calc Pharmacy 88.2 ml/min; Est GFR (African American) 102.2 ml/min; Est GFR (Non-African American) 88.2 ml/min; Potassium 4.1 mmol/L (3.5-5.1)
--- NOTE | 2024-04-23 07:46 | Hospitalist Progress Note ---
Date of Service April 23, 2024 Assessment & Plan (1) Asthma exacerbation with COPD (chronic obstructive pulmonary disease): (2) Weakness: (3) Essential (primary) hypertension: (4) Type 2 diabetes mellitus: Plan 63-year-old male with a past medical history including CVA with residual right- sided weakness, BPH and LUTS, hypertension, COPD, aphasia following cerebral infarction. The patient was brought to the emergency department by his brother, due to difficulty in having the patient accepted at [place] for inpatient care, as he thought the patient was going to be. 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 Consult PT/OT, pt can only walk 12 ft with assistance claudia benefit from rehab unclear of intermittent sinus leighton, no meds to affect, maybe intrinsic conducting system disease 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, lamictal is therapeutic Patient is aphasic, right hemiplegia, resume aspirin a day add atorvastatin pt has seen speech in 2021, will have modified diet #Asthma exacerbation with COPD (chronic obstructive pulmonary disease): Asthma exacerbation and COPD-wheezing improved/resolved transition steroid to po-taper dose added long acting breo 04/05 Duonebs every 2 hours when necessary. Azithromycin daily cxr 04/07 and 04/12 without pneumonia, continues to treat for bronchitis VBG ordered appears in alignment added nicotine patch 04/09 pulmonary status improved #Leukocytosis - significantly improved - unclear etiology, afebrile, UA neg, CXR w/o evidence of infection, neg procal, minimally elevated CRP, no skin wounds - peripheral smear pending #Hypoxia - CXR: ?pulm edema - check BNP, if elevated will obtain ECHO - will give lasix 20mg IV x1 (diuretic naive) - supplemental oxygen prn - guaifenesin prn #Essential (primary) hypertension: - pt on HCTZ and nifedipine at home - resume - cont aspirin #Type 2 diabetes mellitus: Glucose 77 on admission start lantus and lower dose adjusted ssi with steroid use #Seizure d/o - cont depakote #BPH (benign prostatic hyperplasia): #Right arm pain #Left arm pain - hand xray reveals osteoarthritis, but no fracture - cont schedule tylenol and prn oxycodone - cont gabapentin - added lidocaine patch - cont bowel regimen to avoid OIC #Dispo: pending clinical improvement Admission and Anticipated Discharge Date Admission Date: April 04, 2024 Subjective no acute breath sounds overnight Currently c/o left arm pain as well as right arm pain Refused nebs earlier but amenable to it now Review of Systems Review of Systems: Limited due to aphasia Physical Exam Physical Exam: Gen: no acute distress, but pt appears very bland, not as peppy as yesterday HEENT: NC/AT CVS: s1s2 nl, RRR Lungs: diminished / congested b/l Abd: protuberant, soft, mild tenderness epigastric region, normal bowel sounds Ext: no edema Results & Data Results & Data Vital Signs (Past 12 Hours) Vital Signs Temp Pulse Pulse Resp BP Pulse Ox O2 Del Method 04/23/24 07:24 47 L 04/23/24 07:19 71 94 Room Air 04/23/24 03:31 36.8 C 56 L 18 146/71 H 94 Room Air 04/22/24 23:18 36.5 C 58 L 16 155/74 H 94 Room Air 04/22/24 21:40 46 L 04/22/24 20:30 Room Air 04/22/24 20:01 36.5 C 59 L 18 163/75 H 97 Room Air PG Care Time/CCT Total # of Minutes Spent Total Time Spent with Patient: Total time spent is greater than 50% in coordination of care (as documented) at patient's floor/unit and/or counseling patient: Coding Level of Care Code 30974 SUB INP/OBS CARE 2/35MIN Diagnoses Asthma exacerbation with COPD (chronic obstructive pulmonary disease) J44.1; J45.901 Weakness R53.1 Essential (primary) hypertension I10 Type 2 diabetes mellitus E11.9
[2024-04-23] MEDS: POLYETHYLENE (MIRALAX) 17 GM PACK PO SCH (17:38)
[2024-04-23] MEDS: LIDOCAINE 5% 1 PATCH TD SCH (17:38)
[2024-04-23] MEDS: DOCUSATE SODIUM/SENNA 50/8.6MG TAB PO SCH (20:52)
--- NOTE | 2024-04-24 08:14 | Hospitalist Progress Note ---
Date of Service April 24, 2024 Assessment & Plan (1) Asthma exacerbation with COPD (chronic obstructive pulmonary disease): (2) Weakness: (3) Essential (primary) hypertension: (4) Type 2 diabetes mellitus: Plan 63-year-old male with a past medical history including CVA with residual right- sided weakness, BPH and LUTS, hypertension, COPD, aphasia following cerebral infarction. The patient was brought to the emergency department by his brother, due to difficulty in having the patient accepted at [place] for inpatient care, as he thought the patient was going to be. #Multifocal pneumonia - concerning for aspiration pneumonia - BCx: coag neg staph not lugdunensis, rpt BCx neg - was on zosyn, changed to augmentin, last dose on 04/26 - [employer] recs: minced and moist IDDSI 5, moderately thick liquids, aspiration precautions - guaifenesin for mucolytic purpose - percussive therapy with chest vest to further assist mucous clearance #Weakness: Weakness/need for more supportive environment, 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 Consult PT/OT, pt can only walk 12 ft with assistance claudia benefit from rehab unclear of intermittent sinus leighton, no meds to affect, maybe intrinsic conducting system disease 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, lamictal is therapeutic Patient is aphasic, right hemiplegia, resume aspirin a day add atorvastatin pt has seen speech in 2021, will have modified diet #Asthma exacerbation with COPD (chronic obstructive pulmonary disease): Asthma exacerbation and COPD-wheezing improved/resolved transition steroid to po-taper dose added long acting breo 04/05 Duonebs every 2 hours when necessary. Azithromycin daily cxr 04/07 and 04/12 without pneumonia, continues to treat for bronchitis VBG ordered appears in alignment added nicotine patch 04/09 pulmonary status improved #Leukocytosis - significantly improved - unclear etiology, afebrile, UA neg, CXR w/o evidence of infection, neg procal, minimally elevated CRP, no skin wounds - peripheral smear pending #Hypoxia - CXR: ?pulm edema - check BNP, if elevated will obtain ECHO - will give lasix 20mg IV x1 (diuretic naive) - supplemental oxygen prn - guaifenesin prn #Essential (primary) hypertension: - pt on HCTZ and nifedipine at home - resume - cont aspirin #Type 2 diabetes mellitus: Glucose 77 on admission start lantus and lower dose adjusted ssi with steroid use #Seizure d/o - cont depakote #BPH (benign prostatic hyperplasia): #Right arm pain #Left arm pain - clinically unable to find cause of pain and pt is found to be using his arms despite severe pain - hand xray reveals osteoarthritis, but no fracture - cont schedule tylenol and prn oxycodone - cont gabapentin - added lidocaine patch - cont bowel regimen to avoid OIC #Dispo: pending clinical improvement Admission and Anticipated Discharge Date Admission Date: April 04, 2024 Subjective no acute breath sounds overnight Currently still c/o b/l arm pain however, when initially arriving in his room, he was using his left arm to pull the tray over. Review of Systems Review of Systems: Limited due to aphasia Physical Exam Physical Exam: Gen: no acute distress, but pt appears very bland, not as peppy as yesterday HEENT: NC/AT CVS: s1s2 nl, RRR Lungs: diminished / congested b/l Abd: protuberant, soft, mild tenderness epigastric region, normal bowel sounds Ext: no edema Results & Data Results & Data Vital Signs (Past 12 Hours) Vital Signs Temp Pulse Pulse Resp BP Pulse Ox O2 Del Method 04/24/24 07:50 36.6 C 66 16 151/71 H 93 Room Air 04/24/24 07:39 Room Air 04/24/24 07:34 51 L 04/24/24 03:04 36.8 C 61 18 126/72 93 Room Air 04/23/24 23:21 76 131/72 04/23/24 23:14 36.7 C 65 18 179/75 H 93 Room Air 04/23/24 21:34 84 04/23/24 21:00 Room Air PG Care Time/CCT Total # of Minutes Spent Total Time Spent with Patient: Total time spent is greater than 50% in coordination of care (as documented) at patient's floor/unit and/or counseling patient: Coding Level of Care Code 77031 SUB INP/OBS CARE 2/35MIN Diagnoses Asthma exacerbation with COPD (chronic obstructive pulmonary disease) J44.1; J45.901 Weakness R53.1 Essential (primary) hypertension I10 Type 2 diabetes mellitus E11.9
[2024-04-24] MEDS: guaiFENesin SUGAR FREE 200 MG/10 ML UDC PO SCH (14:21)
[2024-04-24] MEDS: oxyCODONE HCL IR 5 MG TAB (IMMEDIATE RELEASE) PO PRN (14:21)
--- NOTE | 2024-04-25 07:30 | Hospitalist Progress Note ---
Date of Service April 25, 2024 Assessment & Plan (1) Asthma exacerbation with COPD (chronic obstructive pulmonary disease): (2) Weakness: (3) Essential (primary) hypertension: (4) Type 2 diabetes mellitus: Plan 63-year-old male with a past medical history including CVA with residual right- sided weakness, BPH and LUTS, hypertension, COPD, aphasia following cerebral infarction. The patient was brought to the emergency department by his brother, due to difficulty in having the patient accepted at [place] for inpatient care, as he thought the patient was going to be. 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 Azithromycin daily cxr 04/07 and 04/12 without pneumonia, continues to treat for bronchitis VBG ordered appears in alignment added nicotine patch 04/09 pulmonary status improved #Leukocytosis - significantly improved - due to pneumonia - peripheral smear without malignant cells #Hypoxia resolved - CXR: with infiltrate - check BNP, if elevated will obtain ECHO - supplemental oxygen prn - guaifenesin prn #Essential (primary) hypertension: - cont Nifedipine and HCTZ - cont aspirin #Type 2 diabetes mellitus: - cont lantus and lower dose - adjusted ssi with steroid use #Seizure d/o - cont depakote #BPH (benign prostatic hyperplasia): cont tamsulosin #Right arm pain #Left arm pain - clinically unable to find cause of pain and pt is found to be using his arms despite severe pain - hand xray reveals osteoarthritis, but no fracture - cont schedule tylenol and prn oxycodone (cont to titrate off, pt made aware that he will not be discharged on oxycodone) - cont gabapentin and lidocaine patch - ok with warm compress - added duloxetine - cont bowel regimen to avoid OIC #Dispo: pt medically ready for discharge Admission and Anticipated Discharge Date Admission Date: April 04, 2024 Subjective no acute distress overnight He complained of abdominal pain from constipation. Held long discussion with patient regarding Oxycodone for pain management. He has been informed that oxycodone will be weaned off and he will be provided with non-opioid pain management. Furthermore, it was explained to him that he will not be discharged from the hospital with oxycodone. Review of Systems Review of Systems: Limited due to aphasia Physical Exam Physical Exam: Gen: no acute distress HEENT: NC/AT CVS: s1s2 nl, RRR Lungs: diminished / congested b/l Abd: protuberant, soft, mild tenderness epigastric region, normal bowel sounds Ext: no edema Results & Data Results & Data Vital Signs (Past 12 Hours) Vital Signs Temp Pulse Pulse Resp BP BP Pulse Ox 04/25/24 06:57 61 18 94 04/25/24 04:28 36.4 C L 49 L 18 156/67 H 95 04/24/24 23:35 36.7 C 52 L 16 150/65 H 94 04/24/24 22:05 04/24/24 21:49 60 04/24/24 19:38 36.8 C 61 16 121/60 93 O2 Del Method 04/25/24 06:57 Room Air 04/25/24 04:28 Room Air 04/24/24 23:35 Room Air 04/24/24 22:05 Room Air 04/24/24 21:49 04/24/24 19:38 Room Air PG Care Time/CCT Total # of Minutes Spent Total Time Spent with Patient: Total time spent is greater than 50% in coordination of care (as documented) at patient's floor/unit and/or counseling patient: Coding Level of Care Code 15547 SUB INP/OBS CARE MIN Diagnoses Asthma exacerbation with COPD (chronic obstructive pulmonary disease) J44.1; J45.901 Weakness R53.1 Essential (primary) hypertension I10 Type 2 diabetes mellitus E11.9
[2024-04-25] MEDS: DULoxetine HCL 30 MG CAP PO SCH (10:39)
[2024-04-25] MEDS: bisacodyL 10 MG SUPP PR STA (16:05)
[2024-04-26 07:08] LABS: Basophils # (auto) 0.07 K/uL (0.00-0.20); Basophils % (auto) 0.6 %; Eosinophils # (auto) 0.13 K/uL (0.00-0.50); Hematocrit (blood only) 45.7 % (42.0-52.0); Hemoglobin 15.9 g/dl (14.0-18.0); Immature Granulocytes # (auto) 0.03 K/uL (0.01-0.20); Immature Granulocytes % (auto) 0.2 %; Lymphocytes # (auto) 4.44 K/uL (1.20-3.40); Lymphocytes % (auto) 35.8 %; Mean Corpuscular Hemoglobin 29.4 pg (25.0-34.0); Mean Corpuscular Hgb Conc 34.8 g/dL (32.0-36.0); Mean Corpuscular Volume 84.6 fL (80.0-100.0); Mean Platelet Volume 10.3 fL (9.4-12.4); Monocytes # (auto) 0.69 K/uL (0.11-0.59); Monocytes % (auto) 5.6 %; Neutrophils # (auto) 7.05 K/uL (1.40-6.50); Neutrophils % (auto) 56.8 %; Platelet Count 280 K/uL (130-400); RDW Coefficient of Variation 13.8 % (11.5-14.5); RDW Standard Deviation 42.9 fL (36.4-46.3); White Blood Count 12.41 K/ul (4.8-10.8)
[2024-04-26 07:37] LABS: BUN Creatinine Ratio 23.8 (10-20); Calcium 9.1 mg/dl (8.6-10.3); Creatinine Clr Calc Pharmacy 96.3 ml/min; Est GFR (Non-African American) 93.2 ml/min; Magnesium 1.8 mg/dl (1.7-2.4); Phosphorus 4.3 mg/dl (2.5-4.9); Potassium 3.9 mmol/L (3.5-5.1)
--- NOTE | 2024-04-26 15:28 | Hospitalist Progress Note ---
Date of Service April 26, 2024 Assessment & Plan (1) Asthma exacerbation with COPD (chronic obstructive pulmonary disease): (2) Weakness: (3) Essential (primary) hypertension: (4) Type 2 diabetes mellitus: Plan 63-year-old male with a past medical history including CVA with residual right- sided weakness, BPH and LUTS, hypertension, COPD, aphasia following cerebral infarction. The patient was brought to the emergency department by his brother, due to difficulty in having the patient accepted at [place] for inpatient care, as he thought the patient was going to be. 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 Azithromycin daily cxr 04/07 and 04/12 without pneumonia, continues to treat for bronchitis VBG ordered appears in alignment added nicotine patch 04/09 pulmonary status improved #Leukocytosis - significantly improved - due to pneumonia - peripheral smear without malignant cells #Hypoxia resolved - CXR: with infiltrate - check BNP, if elevated will obtain ECHO - supplemental oxygen prn - guaifenesin prn #Essential (primary) hypertension: - cont Nifedipine and HCTZ - cont aspirin #Type 2 diabetes mellitus: - cont lantus and lower dose - adjusted ssi with steroid use #Seizure d/o - cont depakote #BPH (benign prostatic hyperplasia): cont tamsulosin #Right arm pain #Left arm pain - clinically unable to find cause of pain and pt is found to be using his arms despite severe pain - hand xray reveals osteoarthritis, but no fracture - cont schedule tylenol and prn oxycodone (cont to titrate off, pt made aware that he will not be discharged on oxycodone) - cont gabapentin and lidocaine patch - ok with warm compress - added duloxetine - cont bowel regimen to avoid OIC -increased gabapentin to 800 mg PO TID #Dispo: pt medically ready for discharge /awaiting placement Admission and Anticipated Discharge Date Admission Date: April 04, 2024 Subjective 63 yo male reports no new symptoms Review of Systems Review of Systems: All systems reviewed & are unremarkable except as noted in HPI & below Physical Exam Physical Exam: NC/AT No acute distress. No JVD. Lungs: clearer breath sounds has pulmonary mechanics and finger clubbing consistent with copd abd is soft but not acute cardiac exam regular no murmur no rub Results & Data Results & Data Vital Signs (Past 12 Hours) Vital Signs Temp Pulse Pulse Resp BP BP Pulse Ox 04/26/24 15:10 60 16 97 04/26/24 12:11 04/26/24 11:19 59 L 18 91 04/26/24 11:09 36.6 C 59 L 18 129/68 93 04/26/24 08:04 36.4 C L 53 L 18 131/75 93 04/26/24 07:32 53 L 18 93 04/26/24 05:53 49 L 04/26/24 03:48 36.7 C 53 L 18 149/72 H 94 O2 Del Method 04/26/24 15:10 Room Air 04/26/24 12:11 Room Air 04/26/24 11:19 Room Air 04/26/24 11:09 Room Air 04/26/24 08:04 Room Air 04/26/24 07:32 Room Air 04/26/24 05:53 04/26/24 03:48 Room Air PG Care Time/CCT Total # of Minutes Spent Total Time Spent with Patient: Total time spent is greater than 50% in coordination of care (as documented) at patient's floor/unit and/or counseling patient: Coding Level of Care Code 14969 SUB INP/OBS CARE 2/35MIN Diagnoses Asthma exacerbation with COPD (chronic obstructive pulmonary disease) J44.1; J45.901 Weakness R53.1 Essential (primary) hypertension I10 Type 2 diabetes mellitus E11.9
[2024-04-26] MEDS: GABAPENTIN 800 MG TAB PO SCH (20:14)
[2024-04-27] MEDS: oxyCODONE HCL IR 5 MG TAB (IMMEDIATE RELEASE) PO PRN (13:14)
--- NOTE | 2024-04-27 17:09 | Hospitalist Progress Note ---
Date of Service April 27, 2024 Assessment & Plan (1) Asthma exacerbation with COPD (chronic obstructive pulmonary disease): (2) Weakness: (3) Essential (primary) hypertension: (4) Type 2 diabetes mellitus: Plan 63-year-old male with a past medical history including CVA with residual right- sided weakness, BPH and LUTS, hypertension, COPD, aphasia following cerebral infarction. The patient was brought to the emergency department by his brother, due to difficulty in having the patient accepted at [place] for inpatient care, as he thought the patient was going to be. 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 cxr 04/07 and 04/12 without pneumonia, continues to treat for bronchitis VBG ordered appears in alignment added nicotine patch 04/09 pulmonary status improved #Leukocytosis - significantly improved - due to pneumonia - peripheral smear without malignant cells #Hypoxia resolved - CXR: with infiltrate - check BNP, if elevated will obtain ECHO - supplemental oxygen prn - guaifenesin prn #Essential (primary) hypertension: - cont Nifedipine and HCTZ - cont aspirin #Type 2 diabetes mellitus: - cont lantus and lower dose - adjusted ssi with steroid use #Seizure d/o - cont depakote #BPH (benign prostatic hyperplasia): cont tamsulosin #Right arm pain #Left arm pain - clinically unable to find cause of pain and pt is found to be using his arms despite severe pain - hand xray reveals osteoarthritis, but no fracture - cont schedule tylenol and prn oxycodone (cont to titrate off, pt made aware that he will not be discharged on oxycodone) - cont gabapentin and lidocaine patch - ok with warm compress - added duloxetine - cont bowel regimen to avoid OIC -continue gabapentin to 800 mg PO TID #Dispo: pt medically ready for discharge /awaiting placement Admission and Anticipated Discharge Date Admission Date: April 04, 2024 Subjective Patient reports no new symptoms. Review of Systems Review of Systems: All systems reviewed & are unremarkable except as noted in HPI & below Physical Exam Physical Exam: NC/AT No acute distress. No JVD. Lungs: clearer breath sounds has pulmonary mechanics and finger clubbing consistent with copd abd is soft but not acute cardiac exam regular no murmur no rub Results & Data Results & Data Vital Signs (Past 12 Hours) Vital Signs Temp Pulse Pulse Resp BP BP Pulse Ox 04/27/24 15:52 36.5 C 58 L 18 145/79 H 95 04/27/24 14:46 60 17 91 04/27/24 14:15 56 L 04/27/24 11:27 36.6 C 54 L 16 105/66 93 04/27/24 07:51 36.5 C 53 L 18 120/73 94 04/27/24 07:45 04/27/24 07:31 55 L 04/27/24 07:24 54 L 18 96 O2 Del Method FiO2 04/27/24 15:52 Room Air 04/27/24 14:46 Room Air 21 04/27/24 14:15 04/27/24 11:27 Room Air 04/27/24 07:51 Room Air 04/27/24 07:45 Room Air 04/27/24 07:31 04/27/24 07:24 Room Air 21 PG Care Time/CCT Total # of Minutes Spent Total Time Spent with Patient: Total time spent is greater than 50% in coordination of care (as documented) at patient's floor/unit and/or counseling patient: Coding Level of Care Code 71196 SUB INP/OBS CARE 2/35MIN Diagnoses Asthma exacerbation with COPD (chronic obstructive pulmonary disease) J44.1; J45.901 Weakness R53.1 Essential (primary) hypertension I10 Type 2 diabetes mellitus E11.9
[2024-04-28] MEDS: ALBUT/IPRATROP 3MG/0.5MG NEB 3 ML VIAL NEB SCH (20:10)
--- NOTE | 2024-04-28 21:00 | Hospitalist Progress Note ---
Date of Service April 28, 2024 Assessment & Plan (1) Asthma exacerbation with COPD (chronic obstructive pulmonary disease): (2) Weakness: (3) Essential (primary) hypertension: (4) Type 2 diabetes mellitus: Plan 63-year-old male with a past medical history including CVA with residual right- sided weakness, BPH and LUTS, hypertension, COPD, aphasia following cerebral infarction. The patient was brought to the emergency department by his brother, due to difficulty in having the patient accepted at [place] for inpatient care, as he thought the patient was going to be. 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 cxr 04/07 and 04/12 without pneumonia, continues to treat for bronchitis VBG ordered appears in alignment added nicotine patch 04/09 pulmonary status improved #Leukocytosis - significantly improved - due to pneumonia - peripheral smear without malignant cells #Hypoxia resolved - CXR: with infiltrate - check BNP, if elevated will obtain ECHO - supplemental oxygen prn - guaifenesin prn #Essential (primary) hypertension: - cont Nifedipine and HCTZ - cont aspirin #Type 2 diabetes mellitus: - cont lantus and lower dose - adjusted ssi with steroid use #Seizure d/o - cont depakote #BPH (benign prostatic hyperplasia): cont tamsulosin #Right arm pain #Left arm pain - clinically unable to find cause of pain and pt is found to be using his arms despite severe pain - hand xray reveals osteoarthritis, but no fracture - cont schedule tylenol and prn oxycodone (cont to titrate off, pt made aware that he will not be discharged on oxycodone) - cont gabapentin and lidocaine patch - ok with warm compress - added duloxetine - cont bowel regimen to avoid OIC -continue gabapentin to 800 mg PO TID #Dispo: pt medically ready for discharge /awaiting placement Admission and Anticipated Discharge Date Admission Date: April 04, 2024 Subjective 63 yo male is comfortable. Review of Systems Review of Systems: All systems reviewed & are unremarkable except as noted in HPI & below Physical Exam Physical Exam: NC/AT No acute distress. No JVD. Lungs: clearer breath sounds has pulmonary mechanics and finger clubbing consistent with copd abd is soft but not acute cardiac exam regular no murmur no rub Results & Data Results & Data Vital Signs (Past 12 Hours) Vital Signs Temp Pulse Pulse Resp BP BP Pulse Ox 04/28/24 20:11 55 L 18 95 04/28/24 19:35 36.7 C 59 L 18 153/81 H 94 04/28/24 15:16 36.8 C 61 16 142/69 H 94 04/28/24 14:00 70 04/28/24 11:14 36.6 C 57 L 16 132/59 L 93 O2 Del Method 04/28/24 20:11 Room Air 04/28/24 19:35 Room Air 04/28/24 15:16 Room Air 04/28/24 14:00 04/28/24 11:14 Room Air PG Care Time/CCT Total # of Minutes Spent Total Time Spent with Patient: Total time spent is greater than 50% in coordination of care (as documented) at patient's floor/unit and/or counseling patient: Coding Level of Care Code 52223 SUB INP/OBS CARE 1/25MIN Diagnoses Asthma exacerbation with COPD (chronic obstructive pulmonary disease) J44.1; J45.901 Weakness R53.1 Essential (primary) hypertension I10 Type 2 diabetes mellitus E11.9
--- NOTE | 2024-04-29 22:01 | Hospitalist Progress Note ---
Date of Service April 29, 2024 Assessment & Plan (1) Asthma exacerbation with COPD (chronic obstructive pulmonary disease): (2) Weakness: (3) Essential (primary) hypertension: (4) Type 2 diabetes mellitus: Plan 63-year-old male with a past medical history including CVA with residual right- sided weakness, BPH and LUTS, hypertension, COPD, aphasia following cerebral infarction. The patient was brought to the emergency department by his brother, due to difficulty in having the patient accepted at [place] for inpatient care, as he thought the patient was going to be. 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 cxr 04/07 and 04/12 without pneumonia, continues to treat for bronchitis VBG ordered appears in alignment added nicotine patch 04/09 pulmonary status improved #Leukocytosis - significantly improved - due to pneumonia - peripheral smear without malignant cells #Hypoxia resolved - CXR: with infiltrate - check BNP, if elevated will obtain ECHO - supplemental oxygen prn - guaifenesin prn #Essential (primary) hypertension: - cont Nifedipine and HCTZ - cont aspirin #Type 2 diabetes mellitus: - cont lantus and lower dose - adjusted ssi with steroid use #Seizure d/o - cont depakote #BPH (benign prostatic hyperplasia): cont tamsulosin #Right arm pain #Left arm pain - clinically unable to find cause of pain and pt is found to be using his arms despite severe pain - hand xray reveals osteoarthritis, but no fracture - cont schedule tylenol and prn oxycodone (cont to titrate off, pt made aware that he will not be discharged on oxycodone) - cont gabapentin and lidocaine patch - ok with warm compress - added duloxetine - cont bowel regimen to avoid OIC -continue gabapentin to 800 mg PO TID #Dispo: pt medically ready for discharge /awaiting placement Admission and Anticipated Discharge Date Admission Date: April 04, 2024 Subjective 63 yo male is resting comfortably. Review of Systems Review of Systems: All systems reviewed & are unremarkable except as noted in HPI & below Physical Exam Physical Exam: NC/AT No acute distress. No JVD. Lungs: clearer breath sounds has pulmonary mechanics and finger clubbing consistent with copd abd is soft but not acute cardiac exam regular no murmur no rub Results & Data Results & Data Vital Signs (Past 12 Hours) Vital Signs Temp Pulse Pulse Resp BP Pulse Ox O2 Del Method 04/29/24 21:44 Room Air 04/29/24 19:41 60 20 91 Room Air 04/29/24 19:05 36.3 C L 60 18 138/65 91 Room Air 04/29/24 15:27 36.7 C 65 16 146/69 H 92 Room Air 04/29/24 15:26 52 L 04/29/24 11:25 36.7 C 58 L 18 137/73 92 Room Air PG Care Time/CCT Total # of Minutes Spent Total Time Spent with Patient: Total time spent is greater than 50% in coordination of care (as documented) at patient's floor/unit and/or counseling patient: Coding Level of Care Code 26007 SUB INP/OBS CARE 09/18MIN Diagnoses Asthma exacerbation with COPD (chronic obstructive pulmonary disease) J44.1; J45.901 Weakness R53.1 Essential (primary) hypertension I10 Type 2 diabetes mellitus E11.9
--- NOTE | 2024-05-01 06:37 | Hospitalist Progress Note ---
Date of Service April 30, 2024 Assessment & Plan (1) Asthma exacerbation with COPD (chronic obstructive pulmonary disease): (2) Weakness: (3) Essential (primary) hypertension: (4) Type 2 diabetes mellitus: Plan 63-year-old male with a past medical history including CVA with residual right- sided weakness, BPH and LUTS, hypertension, COPD, aphasia following cerebral infarction. The patient was brought to the emergency department by his brother, due to difficulty in having the patient accepted at [facility] for inpatient care, as he thought the patient was going to be. 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 cxr 04/07 and 04/12 without pneumonia, continues to treat for bronchitis VBG ordered appears in alignment added nicotine patch 04/09 pulmonary status improved #Leukocytosis - significantly improved - due to pneumonia - peripheral smear without malignant cells #Hypoxia resolved - CXR: with infiltrate - check BNP, if elevated will obtain ECHO - supplemental oxygen prn - guaifenesin prn #Essential (primary) hypertension: - cont Nifedipine and HCTZ - cont aspirin #Type 2 diabetes mellitus: - cont lantus and lower dose - adjusted ssi with steroid use #Seizure d/o - cont depakote #BPH (benign prostatic hyperplasia): cont tamsulosin #Right arm pain #Left arm pain - clinically unable to find cause of pain and pt is found to be using his arms despite severe pain - hand xray reveals osteoarthritis, but no fracture - cont schedule tylenol and prn oxycodone (cont to titrate off, pt made aware that he will not be discharged on oxycodone) - cont gabapentin and lidocaine patch - ok with warm compress - added duloxetine - cont bowel regimen to avoid OIC -continue gabapentin to 800 mg PO TID #Dispo: pt medically ready for discharge /awaiting placement Admission and Anticipated Discharge Date Admission Date: April 04, 2024 Subjective Patient appears calm. Review of Systems Review of Systems: All systems reviewed & are unremarkable except as noted in HPI & below Physical Exam Physical Exam: NC/AT No acute distress. No JVD. Lungs: clearer breath sounds has pulmonary mechanics and finger clubbing consistent with copd abd is soft but not acute cardiac exam regular no murmur no rub Results & Data Results & Data Vital Signs (Past 12 Hours) Vital Signs Temp Pulse Pulse Resp BP BP Pulse Ox 05/01/24 04:05 36.6 C 56 L 18 138/78 96 05/01/24 00:00 36.7 C 67 18 142/86 H 95 04/30/24 21:46 60 04/30/24 20:00 36.4 C L 59 L 18 148/79 H 94 04/30/24 19:54 56 L 17 94 04/30/24 19:00 O2 Del Method 05/01/24 04:05 Room Air 05/01/24 00:00 Room Air 04/30/24 21:46 04/30/24 20:00 Room Air 04/30/24 19:54 Room Air 04/30/24 19:00 Room Air PG Care Time/CCT Total # of Minutes Spent Total Time Spent with Patient: Total time spent is greater than 50% in coordination of care (as documented) at patient's floor/unit and/or counseling patient: Coding Level of Care Code 72573 SUB INP/OBS CARE 25MIN Diagnoses Asthma exacerbation with COPD (chronic obstructive pulmonary disease) J44.1; J45.901 Weakness R53.1 Essential (primary) hypertension I10 Type 2 diabetes mellitus E11.9
--- NOTE | 2024-05-02 08:01 | Hospitalist Progress Note ---
Date of Service May 01, 2024 Assessment & Plan (1) Asthma exacerbation with COPD (chronic obstructive pulmonary disease): (2) Weakness: (3) Essential (primary) hypertension: (4) Type 2 diabetes mellitus: Plan 63-year-old male with a past medical history including CVA with residual right- sided weakness, BPH and LUTS, hypertension, COPD, aphasia following cerebral infarction. The patient was brought to the emergency department by his brother, due to difficulty in having the patient accepted at [facility] for inpatient care, as he thought the patient was going to be. 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 cxr 04/07 and 04/12 without pneumonia, continues to treat for bronchitis VBG ordered appears in alignment added nicotine patch 04/09 pulmonary status improved #Leukocytosis - significantly improved - due to pneumonia - peripheral smear without malignant cells #Hypoxia resolved - CXR: with infiltrate - check BNP, if elevated will obtain ECHO - supplemental oxygen prn - guaifenesin prn #Essential (primary) hypertension: - cont Nifedipine and HCTZ - cont aspirin #Type 2 diabetes mellitus: - cont lantus and lower dose - adjusted ssi with steroid use #Seizure d/o - cont depakote #BPH (benign prostatic hyperplasia): cont tamsulosin #Right arm pain #Left arm pain - clinically unable to find cause of pain and pt is found to be using his arms despite severe pain - hand xray reveals osteoarthritis, but no fracture - cont schedule tylenol and prn oxycodone (cont to titrate off, pt made aware that he will not be discharged on oxycodone) - cont gabapentin and lidocaine patch - ok with warm compress - added duloxetine - cont bowel regimen to avoid OIC -continue gabapentin to 800 mg PO TID #Dispo: pt medically ready for discharge /awaiting placement Admission and Anticipated Discharge Date Admission Date: April 04, 2024 Subjective Patient resting comfortably. Physical Exam Physical Exam: NC/AT No acute distress. No JVD. Lungs: clearer breath sounds has pulmonary mechanics and finger clubbing consistent with copd abd is soft but not acute cardiac exam regular no murmur no rub Results & Data Results & Data Vital Signs (Past 12 Hours) Vital Signs Temp Pulse Pulse Resp BP BP Pulse Ox 05/02/24 07:52 36.4 C L 56 L 18 102/62 92 05/02/24 07:04 51 L 05/02/24 06:57 65 16 93 05/02/24 03:50 36.6 C 64 18 142/72 H 95 05/01/24 23:19 58 L 05/01/24 23:11 36.6 C 59 L 16 131/73 93 05/01/24 21:55 O2 Del Method 05/02/24 07:52 Room Air 05/02/24 07:04 05/02/24 06:57 Room Air 05/02/24 03:50 Room Air 05/01/24 23:19 05/01/24 23:11 Room Air 05/01/24 21:55 Room Air PG Care Time/CCT Total # of Minutes Spent Total Time Spent with Patient: Total time spent is greater than 50% in coordination of care (as documented) at patient's floor/unit and/or counseling patient: Coding Level of Care Code 20316 SUB INP/OBS CARE 09/18MIN Diagnoses Asthma exacerbation with COPD (chronic obstructive pulmonary disease) J44.1; J45.901 Weakness R53.1 Essential (primary) hypertension I10 Type 2 diabetes mellitus E11.9
[2024-05-02] MEDS: GABAPENTIN 100 MG CAP PO SCH (19:44)
[2024-05-02] MEDS: GABAPENTIN 800 MG TAB PO SCH (19:44)
--- NOTE | 2024-05-02 22:50 | Hospitalist Progress Note ---
Date of Service May 02, 2024 Assessment & Plan (1) Asthma exacerbation with COPD (chronic obstructive pulmonary disease): (2) Weakness: (3) Essential (primary) hypertension: (4) Type 2 diabetes mellitus: Plan 63-year-old male with a past medical history including CVA with residual right- sided weakness, BPH and LUTS, hypertension, COPD, aphasia following cerebral infarction. The patient was brought to the emergency department by his brother, due to difficulty in having the patient accepted at [facility] for inpatient care, as he thought the patient was going to be. 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 cxr 04/07 and 04/12 without pneumonia, continues to treat for bronchitis VBG ordered appears in alignment added nicotine patch 04/09 pulmonary status improved #Leukocytosis - significantly improved - due to pneumonia - peripheral smear without malignant cells #Hypoxia resolved - CXR: with infiltrate - check BNP, if elevated will obtain ECHO - supplemental oxygen prn - guaifenesin prn #Essential (primary) hypertension: - cont Nifedipine and HCTZ - cont aspirin #Type 2 diabetes mellitus: - cont lantus and lower dose - adjusted ssi with steroid use #Seizure d/o - cont depakote #BPH (benign prostatic hyperplasia): cont tamsulosin #Right arm pain #Left arm pain - clinically unable to find cause of pain and pt is found to be using his arms despite severe pain - hand xray reveals osteoarthritis, but no fracture - cont schedule tylenol and prn oxycodone (cont to titrate off, pt made aware that he will not be discharged on oxycodone) - cont gabapentin and lidocaine patch - ok with warm compress - added duloxetine - cont bowel regimen to avoid OIC -increased gabapentin to 1000 mg PO TID #Dispo: pt medically ready for discharge /awaiting placement Admission and Anticipated Discharge Date Admission Date: April 04, 2024 Subjective Patient complaining of more pain. His brother at bedside reports he had a right shoulder replacement years ago. Review of Systems Review of Systems: All systems reviewed & are unremarkable except as noted in HPI & below Physical Exam Physical Exam: NC/AT No acute distress. No JVD. Lungs: clearer breath sounds has pulmonary mechanics and finger clubbing consistent with copd abd is soft but not acute cardiac exam regular no murmur no rub Results & Data Results & Data Vital Signs (Past 12 Hours) Vital Signs Temp Pulse Pulse Resp BP BP Pulse Ox 05/02/24 22:23 36.5 C 57 L 18 123/67 92 05/02/24 20:47 05/02/24 20:02 61 18 95 05/02/24 19:33 36.6 C 61 18 142/71 H 94 05/02/24 16:55 58 L 05/02/24 16:19 36.4 C L 60 18 146/82 H 91 05/02/24 11:27 36.4 C L 56 L 20 161/78 H 95 O2 Del Method 05/02/24 22:23 Room Air 05/02/24 20:47 Room Air 05/02/24 20:02 05/02/24 19:33 Room Air 05/02/24 16:55 05/02/24 16:19 Room Air 05/02/24 11:27 Room Air PG Care Time/CCT Total # of Minutes Spent Total Time Spent with Patient: Total time spent is greater than 50% in coordination of care (as documented) at patient's floor/unit and/or counseling patient: Coding Level of Care Code 93318 SUB INP/OBS CARE 2/35MIN Diagnoses Asthma exacerbation with COPD (chronic obstructive pulmonary disease) J44.1; J45.901 Weakness R53.1 Essential (primary) hypertension I10 Type 2 diabetes mellitus E11.9
--- NOTE | 2024-05-03 08:06 | Hospitalist Progress Note ---
Date of Service May 03, 2024 Assessment & Plan (1) Asthma exacerbation with COPD (chronic obstructive pulmonary disease): Plan: Asthma exacerbation and COPD- Multifocal pneumonia seen on CT chest, completed for aspiration pneumonia INSPECTOR FILTERS recs: minced and moist IDDSI 5, moderately thick liquids, aspiration precautions - guaifenesin for mucolytic purpose - percussive therapy with chest vest to further assist mucous clearance Taper steroids to 10 mg prednisone added long acting breo (2) Weakness: Plan: Weakness/need for more supportive environment, [facility]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 Pain control and x-ray ordered could be neuropathic pain given its his affected side he could have had it positional given its the hemiplegic side. Will continue to follow clinically, gabapentin for pain control adding Voltaren cream to his external pain control pt medically stable awaiting medical placement Admission and Anticipated Discharge Date Admission Date: April 04, 2024 Subjective Patient remains about the same disposition is in question continue to have musculoskeletal complaints trying to avoid opiates will use some Voltaren cream to shoulders and arms which are his biggest complaint areas of complaints at this time Physical Exam Physical Exam: Patient appears stable typically lying in bed often complains of discomfort of shoulders did have previous shoulder surgery on the left Results & Data Results & Data Vital Signs (Past 12 Hours) Vital Signs Temp Pulse Pulse Resp BP BP Pulse Ox 05/03/24 07:41 97.7 F 56 L 16 118/69 93 05/03/24 07:17 54 L 18 91 05/03/24 04:00 97.5 F L 53 L 18 153/77 H 95 05/02/24 23:41 59 L 05/02/24 22:23 97.7 F 57 L 18 123/67 92 05/02/24 20:47 O2 Del Method 05/03/24 07:41 Room Air 05/03/24 07:17 Room Air 05/03/24 04:00 Room Air 05/02/24 23:41 05/02/24 22:23 Room Air 05/02/24 20:47 Room Air PG Care Time/CCT Total # of Minutes Spent Total Time Spent with Patient: Total time spent is greater than 50% in coordination of care (as documented) at patient's floor/unit and/or counseling patient: Coding Level of Care Code 56639 SUB INP/OBS CARE 235MIN Diagnoses Asthma exacerbation with COPD (chronic obstructive pulmonary disease) J44.1; J45.901 Weakness R53.1 Essential (primary) hypertension I10 Type 2 diabetes mellitus E11.9
[2024-05-03] MEDS: DICLOFENAC SOD 1% GEL 100 GM TUBE EXT SCH (21:14)
[2024-05-04] MEDS: predniSONE 10 MG TABLET PO SCH (08:53)
--- NOTE | 2024-05-04 16:19 | Hospitalist Progress Note ---
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 Pain control and x-ray ordered could be neuropathic pain given its his affected side he could have had it positional given its the hemiplegic side. Will continue to follow clinically, gabapentin for pain control will continue Voltaren cream to his external pain control pt medically stable awaiting medical placement Admission and Anticipated Discharge Date Admission Date: April 04, 2024 Subjective Patient remains about the same disposition is in question continue to have musculoskeletal complaints trying to avoid opiates not much help with Voltaren cream to shoulders and arms roommate states pt is walking to bathroom but pt denies Physical Exam Physical Exam: Patient appears stable typically lying in bed often complains of discomfort of shoulders did have previous shoulder surgery on the left Results & Data Results & Data Vital Signs (Past 12 Hours) Vital Signs Temp Pulse Resp BP Pulse Ox O2 Del Method 05/04/24 15:36 98.1 F 57 L 20 128/71 91 Room Air 05/04/24 07:42 97.7 F 49 L 20 114/68 95 Room Air 05/04/24 07:32 60 20 94 Room Air PG Care Time/CCT Total # of Minutes Spent Total Time Spent with Patient: Total time spent is greater than 50% in coordination of care (as documented) at patient's floor/unit and/or counseling patient: Coding Level of Care Code 56168 SUB INP/OBS CARE 09/18MIN Diagnoses Asthma exacerbation with COPD (chronic obstructive pulmonary disease) J44.1; J45.901 Weakness R53.1 Essential (primary) hypertension I10 Type 2 diabetes mellitus E11.9
--- NOTE | 2024-05-05 16:45 | Hospitalist Progress Note ---
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, lamictal is therapeutic Patient is aphasic, right hemiplegia, resume aspirin a day add atorvastatin pt has seen speech in 2021, will have modified diet (3) Essential (primary) hypertension: Plan: Hypertension- aspirin Hydralazine 10 mg IV prn, not with much need (4) Type 2 diabetes mellitus: Plan: Diabetes mellitus- Glucose 77 on admission lantus and ssi Plan Patient hand, gabapentin for pain control will continue Voltaren cream to his external pain control, try toradol for pain pt medically stable awaiting medical placement Admission and Anticipated Discharge Date Admission Date: April 04, 2024 Subjective Patient remains about the same disposition is in question continue to have musculoskeletal complaints trying to avoid opiates not much help with Voltaren cream to shoulders and arms , hand pain 05/05 try voltaren roommate states pt is walking to bathroom but pt denies Physical Exam Physical Exam: Patient appears stable typically lying in bed often complains of discomfort of shoulders did have previous shoulder surgery on the left Results & Data Results & Data Vital Signs (Past 12 Hours) Vital Signs Temp Pulse Resp BP BP Pulse Ox O2 Del Method 05/05/24 14:29 97.9 F 57 L 18 161/74 H 94 Room Air 05/05/24 07:45 Room Air 05/05/24 07:31 97.9 F 58 L 20 129/77 92 Room Air 05/05/24 06:56 47 L 18 92 Room Air PG Care Time/CCT Total # of Minutes Spent Total Time Spent with Patient: Total time spent is greater than 50% in coordination of care (as documented) at patient's floor/unit and/or counseling patient: Coding Level of Care Code 46185 SUB INP/OBS CARE 1/25MIN Diagnoses Asthma exacerbation with COPD (chronic obstructive pulmonary disease) J44.1; J45.901 Weakness R53.1 Essential (primary) hypertension I10 Type 2 diabetes mellitus E11.9
[2024-05-05] MEDS: KETOROLAC 30 MG/ML VIAL IV ONE (16:55)
[2024-05-06] MEDS: oxyCODONE HCL IR 5 MG TAB (IMMEDIATE RELEASE) PO STA (07:49)
[2024-05-06] MEDS: KETOROLAC TROMETHAMINE 15 MG/ML VIAL IV PRN (17:21)
--- NOTE | 2024-05-06 18:55 | Hospitalist Progress Note ---
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, lamictal is therapeutic Patient is aphasic, right hemiplegia, resume aspirin a day add atorvastatin pt has seen speech in 2021, will have modified diet (3) Essential (primary) hypertension: Plan: Hypertension- aspirin Hydralazine 10 mg IV prn, not with much need (4) Type 2 diabetes mellitus: Plan: Diabetes mellitus- Glucose 77 on admission lantus and ssi Plan Patient hand, gabapentin for pain control will continue Voltaren cream to his external pain control, try toradol for pain pt medically stable awaiting medical placement Admission and Anticipated Discharge Date Admission Date: April 04, 2024 Subjective Patient remains about the same disposition is in question continue to have musculoskeletal complaints trying to avoid opiates not much help with Voltaren cream to shoulders and arms , hand pain improved with toradol Physical Exam Physical Exam: Patient appears stable typically lying in bed often complains of discomfort of shoulders did have previous shoulder surgery on the left Results & Data Results & Data Vital Signs (Past 12 Hours) Vital Signs Temp Pulse Resp BP Pulse Ox O2 Del Method 05/06/24 15:30 97.3 F L 60 20 107/66 93 Room Air 05/06/24 08:01 97.7 F 62 16 120/73 97 Room Air 05/06/24 07:35 Room Air 05/06/24 07:09 60 16 92 Room Air PG Care Time/CCT Total # of Minutes Spent Total Time Spent with Patient: Total time spent is greater than 50% in coordination of care (as documented) at patient's floor/unit and/or counseling patient: Coding Level of Care Code 17548 SUB INP/OBS CARE 2MIN Diagnoses Asthma exacerbation with COPD (chronic obstructive pulmonary disease) J44.1; J45.901 Weakness R53.1 Essential (primary) hypertension I10 Type 2 diabetes mellitus E11.9
--- NOTE | 2024-05-07 12:36 | Hospitalist Progress Note ---
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, lamictal is therapeutic Patient is aphasic, right hemiplegia, resume aspirin a day add atorvastatin pt has seen speech in 2021, will have modified diet (3) Essential (primary) hypertension: Plan: Hypertension- aspirin Hydralazine 10 mg IV prn, not with much need (4) Type 2 diabetes mellitus: Plan: Diabetes mellitus- Glucose 77 on admission lantus and ssi Plan Patient hand, gabapentin for pain control will continue Voltaren cream to his external pain control, try toradol for pain pt medically stable awaiting medical placement Admission and Anticipated Discharge Date Admission Date: April 04, 2024 Subjective Patient remains about the same disposition is in question persistent complaints of musculoskeletal pain, trying to avoid opiates not much help with Voltaren cream to shoulders and arms , hand pain improved with toradol Physical Exam Physical Exam: Patient appears stable typically lying in bed often complains of discomfort of shoulders did have previous shoulder surgery on the left Results & Data Results & Data Vital Signs (Past 12 Hours) Vital Signs Temp Pulse Resp BP Pulse Ox O2 Del Method 05/07/24 07:27 58 L 18 93 Room Air 05/07/24 07:11 97.9 F 58 L 14 162/84 H 93 Room Air PG Care Time/CCT Total # of Minutes Spent Total Time Spent with Patient: Total time spent is greater than 50% in coordination of care (as documented) at patient's floor/unit and/or counseling patient: Coding Level of Care Code 73687 SUB INP/OBS CARE 09/18MIN Diagnoses Asthma exacerbation with COPD (chronic obstructive pulmonary disease) J44.1; J45.901 Weakness R53.1 Essential (primary) hypertension I10 Type 2 diabetes mellitus E11.9
[2024-05-08 08:42] LABS: Anion Gap 5 (3-11); BUN Creatinine Ratio 23.3 (10-20); Blood Urea Nitrogen 27 mg/dl (6-23); Calcium 8.9 mg/dl (8.6-10.3); Carbon Dioxide 33 mmol/L (21-32); Chloride 99 mmol/L (98-107); Creatinine Clr Calc Pharmacy 69.2 ml/min; Est GFR (African American) 77.2 ml/min; Est GFR (Non-African American) 66.7 ml/min; Glucose 91 mg/dl (70-99(Fasting)); Sodium 137 mmol/L (136-145)
[2024-05-08] MEDS: CeleBREX 200 MG CAP PO SCH (09:09)
--- NOTE | 2024-05-08 12:41 | Hospitalist Progress Note ---
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, lamictal is therapeutic Patient is aphasic, right hemiplegia, resume aspirin a day add atorvastatin pt has seen speech in 2021, will have modified diet (3) Essential (primary) hypertension: Plan: Hypertension- aspirin Hydralazine 10 mg IV prn, not with much need (4) Type 2 diabetes mellitus: Plan: Diabetes mellitus- Glucose 77 on admission lantus and ssi Plan Patient hand, gabapentin for pain control will continue Voltaren cream to his external pain control, starting po celebrex 05/08 pt medically stable awaiting medical placement Admission and Anticipated Discharge Date Admission Date: April 04, 2024 Subjective Patient remains about the same disposition is in question persistent complaints of musculoskeletal pain, trying to avoid opiates not much help with Voltaren cream to shoulders and arms , hand pain improved with toradol adding celebrex po at this time Physical Exam Physical Exam: Patient appears stable typically lying in bed sleeping often complains of discomfort of shoulders did have previous shoulder surgery on the left Results & Data Results & Data Vital Signs (Past 12 Hours) Vital Signs Temp Pulse Resp BP Pulse Ox O2 Del Method 05/08/24 10:20 Room Air 05/08/24 07:55 97.5 F L 54 L 18 145/81 H 94 Room Air 05/08/24 07:37 58 L 18 91 Room Air PG Care Time/CCT Total # of Minutes Spent Total Time Spent with Patient: Total time spent is greater than 50% in coordination of care (as documented) at patient's floor/unit and/or counseling patient: Coding Level of Care Code 05299 SUB INP/OBS CARE 2MIN Diagnoses Asthma exacerbation with COPD (chronic obstructive pulmonary disease) J44.1; J45.901 Weakness R53.1 Essential (primary) hypertension I10 Type 2 diabetes mellitus E11.9
[2024-05-08] MEDS: oxyCODONE HCL IR 5 MG TAB (IMMEDIATE RELEASE) PO PRN (18:00)
[2024-05-09 06:30] LABS: BUN Creatinine Ratio 24.4 (10-20); Calcium 8.6 mg/dl (8.6-10.3); Creatinine Clr Calc Pharmacy 67.5 ml/min; Est GFR (African American) 74.9 ml/min; Est GFR (Non-African American) 64.6 ml/min; Potassium 4.7 mmol/L (3.5-5.1)
[2024-05-09] MEDS: FAMOTIDINE 40 MG TABLET PO SCH (09:26)
--- NOTE | 2024-05-09 15:44 | Hospitalist Progress Note ---
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, lamictal is therapeutic Patient is aphasic, right hemiplegia, resume aspirin a day add atorvastatin pt has seen speech in 2021, will have modified diet (3) Essential (primary) hypertension: Plan: Hypertension-hctz, nifedipine aspirin Hydralazine 10 mg IV prn, not with much need Plan Patient hand, gabapentin for pain control will continue Voltaren cream to his external pain control, starting po celebrex 05/08 initial concern for diabetes not found to have elevated glucose on frequent checks pt medically stable awaiting medical placement Admission and Anticipated Discharge Date Admission Date: April 04, 2024 Subjective Patient remains about the same disposition is in question persistent complaints of musculoskeletal pain, trying to avoid opiates not much help with Voltaren cream to shoulders and arms , hand pain improved with celebrex Physical Exam Physical Exam: Patient appears stable typically lying in bed sleeping often complains of discomfort of shoulders did have previous shoulder surgery on the left Results & Data Results & Data Vital Signs (Past 12 Hours) Vital Signs Temp Pulse Pulse Resp BP Pulse Ox O2 Del Method 05/09/24 15:01 98.1 F 60 17 113/65 96 Room Air 05/09/24 09:32 Room Air 05/09/24 07:29 98.2 F 60 18 151/86 H 96 Room Air 05/09/24 06:27 57 L 93 Room Air Laboratory Results reviewed chemistry PG Care Time/CCT Total # of Minutes Spent Total Time Spent with Patient: Total time spent is greater than 50% in coordination of care (as documented) at patient's floor/unit and/or counseling patient: Coding Level of Care Code 07082 SUB INP/OBS CARE Diagnoses Asthma exacerbation with COPD (chronic obstructive pulmonary disease) J44.1; J45.901 Weakness R53.1 Essential (primary) hypertension I10
[2024-05-09 20:32] LABS: Base Excess VBG 5.1 mEq/L; HCO3 VBG 31 mmol/L; Oxygen Saturation VBG 81.1 %; PCO2 VBG 47 mmHg (38-50); PO2 VBG 46 mmHg; pH VBG 7.42 (7.36-7.41)
[2024-05-09 20:37] LABS: Basophils # (auto) 0.07 K/uL (0.00-0.20); Basophils % (auto) 0.5 %; Eosinophils # (auto) 0.32 K/uL (0.00-0.50); Eosinophils % (auto) 2.3 %; Hematocrit (blood only) 48.5 % (42.0-52.0); Hemoglobin 16.4 g/dl (14.0-18.0); Immature Granulocytes # (auto) 0.04 K/uL (0.01-0.20); Immature Granulocytes % (auto) 0.3 %; Lymphocytes # (auto) 2.76 K/uL (1.20-3.40); Mean Corpuscular Hemoglobin 29.4 pg (25.0-34.0); Mean Corpuscular Hgb Conc 33.8 g/dL (32.0-36.0); Mean Corpuscular Volume 86.9 fL (80.0-100.0); Mean Platelet Volume 10.4 fL (9.4-12.4); Monocytes # (auto) 1.03 K/uL (0.11-0.59); Monocytes % (auto) 7.4 %; Neutrophils # (auto) 9.61 K/uL (1.40-6.50); Neutrophils % (auto) 69.5 %; Platelet Count 248 K/uL (130-400); RDW Coefficient of Variation 14.3 % (11.5-14.5); RDW Standard Deviation 45.6 fL (36.4-46.3); Red Blood Count 5.58 M/uL (4.70-6.10); White Blood Count 13.83 K/ul (4.8-10.8)
--- NOTE | 2024-05-09 20:48 | Communication Note ---
Date of Service: May 09, 2024 Code Milady called at approx 2000. Was found to be hypoxemic, SpO2 down to the 70s. Concern for aspiration. Suctioned by RT with some improvement in work of breathing. Was put on 15L Oxymask with SpO2 up to mid 90s. On exam alert and able to follow commands, heart with regular rate/rhythm, lungs + rhonchi in bases B/L, no wheezing. CBC with mild leukocytosis= 13.8, VBG/CMP unremarkable. Will repeat CXR. MRSA nares negative from earlier in admission, start on Zosyn with concern for aspiration PNA. NPO-> due for valproic acid this evening, will give IV. Upgrade to PCU. Re-evaluated the patient at approx 2300-> resting comfortable, still on 15L Oxymask, no increased work of breathing. No acute distress.
[2024-05-09 20:53] LABS: Albumin Globulin Ratio 1.4 (0.9-2); Albumin Level 3.9 gm/dl (3.4-5.0); BUN Creatinine Ratio 20.8 (10-20); Bilirubin,Total 0.5 mg/dl (0.2-1.0); Calcium 9.1 mg/dl (8.6-10.3); Creatinine Clr Calc Pharmacy 66.9 ml/min; Est GFR (African American) 74.1 ml/min; Globulin 2.7 gm/dl (2.5-4.0); Magnesium 1.9 mg/dl (1.7-2.4); Potassium 4.8 mmol/L (3.5-5.1); Total Protein 6.6 gm/dl (6.0-8.3)
[2024-05-09] MEDS: 4.5GM X1 IV STA (21:45)
[2024-05-09] MEDS: VALPROATE SOD 250 MG in DEXTROSE 5% 50 ML IV SCH (22:49)
[2024-05-10] MEDS: ACETAMINOPHEN 1,000 MG/100 ML VIAL IV SCH (00:07)
[2024-05-10] MEDS: PIPERACILLIN/TAZOBACTAM 4.5 GM/100 ML BAG IV SCH (02:10)
--- NOTE | 2024-05-10 06:49 | XRay Report ---
XR chest 1V portable CLINICAL HISTORY: Desaturation. COMPARISON STUDY: Chest radiograph and chest CT April 19, 2024. FINDINGS: There is no pneumothorax. There is a trace right pleural effusion. Right basilar airspace o pacity is mildly increased. Interstitial thickening persists. Additional patchy bilateral airspace op acities have slightly improved. Cardiomediastinal silhouette is stable. IMPRESSION: 1. Mild increase in right basilar opacity suggestive of pneumonia or aspiration pneumonitis. The adan alejandra of the airspace opacities shown on prior exam have slightly improved. 2. Interstitial thickening which favors mild pulmonary edema. 3. Small right pleural effusion. ACT 112: Negative or not required by law. Electronically signed by: Roel Ricketts M.D. 05/10/2024 6:48 AM
--- NOTE | 2024-05-10 16:41 | Hospitalist Progress Note ---
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, lamictal is the rapeutic Patient is aphasic, right hemiplegia, resume aspirin a day add atorvastatin pt has seen speech in 2021, will have modified diet (3) Essential (primary) hypertension: Plan: Hypertension-hctz, nifedipine aspirin Hydralazine 10 mg IV prn, not with much need Patient has persistent sinus bradycardia without symptoms Plan Gabapentin for pain control will continue Voltaren cream to his external pain control, po celebrex 05/08 with good result initial concern for diabetes not found to have elevated glucose on frequent checks pt medically stable awaiting medical placement Admission and Anticipated Discharge Date Admission Date: April 04, 2024 Subjective Patient had a code purple in the overnight from 915 and 916. This is likely an aspiration event With transition to higher level of care chest x-ray without pneumonia Patient is return to his usual state he is now on room air, and in no particular respiratory distress Able to take medications in a vehicle Physical Exam Physical Exam: Patient appears stable awake in no distress lung sounds are coarse but nothing different than previous Has had improvement of arthritic pain with addition of Celebrex Results & Data Results & Data Vital Signs (Past 12 Hours) Vital Signs Temp Pulse Resp BP Pulse Ox O2 Del Method 05/10/24 15:46 98.2 F 52 L 18 112/67 92 Room Air 05/10/24 11:38 98.1 F 54 L 18 109/65 92 Room Air 05/10/24 09:52 97.5 F L 74 18 159/79 H 96 Room Air 05/10/24 08:39 Room Air 05/10/24 07:22 69 17 97 Room Air Laboratory Results Reviewed chemistry reviewed CBC reviewed chest x-ray PG Care Time/CCT Total # of Minutes Spent Total Time Spent with Patient: Total time spent is greater than 50% in coordination of care (as documented) at patient's floor/unit and/or counseling patient: Coding Level of Care Code 06157 SUB INP/OBS CARE 2/35MIN Diagnoses Asthma exacerbation with COPD (chronic obstructive pulmonary disease) J44.1; J45.901 Weakness R53.1 Essential (primary) hypertension I10
[2024-05-11 06:48] LABS: BUN Creatinine Ratio 19.2 (10-20); Calcium 8.9 mg/dl (8.6-10.3); Creatinine Clr Calc Pharmacy 64.2 ml/min; Est GFR (African American) 70.6 ml/min; Est GFR (Non-African American) 60.9 ml/min; Potassium 4.3 mmol/L (3.5-5.1)
[2024-05-11] MEDS ORDERED: Nursing to Pharmacy Communication SCH (11:30)
--- NOTE | 2024-05-11 15:00 | Hospitalist Progress Note ---
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: minced and moist IDDSI 5, moderately thick liquids, aspiration precautions - percussive therapy with chest vest to further assist mucous clearance prednisone,completed 05/07/24 Continue inhalers (2) Weakness: Plan: Weakness/need for more supportive environment, [facility]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, lamictal is therapeutic Patient is aphasic, right hemiplegia Continue aspirin and statin Patient has dysphagia with modified diet (3) Essential (primary) hypertension: Plan: Continue hydrochlorothiazide and nifedipine XL Plan #Hyperglycemia Check A1c Accu-Cheks before every meal and nightly with sliding scale insulin coverage Monitor glycemic control pt medically stable awaiting medical placement Admission and Anticipated Discharge Date Admission Date: April 04, 2024 Subjective Patient is off oxygen saturating well on room air His main complaint is of generalized pain for which she is on analgesia Denies any chest pain or shortness of breath Review of Systems Review of Systems: As per HPI Physical Exam Physical Exam: General: No acute distress, speaking in full sentences Psych: Awake and alert HEENT: Anicteric sclera, moist oral mucosa CVS: Regular rate and rhythm Lungs: Bilateral air entry, no wheezing noted Abdomen: Soft, nontender, no rebound, no guarding Ext: No lower extremity edema, no calf tenderness Results & Data Results & Data Vital Signs (Past 12 Hours) Vital Signs Temp Pulse Resp BP BP Pulse Ox O2 Del Method 05/11/24 14:36 36.3 C L 64 19 153/80 H 98 Room Air 05/11/24 10:30 36.6 C 54 L 19 135/76 93 Room Air 05/11/24 09:00 Room Air 05/11/24 07:39 65 16 90 Oxymask 05/11/24 07:20 36.5 C 55 L 17 124/71 90 Room Air O2 Flow Rate 05/11/24 14:36 05/11/24 10:30 05/11/24 09:00 05/11/24 07:39 2 05/11/24 07:20 PG Care Time/CCT Total # of Minutes Spent Total Time Spent with Patient: Total time spent is greater than 50% in coordination of care (as documented) at patient's floor/unit and/or counseling patient: Coding Level of Care Code 56037 SUB INP/OBS CARE 2/35MIN Diagnoses Asthma exacerbation with COPD (chronic obstructive pulmonary disease) J44.1; J45.901 Weakness R53.1 Essential (primary) hypertension I10
[2024-05-11] MEDS ORDERED: GLUCOSE 10 TAB/TUBE PO PRN (21:56)
[2024-05-11] MEDS ORDERED: CARBOHYDRATES FOR HYPOGLYCEMIA PO PRN (21:56)
[2024-05-11] MEDS ORDERED: GLUCOSE 40% GEL 15 GM TUBE PO PRN (21:56)
[2024-05-11] MEDS ORDERED: PHARMACY GLYCEMIC MGMT CONSULT PRN (21:56)
[2024-05-11] MEDS ORDERED: GLUCAGON FOR INJ 1 MG VIAL SQ PRN (21:56)
[2024-05-11] MEDS ORDERED: DEXTROSE 50% 50 ML SYRINGE IV PRN (21:56)
[2024-05-11] MEDS: LANTUS PER UNIT CHARGE SQ SCH (22:59)
[2024-05-12 06:40] LABS: Basophils # (auto) 0.05 K/uL (0.00-0.20); Basophils % (auto) 0.8 %; Eosinophils # (auto) 0.36 K/uL (0.00-0.50); Eosinophils % (auto) 5.7 %; Hematocrit (blood only) 43.6 % (42.0-52.0); Hemoglobin 14.7 g/dl (14.0-18.0); Immature Granulocytes # (auto) 0.01 K/uL (0.01-0.20); Immature Granulocytes % (auto) 0.2 %; Lymphocytes # (auto) 2.47 K/uL (1.20-3.40); Lymphocytes % (auto) 38.9 %; Mean Corpuscular Hemoglobin 29.3 pg (25.0-34.0); Mean Corpuscular Hgb Conc 33.7 g/dL (32.0-36.0); Mean Corpuscular Volume 86.9 fL (80.0-100.0); Mean Platelet Volume 10.4 fL (9.4-12.4); Monocytes # (auto) 0.48 K/uL (0.11-0.59); Monocytes % (auto) 7.6 %; Neutrophils # (auto) 2.98 K/uL (1.40-6.50); Neutrophils % (auto) 46.8 %; Platelet Count 215 K/uL (130-400); RDW Coefficient of Variation 14.4 % (11.5-14.5); RDW Standard Deviation 46.3 fL (36.4-46.3); Red Blood Count 5.02 M/uL (4.70-6.10); White Blood Count 6.35 K/ul (4.8-10.8)
[2024-05-12 06:46] LABS: BUN Creatinine Ratio 15.8 (10-20); Creatinine Clr Calc Pharmacy 66.9 ml/min; Est GFR (African American) 74.1 ml/min; Magnesium 1.9 mg/dl (1.7-2.4); Potassium 4.1 mmol/L (3.5-5.1)
[2024-05-12 07:47] LABS: Estimated Average Glucose 174 mg/dl; Hemoglobin A1C 7.7 % (4.5-5.6)
[2024-05-12] MEDS: ACETAMINOPHEN 500 MG TAB PO SCH (08:24)
[2024-05-12] MEDS: INSULIN ASPART PER UNIT CHARGE SC SCH (08:28)
--- NOTE | 2024-05-12 13:22 | Hospitalist Progress Note ---
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, lamictal is therapeutic Patient is aphasic, right hemiplegia Continue aspirin and statin Patient has dysphagia with modified diet (3) Essential (primary) hypertension: Plan: Continue hydrochlorothiazide and nifedipine XL Plan # Type 2 diabetes mellitus A1c 7.7 Pharmacy managing glycemic control with Lantus and sliding scale Accu-Cheks before every meal and nightly with sliding scale insulin coverage Monitor glycemic control Transfer to medical floor pt medically stable awaiting medical placement Admission and Anticipated Discharge Date Admission Date: April 04, 2024 Subjective Patient seen and examined He has aphasia and responds with head nods Denies any chest pain or shortness of breath Appears comfortable Review of Systems Review of Systems: As per HPI Physical Exam Physical Exam: General: No acute distress, speaking in full sentences Psych: Awake and alert HEENT: Anicteric sclera, moist oral mucosa CVS: Regular rate and rhythm Lungs: Bilateral air entry, no wheezing noted Abdomen: Soft, nontender, no rebound, no guarding Ext: No lower extremity edema, no calf tenderness Results & Data Results & Data Vital Signs (Past 12 Hours) Vital Signs Temp Pulse Resp BP BP Pulse Ox O2 Del Method 05/12/24 12:09 36.6 C 56 L 14 119/67 95 Room Air 05/12/24 07:46 36.4 C L 52 L 18 115/62 95 Room Air 05/12/24 07:20 48 L 18 94 Room Air 05/12/24 03:06 36.4 C L 54 L 18 137/73 93 Room Air Laboratory Results Laboratory Results - last 24 hr 05/11/24 05/12/24 05/12/24 22:55 05:41 07:46 WBC 6.35 RBC 5.02 Hgb 14.7 Hct 43.6 MCV 86.9 MCH 29.3 MCHC 33.7 RDW Std Deviation 46.3 RDW Coeff of Jessica 14.4 Plt Count 215 MPV 10.4 Immature Gran % (Auto) 0.2 Neut % (Auto) 46.8 Lymph % (Auto) 38.9 Calloway % (Auto) 7.6 Eos % (Auto) 5.7 Baso % (Auto) 0.8 Neut # (Auto) 2.98 Lymph # (Auto) 2.47 Calloway # (Auto) 0.48 Eos # (Auto) 0.36 Baso # (Auto) 0.05 Immature Gran # (Auto) 0.01 Sodium 136 Potassium 4.1 Chloride 100 Carbon Dioxide 28 Anion Gap 8 BUN 19 Creatinine 1.20 Est Cr Clr Drug Dosing 66.9 Est GFR ( Amer) 74.1 Est GFR (Non-Af Amer) 64.0 BUN/Creatinine Ratio 15.8 Glucose 182 H POC Glucose 157 H 164 H Estimat Average Glucose 174 Hemoglobin A1c 7.7 H Calcium 9.0 Magnesium 1.9 05/12/24 05/12/24 11:32 16:35 WBC RBC Hgb Hct MCV MCH MCHC RDW Std Deviation RDW Coeff of Jessica Plt Count MPV Immature Gran % (Auto) Neut % (Auto) Lymph % (Auto) Calloway % (Auto) Eos % (Auto) Baso % (Auto) Neut # (Auto) Lymph # (Auto) Calloway # (Auto) Eos # (Auto) Baso # (Auto) Immature Gran # (Auto) Sodium Potassium Chloride Carbon Dioxide Anion Gap BUN Creatinine Est Cr Clr Drug Dosing Est GFR ( Amer) Est GFR (Non-Af Amer) BUN/Creatinine Ratio Glucose POC Glucose 130 H 164 H Estimat Average Glucose Hemoglobin A1c Calcium Magnesium PG Care Time/CCT Total # of Minutes Spent Total Time Spent with Patient: Total time spent is greater than 50% in coordination of care (as documented) at patient's floor/unit and/or counseling patient: Coding Level of Care Code 70077 SUB INP/OBS CARE 2/35MIN Diagnoses Asthma exacerbation with COPD (chronic obstructive pulmonary disease) J44.1; J45.901 Weakness R53.1 Essential (primary) hypertension I10
[2024-05-13 08:49] LABS: Calcium 9.6 mg/dl (8.6-10.3); Est GFR (African American) 85.2 ml/min; Est GFR (Non-African American) 73.5 ml/min; Potassium 3.9 mmol/L (3.5-5.1)
--- NOTE | 2024-05-13 10:08 | Hospitalist Progress Note ---
Date of Service May 13, 2024 Assessment & Plan (1) Aspiration pneumonia: (2) COPD (chronic obstructive pulmonary disease): (3) Dysphasia following cerebral infarction: (4) History of CVA with residual deficit: (5) Aphasia following cerebral infarction: (6) Type 2 diabetes mellitus: (7) Essential (primary) hypertension: (8) BPH (benign prostatic hyperplasia): (9) Chronic pain: Plan 63-year-old male with past medical history of CVA with right-sided weakness, aphasia and dysphagia, BPH, essential hypertension, COPD, chronic pain who was brought in by his brother on 04/04/2024 as his brother was unable to take care of patient and was having difficult time getting patient placed. 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 twice daily Seizure precautions #Insulin-dependent type 2 diabetes mellitus A1c 7.7 Pharmacy managing glycemic control with Lantus and sliding scale Accu-Cheks before every meal and nightly with sliding scale insulin coverage Monitor glycemic control #Chronic pain Continue gabapentin 1000 mg p.o. 3 times daily Continue Tylenol 1000 mg p.o. 3 times daily as needed pain Continue Celebrex Continue Cymbalta 30 mg p.o. daily Continue Lidoderm patch Monitor LFTs intermittently CODE STATUS: Full code DVT prophylaxis: Start Lovenox 40 mg subcutaneous daily Patient is awaiting placement Admission and Anticipated Discharge Date Admission Date: April 04, 2024 Subjective Patient resting comfortably, no new complaints Saturating well on room air Review of Systems Review of Systems: As per HPI Physical Exam Physical Exam: General: No acute distress Psych: Awake and alert HEENT: Anicteric sclera, moist oral mucosa CVS: Regular rate and rhythm Lungs: Bilateral air entry, no wheezing noted Abdomen: Soft, nontender, no rebound, no guarding Ext: No lower extremity edema, no calf tenderness Results & Data Results & Data Vital Signs (Past 12 Hours) Vital Signs Temp Pulse Resp BP Pulse Ox O2 Del Method 05/13/24 08:16 36.7 C 72 18 133/74 95 Room Air 05/13/24 07:19 Room Air Laboratory Results Laboratory Results - last 24 hr 05/12/24 05/12/24 05/12/24 11:32 16:35 20:37 Sodium Potassium Chloride Carbon Dioxide Anion Gap BUN Creatinine Est Cr Clr Drug Dosing Est GFR ( Amer) Est GFR (Non-Af Amer) BUN/Creatinine Ratio Glucose POC Glucose 130 H 164 H 153 H Calcium 05/13/24 05/13/24 07:10 07:44 Sodium 137 Potassium 3.9 Chloride 100 Carbon Dioxide 30 Anion Gap 7 BUN 16 Creatinine 1.07 Est Cr Clr Drug Dosing 75.0 Est GFR ( Amer) 85.2 Est GFR (Non-Af Amer) 73.5 BUN/Creatinine Ratio 15.0 Glucose 95 POC Glucose 142 H Calcium 9.6 PG Care Time/CCT Total # of Minutes Spent Total Time Spent with Patient: Total time spent is greater than 50% in coordination of care (as documented) at patient's floor/unit and/or counseling patient: Coding Level of Care Code 53287 SUB INP/OBS CARE 2/35MIN Diagnoses Aspiration pneumonia J69.0 COPD (chronic obstructive pulmonary disease) J44.9 Dysphasia following cerebral infarction I69.321 History of CVA with residual deficit I69.30 Aphasia following cerebral infarction I69.320 Type 2 diabetes mellitus E11.9 Essential (primary) hypertension I10 BPH (benign prostatic hyperplasia) N40.0 Chronic pain G89.29
[2024-05-14] MEDS: ENOXAPARIN INJ 40 MG/0.4 ML SYR SQ SCH (08:23)
--- NOTE | 2024-05-14 11:08 | Hospitalist Progress Note ---
Date of Service May 14, 2024 Assessment & Plan (1) Aspiration pneumonia: (2) COPD (chronic obstructive pulmonary disease): (3) Dysphasia following cerebral infarction: (4) History of CVA with residual deficit: (5) Aphasia following cerebral infarction: (6) Type 2 diabetes mellitus: (7) Essential (primary) hypertension: (8) BPH (benign prostatic hyperplasia): (9) Chronic pain: Plan 63-year-old male with past medical history of CVA with right-sided weakness, aphasia and dysphagia, BPH, essential hypertension, COPD, chronic pain who was brought in by his brother on 04/04/2024 as his brother was unable to take care of patient and was having difficult time getting patient placed. 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 twice daily Seizure precautions #Insulin-dependent type 2 diabetes mellitus A1c 7.7 Pharmacy managing glycemic control with Lantus and sliding scale Accu-Cheks before every meal and nightly with sliding scale insulin coverage Monitor glycemic control #Chronic pain Continue gabapentin 1000 mg p.o. 3 times daily Continue Tylenol 1000 mg p.o. 3 times daily as needed pain Continue Celebrex Continue Cymbalta 30 mg p.o. daily Continue Lidoderm patch Monitor LFTs intermittently CODE STATUS: Full code DVT prophylaxis: Lovenox 40 mg subcutaneous daily Patient is awaiting placement: Patient is awaiting long-term bed at [facility] in [place]. In the meantime plan is for patient to go to [facility] bed further interim until rehab facilities reconsider patient once they have a plan disposition. Admission and Anticipated Discharge Date Admission Date: April 04, 2024 Subjective Patient resting comfortably No overnight events noted Saturating well on room air No new complaints Review of Systems Review of Systems: As per HPI Physical Exam Physical Exam: General: No acute distress Psych: Awake and alert HEENT: Anicteric sclera, moist oral mucosa CVS: Regular rate and rhythm Lungs: Bilateral air entry, no wheezing noted Abdomen: Soft, nontender, no rebound, no guarding Ext: No lower extremity edema, no calf tenderness Results & Data Results & Data Vital Signs (Past 12 Hours) Vital Signs Temp Pulse Resp BP Pulse Ox O2 Del Method 05/14/24 07:46 36.5 C 46 L 18 127/72 93 Room Air 05/14/24 07:15 Room Air Laboratory Results Laboratory Results - last 24 hr 05/13/24 05/13/24 05/13/24 12:00 16:45 20:37 POC Glucose 140 H 102 H 111 H 05/14/24 07:40 POC Glucose 97 PG Care Time/CCT Total # of Minutes Spent Total Time Spent with Patient: Total time spent is greater than 50% in coordination of care (as documented) at patient's floor/unit and/or counseling patient: Coding Level of Care Code 05174 SUB INP/OBS CARE 2/35MIN Diagnoses Aspiration pneumonia J69.0 COPD (chronic obstructive pulmonary disease) J44.9 Dysphasia following cerebral infarction I69.321 History of CVA with residual deficit I69.30 Aphasia following cerebral infarction I69.320 Type 2 diabetes mellitus E11.9 Essential (primary) hypertension I10 BPH (benign prostatic hyperplasia) N40.0 Chronic pain G89.29
[2024-05-14] MEDS ORDERED: AMOXICILLIN/CLAVULANATE SUSP 400/57 MG 5 ML UDP PO SCH (21:00)
[2024-05-14] MEDS: AMOXICILLIN/CLAVULANATE SUSP 400/57 MG 5 ML BTL PO SCH (21:22)
[2024-05-15] MEDS: LOSARTAN POTASSIUM 25 MG TAB PO SCH (09:57)
[2024-05-15] MEDS: hydroCHLOROthiazide 25 MG TAB PO SCH (09:57)
--- NOTE | 2024-05-15 12:02 | Hospitalist Progress Note ---
Date of Service May 15, 2024 Assessment & Plan (1) Aspiration pneumonia: (2) COPD (chronic obstructive pulmonary disease): (3) Dysphasia following cerebral infarction: (4) History of CVA with residual deficit: (5) Aphasia following cerebral infarction: (6) Type 2 diabetes mellitus: (7) Essential (primary) hypertension: (8) BPH (benign prostatic hyperplasia): (9) Chronic pain: Plan 63-year-old male with past medical history of CVA with right-sided weakness, aphasia and dysphagia, BPH, essential hypertension, COPD, chronic pain who was brought in by his brother on 04/04/2024 as his brother was unable to take care of patient and was having difficult time getting patient placed. 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 daily given patient is diabetic and for better blood pressure control Hydrochlorothiazide 12.5 mg p.o. daily Monitor vital signs #Seizure disorder secondary to CVA Continue valproic acid 500 mg p.o. twice daily Seizure precautions #Insulin-dependent type 2 diabetes mellitus A1c 7.7 Pharmacy managing glycemic control with Lantus and sliding scale Accu-Cheks before every meal and nightly with sliding scale insulin coverage Monitor glycemic control #Chronic pain Continue gabapentin 1000 mg p.o. 3 times daily Continue Tylenol 1000 mg p.o. 3 times daily as needed pain Continue Celebrex Continue Cymbalta 30 mg p.o. daily Continue Lidoderm patch Monitor LFTs intermittently CODE STATUS: Full code DVT prophylaxis: Lovenox 40 mg subcutaneous daily Patient is awaiting placement: Patient is awaiting long-term bed at [facility] in [place]. In the meantime plan is for patient to go to [facility] bed further interim until rehab facilities reconsider patient once they have a plan disposition. Care plan discussed with patient and nursing staff Admission and Anticipated Discharge Date Admission Date: April 04, 2024 Subjective Patient resting comfortably Denies any new complaints Saturating well on room air Review of Systems Review of Systems: As per HPI Physical Exam Physical Exam: General: No acute distress Psych: Awake and alert HEENT: Anicteric sclera, moist oral mucosa CVS: Regular rate and rhythm Lungs: Bilateral air entry, no wheezing noted Abdomen: Soft, nontender, no rebound, no guarding Ext: No lower extremity edema, no calf tenderness Results & Data Results & Data Vital Signs (Past 12 Hours) Vital Signs Temp Pulse Resp BP Pulse Ox O2 Del Method 05/15/24 08:32 36.6 C 57 L 18 148/85 H 90 Room Air 05/15/24 07:15 Room Air 05/15/24 07:14 50 L 20 90 Room Air PG Care Time/CCT Total # of Minutes Spent Total Time Spent with Patient: Total time spent is greater than 50% in coordination of care (as documented) at patient's floor/unit and/or counseling patient: Coding Level of Care Code 98604 SUB INP/OBS CARE 1/25MIN Diagnoses Aspiration pneumonia J69.0 COPD (chronic obstructive pulmonary disease) J44.9 Dysphasia following cerebral infarction I69.321 History of CVA with residual deficit I69.30 Aphasia following cerebral infarction I69.320 Type 2 diabetes mellitus E11.9 Essential (primary) hypertension I10 BPH (benign prostatic hyperplasia) N40.0 Chronic pain G89.29
--- NOTE | 2024-05-16 13:42 | Hospitalist Progress Note ---
Date of Service May 16, 2024 Assessment & Plan (1) Aspiration pneumonia: (2) COPD (chronic obstructive pulmonary disease): (3) Dysphasia following cerebral infarction: (4) History of CVA with residual deficit: (5) Aphasia following cerebral infarction: (6) Type 2 diabetes mellitus: (7) Essential (primary) hypertension: (8) BPH (benign prostatic hyperplasia): (9) Chronic pain: Plan 63-year-old male with past medical history of CVA with right-sided weakness, aphasia and dysphagia, BPH, essential hypertension, COPD, chronic pain who was brought in by his brother on 04/04/2024 as his brother was unable to take care of patient and was having difficult time getting patient placed. During hospital stay patient has been treated for COPD exacerbation secondary to aspiration pneumonia with completion of steroids on 05/07/2024 with repeat aspiration event on 05/10/2024 He is awaiting placement #Aspiration pneumonia #COPD #Dysphagia secondary to CVA Patient has finished 5 days of IV Zosyn and and has been switched to oral Augmentin until 05/16/2024 to finish 7-day course of antibiotics GOLD BLOWER recs: minced and moist IDDSI 5, moderately thick liquids, aspiration precautions Patient has completed prednisone taper on 05/07/2024 Continue inhalers and nebulizers Aspiration precautions #History of CVA with right-sided weakness, aphasia and dysphagia #Essential hypertension Continue aspirin plus statin Continue nifedipine XL Add losartan 25 mg p.o. daily given patient is diabetic and for better blood pressure control Hydrochlorothiazide 12.5 mg p.o. daily Monitor vital signs #Seizure disorder secondary to CVA Continue valproic acid 500 mg p.o. twice daily Seizure precautions #Insulin-dependent type 2 diabetes mellitus A1c 7.7 Pharmacy managing glycemic control with Lantus and sliding scale Accu-Cheks before every meal and nightly with sliding scale insulin coverage Monitor glycemic control #Chronic pain Continue gabapentin 1000 mg p.o. 3 times daily Continue Tylenol 1000 mg p.o. 3 times daily as needed pain Continue Celebrex Continue Cymbalta 30 mg p.o. daily Continue Lidoderm patch Monitor LFTs intermittently CODE STATUS: Full code DVT prophylaxis: Lovenox 40 mg subcutaneous daily Patient is awaiting placement: Patient is awaiting long-term bed at [facility] in [place]. In the meantime plan is for patient to go to [facility] bed further interim until rehab facilities reconsider patient once they have a plan disposition. Patient is medically stable for discharge Care plan discussed with patient and nursing staff Admission and Anticipated Discharge Date Admission Date: April 04, 2024 Subjective Patient is eating lunch He denies any chest pain or shortness of breath He is at his baseline, he has aphasia and communicates with head nods Appears comfortable Review of Systems Review of Systems: As per HPI Physical Exam Physical Exam: General: No acute distress Psych: Awake and alert HEENT: Anicteric sclera, moist oral mucosa CVS: Regular rate and rhythm Lungs: Bilateral air entry, no wheezing noted Abdomen: Soft, nontender, no rebound, no guarding Ext: No lower extremity edema, no calf tenderness Results & Data Results & Data Vital Signs (Past 12 Hours) Vital Signs Temp Pulse Resp BP Pulse Ox O2 Del Method 05/16/24 07:59 36.3 C L 51 L 20 132/68 93 Room Air 05/16/24 07:19 61 20 90 Room Air 05/16/24 07:15 Room Air PG Care Time/CCT Total # of Minutes Spent Total Time Spent with Patient: Total time spent is greater than 50% in coordination of care (as documented) at patient's floor/unit and/or counseling patient: Coding Level of Care Code 48670 SUB INP/OBS CARE 1/25MIN Diagnoses Aspiration pneumonia J69.0 COPD (chronic obstructive pulmonary disease) J44.9 Dysphasia following cerebral infarction I69.321 History of CVA with residual deficit I69.30 Aphasia following cerebral infarction I69.320 Type 2 diabetes mellitus E11.9 Essential (primary) hypertension I10 BPH (benign prostatic hyperplasia) N40.0 Chronic pain G89.29
[2024-05-17 07:33] LABS: Basophils # (auto) 0.07 K/uL (0.00-0.20); Basophils % (auto) 0.9 %; Eosinophils # (auto) 0.44 K/uL (0.00-0.50); Eosinophils % (auto) 5.6 %; Hematocrit (blood only) 45.2 % (42.0-52.0); Hemoglobin 15.5 g/dl (14.0-18.0); Immature Granulocytes # (auto) 0.03 K/uL (0.01-0.20); Immature Granulocytes % (auto) 0.4 %; Lymphocytes # (auto) 3.56 K/uL (1.20-3.40); Lymphocytes % (auto) 45.6 %; Mean Corpuscular Hemoglobin 29.5 pg (25.0-34.0); Mean Corpuscular Hgb Conc 34.3 g/dL (32.0-36.0); Mean Corpuscular Volume 85.9 fL (80.0-100.0); Mean Platelet Volume 9.9 fL (9.4-12.4); Monocytes % (auto) 7.7 %; Neutrophils % (auto) 39.8 %; Platelet Count 269 K/uL (130-400); RDW Coefficient of Variation 14.3 % (11.5-14.5); RDW Standard Deviation 45.3 fL (36.4-46.3); Red Blood Count 5.26 M/uL (4.70-6.10)
[2024-05-17 07:58] LABS: Alanine Aminotransferase 16 U/L (7-52); Albumin Globulin Ratio 1.2 (0.9-2); Albumin Level 3.7 gm/dl (3.4-5.0); Alkaline Phosphatase 41 U/L (34-104); Anion Gap 8 (3-11); BUN Creatinine Ratio 22.3 (10-20); Bilirubin,Total 0.4 mg/dl (0.2-1.0); Blood Urea Nitrogen 21 mg/dl (6-23); Calcium 9.3 mg/dl (8.6-10.3); Carbon Dioxide 29 mmol/L (21-32); Chloride 100 mmol/L (98-107); Creatinine Clr Calc Pharmacy 85.4 ml/min; Est GFR (African American) 99.6 ml/min; Est GFR (Non-African American) 85.9 ml/min; Glucose 85 mg/dl (70-99(Fasting)); Magnesium 1.9 mg/dl (1.7-2.4); Sodium 137 mmol/L (136-145); Total Protein 6.7 gm/dl (6.0-8.3)
--- NOTE | 2024-05-17 09:27 | XRay Report ---
XR chest 1V portable HISTORY: 63 years-old Male aspiration pneumonia acute shortness of breath COMPARISON: 05/09/2024 TECHNIQUE: AP view of the chest FINDINGS: Cardiac silhouette is enlarged. No pneumothorax or large pleural effusion. Interstitial coarsening of the lungs redemonstrated. Pulmonary vascular congestion with probable trace pleural effusions. Ill-d efined right mid lung and right basilar opacities with improved aeration of the lung bases. Left shou lder arthroplasty. IMPRESSION: 1. Cardiomegaly with suggestion of mild interstitial pulmonary edema. 2. Improved aeration of the lung bases with resolving right lower lobe airspace opacities. 3. Trace pleural effusions. ACT 112: Negative or not required by law. The above report was generated using voice recognition software. It may contain grammatical, syntax o r spelling errors. Electronically signed by: Octaviano Kraft M.D. 05/17/2024 9:25 AM
[2024-05-17 09:49] LABS: Potassium 3.7 mmol/L (3.5-5.1)
--- NOTE | 2024-05-17 12:31 | Hospitalist Progress Note ---
Date of Service May 17, 2024 Assessment & Plan (1) Aspiration pneumonia: Plan: Previously treated this admission with intravenous Zosyn and oral Augmentin along with steroids. Chest x-ray done today, May 17, reveals resolution of right lower lobe infiltrates. It appears that he chronically aspirates after his CVA (2) COPD (chronic obstructive pulmonary disease): Plan: Stable. Repeat chest x-ray done today, May 17, looks better. Continue current pulmonary management (3) Dysphasia following cerebral infarction: Plan: Chronic aspiration as a result. (4) History of CVA with residual deficit: Plan: Stable. Continue current medical management. Post CVA seizure disorder has been well-controlled on current medications (5) Aphasia following cerebral infarction: Plan: Stable. Continue current medical management (6) Type 2 diabetes mellitus: Plan: Glucose is 85 todayMay 17. Stable. Continue current medical management (7) Essential (primary) hypertension: Plan: Stable. Continue current medical management Plan Awaiting placement at [facility] Admission and Anticipated Discharge Date Admission Date: April 04, 2024 Subjective Easily awakened from sleep. Both eyes are bloodshot. No distress. Placement at [facility] facility is pending. Repeat chest x-ray done today, May 17, reveals resolution of right lower lobe infiltrate Review of Systems 2 Review of Systems: Constitutionalno fever or chills ENTno blurred vision, no double vision, no epistaxis, no sore throat. Both eyes are bloodshot todayMay 17 Respiratoryno cough, no wheezing, no shortness of breath Cardiacno palpitations, no chest pain, no syncope Nohemy nausea, vomiting, diarrhea, melena, hematochezia GUno urinary retention, no urinary incontinence, no dysuria, no hematuria Musculoskeletalno joint pain, no muscle tenderness Skinno bruising, no rashes, no pruritus Neurono isolated weakness, no paresthesia. Chronic aspiration Psychno depression, no anxiety Physical Exam 2 Physical Exam: General-alert and oriented x3, no fever, no chills HEENT-head atraumatic and normocephalic, pupils equal and reactive to light, extraocular muscles intact. Bilateral scleral injection Neck-no lymphadenopathy or thyromegaly, trachea midline Chest-scattered bilateral rhonchi. No wheezing. No dullness to percussion Cardiac-regular rate and rhythm, normal S1 and S2 Abdomen-normal bowel sounds, no hepatosplenomegaly Extremities-no cyanosis, clubbing, or edema Neuro-cranial nerves II through XII intact, motor and sensory function within normal limits, strength symmetrical with generalized weakness Psych-flat affect Results & Data Results & Data Vital Signs (Past 12 Hours) Vital Signs Temp Pulse Resp BP Pulse Ox O2 Del Method 05/17/24 07:46 36.4 C L 56 L 18 127/68 91 Room Air 05/17/24 07:15 Room Air 05/17/24 07:12 51 L 16 91 Room Air Laboratory Results 05/17/24 06:24 05/17/24 08:50 PG Care Time/CCT Total # of Minutes Spent Total Time Spent with Patient: Total time spent is greater than 50% in coordination of care (as documented) at patient's floor/unit and/or counseling patient: Coding Level of Care Code 33417 SUB INP/OBS CARE 3/50MIN Diagnoses Aspiration pneumonia J69.0 COPD (chronic obstructive pulmonary disease) J44.9 Dysphasia following cerebral infarction I69.321 History of CVA with residual deficit I69.30 Aphasia following cerebral infarction I69.320 Type 2 diabetes mellitus E11.9 Essential (primary) hypertension I10
--- NOTE | 2024-05-18 08:42 | Hospitalist Progress Note ---
Date of Service May 18, 2024 Assessment & Plan (1) Aspiration pneumonia: Plan: Previously treated this admission with intravenous Zosyn and oral Augmentin along with steroids. Chest x-ray done May 17, reveals resolution of right lower lobe infiltrates. 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 Continue current medical management (6) Type 2 diabetes mellitus: Plan: Stable. Continue current medical management (7) Essential (primary) hypertension: Plan: Stable. Continue current medical managementhctz and nifedipine Plan Awaiting placement at [facility] Admission and Anticipated Discharge Date Admission Date: April 04, 2024 Subjective pt is about his usual state, wants to be increased to easy to chew diet, understands risks of aspiration otherwise no new issues Physical Exam Physical Exam: Patient appears stable awake in no distress lung sounds are coarse but nothing different than previous Results & Data Results & Data Vital Signs (Past 12 Hours) Vital Signs Temp Pulse Resp BP Pulse Ox O2 Del Method 05/18/24 07:39 97.7 F 52 L 16 116/76 95 Room Air 05/18/24 07:20 Room Air 05/18/24 07:08 50 L 20 92 Room Air 05/17/24 23:56 Room Air PG Care Time/CCT Total # of Minutes Spent Total Time Spent with Patient: Total time spent is greater than 50% in coordination of care (as documented) at patient's floor/unit and/or counseling patient: Coding Level of Care Code 57215 SUB INP/OBS CARE 2/35MIN Diagnoses Aspiration pneumonia J69.0 COPD (chronic obstructive pulmonary disease) J44.9 Dysphasia following cerebral infarction I69.321 History of CVA with residual deficit I69.30 Aphasia following cerebral infarction I69.320 Type 2 diabetes mellitus E11.9 Essential (primary) hypertension I10
--- NOTE | 2024-05-19 15:41 | Hospitalist Progress Note ---
Date of Service May 19, 2024 Assessment & Plan (1) Aspiration pneumonia: Plan: Previously treated this admission with intravenous Zosyn and oral Augmentin along with steroids. Chest x-ray done May 17, reveals resolution of right lower lobe infiltrates. 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 Continue current medical management (6) Type 2 diabetes mellitus: Plan: Stable. Continue current medical management (7) Essential (primary) hypertension: Plan: Stable. Continue current medical managementhctz and nifedipine Plan Awaiting placement Admission and Anticipated Discharge Date Admission Date: April 04, 2024 Subjective pt is about his usual state, was cautiously increased to easy to chew diet, understands risks of aspiration otherwise no new issues Physical Exam Physical Exam: Patient appears stable awake in no distress lung sounds are coarse but nothing different than previous Results & Data Results & Data Vital Signs (Past 12 Hours) Vital Signs Temp Pulse Resp BP Pulse Ox O2 Del Method 05/19/24 09:50 Room Air 05/19/24 08:05 97.9 F 53 L 16 127/76 94 Room Air 05/19/24 07:31 53 L 16 94 Room Air PG Care Time/CCT Total # of Minutes Spent Total Time Spent with Patient: Total time spent is greater than 50% in coordination of care (as documented) at patient's floor/unit and/or counseling patient: Coding Level of Care Code 75327 SUB INP/OBS CARE 2/35MIN Diagnoses Aspiration pneumonia J69.0 COPD (chronic obstructive pulmonary disease) J44.9 Dysphasia following cerebral infarction I69.321 History of CVA with residual deficit I69.30 Aphasia following cerebral infarction I69.320 Type 2 diabetes mellitus E11.9 Essential (primary) hypertension I10
--- NOTE | 2024-05-20 17:43 | Hospitalist Progress Note ---
Date of Service May 20, 2024 Assessment & Plan (1) History of CVA with residual deficit: Plan: 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, lamictal is therapeutic Patient is aphasic, right hemiplegia, resume aspirin a day add atorvastatin Post CVA seizure disorder has been well-controlled on current medications (2) Dysphasia following cerebral infarction: Plan: Chronic aspiration as a result. speech has seen, recommened puree diet, pt does not want puree and understands risk (3) COPD (chronic obstructive pulmonary disease): Plan: Stable.Continue current pulmonary management (4) Aspiration pneumonia: Plan: Resolved Previously treated this admission with intravenous Zosyn and oral Augmentin along with steroids. Chest x-ray done May 17, reveals resolution of right lower lobe infiltrates. 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 Continue current medical management of basal bolus (6) Essential (primary) hypertension: Plan: Stable. Continue current medical management hctz and losartan Plan Awaiting placement, challenging situation Admission and Anticipated Discharge Date Admission Date: April 04, 2024 Subjective pt is about his usual state, was cautiously increased to easy to chew diet, understands risks of aspiration otherwise no new issues Physical Exam Physical Exam: Patient appears stable awake in no distress lung sounds are coarse but nothing different than previous Results & Data Results & Data Vital Signs (Past 12 Hours) Vital Signs Temp Pulse Resp BP Pulse Ox O2 Del Method 05/20/24 15:14 97.9 F 58 L 18 145/79 H 94 Room Air 05/20/24 09:12 Room Air 05/20/24 07:50 97.5 F L 56 L 18 123/77 96 Room Air PG Care Time/CCT Total # of Minutes Spent Total Time Spent with Patient: Total time spent is greater than 50% in coordination of care (as documented) at patient's floor/unit and/or counseling patient: Coding Level of Care Code 14364 SUB INP/OBS CARE 2/35MIN Diagnoses History of CVA with residual deficit I69.30 Dysphasia following cerebral infarction I69.321 COPD (chronic obstructive pulmonary disease) J44.9 Aspiration pneumonia J69.0 Type 2 diabetes mellitus E11.9 Essential (primary) hypertension I10
--- NOTE | 2024-05-20 22:17 | Electrocardiogram Report ---
Test Reason : Blood Pressure : */* mmHG Vent. Rate : 62 BPM Atrial Rate : 62 BPM P-R Int : 214 ms QRS Dur : 92 ms QT Int : 392 ms P-R-T Axes : 62 29 77 degrees QTcB Int : 397 ms Sinus rhythm with 1st degree A-V block Septal infarct , age undetermined Abnormal ECG When compared with ECG of 08-Apr-2024 12:03, No significant change was found Confirmed by Jamarcus Chinchilla ([id number]) on 05/20/2024 10:16:58 PM Referred By: REFERRED SELF Confirmed By: Jamarcus Chinchilla
[2024-05-21] MEDS ORDERED: ALBUT/IPRATROP 3MG/0.5MG NEB 3 ML VIAL NEB PRN (09:17)
[2024-05-21] MEDS ORDERED: ALBUTEROL 0.083% NEBU SOLN 3 ML VIAL NEB PRN (09:23)
[2024-05-21] MEDS: FLUTICASONE FUROATE 100MCG 14 PUFFS/INHALER INH SCH (11:16)
[2024-05-21] MEDS: UMECLIDINIUM/VILANTEROL 62.5/25MCG 7 PUFFS/INHALER INH SCH (11:16)
--- NOTE | 2024-05-21 13:33 | Hospitalist Progress Note ---
Date of Service May 21, 2024 Assessment & Plan (1) Aspiration pneumonia: (2) H/O: CVA (cerebrovascular accident): (3) Type 2 diabetes mellitus: (4) Seizure disorder as sequela of cerebrovascular accident: (5) BPH (benign prostatic hyperplasia): (6) Essential (primary) hypertension: (7) COPD (chronic obstructive pulmonary disease): (8) Aphasia following cerebral infarction: (9) Dysphasia following cerebral infarction: Plan 63-year-old male with past medical history of CVA with right-sided weakness, aphasia and dysphagia, BPH, essential hypertension, COPD, chronic pain who was brought in by his brother on 04/04/2024 as his brother was unable to take care of patient and was having difficult time getting patient placed. 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 Aspiration precautions #History of CVA with right-sided weakness, aphasia and dysphagia #Essential hypertension Continue aspirin plus statin Continue losartan 25 mg p.o. daily plus hydrochlorothiazide 12.5 mg p.o. daily Monitor vital signs #Seizure disorder secondary to CVA Continue valproic acid 500 mg p.o. twice daily Seizure precautions #Insulin-dependent type 2 diabetes mellitus A1c 7.7 Pharmacy managing glycemic control with Lantus and sliding scale Accu-Cheks before every meal and nightly with sliding scale insulin coverage Monitor glycemic control #Chronic pain Continue gabapentin 1000 mg p.o. 3 times daily Continue Tylenol 1000 mg p.o. 3 times daily as needed pain Continue Celebrex Continue Cymbalta 30 mg p.o. daily Continue Lidoderm patch Monitor LFTs intermittently CODE STATUS: Full code DVT prophylaxis: Lovenox 40 mg subcutaneous daily Patient is awaiting placement Admission and Anticipated Discharge Date Admission Date: April 04, 2024 Subjective Patient seen and examined No new complaints Appears comfortable Patient is nonverbal at baseline Review of Systems Review of Systems: As per HPI Physical Exam Physical Exam: General: No acute distress Psych: Awake and alert HEENT: Anicteric sclera, moist oral mucosa CVS: Regular rate and rhythm Lungs: Bilateral air entry, no wheezing noted Abdomen: Soft, nontender, no rebound, no guarding Ext: No lower extremity edema, no calf tenderness Results & Data Results & Data Vital Signs (Past 12 Hours) Vital Signs Temp Pulse Resp BP Pulse Ox O2 Del Method 05/21/24 08:10 Room Air 05/21/24 07:20 36.5 C 55 L 18 133/72 93 Room Air PG Care Time/CCT Total # of Minutes Spent Total Time Spent with Patient: Total time spent is greater than 50% in coordination of care (as documented) at patient's floor/unit and/or counseling patient: Coding Level of Care Code 34678 SUB INP/OBS CARE 1/25MIN Diagnoses Aspiration pneumonia J69.0 H/O: CVA (cerebrovascular accident) Z86.73 Type 2 diabetes mellitus E11.9 Seizure disorder as sequela of cerebrovascular accident I69.398; G40.909 BPH (benign prostatic hyperplasia) N40.0 Essential (primary) hypertension I10 COPD (chronic obstructive pulmonary disease) J44.9 Aphasia following cerebral infarction I69.320 Dysphasia following cerebral infarction I69.321
[2024-05-21] MEDS: ACETAMINOPHEN 500 MG TAB PO PRN (19:50)
--- NOTE | 2024-05-21 22:00 | Communication Note ---
Date of Service: May 21, 2024 Code purple called. Resident physician and attending Dr. Ayers to bedside. History consistent with an aspiration event. Patient was reportedly purple/blue and coughing with associated desaturation. Patient did have some productive coughing and suctioning that improved symptoms. Saturating well at the time I left bedside. Did order CXR and speech eval. Made NPO - no sips/chips/meds. Reviewed med list. Nothing needs to be changed to IV at present as he got his evening meds. Would reassess in the AM, per day team. Has been treated for aspiration pneumonia during this hospital stay. If worsening clinical picture would restart abx and steroids. Patient did have clonus on exam that has not been noted previously. Does not seem to have any new neurological deficits, but he has had several strokes in the past. Would have a low threshold to repeat imaging if he does begin to demonstrate deficits. Resident Activity Tracking Resident Involvement: Resident Care Provided Care Provided: Adult Hospital Medicine
--- NOTE | 2024-05-21 22:06 | XRay Report ---
SINGLE VIEW CHEST CLINICAL HISTORY: Aspiration event. FINDINGS: An AP, portable, upright chest radiograph is compared to study dated 05/17/2024 and correlat ed with chest CT dated 04/19/2024. The examination is degraded by portable technique and apical lordot ic positioning. The heart is enlarged noting atherosclerotic calcification of the thoracic aorta. The pulmonary vasculature is noncongested. Chronic interstitial thickening similar to previous. There is bibasilar scarring/atelectasis. Right lower lobe airspace opacities have completely resolved. There is trace right pleural effusion. No pneumothorax is seen. The skeletal structures are osteopenic. The re are chronic/healed left-sided rib fractures. A left shoulder arthroplasty is in place. Arthritic c hange is noted in the right shoulder. IMPRESSION: 1. Cardiomegaly without radiographic evidence of congestive failure. 2. Right lower lobe airspace opacities have almost completely resolved. 3. Small right pleural effusion. ACT 112: Negative or not required by law. Electronically signed by: Douglas Colunga M.D. 05/21/2024 10:05 PM
[2024-05-22 08:36] LABS: Basophils # (auto) 0.11 K/uL (0.00-0.20); Basophils % (auto) 1.2 %; Eosinophils # (auto) 0.37 K/uL (0.00-0.50); Hematocrit (blood only) 52.3 % (42.0-52.0); Hemoglobin 17.4 g/dl (14.0-18.0); Immature Granulocytes # (auto) 0.01 K/uL (0.01-0.20); Immature Granulocytes % (auto) 0.1 %; Lymphocytes % (auto) 49.8 %; Mean Corpuscular Hemoglobin 28.9 pg (25.0-34.0); Mean Corpuscular Hgb Conc 33.3 g/dL (32.0-36.0); Mean Corpuscular Volume 86.9 fL (80.0-100.0); Mean Platelet Volume 9.9 fL (9.4-12.4); Monocytes # (auto) 0.46 K/uL (0.11-0.59); Neutrophils # (auto) 3.69 K/uL (1.40-6.50); Neutrophils % (auto) 39.9 %; Platelet Count 273 K/uL (130-400); RDW Coefficient of Variation 14.3 % (11.5-14.5); RDW Standard Deviation 45.4 fL (36.4-46.3); Red Blood Count 6.02 M/uL (4.70-6.10); White Blood Count 9.24 K/ul (4.8-10.8)
[2024-05-22 08:52] LABS: BUN Creatinine Ratio 25.2 (10-20); Calcium 9.9 mg/dl (8.6-10.3); Est GFR (African American) 89.2 ml/min; Est GFR (Non-African American) 76.9 ml/min; Magnesium 1.9 mg/dl (1.7-2.4)
--- NOTE | 2024-05-22 11:34 | Hospitalist Progress Note ---
Date of Service May 22, 2024 Assessment & Plan (1) Aspiration pneumonia: (2) H/O: CVA (cerebrovascular accident): (3) Type 2 diabetes mellitus: (4) Seizure disorder as sequela of cerebrovascular accident: (5) BPH (benign prostatic hyperplasia): (6) Essential (primary) hypertension: (7) COPD (chronic obstructive pulmonary disease): (8) Aphasia following cerebral infarction: (9) Dysphasia following cerebral infarction: Plan 63-year-old male with past medical history of CVA with right-sided weakness, aphasia and dysphagia, BPH, essential hypertension, COPD, chronic pain who was brought in by his brother on 04/04/2024 as his brother was unable to take care of patient and was having difficult time getting patient placed. 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 He is saturating well on room air Aspiration precautions Patient educated on aspiration precautions and out of bed to chair for all meals, no meals in bed: This was discussed with patient and nursing staff in great detail Awaiting speech therapy follow-up #History of CVA with right-sided weakness, aphasia and dysphagia #Essential hypertension Continue aspirin plus statin Continue losartan 25 mg p.o. daily plus hydrochlorothiazide 12.5 mg p.o. daily Monitor vital signs #Seizure disorder secondary to CVA Continue valproic acid 500 mg p.o. twice daily Seizure precautions #Insulin-dependent type 2 diabetes mellitus A1c 7.7 Pharmacy managing glycemic control with Lantus and sliding scale Accu-Cheks before every meal and nightly with sliding scale insulin coverage Monitor glycemic control #Chronic pain Continue gabapentin 1000 mg p.o. 3 times daily Continue Tylenol 1000 mg p.o. 3 times daily as needed pain Continue Celebrex Continue Cymbalta 30 mg p.o. daily Continue Lidoderm patch Monitor LFTs intermittently CODE STATUS: Full code DVT prophylaxis: Lovenox 40 mg subcutaneous daily Patient is awaiting placement Admission and Anticipated Discharge Date Admission Date: April 04, 2024 Subjective Patient seen and examined with nursing staff Overnight patient had aspiration event Chest x-ray reviewed and does not show any evidence of consolidation Patient currently resting comfortably, no respiratory distress and saturating well on room air Patient had breakfast this morning without any issues Patient educated on sitting up in the chair for all meals Awaiting speech therapy follow-up Review of Systems Review of Systems: As per HPI Physical Exam Physical Exam: General: No acute distress Psych: Awake and alert HEENT: Anicteric sclera, moist oral mucosa CVS: Regular rate and rhythm Lungs: Bilateral air entry, no wheezing noted Abdomen: Soft, nontender, no rebound, no guarding Ext: No lower extremity edema, no calf tenderness Results & Data Results & Data Vital Signs (Past 12 Hours) Vital Signs Temp Pulse Resp BP Pulse Ox O2 Del Method 05/22/24 08:22 36.4 C L 52 L 18 128/76 94 Room Air 05/22/24 07:35 Room Air 05/22/24 04:03 94 Room Air 05/22/24 00:30 59 L 18 95 Room Air Laboratory Results Laboratory Results - last 24 hr 05/21/24 05/21/24 05/21/24 11:47 17:18 20:26 WBC RBC Hgb Hct MCV MCH MCHC RDW Std Deviation RDW Coeff of Jessica Plt Count MPV Immature Gran % (Auto) Neut % (Auto) Lymph % (Auto) [place]ry % (Auto) Eos % (Auto) Baso % (Auto) Neut # (Auto) Lymph # (Auto) [place] # (Auto) Eos # (Auto) Baso # (Auto) Immature Gran # (Auto) Sodium Potassium Chloride Carbon Dioxide Anion Gap BUN Creatinine Est Cr Clr Drug Dosing Est GFR ( Amer) Est GFR (Non-Af Amer) BUN/Creatinine Ratio Glucose POC Glucose 105 H 101 H 190 H Calcium Magnesium 05/22/24 05/22/24 07:34 08:24 WBC 9.24 RBC 6.02 Hgb 17.4 Hct 52.3 H MCV 86.9 MCH 28.9 MCHC 33.3 RDW Std Deviation 45.4 RDW Coeff of Jessica 14.3 Plt Count 273 MPV 9.9 Immature Gran % (Auto) 0.1 Neut % (Auto) 39.9 Lymph % (Auto) 49.8 Surry % (Auto) 5.0 Eos % (Auto) 4.0 Baso % (Auto) 1.2 Neut # (Auto) 3.69 Lymph # (Auto) 4.60 H Surry # (Auto) 0.46 Eos # (Auto) 0.37 Baso # (Auto) 0.11 Immature Gran # (Auto) 0.01 Sodium 136 Potassium 4.0 Chloride 100 Carbon Dioxide 29 Anion Gap 7 BUN 26 H Creatinine 1.03 Est Cr Clr Drug Dosing 78.0 Est GFR ( Amer) 89.2 Est GFR (Non-Af Amer) 76.9 BUN/Creatinine Ratio 25.2 H Glucose 88 POC Glucose 77 Calcium 9.9 Magnesium 1.9 Diagnostic Findings Chest X-Ray 05/21/24 21:42 SINGLE VIEW CHEST CLINICAL HISTORY: Aspiration event. FINDINGS: An AP, portable, upright chest radiograph is compared to study dated 05/17/2024 and correlated with chest CT dated 04/19/2024. The examination is degraded by portable technique and apical lordotic positioning. The heart is enlarged noting atherosclerotic calcification of the thoracic aorta. The pulmonary vasculature is noncongested. Chronic interstitial thickening similar to previous. There is bibasilar scarring/atelectasis. Right lower lobe airspace opacities have completely resolved. There is trace right pleural effusion. No pneumothorax is seen. The skeletal structures are osteopenic. There are chronic/healed left-sided rib fractures. A left shoulder arthroplasty is in place. Arthritic change is noted in the right shoulder. IMPRESSION: 1. Cardiomegaly without radiographic evidence of congestive failure. 2. Right lower lobe airspace opacities have almost completely resolved. 3. Small right pleural effusion. ACT 112: Negative or not required by law. Electronically signed by: Douglas Colunga M.D. 05/21/2024 10:05 PM PG Care Time/CCT Total # of Minutes Spent Total Time Spent with Patient: Total time spent is greater than 50% in coordination of care (as documented) at patient's floor/unit and/or counseling patient: Coding Level of Care Code 79910 SUB INP/OBS CARE 2/35MIN Diagnoses Aspiration pneumonia J69.0 H/O: CVA (cerebrovascular accident) Z86.73 Type 2 diabetes mellitus E11.9 Seizure disorder as sequela of cerebrovascular accident I69.398; G40.909 BPH (benign prostatic hyperplasia) N40.0 Essential (primary) hypertension I10 COPD (chronic obstructive pulmonary disease) J44.9 Aphasia following cerebral infarction I69.320 Dysphasia following cerebral infarction I69.321
[2024-05-22] MEDS: MAGNESIUM OXIDE 400 MG TAB PO SCH (15:36)
[2024-05-22] MEDS: POLYETHYLENE (MIRALAX) 17 GM PACK PO PRN (16:54)
[2024-05-22] MEDS: SENNA 8.6 MG TAB PO SCH (20:52)
--- NOTE | 2024-05-23 12:23 | Hospitalist Progress Note ---
Date of Service May 23, 2024 Assessment & Plan (1) Aspiration pneumonia: (2) H/O: CVA (cerebrovascular accident): (3) Type 2 diabetes mellitus: (4) Seizure disorder as sequela of cerebrovascular accident: (5) BPH (benign prostatic hyperplasia): (6) Essential (primary) hypertension: (7) COPD (chronic obstructive pulmonary disease): (8) Aphasia following cerebral infarction: (9) Dysphasia following cerebral infarction: Plan 63-year-old male with past medical history of CVA with right-sided weakness, aphasia and dysphagia, BPH, essential hypertension, COPD, chronic pain who was brought in by his brother on 04/04/2024 as his brother was unable to take care of patient and was having difficult time getting patient placed. 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 He is saturating well on room air Aspiration precautions Patient educated on aspiration precautions and out of bed to chair for all meals, no meals in bed: This was discussed with patient and nursing staff in great detail Awaiting speech therapy follow-up #History of CVA with right-sided weakness, aphasia and dysphagia #Essential hypertension Continue aspirin plus statin Continue losartan 25 mg p.o. daily plus hydrochlorothiazide 12.5 mg p.o. daily Monitor vital signs #Seizure disorder secondary to CVA Continue valproic acid 500 mg p.o. twice daily Seizure precautions #Insulin-dependent type 2 diabetes mellitus A1c 7.7 Pharmacy managing glycemic control with Lantus and sliding scale Accu-Cheks before every meal and nightly with sliding scale insulin coverage Monitor glycemic control #Chronic pain Continue gabapentin 1000 mg p.o. 3 times daily Continue Tylenol 1000 mg p.o. 3 times daily as needed pain Continue Celebrex Continue Cymbalta 30 mg p.o. daily Continue Lidoderm patch Monitor LFTs intermittently CODE STATUS: Full code DVT prophylaxis: Lovenox 40 mg subcutaneous daily Patient is awaiting placement Admission and Anticipated Discharge Date Admission Date: April 04, 2024 Subjective Patient seen and examined He is sitting upright in the chair eating lunch No overnight events noted Patient appears comfortable and he is aphasic but denies any new chest pain or shortness of breath Review of Systems Review of Systems: As per HPI Physical Exam Physical Exam: General: No acute distress Psych: Awake and alert HEENT: Anicteric sclera, moist oral mucosa CVS: Regular rate and rhythm Lungs: Bilateral air entry, no wheezing noted Abdomen: Soft, nontender, no rebound, no guarding Ext: No lower extremity edema, no calf tenderness Results & Data Results & Data Vital Signs (Past 12 Hours) Vital Signs Temp Pulse Resp BP Pulse Ox O2 Del Method 05/23/24 08:05 36.8 C 68 18 121/77 94 Room Air 05/23/24 07:35 Room Air PG Care Time/CCT Total # of Minutes Spent Total Time Spent with Patient: Total time spent is greater than 50% in coordination of care (as documented) at patient's floor/unit and/or counseling patient: Coding Level of Care Code 94566 SUB INP/OBS CARE 1/25MIN Diagnoses Aspiration pneumonia J69.0 H/O: CVA (cerebrovascular accident) Z86.73 Type 2 diabetes mellitus E11.9 Seizure disorder as sequela of cerebrovascular accident I69.398; G40.909 BPH (benign prostatic hyperplasia) N40.0 Essential (primary) hypertension I10 COPD (chronic obstructive pulmonary disease) J44.9 Aphasia following cerebral infarction I69.320 Dysphasia following cerebral infarction I69.321
--- NOTE | 2024-05-24 13:32 | Hospitalist Progress Note ---
Date of Service May 24, 2024 Assessment & Plan (1) Aspiration pneumonia: (2) H/O: CVA (cerebrovascular accident): (3) Type 2 diabetes mellitus: (4) Seizure disorder as sequela of cerebrovascular accident: (5) BPH (benign prostatic hyperplasia): (6) Essential (primary) hypertension: (7) COPD (chronic obstructive pulmonary disease): (8) Aphasia following cerebral infarction: (9) Dysphasia following cerebral infarction: Plan 63-year-old male with past medical history of CVA with right-sided weakness, aphasia and dysphagia, BPH, essential hypertension, COPD, chronic pain who was brought in by his brother on 04/04/2024 as his brother was unable to take care of patient and was having difficult time getting patient placed. During hospital stay patient has been treated for COPD exacerbation secondary to aspiration pneumonia with completion of steroids on 05/07/2024 with repeat aspiration event on 05/10/2024 He is awaiting placement #Aspiration pneumonia #COPD #Dysphagia secondary to CVA Patient finished 7 days of antibiotics (5 days of IV Zosyn +2 days of oral Augmentin) on 05/16/2024 [employer] SCI[employer] DIRECT[employer] recs: minced and moist IDDSI 5, moderately thick liquids, aspiration precautions Patient has completed prednisone taper on 05/07/2024 Continue inhalers Patient had a repeat aspiration event overnight on 05/21/2024 Chest x-ray from 05/21/2024 after aspiration event shows right lower lobe airspace opacities have almost completely resolved. He is saturating well on room air Aspiration precautions Patient educated on aspiration precautions and out of bed to chair for all meals, no meals in bed: This was discussed with patient and nursing staff in great detail Awaiting speech therapy follow-up #History of CVA with right-sided weakness, aphasia and dysphagia #Essential hypertension Continue aspirin plus statin Continue losartan 25 mg p.o. daily plus hydrochlorothiazide 12.5 mg p.o. daily Monitor vital signs #Seizure disorder secondary to CVA Continue valproic acid 500 mg p.o. twice daily Seizure precautions #Insulin-dependent type 2 diabetes mellitus A1c 7.7 Pharmacy managing glycemic control with Lantus and sliding scale Accu-Cheks before every meal and nightly with sliding scale insulin coverage Monitor glycemic control #Chronic pain Continue gabapentin 1000 mg p.o. 3 times daily Continue Tylenol 1000 mg p.o. 3 times daily as needed pain Continue Celebrex Continue Cymbalta 30 mg p.o. daily Continue Lidoderm patch Monitor LFTs intermittently CODE STATUS: Full code DVT prophylaxis: Lovenox 40 mg subcutaneous daily Patient is awaiting placement Admission and Anticipated Discharge Date Admission Date: April 04, 2024 Subjective Patient seen and examined Vitals reviewed No overnight events noted Patient denies any new complaints Review of Systems Review of Systems: As per HPI Physical Exam Physical Exam: General: No acute distress Psych: Awake and alert HEENT: Anicteric sclera, moist oral mucosa CVS: Regular rate and rhythm Lungs: Bilateral air entry, no wheezing noted Abdomen: Soft, nontender, no rebound, no guarding Ext: No lower extremity edema, no calf tenderness Results & Data Results & Data Vital Signs (Past 12 Hours) Vital Signs Temp Pulse Resp BP Pulse Ox O2 Del Method 05/24/24 07:04 36.5 C 50 L 16 138/77 94 Room Air PG Care Time/CCT Total # of Minutes Spent Total Time Spent with Patient: Total time spent is greater than 50% in coordination of care (as documented) at patient's floor/unit and/or counseling patient: Coding Level of Care Code 28654 SUB INP/OBS CARE 1/25MIN Diagnoses Aspiration pneumonia J69.0 H/O: CVA (cerebrovascular accident) Z86.73 Type 2 diabetes mellitus E11.9 Seizure disorder as sequela of cerebrovascular accident I69.398; G40.909 BPH (benign prostatic hyperplasia) N40.0 Essential (primary) hypertension I10 COPD (chronic obstructive pulmonary disease) J44.9 Aphasia following cerebral infarction I69.320 Dysphasia following cerebral infarction I69.321
--- NOTE | 2024-05-25 14:46 | Hospitalist Progress Note ---
Date of Service May 25, 2024 Assessment & Plan (1) Aspiration pneumonia: (2) H/O: CVA (cerebrovascular accident): (3) Type 2 diabetes mellitus: (4) Seizure disorder as sequela of cerebrovascular accident: (5) BPH (benign prostatic hyperplasia): (6) Essential (primary) hypertension: (7) COPD (chronic obstructive pulmonary disease): (8) Aphasia following cerebral infarction: (9) Dysphasia following cerebral infarction: Plan 63-year-old male with past medical history of CVA with right-sided weakness, aphasia and dysphagia, BPH, essential hypertension, COPD, chronic pain who was brought in by his brother on 04/04/2024 as his brother was unable to take care of patient and was having difficult time getting patient placed. 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 He is saturating well on room air Aspiration precautions Patient educated on aspiration precautions and out of bed to chair for all meals, no meals in bed: This was discussed with patient and nursing staff in great detail Awaiting speech therapy follow-up #History of CVA with right-sided weakness, aphasia and dysphagia #Essential hypertension Continue aspirin plus statin Continue losartan 25 mg p.o. daily plus hydrochlorothiazide 12.5 mg p.o. daily Monitor vital signs #Seizure disorder secondary to CVA Continue valproic acid 500 mg p.o. twice daily Seizure precautions #Insulin-dependent type 2 diabetes mellitus A1c 7.7 Pharmacy managing glycemic control with Lantus and sliding scale Accu-Cheks before every meal and nightly with sliding scale insulin coverage Monitor glycemic control #Chronic pain Continue gabapentin 1000 mg p.o. 3 times daily Continue Tylenol 1000 mg p.o. 3 times daily as needed pain Continue Celebrex Continue Cymbalta 30 mg p.o. daily Continue Lidoderm patch Monitor LFTs intermittently CODE STATUS: Full code DVT prophylaxis: Lovenox 40 mg subcutaneous daily Patient is awaiting placement Admission and Anticipated Discharge Date Admission Date: April 04, 2024 Subjective Patient seen and examined Vitals reviewed Patient smiling, denies any chest pain or shortness of breath Review of Systems Review of Systems: As per HPI Physical Exam Physical Exam: General: No acute distress Psych: Awake and alert HEENT: Anicteric sclera, moist oral mucosa CVS: Regular rate and rhythm Lungs: Bilateral air entry, no wheezing noted Abdomen: Soft, nontender, no rebound, no guarding Ext: No lower extremity edema, no calf tenderness Results & Data Results & Data Vital Signs (Past 12 Hours) Vital Signs Temp Pulse Resp BP Pulse Ox O2 Del Method 05/25/24 14:17 36.6 C 57 L 17 126/66 95 Room Air 05/25/24 08:00 Room Air 05/25/24 07:27 36.7 C 61 16 129/79 94 Room Air PG Care Time/CCT Total # of Minutes Spent Total Time Spent with Patient: Total time spent is greater than 50% in coordination of care (as documented) at patient's floor/unit and/or counseling patient: Coding Level of Care Code 10992 SUB INP/OBS CARE 09/18MIN Diagnoses Aspiration pneumonia J69.0 H/O: CVA (cerebrovascular accident) Z86.73 Type 2 diabetes mellitus E11.9 Seizure disorder as sequela of cerebrovascular accident I69.398; G40.909 BPH (benign prostatic hyperplasia) N40.0 Essential (primary) hypertension I10 COPD (chronic obstructive pulmonary disease) J44.9 Aphasia following cerebral infarction I69.320 Dysphasia following cerebral infarction I69.321
[2024-05-26 06:34] LABS: Hematocrit (blood only) 45.8 % (42.0-52.0); Hemoglobin 15.5 g/dl (14.0-18.0); Mean Corpuscular Hemoglobin 29.2 pg (25.0-34.0); Mean Corpuscular Hgb Conc 33.8 g/dL (32.0-36.0); Mean Corpuscular Volume 86.4 fL (80.0-100.0); Mean Platelet Volume 10.4 fL (9.4-12.4); Platelet Count 242 K/uL (130-400); RDW Coefficient of Variation 14.3 % (11.5-14.5); RDW Standard Deviation 45.4 fL (36.4-46.3); White Blood Count 7.78 K/ul (4.8-10.8)
[2024-05-26 06:51] LABS: Albumin Globulin Ratio 1.4 (0.9-2); Albumin Level 3.8 gm/dl (3.4-5.0); BUN Creatinine Ratio 23.2 (10-20); Bilirubin,Total 0.4 mg/dl (0.2-1.0); Calcium 9.4 mg/dl (8.6-10.3); Creatinine Clr Calc Pharmacy 85.6 ml/min; Est GFR (African American) 98.3 ml/min; Est GFR (Non-African American) 84.9 ml/min; Globulin 2.8 gm/dl (2.5-4.0); Total Protein 6.6 gm/dl (6.0-8.3)
--- NOTE | 2024-05-27 02:49 | Hospitalist Progress Note ---
Date of Service May 26, 2024 Assessment & Plan (1) Aspiration pneumonia: Plan: treated for such with 7 day course of abx in April resolved clinically & radiographically cont thickened liquids, etc to reduce risk of aspiration (2) H/O: CVA (cerebrovascular accident): Plan: left MCA territory stroke with resulting right-sided hemiparesis & dense expressive aphasia cont asa 81mg daily + lipitor 40mg daily for secondary prevention (3) Type 2 diabetes mellitus: Plan: cont basal-bolus insulin last a1c 7.7% early in 04/2024 pharmacy glycemic team managing (4) Seizure disorder as sequela of cerebrovascular accident: Plan: Continue valproic acid 500 mg p.o. twice daily Levels in March 2024 were therapeutic (5) BPH (benign prostatic hyperplasia): Plan: was previously on flomax but it timed out a few days ago; will reorder (6) Essential (primary) hypertension: Plan: cont losartan cont HCTZ controlled (7) COPD (chronic obstructive pulmonary disease): Plan: cont inhalers no flare at this time did have a recent exacerbation earlier in April - resolved COPD exacerbation was secondary to aspiration pneumonia with completion of steroids on 05/07/2024 and completion of 7 days of antibiotics on 05/16/2024 (8) Aphasia following cerebral infarction: Plan: left MCA territory CVA in the past (9) Dysphasia following cerebral infarction: Plan: cont easy to chew diet & honey thickened liquids he is a known aspirator Patient had a repeat aspiration event overnight on 05/21/2024 Chest x-ray from 05/21/2024 after the aspiration event showed right lower lobe airspace opacities that were nearly resolved A repeat course of abx was deferred at this time (10) Chronic pain: Plan: Continue gabapentin 1000 mg p.o. 3 times daily Continue Tylenol 1000 mg p.o. 3 times daily prn Continue Celebrex 200mg qam Reorder Cymbalta 30 mg p.o. daily Continue Lidoderm patch Plan DVT prophylaxis - Lovenox 40 mg subcutaneous daily Disposition - uncertain Admission and Anticipated Discharge Date Admission Date: April 04, 2024 Subjective patient lying in bed watching TV shook head "no" to the following symptoms/complaints - * headache * chest pain * abd pain * back pain * dyspnea * nausea per nursing flowsheets eating well passing stools Review of Systems Review of Systems: as above under "subjective" section Physical Exam Physical Exam: gen - lying in bed, NAD; expressive aphasia mouth - MMM neck - no JVD heart - RRR, s1 s2, no murmur lungs - CTA b/l abd - soft NT ND BS+ ext - no edema, pulses 2+ b/l neuro - right-sided hemiparesis, expressive aphasia Results & Data Results & Data Vital Signs (Past 12 Hours) Vital Signs Temp Pulse Resp BP Pulse Ox O2 Del Method 05/26/24 14:24 36.5 C 56 L 16 114/63 93 Room Air 05/26/24 07:21 36.4 C L 53 L 16 152/70 H 95 Room Air Laboratory Results Laboratory Results - last 24 hr 05/26/24 05/26/24 05/26/24 06:09 07:52 11:32 WBC 7.78 RBC 5.30 Hgb 15.5 Hct 45.8 MCV 86.4 MCH 29.2 MCHC 33.8 RDW Std Deviation 45.4 RDW Coeff of Jessica 14.3 Plt Count 242 MPV 10.4 Sodium 138 Potassium 4.0 Chloride 101 Carbon Dioxide 30 Anion Gap 7 BUN 22 Creatinine 0.95 Est Cr Clr Drug Dosing 85.6 Est GFR ( Amer) 98.3 Est GFR (Non-Af Amer) 84.9 BUN/Creatinine Ratio 23.2 H Glucose 180 H POC Glucose 158 H 99 Calcium 9.4 Magnesium 2.0 Total Bilirubin 0.4 AST 13 ALT 15 Alkaline Phosphatase 45 Total Protein 6.6 Albumin 3.8 Globulin 2.8 Albumin/Globulin Ratio 1.4 05/26/24 16:36 WBC RBC Hgb Hct MCV MCH MCHC RDW Std Deviation RDW Coeff of Jessica Plt Count MPV Sodium Potassium Chloride Carbon Dioxide Anion Gap BUN Creatinine Est Cr Clr Drug Dosing Est GFR ( Amer) Est GFR (Non-Af Amer) BUN/Creatinine Ratio Glucose POC Glucose 99 Calcium Magnesium Total Bilirubin AST ALT Alkaline Phosphatase Total Protein Albumin Globulin Albumin/Globulin Ratio PG Care Time/CCT Total # of Minutes Spent Total Time Spent with Patient: Total time spent is greater than 50% in coordination of care (as documented) at patient's floor/unit and/or counseling patient: Coding Level of Care Code 00851 SUB INP/OBS CARE 25MIN Diagnoses Aspiration pneumonia J69.0 H/O: CVA (cerebrovascular accident) Z86.73 Type 2 diabetes mellitus E11.9 Seizure disorder as sequela of cerebrovascular accident I69.398; G40.909 BPH (benign prostatic hyperplasia) N40.0 Essential (primary) hypertension I10 COPD (chronic obstructive pulmonary disease) J44.9 Aphasia following cerebral infarction I69.320 Dysphasia following cerebral infarction I69.321 Chronic pain G89.29
[2024-05-27] MEDS: DULoxetine HCL 30 MG CAP PO SCH (09:58)
--- NOTE | 2024-05-27 14:36 | Hospitalist Progress Note ---
Date of Service May 27, 2024 Assessment & Plan (1) Aspiration pneumonia: Plan: treated for such with 7 day course of abx in April resolved clinically & radiographically cont thickened liquids, etc to reduce risk of aspiration (2) H/O: CVA (cerebrovascular accident): Plan: left MCA territory stroke with resulting right-sided hemiparesis & dense expressive aphasia cont asa 81mg daily + lipitor 40mg daily for secondary prevention (3) Type 2 diabetes mellitus: Plan: cont basal-bolus insulin last a1c 7.7% early in 04/2024 pharmacy glycemic team managing (4) Seizure disorder as sequela of cerebrovascular accident: Plan: Continue valproic acid 500 mg p.o. twice daily Levels in March 2024 were therapeutic (5) BPH (benign prostatic hyperplasia): Plan: was previously on flomax but it timed out a few days ago; will reorder (6) Essential (primary) hypertension: Plan: cont losartan cont HCTZ controlled (7) COPD (chronic obstructive pulmonary disease): Plan: cont inhalers no flare at this time did have a recent exacerbation earlier in April - resolved COPD exacerbation was secondary to aspiration pneumonia with completion of steroids on 05/07/2024 and completion of 7 days of antibiotics on 05/16/2024 Added nicotine patch as patient wants to smoke (8) Aphasia following cerebral infarction: Plan: left MCA territory CVA in the past (9) Dysphasia following cerebral infarction: Plan: cont easy to chew diet & honey thickened liquids he is a known aspirator Patient had a repeat aspiration event overnight on 05/21/2024 Chest x-ray from 05/21/2024 after the aspiration event showed right lower lobe airspace opacities that were nearly resolved A repeat course of abx was deferred at this time (10) Chronic pain: Plan: Continue gabapentin 1000 mg p.o. 3 times daily Continue Tylenol 1000 mg p.o. 3 times daily prn Continue Celebrex 200mg qam Reorder Cymbalta 30 mg p.o. daily Continue Lidoderm patch Plan DVT prophylaxis - Lovenox 40 mg subcutaneous daily Disposition - uncertain Admission and Anticipated Discharge Date Admission Date: April 04, 2024 Subjective 63 yo male reports no new symptoms. Review of Systems Review of Systems: All systems reviewed & are unremarkable except as noted in HPI & below Physical Exam Physical Exam: NC/AT No acute distress. No JVD. Lungs: clearer breath sounds has pulmonary mechanics and finger clubbing consistent with copd abd is soft but not acute cardiac exam regular no murmur no rub Results & Data Results & Data Vital Signs (Past 12 Hours) Vital Signs Temp Pulse Resp BP Pulse Ox O2 Del Method 05/27/24 07:42 36.4 C L 54 L 16 126/74 96 Room Air 05/27/24 07:35 Room Air PG Care Time/CCT Total # of Minutes Spent Total Time Spent with Patient: Total time spent is greater than 50% in coordination of care (as documented) at patient's floor/unit and/or counseling patient: Coding Level of Care Code 71214 SUB INP/OBS CARE 2/35MIN Diagnoses Aspiration pneumonia J69.0 H/O: CVA (cerebrovascular accident) Z86.73 Type 2 diabetes mellitus E11.9 Seizure disorder as sequela of cerebrovascular accident I69.398; G40.909 BPH (benign prostatic hyperplasia) N40.0 Essential (primary) hypertension I10 COPD (chronic obstructive pulmonary disease) J44.9 Aphasia following cerebral infarction I69.320 Dysphasia following cerebral infarction I69.321 Chronic pain G89.29
[2024-05-27] MEDS: NICOTINE 7 MG/24 HR TDSY TD SCH (16:38)
[2024-05-27] MEDS: TAMSULOSIN HCL 0.4 MG CAP PO SCH (20:07)
--- NOTE | 2024-05-29 08:50 | Hospitalist Progress Note ---
Date of Service May 28, 2024 Assessment & Plan (1) Aspiration pneumonia: Plan: treated for such with 7 day course of abx in April resolved clinically & radiographically cont thickened liquids, etc to reduce risk of aspiration (2) H/O: CVA (cerebrovascular accident): Plan: left MCA territory stroke with resulting right-sided hemiparesis & dense expressive aphasia cont asa 81mg daily + lipitor 40mg daily for secondary prevention (3) Type 2 diabetes mellitus: Plan: cont basal-bolus insulin last a1c 7.7% early in 04/2024 pharmacy glycemic team managing (4) Seizure disorder as sequela of cerebrovascular accident: Plan: Continue valproic acid 500 mg p.o. twice daily Levels in March 2024 were therapeutic (5) BPH (benign prostatic hyperplasia): Plan: was previously on flomax but it timed out a few days ago; will reorder (6) Essential (primary) hypertension: Plan: cont losartan cont HCTZ controlled (7) COPD (chronic obstructive pulmonary disease): Plan: cont inhalers no flare at this time did have a recent exacerbation earlier in April - resolved COPD exacerbation was secondary to aspiration pneumonia with completion of steroids on 05/07/2024 and completion of 7 days of antibiotics on 05/16/2024 Added nicotine patch as patient wants to smoke (8) Aphasia following cerebral infarction: Plan: left MCA territory CVA in the past (9) Dysphasia following cerebral infarction: Plan: cont easy to chew diet & honey thickened liquids he is a known aspirator Patient had a repeat aspiration event overnight on 05/21/2024 Chest x-ray from 05/21/2024 after the aspiration event showed right lower lobe airspace opacities that were nearly resolved A repeat course of abx was deferred at this time (10) Chronic pain: Plan: Continue gabapentin 1000 mg p.o. 3 times daily Continue Tylenol 1000 mg p.o. 3 times daily prn Continue Celebrex 200mg qam Reorder Cymbalta 30 mg p.o. daily Continue Lidoderm patch If patient continues with pain, will consider lidocaine gel Plan DVT prophylaxis - Lovenox 40 mg subcutaneous daily Disposition - uncertain Admission and Anticipated Discharge Date Admission Date: April 04, 2024 Subjective 63 yo male reports left shoulder pain. Review of Systems Review of Systems: All systems reviewed & are unremarkable except as noted in HPI & below Physical Exam Physical Exam: NC/AT No acute distress. No JVD. Lungs: clearer breath sounds has pulmonary mechanics and finger clubbing consistent with copd abd is soft but not acute cardiac exam regular no murmur no rub Results & Data Results & Data Vital Signs (Past 12 Hours) Vital Signs Temp Pulse Resp BP Pulse Ox O2 Del Method 05/29/24 07:42 36.3 C L 54 L 16 132/79 94 Room Air 05/28/24 21:30 Room Air PG Care Time/CCT Total # of Minutes Spent Total Time Spent with Patient: Total time spent is greater than 50% in coordination of care (as documented) at patient's floor/unit and/or counseling patient: Coding Level of Care Code 79673 SUB INP/OBS CARE 2/35MIN Diagnoses Aspiration pneumonia J69.0 H/O: CVA (cerebrovascular accident) Z86.73 Type 2 diabetes mellitus E11.9 Seizure disorder as sequela of cerebrovascular accident I69.398; G40.909 BPH (benign prostatic hyperplasia) N40.0 Essential (primary) hypertension I10 COPD (chronic obstructive pulmonary disease) J44.9 Aphasia following cerebral infarction I69.320 Dysphasia following cerebral infarction I69.321 Chronic pain G89.29
[2024-05-29] MEDS: LIDOCAINE 2% JELLY 5 ML TUBE EXT SCH (09:13)
[2024-05-29] MEDS: ACETAMINOPHEN 325 MG TAB PO SCH (09:16)
[2024-05-29] MEDS: traMADol HCL 50 MG TABLET PO STA (15:28)
--- NOTE | 2024-05-29 16:56 | Hospitalist Progress Note ---
Date of Service May 29, 2024 Assessment & Plan (1) Aspiration pneumonia: Plan: treated for such with 7 day course of abx in April resolved clinically & radiographically cont thickened liquids, etc to reduce risk of aspiration (2) H/O: CVA (cerebrovascular accident): Plan: left MCA territory stroke with resulting right-sided hemiparesis & dense expressive aphasia cont asa 81mg daily + lipitor 40mg daily for secondary prevention (3) Type 2 diabetes mellitus: Plan: cont basal-bolus insulin last a1c 7.7% early in 04/2024 pharmacy glycemic team managing (4) Seizure disorder as sequela of cerebrovascular accident: Plan: Continue valproic acid 500 mg p.o. twice daily Levels in March 2024 were therapeutic (5) BPH (benign prostatic hyperplasia): Plan: was previously on flomax but it timed out a few days ago; will reorder (6) Essential (primary) hypertension: Plan: cont losartan cont HCTZ controlled (7) COPD (chronic obstructive pulmonary disease): Plan: cont inhalers no flare at this time did have a recent exacerbation earlier in April - resolved COPD exacerbation was secondary to aspiration pneumonia with completion of steroids on 05/07/2024 and completion of 7 days of antibiotics on 05/16/2024 Added nicotine patch as patient wants to smoke (8) Aphasia following cerebral infarction: Plan: left MCA territory CVA in the past (9) Dysphasia following cerebral infarction: Plan: cont easy to chew diet & honey thickened liquids he is a known aspirator Patient had a repeat aspiration event overnight on 05/21/2024 Chest x-ray from 05/21/2024 after the aspiration event showed right lower lobe airspace opacities that were nearly resolved A repeat course of abx was deferred at this time (10) Chronic pain: Plan: Continue gabapentin 1000 mg p.o. 3 times daily Continue Tylenol 1000 mg p.o. 3 times daily prn Continue Celebrex 200mg qam Reorder Cymbalta 30 mg p.o. daily Continue Lidoderm patch Added licocaine gel, no improvement. will consult ortho Friday for corticosteroid injectin for rotator cuff tendonitis Gave a one time dose of tramdol. Plan DVT prophylaxis - Lovenox 40 mg subcutaneous daily Disposition - uncertain Admission and Anticipated Discharge Date Admission Date: April 04, 2024 Subjective Patient complaining of left shoulder pain. Review of Systems Review of Systems: All systems reviewed & are unremarkable except as noted in HPI & below Physical Exam Physical Exam: NC/AT No acute distress. No JVD. Lungs: clearer breath sounds has pulmonary mechanics and finger clubbing consistent with copd abd is soft but not acute cardiac exam regular no murmur no rub Results & Data Results & Data Vital Signs (Past 12 Hours) Vital Signs Temp Pulse Pulse Resp BP BP Pulse Ox 05/29/24 14:13 36.5 C 61 16 151/79 H 95 05/29/24 07:42 36.3 C L 54 L 16 132/79 94 05/29/24 07:35 O2 Del Method 05/29/24 14:13 Room Air 05/29/24 07:42 Room Air 05/29/24 07:35 Room Air PG Care Time/CCT Total # of Minutes Spent Total Time Spent with Patient: Total time spent is greater than 50% in coordination of care (as documented) at patient's floor/unit and/or counseling patient: Coding Level of Care Code 94677 SUB INP/OBS CARE 2/35MIN Diagnoses Aspiration pneumonia J69.0 H/O: CVA (cerebrovascular accident) Z86.73 Type 2 diabetes mellitus E11.9 Seizure disorder as sequela of cerebrovascular accident I69.398; G40.909 BPH (benign prostatic hyperplasia) N40.0 Essential (primary) hypertension I10 COPD (chronic obstructive pulmonary disease) J44.9 Aphasia following cerebral infarction I69.320 Dysphasia following cerebral infarction I69.321 Chronic pain G89.29
--- NOTE | 2024-05-30 21:57 | Hospitalist Progress Note ---
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 twice daily Levels in March 2024 were therapeutic (5) BPH (benign prostatic hyperplasia): Plan: was previously on flomax but it timed out a few days ago; will reorder (6) Essential (primary) hypertension: Plan: cont losartan cont HCTZ controlled (7) COPD (chronic obstructive pulmonary disease): Plan: cont inhalers no flare at this time did have a recent exacerbation earlier in April - resolved COPD exacerbation was secondary to aspiration pneumonia with completion of steroids on 05/07/2024 and completion of 7 days of antibiotics on 05/16/2024 Added nicotine patch as patient wants to smoke (8) Aphasia following cerebral infarction: Plan: left MCA territory CVA in the past (9) Dysphasia following cerebral infarction: Plan: cont easy to chew diet & honey thickened liquids he is a known aspirator Patient had a repeat aspiration event overnight on 05/21/2024 Chest x-ray from 05/21/2024 after the aspiration event showed right lower lobe airspace opacities that were nearly resolved A repeat course of abx was deferred at this time (10) Chronic pain: Plan: Continue gabapentin 1000 mg p.o. 3 times daily Continue Tylenol 1000 mg p.o. 3 times daily prn Continue Celebrex 200mg qam Reorder Cymbalta 30 mg p.o. daily Continue Lidoderm patch Added licocaine gel, no improvement. will consult ortho Friday for corticosteroid injectin for rotator cuff tendonitis Gave a one time dose of tramdol. Plan DVT prophylaxis - Lovenox 40 mg subcutaneous daily Disposition - uncertain Admission and Anticipated Discharge Date Admission Date: April 04, 2024 Subjective Patient reports no new symptoms Review of Systems Review of Systems: All systems reviewed & are unremarkable except as noted in HPI & below Physical Exam Physical Exam: NC/AT No acute distress. No JVD. Lungs: clearer breath sounds has pulmonary mechanics and finger clubbing consistent with copd abd is soft but not acute cardiac exam regular no murmur no rub Results & Data Results & Data Vital Signs (Past 12 Hours) Vital Signs Temp Pulse Resp BP BP Pulse Ox O2 Del Method 05/30/24 20:51 36.5 C 66 20 133/73 93 Room Air 05/30/24 15:25 36.4 C 63 16 122/70 93 Room Air PG Care Time/CCT Total # of Minutes Spent Total Time Spent with Patient: Total time spent is greater than 50% in coordination of care (as documented) at patient's floor/unit and/or counseling patient: Coding Level of Care Code 71452 SUB INP/OBS CARE 1MIN Diagnoses Aspiration pneumonia J69.0 H/O: CVA (cerebrovascular accident) Z86.73 Type 2 diabetes mellitus E11.9 Seizure disorder as sequela of cerebrovascular accident I69.398; G40.909 BPH (benign prostatic hyperplasia) N40.0 Essential (primary) hypertension I10 COPD (chronic obstructive pulmonary disease) J44.9 Aphasia following cerebral infarction I69.320 Dysphasia following cerebral infarction I69.321 Chronic pain G89.29
--- NOTE | 2024-05-31 07:18 | Orthopedic Consultation ---
<Statement entered by Wilder Mcnamara, - 05/31/24 18:37> I saw and evaluated the patient this afternoon. I read and agree with FAY Crocker's assessment. The patient is s/p total shoulder arthroplasty now with evidence of a dysfunctional rotator cuff and pain in his shoulder. He may require conversion to reverse in the future due to rotator cuff dysfunction. We discussed the merits of an injection, however I do not think the risks of an injection into the shoulder outweigh the potential benefits. I believe there is risk of prosthetic joint infection would could have potentially devestating consequences. the patient expressed understanding. He can follow up with a shoulder specialist on an outpatient basis. Date of Consultation May 31, 2024 Assessment & Plan (1) Left shoulder pain: Patient with longstanding history of CVA with right-sided hemiparesis and expressive aphasia with other chronic comorbidities. Patient with history of left-sided hemiarthroplasty/TSA of the shoulder with undetermined date of surgery. His last x-rays were done in 2021 which showed a possibly rotator cuff arthropathy. Currently the patient is mildly painful through active and passive range of motion but has more pain on palpation over the glenohumeral joint. No signs of infection at this time. We will go ahead and order new films of the left shoulder. Dr. Wilder Mcnamara will return later this afternoon to review the films and discuss treatment. possibility of injection of the left shoulder will be up to Dr. Mcnamara at this point in time. There are inherent risks of infection of the hemiarthroplasty of which I explained to the patient however this will be up to Dr. Mcnamara when he sees the patient later this afternoon. I will hold off on ordering any injection at this time until approved or disapproved by Dr. Mcnamara. History of Present Illness Reason for Consultation: Left shoulder pain Attending Physician: Chris Edouard History of Present Illness Patient is a 63-year-old male with a past medical history including CVA with left MCA territory stroke with resulting right-sided hemiparesis & dense expressive aphasia BPH and LUTS, type 2 diabetes, hypertension, COPD, aspiration pneumonia that was treated for 7 days. Patient has been in the hospital for an extended stay secondary to placement. He has been to [facility] and and his family was trying to get him transferred to [place] however they felt that he was more care than they could provide. This is what I am gleaning from some of the notes. Patient is able to communicate but is essentially nonverbal secondary to his aphasia. He states he has had the pain in the left shoulder for quite some time. Currently he looks comfortable. He has a history of left-sided hemiarthroplasty of the shoulder which his last films were in 2021. Patient cannot remember the date of his surgery however he feels that it may be around 5 years or so. We have been consulted to see him for his left shoulder pain. Allergies Allergy/AdvReac Type Severity Reaction Status Date / Time No Known Allergies Allergy Verified 04/04/24 22:06 Home Medications Medication Instructions Recorded Confirmed Type acetaminophen 325 mg capsule 650 mg PO Q6H PRN Pain 07/26/22 04/04/24 History aspirin 81 mg tablet,delayed 81 mg PO DAILY 07/26/22 04/04/24 History release guaifenesin 100 mg/5 mL oral 200 mg PO Q8H PRN cough 07/26/22 04/04/24 History liquid (Evon-Tussin) albuterol sulfate 2.5 mg/3 mL 2.5 mg inhalation Q6H PRN COPD 04/04/24 04/04/24 History (0.083 %) solution for nebulization albuterol sulfate 90 mcg/actuation 2 puff inhalation Q6H PRN COPD 04/04/24 04/04/24 History aerosol inhaler divalproex 500 mg tablet,extended 1,000 mg PO HS 04/04/24 04/04/24 History release 24 hr (Depakote ER) gabapentin 800 mg tablet 800 mg PO QID 04/04/24 04/04/24 History hydrochlorothiazide 25 mg tablet 25 mg PO DAILY 04/04/24 04/04/24 History hydroxyzine HCl 25 mg tablet 25 mg PO Q8H PRN Anxiety 04/04/24 04/04/24 History insulin aspart U-100 100 unit/mL 4 unit subcut TIDM 04/04/24 04/04/24 History subcutaneous solution (Novolog U-100 Insulin aspart) insulin glargine 100 unit/mL 30 unit subcut HS 04/04/24 04/04/24 History subcutaneous solution (Lantus U-100 Insulin) melatonin 3 mg tablet 6 mg PO HS PRN Insomnia 04/04/24 04/04/24 History mometasone 100 mcg/actuation HFA 2 puff inhalation BID 04/04/24 04/04/24 History aerosol inhaler (Asmanex HFA) nifedipine 60 mg tablet,extended 60 mg PO DAILY 04/04/24 04/04/24 History release polyethylene glycol 3350 17 gram 17 g PO DAILY 04/04/24 04/04/24 History oral powder packet (Miralax) rosuvastatin 20 mg tablet 20 mg PO HS 04/04/24 04/04/24 History tamsulosin 0.4 mg capsule (Flomax) 0.4 mg PO HS 04/04/24 04/04/24 History tiotropium 2.5 mcg-olodaterol 2.5 2 puff inhalation DAILY 04/04/24 04/04/24 History mcg/actuation mist for inhalation (Stiolto Respimat) Patient History Medical History Esophagitis Pneumonia COVID-19 Acute hypoxemic respiratory failure Dysphagia, oropharyngeal phase Opioid dependence with opioid-induced mood disorder Asthma Opioid abuse Cerebral infarction due to unspecified 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 Dysphasia following cerebral infarction Other recurrent depressive disorders History of CVA with residual deficit Surgical History Gastrostomy status S/P percutaneous endoscopic gastrostomy (PEG) tube placement Family History Other Family history non-contributory Social History Smoking Status: Current every day smoker Tobacco Type: Cigarettes Second Hand Exposure: No; Do You Dip or Chew Tobacco: No; Hx Alcohol Use: No Hx Substance Use: Yes Substance Use Type Other:: OPIOD ABUSE LISTED WITH FAXED INFORMATION...UNKNOWN FURTHER DETAILS Preferred Language: Chinese Communication Ability: Impaired Ticker Installer Required: No Beliefs That Will Affect Care: None Current Living Situation: Personal Care Facility Current Living Situation Comment: in between facilities; needs placement, from [facility] Feels Safe at Home: Yes Assistive Devices: Cane and Walker Physical Exam Physical Exam: On examination, the patient is a 63-year-old white male who appears in no acute distress. He has expressive aphasia and has difficulty communicating but does answer yes and no questions and can understand the questions that I am as He also has a right sided hemiparesis. On examination of his left shoulder, he has no pain on palpation over the deltoid and or biceps tendon per se. He has no posterior shoulder pain on palpation. he exhibits no pain on palpation over the AC joint. I am able to take him through passive range of motion of the shoulder at this time without much in the way of discomfort. I can take him to approximately 100 degrees of flexion, 70 to 80 degrees of abduction with mild discomfort, mild discomfort with internal and external rotation. He does have pain on palpation over the glenohumeral joint. Patient is able to actively move the shoulder on his own and goes through gentle active range of motion without severe pain. Patient has decent strength with his left upper extremity at this time. Neurovascular appears intact with the left upper extremity. Results & Data Vital Signs (Past 12 Hours) Vital Signs Temp Pulse Resp BP Pulse Ox O2 Del Method 05/30/24 20:51 36.5 C 66 20 133/73 93 Room Air 05/30/24 20:30 Room Air
--- NOTE | 2024-05-31 16:34 | XRay Report ---
XR shoulder LT min 2V routine CLINICAL HISTORY: Left Shoulder Pain TECHNIQUE: 3 views of the left shoulder were obtained. Comparison: Comparison is made to shoulder radiographs 04/10/2022 FINDINGS: Left shoulder arthroplasty is seen. Degenerative changes are seen in the glenohumeral joint. The over lying soft tissues are unremarkable. Incidental note is made of calcified aortic arch. IMPRESSION: No evidence of acute fracture. ACT 112: Negative or not required by law. Electronically signed by: Yanick Coulter M.D. 05/31/2024 4:32 PM
--- NOTE | 2024-06-01 07:00 | Hospitalist Progress Note ---
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 twice daily Levels in March 2024 were therapeutic (5) BPH (benign prostatic hyperplasia): Plan: was previously on flomax but it timed out a few days ago; will reorder (6) Essential (primary) hypertension: Plan: cont losartan cont HCTZ controlled (7) COPD (chronic obstructive pulmonary disease): Plan: cont inhalers no flare at this time did have a recent exacerbation earlier in April - resolved COPD exacerbation was secondary to aspiration pneumonia with completion of steroids on 05/07/2024 and completion of 7 days of antibiotics on 05/16/2024 Added nicotine patch as patient wants to smoke (8) Aphasia following cerebral infarction: Plan: left MCA territory CVA in the past (9) Dysphasia following cerebral infarction: Plan: cont easy to chew diet & honey thickened liquids he is a known aspirator Patient had a repeat aspiration event overnight on 05/21/2024 Chest x-ray from 05/21/2024 after the aspiration event showed right lower lobe airspace opacities that were nearly resolved A repeat course of abx was deferred at this time (10) Chronic pain: Plan: Continue gabapentin 1000 mg p.o. 3 times daily Continue Tylenol 1000 mg p.o. 3 times daily prn Continue Celebrex 200mg qam Reorder Cymbalta 30 mg p.o. daily Continue Lidoderm patch Added licocaine gel, no improvement. consult ortho 05/31 for corticosteroid injectin for rotator cuff tendonitis: concern for risk of infection of left shoulder Gave a one time dose of tramdol on 05/29; no repeat dose since Plan DVT prophylaxis - Lovenox 40 mg subcutaneous daily Disposition - uncertain Admission and Anticipated Discharge Date Admission Date: April 04, 2024 Subjective Patient reports no new symptoms. Continues to report pain in his left shoulder Physical Exam Physical Exam: NC/AT No acute distress. No JVD. Lungs: clearer breath sounds has pulmonary mechanics and finger clubbing consistent with copd abd is soft but not acute cardiac exam regular no murmur no rub Results & Data Results & Data Vital Signs (Past 12 Hours) Vital Signs Temp Pulse Resp BP Pulse Ox O2 Del Method 05/31/24 22:26 Room Air 05/31/24 21:28 36.5 C 59 L 16 156/72 H 95 Room Air PG Care Time/CCT Total # of Minutes Spent Total Time Spent with Patient: Total time spent is greater than 50% in coordination of care (as documented) at patient's floor/unit and/or counseling patient: Coding Level of Care Code 76386 SUB INP/OBS CARE 2/35MIN Diagnoses Aspiration pneumonia J69.0 H/O: CVA (cerebrovascular accident) Z86.73 Type 2 diabetes mellitus E11.9 Seizure disorder as sequela of cerebrovascular accident I69.398; G40.909 BPH (benign prostatic hyperplasia) N40.0 Essential (primary) hypertension I10 COPD (chronic obstructive pulmonary disease) J44.9 Aphasia following cerebral infarction I69.320 Dysphasia following cerebral infarction I69.321 Chronic pain G89.29
--- NOTE | 2024-06-01 07:42 | Hospitalist Progress Note ---
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 cont easy to chew diet & honey thickened liquids he is a known aspirator (2) Type 2 diabetes mellitus: Plan: cont basal-bolus insulin last a1c 7.7% early in 04/2024 pharmacy glycemic team managing (3) Essential (primary) hypertension: Plan: stable and controlled with losartan/hctz (4) COPD (chronic obstructive pulmonary disease): Plan: did have a recent exacerbation earlier in April - resolved COPD exacerbation was secondary to aspiration pneumonia with completion of steroids on 05/07/2024 and completion of 7 days of antibiotics on 05/16/2024 Added nicotine patch as patient wants to smoke (5) Chronic pain: Plan: Continue gabapentin 1000 mg p.o. 3 times daily Continue Tylenol 1000 mg p.o. 3 times daily prn Continue Celebrex 200mg qam Reorder Cymbalta 30 mg p.o. daily Continue Lidoderm patch Added lidocaine gel, no improvement. consult ortho 05/31 with concern a corticosteroid injectin for rotator cuff tendonitis may lead to infection of prostetic infection Plan DVT prophylaxis - Lovenox 40 mg subcutaneous daily BPH on flomax Disposition - uncertain Admission and Anticipated Discharge Date Admission Date: April 04, 2024 Subjective pt with left shoulder pain, [facility] consulted was seen by Dr Mcnamara , pt has seborrheic dermatitis to face Physical Exam Physical Exam: reddened skin rash left shoulder pain aphasia ,some right sided weakness Results & Data Results & Data Vital Signs (Past 12 Hours) Vital Signs Temp Pulse Resp BP Pulse Ox O2 Del Method 05/31/24 22:26 Room Air 05/31/24 21:28 97.7 F 59 L 16 156/72 H 95 Room Air PG Care Time/CCT Total # of Minutes Spent Total Time Spent with Patient: Total time spent is greater than 50% in coordination of care (as documented) at patient's floor/unit and/or counseling patient: Coding Level of Care Code 29052 SUB INP/OBS CARE MIN Diagnoses H/O: CVA (cerebrovascular accident) Z86.73 Type 2 diabetes mellitus E11.9 Essential (primary) hypertension I10 COPD (chronic obstructive pulmonary disease) J44.9 Chronic pain G89.29
[2024-06-02] MEDS: SELENIUM SULFIDE 2.5% LOTION 120 ML BTL EXT SCH (08:34)
--- NOTE | 2024-06-02 16:51 | Hospitalist Progress Note ---
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 cont easy to chew diet & honey thickened liquids he is a known aspirator (2) Type 2 diabetes mellitus: Plan: cont basal-bolus insulin last a1c 7.7% early in 04/2024 pharmacy glycemic team managing (3) Essential (primary) hypertension: Plan: stable and controlled with losartan/hctz (4) COPD (chronic obstructive pulmonary disease): Plan: did have a recent exacerbation earlier in April - resolved COPD exacerbation was secondary to aspiration pneumonia with completion of steroids on 05/07/2024 and completion of 7 days of antibiotics on 05/16/2024 Added nicotine patch (5) Chronic pain: Plan: Continue gabapentin 1000 mg p.o. 3 times daily Continue Tylenol 1000 mg p.o. 3 times daily prn Continue Celebrex 200mg qam Reorder Cymbalta 30 mg p.o. daily Continue Lidoderm patch Added lidocaine gel, no improvement. consult ortho 05/31 with concern a corticosteroid injectin for rotator cuff tendonitis may lead to infection of prostetic infection Plan DVT prophylaxis - Lovenox 40 mg subcutaneous daily BPH on flomax Disposition - uncertain Admission and Anticipated Discharge Date Admission Date: April 04, 2024 Subjective improved seborrheic dermatitis to face shoulder pain is improved today Physical Exam Physical Exam: reddened skin rash no respiratory distress, unlabored breathing aphasia ,some right sided weakness Results & Data Results & Data Vital Signs (Past 12 Hours) Vital Signs Temp Pulse Resp BP Pulse Ox O2 Del Method 06/02/24 14:30 97.7 F 62 16 138/73 97 Room Air 06/02/24 07:34 Room Air 06/02/24 07:17 97.7 F 70 16 134/78 96 Room Air PG Care Time/CCT Total # of Minutes Spent Total Time Spent with Patient: Total time spent is greater than 50% in coordination of care (as documented) at patient's floor/unit and/or counseling patient: Coding Level of Care Code 08377 SUB INP/OBS CARE Diagnoses H/O: CVA (cerebrovascular accident) Z86.73 Type 2 diabetes mellitus E11.9 Essential (primary) hypertension I10 COPD (chronic obstructive pulmonary disease) J44.9 Chronic pain G89.29
--- NOTE | 2024-06-03 15:45 | Hospitalist Progress Note ---
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 cont easy to chew diet & honey thickened liquids he is a known aspirator (2) Type 2 diabetes mellitus: Plan: cont basal-bolus insulin last a1c 7.7% early in 04/2024 pharmacy glycemic team managing (3) Essential (primary) hypertension: Plan: stable and controlled with losartan/hctz (4) COPD (chronic obstructive pulmonary disease): Plan: did have a recent exacerbation earlier in April - resolved COPD exacerbation was secondary to aspiration pneumonia with completion of steroids on 05/07/2024 and completion of 7 days of antibiotics on 05/16/2024 Added nicotine patch (5) Chronic pain: Plan: Continue gabapentin 1000 mg p.o. 3 times daily Continue Tylenol 1000 mg p.o. 3 times daily prn Continue Celebrex 200mg qam Reorder Cymbalta 30 mg p.o. daily Continue Lidoderm patch Added lidocaine gel, no improvement. consult ortho 05/31 with concern a corticosteroid injectin for rotator cuff tendonitis may lead to infection of prostetic infection Plan DVT prophylaxis - Lovenox 40 mg subcutaneous daily BPH on flomax Disposition - uncertain Admission and Anticipated Discharge Date Admission Date: April 04, 2024 Subjective continued improvement seborrheic dermatitis to face shoulder pain is resolved Physical Exam Physical Exam: reddened skin rashlessening no respiratory distress, unlabored breathing aphasia ,some right sided weakness Results & Data Results & Data Vital Signs (Past 12 Hours) Vital Signs Temp Pulse Resp BP Pulse Ox O2 Del Method 06/03/24 14:14 97.9 F 59 L 16 153/81 H 94 Room Air 06/03/24 07:43 97.5 F L 56 L 17 161/90 H 94 Room Air 06/03/24 07:06 Room Air PG Care Time/CCT Total # of Minutes Spent Total Time Spent with Patient: Total time spent is greater than 50% in coordination of care (as documented) at patient's floor/unit and/or counseling patient: Coding Level of Care Code 71601 SUB INP/OBS CARE Diagnoses H/O: CVA (cerebrovascular accident) Z86.73 Type 2 diabetes mellitus E11.9 Essential (primary) hypertension I10 COPD (chronic obstructive pulmonary disease) J44.9 Chronic pain G89.29
--- NOTE | 2024-06-04 16:23 | Hospitalist Progress Note ---
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 & dense expressive aphasia cont asa 81mg daily + lipitor 40mg daily for secondary prevention pt has seizure disorder as result of large CVA, typically is on valproic acid 500mg bid, last level check therapeutic Aphasia secondary to left MCA territory CVA in the past treated for aspiration pneumonia during this hospital course aspiration risk, has seen outpatient psychiatrist cont easy to chew diet & honey thickened liquids he is a known aspirator (2) Type 2 diabetes mellitus: Plan: cont basal-bolus insulin last a1c 7.7% early in 04/2024 pharmacy glycemic team managing (3) Essential (primary) hypertension: Plan: stable and controlled with losartan/hctz (4) COPD (chronic obstructive pulmonary disease): Plan: did have a recent exacerbation earlier in April - resolved COPD exacerbation was secondary to aspiration pneumonia with completion of steroids on 05/07/2024 and completion of 7 days of antibiotics on 05/16/2024 Added nicotine patch (5) Chronic pain: Plan: Continue gabapentin 1000 mg p.o. 3 times daily Continue Tylenol 1000 mg p.o. 3 times daily prn Continue Celebrex 200mg qam Reorder Cymbalta 30 mg p.o. daily Continue Lidoderm patch Added lidocaine gel, no improvement. ortho did not feel injection of shoulder would be beneficial given risk of prostetic joint infection Plan DVT prophylaxis - Lovenox 40 mg subcutaneous daily BPH on flomax Disposition - uncertain Admission and Anticipated Discharge Date Admission Date: April 04, 2024 Subjective continued improvement seborrheic dermatitis to face shoulder pain is resolved Physical Exam Physical Exam: reddened skin rashlessening no respiratory distress, unlabored breathing aphasia ,some right sided weakness Results & Data Results & Data Vital Signs (Past 12 Hours) Vital Signs Temp Pulse Resp BP Pulse Ox O2 Del Method 06/04/24 15:28 97.5 F L 61 18 183/88 H 97 Room Air 06/04/24 08:45 Room Air 06/04/24 08:07 97.9 F 55 L 16 134/89 95 Room Air PG Care Time/CCT Total # of Minutes Spent Total Time Spent with Patient: Total time spent is greater than 50% in coordination of care (as documented) at patient's floor/unit and/or counseling patient: Coding Level of Care Code None Diagnoses H/O: CVA (cerebrovascular accident) Z86.73 Type 2 diabetes mellitus E11.9 Essential (primary) hypertension I10 COPD (chronic obstructive pulmonary disease) J44.9 Chronic pain G89.29
--- NOTE | 2024-06-05 10:53 | Hospitalist Progress Note ---
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 & dense expressive aphasia cont asa 81mg daily + lipitor 40mg daily for secondary prevention pt has seizure disorder as result of large CVA, typically is on valproic acid 500mg bid, last level check therapeutic Aphasia secondary to left MCA territory CVA in the past treated for aspiration pneumonia during this hospital course aspiration risk, has seen [employer] cont easy to chew diet & honey thickened liquids he is a known aspirator (2) Type 2 diabetes mellitus: Plan: cont basal-bolus insulin last a1c 7.7% early in 04/2024 pharmacy glycemic team managing (3) Essential (primary) hypertension: Plan: stable and controlled with losartan/hctz (4) COPD (chronic obstructive pulmonary disease): Plan: did have a recent exacerbation earlier in April - resolved COPD exacerbation was secondary to aspiration pneumonia with completion of steroids on 05/07/2024 and completion of 7 days of antibiotics on 05/16/2024 Added nicotine patch (5) Chronic pain: Plan: Continue gabapentin 1000 mg p.o. 3 times daily Continue Tylenol 1000 mg p.o. 3 times daily prn Continue Celebrex 200mg qam Reorder Cymbalta 30 mg p.o. daily Continue Lidoderm patch Added lidocaine gel, no improvement. ortho did not feel injection of shoulder would be beneficial given risk of prostetic joint infection Plan DVT prophylaxis - Lovenox 40 mg subcutaneous daily BPH on flomax Disposition - uncertain Admission and Anticipated Discharge Date Admission Date: April 04, 2024 Subjective continued improvement seborrheic dermatitis to face shoulder pain is resolved no new changes awaiting placement Physical Exam Physical Exam: reddened skin rashlessening no respiratory distress, unlabored breathing aphasia ,some right sided weakness Results & Data Results & Data Vital Signs (Past 12 Hours) Vital Signs Temp Pulse Resp BP Pulse Ox O2 Del Method 06/05/24 08:46 Room Air 06/05/24 07:25 98.2 F 59 L 18 150/82 H 95 Room Air PG Care Time/CCT Total # of Minutes Spent Total Time Spent with Patient: Total time spent is greater than 50% in coordination of care (as documented) at patient's floor/unit and/or counseling patient: Coding Level of Care Code 10430 SUB INP/OBS CARE 09/18MIN Diagnoses H/O: CVA (cerebrovascular accident) Z86.73 Type 2 diabetes mellitus E11.9 Essential (primary) hypertension I10 COPD (chronic obstructive pulmonary disease) J44.9 Chronic pain G89.29
--- NOTE | 2024-06-06 10:42 | Hospitalist Progress Note ---
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 & dense expressive aphasia - continue asa 81mg daily + lipitor 40mg daily for secondary prevention pt has seizure disorder as result of large CVA, typically is on valproic acid 500mg bid, last level check therapeutic Aphasia secondary to left MCA territory CVA in the past - treated for aspiration pneumonia during this hospital course - aspiration risk, has seen personal development mentor - cont easy to chew diet & honey thickened liquids - he is a known aspirator (2) Type 2 diabetes mellitus: Plan: - cont basal-bolus insulin - last a1c 7.7% early in 04/2024 - SSI with target BSG range 90-150mg/dL, CF 25, carb ratio 0 - very little needed recently - Adjust regimen as needed (3) Essential (primary) hypertension: Plan: stable - controlled with losartan/hctz (4) COPD (chronic obstructive pulmonary disease): Plan: - did have a recent exacerbation earlier in April - resolved - COPD exacerbation was secondary to aspiration pneumonia with completion of steroids on 05/07/2024 and completion of 7 days of antibiotics on 05/16/2024 - Added nicotine patch (5) Chronic pain: Plan: - Continue gabapentin 1000 mg p.o. 3 times daily - Continue Tylenol 1000 mg p.o. 3 times daily prn - Continue Celebrex 200mg qam - Continue Cymbalta 30 mg p.o. daily - Continue Lidoderm patch, Lidocaine gel, and Kpad - 05/31: ortho did not feel injection of shoulder would be beneficial given risk of prosthetic joint infection (6) Seborrheic dermatitis: Plan: Improving - continue Selenium Sulfide until 06/09 Plan Chronic stable diagnoses: BPH - continue Flomax DVT prophylaxis - Lovenox 40 mg subcutaneous daily Diet - Heart healthy, Carb count/DM1, Moderately thick, Easy to chew Disposition - uncertain Admission and Anticipated Discharge Date Admission Date: April 04, 2024 Subjective Patient seen at bedside and doing well. Continued improvement seborrheic dermatitis to face. No complaints or new changes. Awaiting placement. Physical Exam Physical Exam: Heart-normal S1 and S2. No murmurs, rubs or gallops. Lungs-clear bilaterally, no respiratory distress, no accessory muscle use. Abdomen-normal bowel sounds and soft. No ascites noted. Non-tender. Extremities- no clubbing, cyanosis, or edema. Derm - seborrheic dermitis to face Neuro - aphasia, right sided weakness Results & Data Results & Data Vital Signs (Past 12 Hours) Vital Signs Temp Pulse Resp BP Pulse Ox O2 Del Method 06/06/24 08:53 Room Air 06/06/24 07:48 36.3 C L 55 L 18 146/82 H 95 Room Air PG Care Time/CCT Total # of Minutes Spent Total Time Spent with Patient: Total time spent is greater than 50% in coordination of care (as documented) at patient's floor/unit and/or counseling patient: Coding [place] [address] SUB INP/OBS CARE 09/18MIN Patient Type Established History Problem Focused Exam Problem Focused Medical Decision Making Low Complexity Diagnoses H/O: CVA (cerebrovascular accident) Z86.73 Type 2 diabetes mellitus E11.9 Essential (primary) hypertension I10 COPD (chronic obstructive pulmonary disease) J44.9 Chronic pain G89.29 Seborrheic dermatitis L21.9
--- NOTE | 2024-06-08 07:23 | Hospitalist Progress Note ---
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 & dense expressive aphasia - continue asa 81mg daily + lipitor 40mg daily for secondary prevention pt has seizure disorder as result of large CVA, typically is on valproic acid 500mg bid, last level check therapeutic Aphasia secondary to left MCA territory CVA in the past - treated for aspiration pneumonia during this hospital course - aspiration risk, has seen books salesperson - cont easy to chew diet & honey thickened liquids - he is a known aspirator (2) Type 2 diabetes mellitus: Plan: - cont basal-bolus insulin - last a1c 7.7% early in 04/2024 - SSI with target BSG range 90-150mg/dL, CF 25, carb ratio 0 - very little needed recently - Adjust regimen as needed (3) Essential (primary) hypertension: Plan: stable - controlled with losartan/hctz (4) COPD (chronic obstructive pulmonary disease): Plan: - did have a recent exacerbation earlier in April - resolved - COPD exacerbation was secondary to aspiration pneumonia with completion of steroids on 05/07/2024 and completion of 7 days of antibiotics on 05/16/2024 - Added nicotine patch (5) Chronic pain: Plan: - Continue gabapentin 1000 mg p.o. 3 times daily - Continue Tylenol 1000 mg p.o. 3 times daily prn - Continue Celebrex 200mg qam - Continue Cymbalta 30 mg p.o. daily - Continue Lidoderm patch, Lidocaine gel, and Kpad - 05/31: ortho did not feel injection of shoulder would be beneficial given risk of prosthetic joint infection (6) Seborrheic dermatitis: Plan: Improving - continue Selenium Sulfide until 06/09 Plan Chronic stable diagnoses: BPH - continue Flomax DVT prophylaxis - Lovenox 40 mg subcutaneous daily Diet - Heart healthy, Carb count/DM1, Moderately thick, Easy to chew Disposition - uncertain Admission and Anticipated Discharge Date Admission Date: April 04, 2024 Subjective Patient is resting comfortably. Review of Systems Review of Systems: All systems reviewed & are unremarkable except as noted in HPI & below Physical Exam Physical Exam: NC/AT No acute distress. No JVD. Lungs: clearer breath sounds has pulmonary mechanics and finger clubbing consistent with copd abd is soft but not acute cardiac exam regular no murmur no rub Results & Data Results & Data Vital Signs (Past 12 Hours) Vital Signs Temp Pulse Resp BP Pulse Ox O2 Del Method 06/07/24 20:11 36.5 C 55 L 18 159/85 H 96 Room Air PG Care Time/CCT Total # of Minutes Spent Total Time Spent with Patient: Total time spent is greater than 50% in coordination of care (as documented) at patient's floor/unit and/or counseling patient: Coding Level of Care Code 82806 SUB INP/OBS CARE 09/18MIN Diagnoses H/O: CVA (cerebrovascular accident) Z86.73 Type 2 diabetes mellitus E11.9 Essential (primary) hypertension I10 COPD (chronic obstructive pulmonary disease) J44.9 Chronic pain G89.29 Seborrheic dermatitis L21.9
--- NOTE | 2024-06-08 21:18 | Hospitalist Progress Note ---
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 & dense expressive aphasia - continue asa 81mg daily + lipitor 40mg daily for secondary prevention pt has seizure disorder as result of large CVA, typically is on valproic acid 500mg bid, last level check therapeutic Aphasia secondary to left MCA territory CVA in the past - treated for aspiration pneumonia during this hospital course - aspiration risk, has seen human resources benefits administrator - cont easy to chew diet & honey thickened liquids - he is a known aspirator (2) Type 2 diabetes mellitus: Plan: - cont basal-bolus insulin - last a1c 7.7% early in 04/2024 - SSI with target BSG range 90-150mg/dL, CF 25, carb ratio 0 - very little needed recently - Adjust regimen as needed (3) Essential (primary) hypertension: Plan: stable - controlled with losartan/hctz (4) COPD (chronic obstructive pulmonary disease): Plan: - did have a recent exacerbation earlier in April - resolved - COPD exacerbation was secondary to aspiration pneumonia with completion of steroids on 05/07/2024 and completion of 7 days of antibiotics on 05/16/2024 - Added nicotine patch (5) Chronic pain: Plan: - Continue gabapentin 1000 mg p.o. 3 times daily - Continue Tylenol 1000 mg p.o. 3 times daily prn - Continue Celebrex 200mg qam - Continue Cymbalta 30 mg p.o. daily - Continue Lidoderm patch, Lidocaine gel, and Kpad - 05/31: ortho did not feel injection of shoulder would be beneficial given risk of prosthetic joint infection (6) Seborrheic dermatitis: Plan: Improving - continue Selenium Sulfide until 06/09 Plan Chronic stable diagnoses: BPH - continue Flomax DVT prophylaxis - Lovenox 40 mg subcutaneous daily Diet - Heart healthy, Carb count/DM1, Moderately thick, Easy to chew Disposition - uncertain Admission and Anticipated Discharge Date Admission Date: April 04, 2024 Subjective 63 yo male is resting comfortably/ Review of Systems Review of Systems: All systems reviewed & are unremarkable except as noted in HPI & below Physical Exam Physical Exam: NC/AT No acute distress. No JVD. Lungs: clearer breath sounds has pulmonary mechanics and finger clubbing consistent with copd abd is soft but not acute cardiac exam regular no murmur no rub Results & Data Results & Data Vital Signs (Past 12 Hours) Vital Signs Temp Pulse Pulse Resp BP BP Pulse Ox 06/08/24 19:19 36.5 C 60 18 133/77 96 06/08/24 14:54 36.3 C L 55 L 18 143/73 H 98 O2 Del Method 06/08/24 19:19 Room Air 06/08/24 14:54 Room Air PG Care Time/CCT Total # of Minutes Spent Total Time Spent with Patient: Total time spent is greater than 50% in coordination of care (as documented) at patient's floor/unit and/or counseling patient: Coding Level of Care Code 28353 SUB INP/OBS CARE 09/18MIN Diagnoses H/O: CVA (cerebrovascular accident) Z86.73 Type 2 diabetes mellitus E11.9 Essential (primary) hypertension I10 COPD (chronic obstructive pulmonary disease) J44.9 Chronic pain G89.29 Seborrheic dermatitis L21.9
--- NOTE | 2024-06-09 22:38 | Hospitalist Progress Note ---
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 & dense expressive aphasia - continue asa 81mg daily + lipitor 40mg daily for secondary prevention pt has seizure disorder as result of large CVA, typically is on valproic acid 500mg bid, last level check therapeutic Aphasia secondary to left MCA territory CVA in the past - treated for aspiration pneumonia during this hospital course - aspiration risk, has seen disability manager - cont easy to chew diet & honey thickened liquids - he is a known aspirator (2) Type 2 diabetes mellitus: Plan: - cont basal-bolus insulin - last a1c 7.7% early in 04/2024 - SSI with target BSG range 90-150mg/dL, CF 25, carb ratio 0 - very little needed recently - Adjust regimen as needed (3) Essential (primary) hypertension: Plan: stable - controlled with losartan/hctz (4) COPD (chronic obstructive pulmonary disease): Plan: - did have a recent exacerbation earlier in April - resolved - COPD exacerbation was secondary to aspiration pneumonia with completion of steroids on 05/07/2024 and completion of 7 days of antibiotics on 05/16/2024 - Added nicotine patch (5) Chronic pain: Plan: - Continue gabapentin 1000 mg p.o. 3 times daily - Continue Tylenol 1000 mg p.o. 3 times daily prn - Continue Celebrex 200mg qam - Continue Cymbalta 30 mg p.o. daily - Continue Lidoderm patch, Lidocaine gel, and Kpad - 05/31: ortho did not feel injection of shoulder would be beneficial given risk of prosthetic joint infection (6) Seborrheic dermatitis: Plan: Improving - continue Selenium Sulfide until 06/09 Plan Chronic stable diagnoses: BPH - continue Flomax DVT prophylaxis - Lovenox 40 mg subcutaneous daily Diet - Heart healthy, Carb count/DM1, Moderately thick, Easy to chew Disposition - uncertain Admission and Anticipated Discharge Date Admission Date: April 04, 2024 Subjective 63 yo male reports no new symptoms. Review of Systems Review of Systems: All systems reviewed & are unremarkable except as noted in HPI & below Physical Exam Physical Exam: NC/AT No acute distress. No JVD. Lungs: clearer breath sounds has pulmonary mechanics and finger clubbing consistent with copd abd is soft but not acute cardiac exam regular no murmur no rub Results & Data Results & Data Vital Signs (Past 12 Hours) Vital Signs Temp Pulse Resp BP Pulse Ox O2 Del Method 06/09/24 14:20 36.9 C 58 L 16 133/75 95 Room Air PG Care Time/CCT Total # of Minutes Spent Total Time Spent with Patient: Total time spent is greater than 50% in coordination of care (as documented) at patient's floor/unit and/or counseling patient: Coding Level of Care Code 86450 SUB INP/OBS CARE 09/18MIN Diagnoses H/O: CVA (cerebrovascular accident) Z86.73 Type 2 diabetes mellitus E11.9 Essential (primary) hypertension I10 COPD (chronic obstructive pulmonary disease) J44.9 Chronic pain G89.29 Seborrheic dermatitis L21.9
[2024-06-10] MEDS ORDERED: GLUCAGON FOR INJ 1 MG VIAL SQ PRN (22:07)
[2024-06-10] MEDS ORDERED: GLUCOSE 10 TAB/TUBE PO PRN (22:07)
[2024-06-10] MEDS ORDERED: DEXTROSE 50% 50 ML SYRINGE IV PRN (22:07)
[2024-06-10] MEDS ORDERED: GLUCOSE 40% GEL 15 GM TUBE PO PRN (22:07)
[2024-06-10] MEDS ORDERED: CARBOHYDRATES FOR HYPOGLYCEMIA PO PRN (22:07)
--- NOTE | 2024-06-10 22:28 | Hospitalist Progress Note ---
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 & dense expressive aphasia - continue asa 81mg daily + lipitor 40mg daily for secondary prevention pt has seizure disorder as result of large CVA, typically is on valproic acid 500mg bid, last level check therapeutic Aphasia secondary to left MCA territory CVA in the past - treated for aspiration pneumonia during this hospital course - aspiration risk, has seen lathe sander - cont easy to chew diet & honey thickened liquids - he is a known aspirator (2) Type 2 diabetes mellitus: Plan: - cont basal-bolus insulin - last a1c 7.7% early in 04/2024 - SSI with target BSG range 90-150mg/dL, CF 25, carb ratio 0 - very little needed recently - Adjust regimen as needed (3) Essential (primary) hypertension: Plan: stable - controlled with losartan/hctz (4) COPD (chronic obstructive pulmonary disease): Plan: - did have a recent exacerbation earlier in April - resolved - COPD exacerbation was secondary to aspiration pneumonia with completion of steroids on 05/07/2024 and completion of 7 days of antibiotics on 05/16/2024 - Added nicotine patch (5) Chronic pain: Plan: - Continue gabapentin 1000 mg p.o. 3 times daily - Continue Tylenol 1000 mg p.o. 3 times daily prn - Continue Celebrex 200mg qam - Continue Cymbalta 30 mg p.o. daily - Continue Lidoderm patch, Lidocaine gel, and Kpad - 05/31: ortho did not feel injection of shoulder would be beneficial given risk of prosthetic joint infection (6) Seborrheic dermatitis: Plan: Improving - continue Selenium Sulfide until 06/09 Plan Chronic stable diagnoses: BPH - continue Flomax DVT prophylaxis - Lovenox 40 mg subcutaneous daily Diet - Heart healthy, Carb count/DM1, Moderately thick, Easy to chew Disposition - uncertain Admission and Anticipated Discharge Date Admission Date: April 04, 2024 Subjective Patient reports no new symptoms. Review of Systems Review of Systems: All systems reviewed & are unremarkable except as noted in HPI & below Physical Exam Physical Exam: NC/AT No acute distress. No JVD. Lungs: clearer breath sounds has pulmonary mechanics and finger clubbing consistent with copd abd is soft but not acute cardiac exam regular no murmur no rub Results & Data Results & Data Vital Signs (Past 12 Hours) Vital Signs Temp Pulse Resp BP BP Pulse Ox O2 Del Method 06/10/24 22:10 Room Air 06/10/24 20:56 36.5 C 62 16 147/89 H 96 Room Air 06/10/24 14:18 36.6 C 59 L 16 158/76 H 96 Room Air PG Care Time/CCT Total # of Minutes Spent Total Time Spent with Patient: Total time spent is greater than 50% in coordination of care (as documented) at patient's floor/unit and/or counseling patient: Coding Level of Care Code 18355 SUB INP/OBS CARE 09/18MIN Diagnoses H/O: CVA (cerebrovascular accident) Z86.73 Type 2 diabetes mellitus E11.9 Essential (primary) hypertension I10 COPD (chronic obstructive pulmonary disease) J44.9 Chronic pain G89.29 Seborrheic dermatitis L21.9
--- NOTE | 2024-06-12 08:55 | Hospitalist Progress Note ---
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 & dense expressive aphasia - continue asa 81mg daily + lipitor 40mg daily for secondary prevention pt has seizure disorder as result of large CVA, typically is on valproic acid 500mg bid, last level check therapeutic Aphasia secondary to left MCA territory CVA in the past - treated for aspiration pneumonia during this hospital course - aspiration risk, has seen insurance account executive - cont easy to chew diet & honey thickened liquids - he is a known aspirator (2) Type 2 diabetes mellitus: Plan: - cont basal-bolus insulin - last a1c 7.7% early in 04/2024 - SSI with target BSG range 90-150mg/dL, CF 25, carb ratio 0 - very little needed recently - Adjust regimen as needed (3) Essential (primary) hypertension: Plan: stable - controlled with losartan/hctz (4) COPD (chronic obstructive pulmonary disease): Plan: - did have a recent exacerbation earlier in April - resolved - COPD exacerbation was secondary to aspiration pneumonia with completion of steroids on 05/07/2024 and completion of 7 days of antibiotics on 05/16/2024 - Added nicotine patch (5) Chronic pain: Plan: - Continue gabapentin 1000 mg p.o. 3 times daily - Continue Tylenol 1000 mg p.o. 3 times daily prn - Continue Celebrex 200mg qam - Continue Cymbalta 30 mg p.o. daily - Continue Lidoderm patch, Lidocaine gel, and Kpad - 05/31: ortho did not feel injection of shoulder would be beneficial given risk of prosthetic joint infection (6) Seborrheic dermatitis: Plan: Improving - continue Selenium Sulfide until 06/09 Plan Chronic stable diagnoses: BPH - continue Flomax DVT prophylaxis - Lovenox 40 mg subcutaneous daily Diet - Heart healthy, Carb count/DM1, Moderately thick, Easy to chew Disposition - uncertain Admission and Anticipated Discharge Date Admission Date: April 04, 2024 Subjective No new complaints Review of Systems Review of Systems: All systems reviewed & are unremarkable except as noted in HPI & below Physical Exam Physical Exam: NC/AT No acute distress. No JVD. Lungs: clearer breath sounds has pulmonary mechanics and finger clubbing consistent with copd abd is soft but not acute cardiac exam regular no murmur no rub Results & Data Results & Data Vital Signs (Past 12 Hours) Vital Signs Temp Pulse Resp BP Pulse Ox O2 Del Method 06/12/24 08:09 36.4 C L 52 L 16 153/75 H 96 Room Air 06/11/24 21:00 Room Air PG Care Time/CCT Total # of Minutes Spent Total Time Spent with Patient: Total time spent is greater than 50% in coordination of care (as documented) at patient's floor/unit and/or counseling patient: Coding Level of Care Code 30169 SUB INP/OBS CARE 09/18MIN Diagnoses H/O: CVA (cerebrovascular accident) Z86.73 Type 2 diabetes mellitus E11.9 Essential (primary) hypertension I10 COPD (chronic obstructive pulmonary disease) J44.9 Chronic pain G89.29 Seborrheic dermatitis L21.9
[2024-06-12] MEDS: KETOROLAC TROMETHAMINE 15 MG/ML VIAL IV ONE (21:21)
[2024-06-12] MEDS: KETOROLAC TROMETHAMINE 15 MG/ML VIAL IM ONE (21:25)
--- NOTE | 2024-06-12 22:50 | Hospitalist Progress Note ---
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 & dense expressive aphasia - continue asa 81mg daily + lipitor 40mg daily for secondary prevention pt has seizure disorder as result of large CVA, typically is on valproic acid 500mg bid, last level check therapeutic Aphasia secondary to left MCA territory CVA in the past - treated for aspiration pneumonia during this hospital course - aspiration risk, has seen marriage therapist - cont easy to chew diet & honey thickened liquids - he is a known aspirator (2) Type 2 diabetes mellitus: Plan: - cont basal-bolus insulin - last a1c 7.7% early in 04/2024 - SSI with target BSG range 90-150mg/dL, CF 25, carb ratio 0 - very little needed recently - Adjust regimen as needed (3) Essential (primary) hypertension: Plan: stable - controlled with losartan/hctz (4) COPD (chronic obstructive pulmonary disease): Plan: - did have a recent exacerbation earlier in April - resolved - COPD exacerbation was secondary to aspiration pneumonia with completion of steroids on 05/07/2024 and completion of 7 days of antibiotics on 05/16/2024 - Added nicotine patch (5) Chronic pain: Plan: - Continue gabapentin 1000 mg p.o. 3 times daily - Continue Tylenol 1000 mg p.o. 3 times daily prn - Continue Celebrex 200mg qam - Continue Cymbalta 30 mg p.o. daily - Continue Lidoderm patch, Lidocaine gel, and Kpad - 05/31: ortho did not feel injection of shoulder would be beneficial given risk of prosthetic joint infection (6) Seborrheic dermatitis: Plan: Improving - continue Selenium Sulfide until 06/09 Plan Chronic stable diagnoses: BPH - continue Flomax DVT prophylaxis - Lovenox 40 mg subcutaneous daily Diet - Heart healthy, Carb count/DM1, Moderately thick, Easy to chew Disposition - uncertain Admission and Anticipated Discharge Date Admission Date: April 04, 2024 Subjective Patient resting comfortably. Physical Exam Physical Exam: NC/AT No acute distress. No JVD. Lungs: clearer breath sounds has pulmonary mechanics and finger clubbing consistent with copd abd is soft but not acute cardiac exam regular no murmur no rub Results & Data Results & Data Vital Signs (Past 12 Hours) Vital Signs Temp Pulse Resp BP Pulse Ox O2 Del Method 06/12/24 21:29 36.5 C 58 L 16 135/77 95 Room Air 06/12/24 16:04 36.4 C L 58 L 16 129/77 95 Room Air PG Care Time/CCT Total # of Minutes Spent Total Time Spent with Patient: Total time spent is greater than 50% in coordination of care (as documented) at patient's floor/unit and/or counseling patient: Coding Level of Care Code 01768 SUB INP/OBS CARE 09/18MIN Diagnoses H/O: CVA (cerebrovascular accident) Z86.73 Type 2 diabetes mellitus E11.9 Essential (primary) hypertension I10 COPD (chronic obstructive pulmonary disease) J44.9 Chronic pain G89.29 Seborrheic dermatitis L21.9
[2024-06-12] MEDS: traMADol HCL 50 MG TABLET PO STA (23:07)
[2024-06-12] MEDS: LIDOCAINE 5% 1 PATCH TD STA (23:07)
[2024-06-13] MEDS: IBUPROFEN 600 MG TAB PO STA (06:08)
--- NOTE | 2024-06-13 10:41 | Hospitalist Progress Note ---
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 worker - cont easy to chew diet & honey thickened liquids - he is a known aspirator (2) Type 2 diabetes mellitus: Plan: - cont basal-bolus insulin - last a1c 7.7% early in 04/2024 - SSI with target BSG range 90-150mg/dL, CF 25, carb ratio 0 - very little needed recently - Adjust regimen as needed (3) Essential (primary) hypertension: Plan: stable - controlled with losartan/hctz (4) COPD (chronic obstructive pulmonary disease): Plan: - did have a recent exacerbation earlier in April - resolved - COPD exacerbation was secondary to aspiration pneumonia with completion of steroids on 05/07/2024 and completion of 7 days of antibiotics on 05/16/2024 - Added nicotine patch (5) Chronic pain: Plan: - Continue gabapentin 1000 mg p.o. 3 times daily - Continue Tylenol 1000 mg p.o. 3 times daily prn - Continue Celebrex 200mg qam - Continue Cymbalta 30 mg p.o. daily - Continue Lidoderm patch, Lidocaine gel, and Kpad - 05/31: ortho did not feel injection of shoulder would be beneficial given risk of prosthetic joint infection (6) Seborrheic dermatitis: Plan: Improving - continue Selenium Sulfide until 06/09 Plan Chronic stable diagnoses: BPH - continue Flomax DVT prophylaxis - Lovenox 40 mg subcutaneous daily Diet - Heart healthy, Carb count/DM1, Moderately thick, Easy to chew Disposition - uncertain Admission and Anticipated Discharge Date Admission Date: April 04, 2024 Subjective Patient is resting in bed. Review of Systems Review of Systems: All systems reviewed & are unremarkable except as noted in HPI & below Physical Exam Physical Exam: Patient is resting comfortably. NAD Results & Data Results & Data Vital Signs (Past 12 Hours) Vital Signs Temp Pulse Resp BP Pulse Ox O2 Del Method 06/13/24 07:55 36.6 C 57 L 16 151/67 H 95 Room Air PG Care Time/CCT Total # of Minutes Spent Total Time Spent with Patient: Total time spent is greater than 50% in coordination of care (as documented) at patient's floor/unit and/or counseling patient: Coding Level of Care Code 56206 SUB INP/OBS CARE 09/18MIN Diagnoses H/O: CVA (cerebrovascular accident) Z86.73 Type 2 diabetes mellitus E11.9 Essential (primary) hypertension I10 COPD (chronic obstructive pulmonary disease) J44.9 Chronic pain G89.29 Seborrheic dermatitis L21.9
[2024-06-14] MEDS: DICLOFENAC SOD 1% GEL 100 GM TUBE EXT SCH (17:48)
--- NOTE | 2024-06-14 18:11 | Hospitalist Progress Note ---
Date of Service June 14, 2024 Assessment & Plan (1) Aspiration pneumonia: Plan: treated for such with 7 day course of abx in April resolved clinically & radiographically cont thickened liquids & easy to chew diet to reduce risk of aspiration (2) H/O: CVA (cerebrovascular accident): Plan: left MCA territory stroke with resulting right-sided hemiparesis & dense expressive aphasia cont asa 81mg daily + lipitor 40mg daily for secondary prevention (3) Type 2 diabetes mellitus: Plan: cont basal-bolus insulin last a1c 7.7% early in 04/2024 pharmacy glycemic team managing glycemic control is excellent (4) Seizure disorder as sequela of cerebrovascular accident: Plan: Continue valproic acid 500 mg p.o. twice daily Levels in March 2024 were therapeutic (5) BPH (benign prostatic hyperplasia): Plan: cont flomax daily (6) Essential (primary) hypertension: Plan: cont losartan cont HCTZ cont flomax control largely acceptable (7) COPD (chronic obstructive pulmonary disease): Plan: cont inhalers no flare at this time O2 sats wnl (8) Aphasia following cerebral infarction: Plan: 2nd to left MCA territory CVA in the past (9) Dysphasia following cerebral infarction: Plan: cont easy to chew diet & honey thickened liquids he is a known aspirator Patient had a repeat aspiration event on 05/21/2024 Fortunately this did not lead to any pneumonia (10) Chronic pain: Plan: patient c/o right arm/right leg pain (neuropathic pain from prior stroke??) Was on gabapentin 800mg QID prior to admission; this fell off - not sure when; but will reorder Continue Tylenol 650mg QID Continue Cymbalta 30 mg p.o. daily Continue Lidocaine jelly TID Voltaren gel 4gm QID for L shoulder (previously evaluated by ortho - h/o shoulder replacement) Add tramadol 50mg q8h prn Plan DVT prophylaxis - Lovenox 40 mg subcutaneous daily - reorder such (last dose was 06/12) Disposition - uncertain Admission and Anticipated Discharge Date Admission Date: April 04, 2024 Subjective no events overnight resting in bed watching TV reports L shoulder pain and then points to the entire right arm and right leg as additional sites of pain denies chest pain denies abd pain eating well per nursing flowsheets Review of Systems Review of Systems: CV - no orthopnea pulm - no dyspnea GI - no abd pain or N/V; last documented stool - 06/11/24 Physical Exam Physical Exam: gen - lying in bed, NAD; expressive aphasia, no receptive aphasia; does say a few words but they are difficult to understand mouth - MMM neck - no JVD heart - RRR, s1 s2, no murmur lungs - CTA b/l abd - soft NT ND BS+ ext - no edema, pulses 2+ b/l neuro - right-sided hemiparesis, expressive aphasia Results & Data Results & Data Vital Signs (Past 12 Hours) Vital Signs Temp Pulse Resp BP Pulse Ox O2 Del Method 06/14/24 14:55 36.6 C 60 18 160/88 H 96 Room Air 06/14/24 07:40 Room Air 06/14/24 07:20 36.6 C 60 18 131/73 98 Room Air Laboratory Results Laboratory Results - last 24 hr 06/13/24 06/14/24 06/14/24 20:36 07:30 11:35 POC Glucose 114 H 98 115 H 06/14/24 16:45 POC Glucose 100 H PG Care Time/CCT Total # of Minutes Spent Total Time Spent with Patient: Total time spent is greater than 50% in coordination of care (as documented) at patient's floor/unit and/or counseling patient: Coding Level of Care Code 99950 SUB INP/OBS CARE 2/35MIN Diagnoses Aspiration pneumonia J69.0 H/O: CVA (cerebrovascular accident) Z86.73 Type 2 diabetes mellitus E11.9 Seizure disorder as sequela of cerebrovascular accident I69.398; G40.909 BPH (benign prostatic hyperplasia) N40.0 Essential (primary) hypertension I10 COPD (chronic obstructive pulmonary disease) J44.9 Aphasia following cerebral infarction I69.320 Dysphasia following cerebral infarction I69.321 Chronic pain G89.29
[2024-06-14] MEDS: GABAPENTIN 100 MG CAP PO SCH (21:17)
[2024-06-15] MEDS: ENOXAPARIN INJ 40 MG/0.4 ML SYR SQ SCH (11:29)
[2024-06-15] MEDS: GABAPENTIN 300 MG CAP PO SCH (13:13)
[2024-06-15] MEDS: traMADol HCL 50 MG TABLET PO PRN (17:46)
--- NOTE | 2024-06-15 18:02 | Hospitalist Progress Note ---
Date of Service June 15, 2024 Assessment & Plan (1) Aspiration pneumonia: Plan: treated for such with 7 day course of abx in April resolved clinically & radiographically cont thickened liquids & easy to chew diet to reduce risk of aspiration (2) H/O: CVA (cerebrovascular accident): Plan: left MCA territory stroke with resulting right-sided hemiparesis & dense expressive aphasia cont asa 81mg daily + lipitor 40mg daily for secondary prevention (3) Type 2 diabetes mellitus: Plan: cont basal-bolus insulin last a1c 7.7% early in 04/2024 glycemic control is excellent (4) Seizure disorder as sequela of cerebrovascular accident: Plan: Continue valproic acid 500 mg p.o. twice daily Levels in March 2024 were therapeutic (5) BPH (benign prostatic hyperplasia): Plan: cont flomax daily (6) Essential (primary) hypertension: Plan: cont losartan cont HCTZ cont flomax control largely acceptable (7) COPD (chronic obstructive pulmonary disease): Plan: cont inhalers no flare at this time O2 sats wnl (8) Aphasia following cerebral infarction: Plan: 2nd to left MCA territory CVA in the past (9) Dysphasia following cerebral infarction: Plan: cont easy to chew diet & honey thickened liquids he is a known aspirator Patient had a repeat aspiration event on 05/21/2024 Fortunately this did not lead to any pneumonia (10) Chronic pain: Plan: patient c/o right arm/right leg pain (neuropathic pain from prior stroke??) Was on gabapentin 800mg QID prior to admission; this fell off - not sure when; but reordered on 06/14/24 Continue Tylenol 650mg QID Continue Cymbalta 30 mg p.o. daily Continue Lidocaine jelly TID Voltaren gel 4gm QID for L shoulder (previously evaluated by ortho - h/o shoulder replacement) Cont tramadol 50mg q8h prn Plan DVT prophylaxis - Lovenox 40 mg subcutaneous daily Constipation - add senna, add miralax No labs in 2+ weeks; check labs tomorrow Disposition - uncertain; multiple personal care homes are being investigated Admission and Anticipated Discharge Date Admission Date: April 04, 2024 Subjective c/o left arm/shoulder pain cont with mild right arm/right leg pain he asks for his pain meds during the visit states he is constipated eating well apparently family or friends were visiting and were asking if he could go outside Review of Systems Review of Systems: CV - no chest pain pulm - no dyspnea; not coughing GI - no pain or N/V Physical Exam Physical Exam: gen - lying in bed, NAD; expressive aphasia but no receptive aphasia; pointing to left arm upper portion mouth - MMM neck - no JVD heart - RRR, s1 s2, no murmur lungs - b/l end-exp wheezes; no distress abd - soft NT ND BS+ ext - no edema, pulses 2+ b/l feet neuro - right-sided hemiparesis, expressive aphasia Results & Data Results & Data Vital Signs (Past 12 Hours) Vital Signs Temp Pulse Resp BP Pulse Ox O2 Del Method 06/15/24 11:17 36.4 C L 60 16 148/77 H 97 Room Air 06/15/24 07:33 36.4 C L 52 L 14 136/74 95 Room Air Laboratory Results Laboratory Results - last 24 hr 06/14/24 06/15/24 06/15/24 20:49 07:47 11:29 POC Glucose 107 H 120 H 143 H 06/15/24 16:35 POC Glucose 111 H PG Care Time/CCT Total # of Minutes Spent Total Time Spent with Patient: Total time spent is greater than 50% in coordination of care (as documented) at patient's floor/unit and/or counseling patient: Coding Level of Care Code 42308 SUB INP/OBS CARE 1/25MIN Diagnoses Aspiration pneumonia J69.0 H/O: CVA (cerebrovascular accident) Z86.73 Type 2 diabetes mellitus E11.9 Seizure disorder as sequela of cerebrovascular accident I69.398; G40.909 BPH (benign prostatic hyperplasia) N40.0 Essential (primary) hypertension I10 COPD (chronic obstructive pulmonary disease) J44.9 Aphasia following cerebral infarction I69.320 Dysphasia following cerebral infarction I69.321 Chronic pain G89.29
[2024-06-15] MEDS: POLYETHYLENE (MIRALAX) 17 GM PACK PO SCH (18:21)
[2024-06-15] MEDS: SENNA 8.6 MG TAB PO SCH (18:21)
[2024-06-16 08:05] LABS: Hematocrit (blood only) 47.5 % (42.0-52.0); Hemoglobin 15.8 g/dl (14.0-18.0); Mean Corpuscular Hemoglobin 29.2 pg (25.0-34.0); Mean Corpuscular Hgb Conc 33.3 g/dL (32.0-36.0); Mean Corpuscular Volume 87.6 fL (80.0-100.0); Mean Platelet Volume 10.1 fL (9.4-12.4); Platelet Count 216 K/uL (130-400); RDW Coefficient of Variation 14.3 % (11.5-14.5); Red Blood Count 5.42 M/uL (4.70-6.10); White Blood Count 7.15 K/ul (4.8-10.8)
[2024-06-16 08:26] LABS: BUN Creatinine Ratio 25.6 (10-20); Calcium 9.3 mg/dl (8.6-10.3); Creatinine Clr Calc Pharmacy 81.3 ml/min; Potassium 4.1 mmol/L (3.5-5.1)
[2024-06-16] MEDS: CHOLECALCIFEROL 125 MCG (5,000 UNITS) TAB PO SCH (12:19)
--- NOTE | 2024-06-16 19:29 | Hospitalist Progress Note ---
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 twice daily Levels in March 2024 were therapeutic (5) BPH (benign prostatic hyperplasia): Plan: cont flomax daily (6) Essential (primary) hypertension: Plan: cont losartan cont HCTZ cont flomax control largely acceptable (7) COPD (chronic obstructive pulmonary disease): Plan: cont inhalers no flare at this time O2 sats wnl (8) Aphasia following cerebral infarction: Plan: 2nd to left MCA territory CVA in the past (9) Dysphasia following cerebral infarction: Plan: cont easy to chew diet & honey thickened liquids he is a known aspirator Patient had a repeat aspiration event on 05/21/2024 Fortunately this did not lead to any pneumonia (10) Chronic pain: Plan: patient c/o right arm/right leg pain (neuropathic pain from prior stroke??) Was on gabapentin 800mg QID prior to admission; this fell off - not sure when; but reordered on 06/14/24; currently on 300mg TID titrate to 600mg TID in a few days Continue Tylenol 650mg QID Continue Cymbalta 30 mg p.o. daily - consider increase at some point Continue Lidocaine jelly TID Voltaren gel 4gm QID for L shoulder (previously evaluated by ortho - h/o shoulder replacement) Cont tramadol 50mg q8h prn (11) Vitamin D insufficiency: Plan: 25-OH vit D level = 20 start vitamin D supplementation - 5000 IU daily repeat level 2-3 months Plan DVT prophylaxis - Lovenox 40 mg subcutaneous daily Constipation - had BM earlier today; cont senna, cont miralax for maintenance labs today - cbc, bmp, B12 level - all wnl Disposition - uncertain; multiple personal care homes are being investigated I updated pt's brother Kevin by phone today Admission and Anticipated Discharge Date Admission Date: April 04, 2024 Subjective no events overnight patient resting in bed during the visit denies any new complaints aches/pains controlled Physical Exam Physical Exam: gen - lying in bed, NAD; expressive aphasia but no receptive aphasia; looks good today mouth - MMM neck - no JVD heart - RRR, s1 s2, no murmur lungs - b/l end-exp wheezes posteriorly; anterior chest clear; no distress abd - soft NT ND BS+ ext - no edema, pulses 2+ b/l feet neuro - right-sided hemiparesis, expressive aphasia Results & Data Results & Data Vital Signs (Past 12 Hours) Vital Signs Temp Pulse Resp BP Pulse Ox O2 Del Method 06/16/24 14:10 36.3 C L 65 18 127/76 94 Room Air 06/16/24 09:22 Room Air 06/16/24 07:48 36.1 C L 81 18 157/81 H 96 Room Air Laboratory Results Laboratory Results - last 24 hr 06/15/24 06/16/24 06/16/24 19:47 05:15 07:41 POC Glucose 131 H 119 H 25-OH Vitamin D Total 20.0 L 06/16/24 06/16/24 06/16/24 07:46 11:20 16:48 WBC 7.15 RBC 5.42 Hgb 15.8 Hct 47.5 MCV 87.6 MCH 29.2 MCHC 33.3 RDW Std Deviation 46.0 RDW Coeff of Jessica 14.3 Plt Count 216 MPV 10.1 Sodium 139 Potassium 4.1 Chloride 103 Carbon Dioxide 30 Anion Gap 6 BUN 23 Creatinine 0.90 Est Cr Clr Drug Dosing 81.3 eGFR 95.97 BUN/Creatinine Ratio 25.6 H Glucose 99 POC Glucose 155 H 103 H Calcium 9.3 Vitamin B12 588 PG Care Time/CCT Total # of Minutes Spent Total Time Spent with Patient: Total time spent is greater than 50% in coordination of care (as documented) at patient's floor/unit and/or counseling patient: Coding Level of Care Code 33310 SUB INP/OBS CARE 2/35MIN Diagnoses Aspiration pneumonia J69.0 H/O: CVA (cerebrovascular accident) Z86.73 Type 2 diabetes mellitus E11.9 Seizure disorder as sequela of cerebrovascular accident I69.398; G40.909 BPH (benign prostatic hyperplasia) N40.0 Essential (primary) hypertension I10 COPD (chronic obstructive pulmonary disease) J44.9 Aphasia following cerebral infarction I69.320 Dysphasia following cerebral infarction I69.321 Chronic pain G89.29 Vitamin D insufficiency E55.9
--- NOTE | 2024-06-17 19:20 | Hospitalist Progress Note ---
Date of Service June 17, 2024 Assessment & Plan (1) Discharge planning issues: Plan: social work continues to work diligently on his post-discharge placement numerous referrals have been sent to assisted living facilities throughout [facility] to date no luck I appreciate social work assistance with this (2) Chronic pain: Plan: patient c/o right arm/right leg pain (neuropathic pain from prior stroke??) Was on gabapentin 800mg QID prior to admission; this fell off - not sure when; but reordered on 06/14/24; currently on 300mg TID titrate to 400mg TID tomorrow Continue Tylenol 650mg QID Continue Cymbalta 30 mg p.o. daily - consider increase at some point Continue Lidocaine jelly TID Voltaren gel 4gm QID for L shoulder (previously evaluated by ortho - h/o shoulder replacement) Cont tramadol but increase to 75mg q6h prn (3) Aspiration pneumonia: Plan: treated for such with 7 day course of abx in April 2024 resolved clinically & radiographically cont thickened liquids & easy to chew diet to reduce risk of aspiration (4) H/O: CVA (cerebrovascular accident): Plan: left MCA territory stroke with resulting right-sided hemiparesis & dense expressive aphasia cont asa 81mg daily + lipitor 40mg daily for secondary prevention (5) Type 2 diabetes mellitus: Plan: cont basal-bolus insulin last a1c 7.7% early in 04/2024 glycemic control remains excellent (6) Seizure disorder as sequela of cerebrovascular accident: Plan: Continue valproic acid 500 mg p.o. twice daily Levels in March 2024 were therapeutic (7) BPH (benign prostatic hyperplasia): Plan: cont flomax daily no LUTS (8) Essential (primary) hypertension: Plan: previously on HCTZ and nifedipine both are on hold (or dropped off med list) will resume BP meds - start amlodipine 5mg daily cont flomax (9) COPD (chronic obstructive pulmonary disease): Plan: cont inhalers no flare at this time O2 sats wnl (10) Aphasia following cerebral infarction: Plan: 2nd to left MCA territory CVA in the past (11) Dysphasia following cerebral infarction: Plan: cont easy to chew diet & honey thickened liquids he is a known aspirator Patient had a repeat aspiration event on 05/21/2024 Fortunately this did not lead to any pneumonia (12) Vitamin D insufficiency: Plan: 25-OH vit D level = 20 start vitamin D supplementation - 5000 IU daily repeat level 2-3 months Plan DVT prophylaxis - Lovenox 40 mg subcutaneous daily Constipation - cont senna, cont miralax for maintenance Disposition - uncertain; multiple personal care homes are being investigated I updated pt's brother Kevin by phone 06/16/24 Admission and Anticipated Discharge Date Admission Date: April 04, 2024 Subjective no issues overnight c/o L shoulder pain reports that tramadol helps but doesn't give great relief of pain asks for dose increase otherwise feels good bored and sick of the hospital Review of Systems Review of Systems: CV - no chest pain pulm - no dyspnea GI - no pain; some constipation Physical Exam Physical Exam: gen - lying in bed, NAD; expressive aphasia at baseline; trying to write out what he wants to tell me mouth - MMM neck - no JVD heart - RRR, s1 s2, no murmur lungs - b/l mild end-exp wheezes posteriorly; anterior chest clear; no rales abd - soft NT ND BS+ ext - no edema, pulses 2+ b/l feet neuro - right-sided hemiparesis, expressive aphasia Results & Data Results & Data Vital Signs (Past 12 Hours) Vital Signs Temp Pulse Resp BP Pulse Ox O2 Del Method 06/17/24 14:33 36.8 C 69 18 120/70 94 Room Air 06/17/24 09:41 Room Air 06/17/24 07:45 36.3 C L 52 L 18 147/83 H 94 Room Air Laboratory Results Laboratory Results - last 24 hr 06/16/24 06/17/24 06/17/24 19:37 07:44 11:44 POC Glucose 150 H 100 H 128 H 06/17/24 16:41 POC Glucose 99 PG Care Time/CCT Total # of Minutes Spent Total Time Spent with Patient: Total time spent is greater than 50% in coordination of care (as documented) at patient's floor/unit and/or counseling patient: Coding Level of Care Code 62030 SUB INP/OBS CARE 2/35MIN Diagnoses Discharge planning issues Z75.8 Chronic pain G89.29 Aspiration pneumonia J69.0 H/O: CVA (cerebrovascular accident) Z86.73 Type 2 diabetes mellitus E11.9 Seizure disorder as sequela of cerebrovascular accident I69.398; G40.909 BPH (benign prostatic hyperplasia) N40.0 Essential (primary) hypertension I10 COPD (chronic obstructive pulmonary disease) J44.9 Aphasia following cerebral infarction I69.320 Dysphasia following cerebral infarction I69.321 Vitamin D insufficiency E55.9
[2024-06-18] MEDS: traMADol HCL 50 MG TABLET PO PRN ×2 (00:47→19:57)
[2024-06-18] MEDS: GABAPENTIN 400 MG CAP PO SCH (09:11)
[2024-06-18] MEDS: amLODIPine BESYLATE 5 MG TAB PO SCH (09:11)
--- NOTE | 2024-06-18 19:04 | Hospitalist Progress Note ---
Date of Service June 18, 2024 Assessment & Plan (1) Discharge planning issues: Plan: social work continues to work diligently on his post-discharge placement numerous referrals have been sent to assisted living facilities throughout [facility] I appreciate social work assistance with this (2) Chronic pain: Plan: patient c/o right arm/right leg pain (neuropathic pain from prior stroke??) Was on gabapentin 800mg QID prior to admission; this fell off - not sure when; but reordered on 06/14/24; currently on 300mg TID, but will increase to 400mg TID today Continue Tylenol 650mg QID Continue Cymbalta 30 mg p.o. 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: Plan: 2nd to left MCA territory CVA in the past (11) Dysphasia following cerebral infarction: Plan: cont easy to chew diet & honey thickened liquids he is a known aspirator Patient had a repeat aspiration event on 05/21/2024 Fortunately this did not lead to any pneumonia (12) Vitamin D insufficiency: Plan: 25-OH vit D level = 20 start vitamin D supplementation - 5000 IU daily repeat level 2-3 months Plan DVT prophylaxis - Lovenox 40 mg subcutaneous daily Constipation - cont senna, cont miralax for maintenance Disposition - uncertain; multiple personal care homes are being investigated I updated pt's brother Keivn by phone 06/16/24 Admission and Anticipated Discharge Date Admission Date: April 04, 2024 Subjective c/o once again about his left shoulder and left upper arm states tramadol is helping but still having pain denies any other complaints eating well denies dyspnea denies chest pain denies abd pain Physical Exam Physical Exam: gen - looks good; expressive aphasia at baseline; sitting at side of bed mouth - MMM neck - no JVD heart - RRR, s1 s2, no murmur lungs - b/l mild end-exp wheezes posteriorly; anterior chest clear; no rales abd - soft NT ND BS+ ext - no edema, pulses 2+ b/l feet neuro - right-sided hemiparesis, expressive aphasia Results & Data Results & Data Vital Signs (Past 12 Hours) Vital Signs Temp Pulse Resp BP Pulse Ox O2 Del Method 06/18/24 15:06 36.6 C 57 L 16 145/83 H 95 Room Air 06/18/24 07:45 36.3 C L 53 L 18 143/80 H 92 Room Air Laboratory Results Laboratory Results - last 24 hr 06/17/24 06/18/24 06/18/24 20:29 07:48 11:45 POC Glucose 124 H 89 96 06/18/24 16:54 POC Glucose 113 H PG Care Time/CCT Total # of Minutes Spent Total Time Spent with Patient: Total time spent is greater than 50% in coordination of care (as documented) at patient's floor/unit and/or counseling patient: Coding Level of Care Code 88776 SUB INP/OBS CARE 09/18MIN Diagnoses Discharge planning issues Z75.8 Chronic pain G89.29 Aspiration pneumonia J69.0 H/O: CVA (cerebrovascular accident) Z86.73 Type 2 diabetes mellitus E11.9 Seizure disorder as sequela of cerebrovascular accident I69.398; G40.909 BPH (benign prostatic hyperplasia) N40.0 Essential (primary) hypertension I10 COPD (chronic obstructive pulmonary disease) J44.9 Aphasia following cerebral infarction I69.320 Dysphasia following cerebral infarction I69.321 Vitamin D insufficiency E55.9
--- NOTE | 2024-06-19 18:55 | Hospitalist Progress Note ---
Date of Service June 19, 2024 Assessment & Plan (1) Discharge planning issues: Plan: social work continues to work diligently on his post-discharge placement numerous referrals have been sent to assisted living facilities throughout [facility] including the [place] system I appreciate social work assistance with this (2) Chronic pain: Plan: patient c/o right arm/right leg pain (neuropathic pain from prior stroke??) Was on gabapentin 800mg QID prior to admission; this fell off - not sure when; but reordered on 06/14/24; currently on 400mg TID - increase to 600mg TID tomorrow Continue Tylenol 650mg QID Continue Cymbalta 30 mg p.o. daily - consider increase at some point Continue Lidocaine jelly TID Voltaren gel 4gm QID for L shoulder (previously evaluated by ortho - h/o shoulder replacement) Cont tramadol 100mg q6h prn bowel regimen due to narcotic use (3) Aspiration pneumonia: Plan: treated for such with 7 day course of abx in April 2024 resolved clinically & radiographically cont thickened liquids & easy to chew diet to reduce risk of aspiration (4) H/O: CVA (cerebrovascular accident): Plan: left MCA territory stroke with resulting right-sided hemiparesis & dense expressive aphasia cont asa 81mg daily + lipitor 40mg daily for secondary prevention (5) Type 2 diabetes mellitus: Plan: cont basal-bolus insulin last a1c 7.7% early in 04/2024 glycemic control remains excellent (6) Seizure disorder as sequela of cerebrovascular accident: Plan: Continue valproic acid 500 mg p.o. 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: Plan: cont easy to chew diet & honey thickened liquids he is a known aspirator Patient had a repeat aspiration event on 05/21/2024 Fortunately this did not lead to any pneumonia (12) Vitamin D insufficiency: Plan: 25-OH vit D level = 20 start vitamin D supplementation - 5000 IU daily repeat level 2-3 months Plan DVT prophylaxis - Lovenox 40 mg subcutaneous daily Constipation - cont senna, cont miralax for maintenance Disposition - uncertain; multiple personal care homes are being investigated I updated pt's brother Kevin by phone 06/16/24 Admission and Anticipated Discharge Date Admission Date: April 04, 2024 Subjective patient lying in bed watching [employer] football denies any complaints he is bored no visitors today eating well patient reports having had a stool today Review of Systems Review of Systems: CV - no chest pain pulm - no dyspnea GI - no abd pain or N/V musculo - chronic pain L shoulder; right arm, right leg - no changes Physical Exam Physical Exam: gen - lying in bed comfortably, sits up anassisted; expressive aphasia at baseline; NAD mouth - MMM neck - no JVD heart - RRR, s1 s2, no murmur lungs - b/l minimal end-exp wheezes posteriorly; anterior chest clear; no rales; no increased work of breathing abd - soft NT ND BS+ ext - no edema, pulses 2+ b/l feet neuro - right-sided hemiparesis, expressive aphasia Results & Data Results & Data Vital Signs (Past 12 Hours) Vital Signs Temp Pulse Pulse Resp BP Pulse Ox O2 Del Method 06/19/24 14:32 36.4 C L 61 16 136/73 93 Room Air 06/19/24 12:41 93 Nasal Cannula 06/19/24 12:30 90 Nasal Cannula 06/19/24 08:30 94 Nasal Cannula 06/19/24 07:37 91 Nasal Cannula 06/19/24 07:33 36.6 C 64 16 145/79 H 88 L Room Air 06/19/24 07:14 Room Air O2 Flow Rate 06/19/24 14:32 06/19/24 12:41 1 06/19/24 12:30 1 06/19/24 08:30 1 06/19/24 07:37 2 06/19/24 07:33 06/19/24 07:14 Laboratory Results Laboratory Results - last 24 hr 06/18/24 06/19/24 06/19/24 20:25 08:00 11:56 POC Glucose 144 H 182 H 100 H 06/19/24 16:41 POC Glucose 115 H PG Care Time/CCT Total # of Minutes Spent Total Time Spent with Patient: Total time spent is greater than 50% in coordination of care (as documented) at patient's floor/unit and/or counseling patient: Coding Level of Care Code 82777 SUB INP/OBS CARE 1/25MIN Diagnoses Discharge planning issues Z75.8 Chronic pain G89.29 Aspiration pneumonia J69.0 H/O: CVA (cerebrovascular accident) Z86.73 Type 2 diabetes mellitus E11.9 Seizure disorder as sequela of cerebrovascular accident I69.398; G40.909 BPH (benign prostatic hyperplasia) N40.0 Essential (primary) hypertension I10 COPD (chronic obstructive pulmonary disease) J44.9 Aphasia following cerebral infarction I69.320 Dysphasia following cerebral infarction I69.321 Vitamin D insufficiency E55.9
[2024-06-20] MEDS: GABAPENTIN 300 MG CAP PO SCH (08:56)
--- NOTE | 2024-06-20 15:40 | Hospitalist Progress Note ---
Date of Service June 20, 2024 Assessment & Plan (1) Discharge planning issues: Plan: social work continues to work diligently on his post-discharge placement numerous referrals have been sent to assisted living facilities throughout [facility] including the [place] system I appreciate social work assistance with this will f/u with social work tomorrow to check on status of referrals (2) Chronic pain: Plan: patient c/o right arm/right leg pain (neuropathic pain from prior stroke??) Was on gabapentin 800mg QID prior to admission; this fell off - not sure when; but reordered on 06/14/24; increase to 600mg TID today Continue Tylenol 650mg QID Continue Cymbalta 30 mg p.o. daily - consider increase given his report of depression Continue Lidocaine jelly TID Voltaren gel 4gm QID for L shoulder (previously evaluated by ortho - h/o shoulder replacement) Cont tramadol 100mg q6h prn bowel regimen due to narcotic use (3) Aspiration pneumonia: Plan: treated for such with 7 day course of abx in April 2024 resolved clinically & radiographically cont thickened liquids & easy to chew diet to reduce risk of aspiration (4) H/O: CVA (cerebrovascular accident): Plan: left MCA territory stroke with resulting right-sided hemiparesis & dense ex pressive aphasia cont asa 81mg daily + lipitor 40mg daily for secondary prevention (5) Type 2 diabetes mellitus: Plan: cont basal-bolus insulin last a1c 7.7% early in 04/2024 glycemic control is excellent all BSGs <200 (6) Seizure disorder as sequela of cerebrovascular accident: Plan: Continue valproic acid 500 mg p.o. 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: Plan: cont easy to chew diet & honey thickened liquids he is a known aspirator Patient had a repeat aspiration event on 05/21/2024 Fortunately this did not lead to any pneumonia (12) Vitamin D insufficiency: Plan: 25-OH vit D level = 20 start vitamin D supplementation - 5000 IU daily repeat level 2-3 months Plan DVT prophylaxis - Lovenox 40 mg subcutaneous daily Constipation - cont senna, cont miralax for maintenance Disposition - uncertain; multiple personal care homes are being investigated I updated pt's brother Kevin by phone 06/16/24; will update him again on 06/21 Admission and Anticipated Discharge Date Admission Date: April 04, 2024 Subjective no events overnight patient admits to feeling depressed pain in right leg/arm controlled today pain in L shoulder controlled today eating well just very bored, depressed, anxious to get out of the hospital Review of Systems Review of Systems: CV - no chest pain pulm - no dyspnea; occasional cough GI - no abd pain Physical Exam Physical Exam: gen - lying in bed comfortably, NAD mouth - MMM neck - no JVD heart - RRR, s1 s2, no murmur lungs - b/l scantend-exp wheezes posteriorly; no rales; no increased work of breathing abd - soft NT ND BS+ ext - no edema, pulses 2+ b/l feet neuro - right-sided hemiparesis, expressive aphasia but no receptive aphasia Results & Data Results & Data Vital Signs (Past 12 Hours) Vital Signs Temp Pulse Resp BP Pulse Ox O2 Del Method 06/20/24 15:09 36.6 C 55 L 16 149/69 H 95 Room Air 06/20/24 08:09 36.4 C L 67 16 116/80 93 Room Air Laboratory Results Laboratory Results - last 24 hr 06/19/24 06/19/24 06/20/24 16:41 20:27 07:50 POC Glucose 115 H 158 H 119 H 06/20/24 11:29 POC Glucose 96 PG Care Time/CCT Total # of Minutes Spent Total Time Spent with Patient: Total time spent is greater than 50% in coordination of care (as documented) at patient's floor/unit and/or counseling patient: Coding Level of Care Code 12237 SUB INP/OBS CARE 09/18MIN Diagnoses Discharge planning issues Z75.8 Chronic pain G89.29 Aspiration pneumonia J69.0 H/O: CVA (cerebrovascular accident) Z86.73 Type 2 diabetes mellitus E11.9 Seizure disorder as sequela of cerebrovascular accident I69.398; G40.909 BPH (benign prostatic hyperplasia) N40.0 Essential (primary) hypertension I10 COPD (chronic obstructive pulmonary disease) J44.9 Aphasia following cerebral infarction I69.320 Dysphasia following cerebral infarction I69.321 Vitamin D insufficiency E55.9
--- NOTE | 2024-06-21 20:43 | Hospitalist Progress Note ---
Date of Service June 21, 2024 Assessment & Plan (1) Discharge planning issues: Plan: social work continues to work diligently on his post-discharge placement numerous referrals have been sent to assisted living facilities throughout [facility] including the [place] system I appreciate social work assistance with this (2) Chronic pain: Plan: patient c/o right arm/right leg pain (neuropathic pain from prior stroke??) Was on gabapentin 800mg QID prior to admission; this fell off - not sure when; but reordered on 06/14/24; increase to 600mg TID 06/20 Continue Tylenol 650mg QID Continue Cymbalta 30 mg p.o. 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: Plan: cont easy to chew diet & honey thickened liquids he is a known aspirator Patient had a repeat aspiration event on 05/21/2024 Fortunately this did not lead to any pneumonia (12) Vitamin D insufficiency: Plan: 25-OH vit D level = 20 start vitamin D supplementation - 5000 IU daily repeat level 2-3 months Plan DVT prophylaxis - Lovenox 40 mg subcutaneous daily Constipation - cont senna, cont miralax for maintenance Disposition - uncertain; multiple personal care homes are being investigated I updated pt's brother Kevin by phone 06/16/24 Admission and Anticipated Discharge Date Admission Date: April 04, 2024 Subjective no events he was asleep when I first arrived easily awoke offered no complaints I asked staff to take him outside for fresh air they did do this mid-afternoon and he enjoyed it Review of Systems Review of Systems: CV - no chest pain pulm - no dyspnea GI - no pain musculo - L shoulder discomfort unchanged Physical Exam Physical Exam: gen - sitting at side of bed, NAD mouth - MMM neck - no JVD heart - RRR, s1 s2, no murmur lungs - b/l mild end-exp wheezes posteriorly; no rales; no increased work of breathing abd - soft NT ND BS+ ext - no edema, pulses 2+ b/l feet neuro - right-sided hemiparesis, expressive aphasia but no receptive aphasia Results & Data Results & Data Vital Signs (Past 12 Hours) Vital Signs Temp Pulse Resp BP Pulse Ox O2 Del Method 06/21/24 18:49 36.5 C 74 20 141/96 H 96 Room Air 06/21/24 15:15 36.5 C 67 16 137/77 93 Room Air 06/21/24 11:09 Room Air Laboratory Results Laboratory Results - last 24 hr 06/21/24 06/21/24 06/21/24 07:37 11:33 16:42 POC Glucose 99 87 107 H PG Care Time/CCT Total # of Minutes Spent Total Time Spent with Patient: Total time spent is greater than 50% in coordination of care (as documented) at patient's floor/unit and/or counseling patient: Coding Level of Care Code 10048 SUB INP/OBS CARE 09/18MIN Diagnoses Discharge planning issues Z75.8 Chronic pain G89.29 Aspiration pneumonia J69.0 H/O: CVA (cerebrovascular accident) Z86.73 Type 2 diabetes mellitus E11.9 Seizure disorder as sequela of cerebrovascular accident I69.398; G40.909 BPH (benign prostatic hyperplasia) N40.0 Essential (primary) hypertension I10 COPD (chronic obstructive pulmonary disease) J44.9 Aphasia following cerebral infarction I69.320 Dysphasia following cerebral infarction I69.321 Vitamin D insufficiency E55.9
[2024-06-21] MEDS: LANTUS PER UNIT CHARGE SQ SCH (21:50)
--- NOTE | 2024-06-22 11:15 | Electrocardiogram Report ---
Test Reason : Blood Pressure : */* mmHG Vent. Rate : 69 BPM Atrial Rate : 69 BPM P-R Int : 208 ms QRS Dur : 88 ms QT Int : 384 ms P-R-T Axes : 65 36 34 degrees QTcB Int : 411 ms Normal sinus rhythm Normal ECG When compared with ECG of 18-May-2024 12:28, No significant change was found Confirmed by Pedro Ellison ([id number] on 06/22/2024 11:14:52 AM Referred By: REFERRED SELF Confirmed By: Pedro Ellison
--- NOTE | 2024-06-22 16:33 | Hospitalist Progress Note ---
Date of Service June 22, 2024 Assessment & Plan (1) Discharge planning issues: Plan: social work continues to work diligently on his post-discharge placement numerous referrals have been sent to assisted living facilities throughout [facility] including the [place] system I appreciate social work assistance with this last set of labs 06/16 was normal (2) Chronic pain: Plan: patient c/o right arm/right leg pain (neuropathic pain from prior stroke?) Was on gabapentin 800mg QID prior to admission; this fell off - not sure when; but reordered on 06/14/24; increased to 600mg TID 06/20 Continue Tylenol 650mg QID Continue Cymbalta 30 mg p.o. daily - consider increase given his report of depression Continue Lidocaine jelly TID Voltaren gel 4gm QID for L shoulder (previously evaluated by ortho - h/o shoulder replacement) Cont tramadol 100mg q6h prn bowel regimen due to narcotic use no complaint of pain today (3) Aspiration pneumonia: Plan: treated for such with 7 day course of abx in April 2024 resolved clinically & radiographically cont thickened liquids & easy to chew diet to reduce risk of aspiration (4) H/O: CVA (cerebrovascular accident): Plan: left MCA territory stroke with resulting right-sided hemiparesis & dense expres sive aphasia cont asa 81mg daily + lipitor 40mg daily for secondary prevention (5) Type 2 diabetes mellitus: Plan: cont basal-bolus insulin last a1c 7.7% early in 04/2024 glycemic control is excellent; however, AM BSGs are borderline low at times continue glargine and Premeal aspart blood glucose at goal today (6) Seizure disorder as sequela of cerebrovascular accident: Plan: Continue valproic acid 500 mg p.o. 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: Plan: cont easy to chew diet & honey thickened liquids he is a known aspirator Patient had aspiration event on 05/21/2024 Fortunately this did not lead to any pneumonia (12) Vitamin D insufficiency: Plan: 25-OH vit D level = 20 vitamin D supplementation - 5000 IU daily repeat level 2-3 months Plan DVT prophylaxis - Lovenox 40 mg subcutaneous daily Constipation - cont senna, cont miralax for maintenance Disposition - uncertain; multiple personal care homes are being investigated updated pt's brother Kevin by phone last on 06/16/24 Admission and Anticipated Discharge Date Admission Date: April 04, 2024 Subjective I woke him up from a nap he does not have any needs today he does not have any right arm pain at this time communication is significantly limited by his expressive aphasia Physical Exam Physical Exam: PHYSICAL EXAMINATION Last 24h vital signs reviewed, see documentation in flowsheet General: was napping but woke up HEENT: Normocephalic, atraumatic, pupils round and equal, sclerae anicteric, no conjunctival injection, moist mucus membranes Lungs: Normal respiratory effort. Clear to auscultation bilaterally. No RRW Heart: Regular rate and rhythm, no murmurs. No JVD Abdomen: Soft, nontender, nondistended. Bowel sounds present. Extremities: Warm, dry, well-perfused. No extremity edema. Neuro: Alert, expressive aphasia, right upper extremity significant weakness Psych: Normal affect and behavior Results & Data Results & Data Vital Signs (Past 12 Hours) Vital Signs Temp Pulse Pulse Resp BP BP Pulse Ox 06/22/24 15:14 56 L 141/74 H 141/74 H 95 06/22/24 08:13 06/22/24 07:56 36.5 C 54 L 16 139/71 93 O2 Del Method 06/22/24 15:14 Room Air 06/22/24 08:13 Room Air 06/22/24 07:56 Room Air PG Care Time/CCT Total # of Minutes Spent Total Time Spent with Patient: Total time spent is greater than 50% in coordination of care (as documented) at patient's floor/unit and/or counseling patient: Coding Level of Care Code 79474 SUB INP/OBS CARE 09/18MIN Diagnoses Discharge planning issues Z75.8 Chronic pain G89.29 Aspiration pneumonia J69.0 H/O: CVA (cerebrovascular accident) Z86.73 Type 2 diabetes mellitus E11.9 Seizure disorder as sequela of cerebrovascular accident I69.398; G40.909 BPH (benign prostatic hyperplasia) N40.0 Essential (primary) hypertension I10 COPD (chronic obstructive pulmonary disease) J44.9 Aphasia following cerebral infarction I69.320 Dysphasia following cerebral infarction I69.321 Vitamin D insufficiency E55.9
--- NOTE | 2024-06-23 18:13 | Hospitalist Progress Note ---
Date of Service June 23, 2024 Assessment & Plan (1) Discharge planning issues: Plan: social work continues to work diligently on his post-discharge placement numerous referrals have been sent to assisted living facilities throughout [facility] including the [place] system I appreciate social work assistance with this last set of labs 06/16 was normal ordered weekly labs for AM (2) Chronic pain: Plan: patient c/o right arm/right leg pain (neuropathic pain from prior stroke?) Was on gabapentin 800mg QID prior to admission; this fell off - not sure when; but reordered on 06/14/24; increased to 600mg TID 06/20 Continue Tylenol 650mg QID Continue Cymbalta 30 mg p.o. 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: Plan: cont easy to chew diet & honey thickened liquids he is a known aspirator Patient had aspiration event on 05/21/2024 Fortunately this did not lead to any pneumonia (12) Vitamin D insufficiency: Plan: 25-OH vit D level = 20 vitamin D supplementation - 5000 IU daily repeat level 2-3 months Plan DVT prophylaxis - Lovenox 40 mg subcutaneous daily Constipation - cont senna, cont miralax for maintenance Disposition - uncertain; multiple personal care homes are being investigated updated pt's brother Kevin by phone last on 06/16/24 Admission and Anticipated Discharge Date Admission Date: April 04, 2024 Subjective hand pain thumb/radial side today Physical Exam Physical Exam: PHYSICAL EXAMINATION Last 24h vital signs reviewed, see documentation in flowsheet exam unchanged 06/23 General: was napping but woke up HEENT: Normocephalic, atraumatic, pupils round and equal, sclerae anicteric, no conjunctival injection, moist mucus membranes Lungs: Normal respiratory effort. Clear to auscultation bilaterally. No RRW Heart: Regular rate and rhythm, no murmurs. No JVD Abdomen: Soft, nontender, nondistended. Bowel sounds present. Extremities: Warm, dry, well-perfused. No extremity edema. R hand without erythema warmth or deformity, no tenderness, muscle wasting present Neuro: Alert, expressive aphasia, right upper extremity significant weakness Psych: Normal affect and behavior Results & Data Results & Data Vital Signs (Past 12 Hours) Vital Signs Temp Pulse Resp BP Pulse Ox O2 Del Method 06/23/24 13:59 36.3 C L 59 L 18 129/77 95 Room Air 06/23/24 07:32 36.3 C L 56 L 18 136/76 95 Room Air 06/23/24 07:30 Room Air PG Care Time/CCT Total # of Minutes Spent Total Time Spent with Patient: Total time spent is greater than 50% in coordination of care (as documented) at patient's floor/unit and/or counseling patient: Coding Level of Care Code 10984 SUB INP/OBS CARE 09/18MIN Diagnoses Discharge planning issues Z75.8 Chronic pain G89.29 Aspiration pneumonia J69.0 H/O: CVA (cerebrovascular accident) Z86.73 Type 2 diabetes mellitus E11.9 Seizure disorder as sequela of cerebrovascular accident I69.398; G40.909 BPH (benign prostatic hyperplasia) N40.0 Essential (primary) hypertension I10 COPD (chronic obstructive pulmonary disease) J44.9 Aphasia following cerebral infarction I69.320 Dysphasia following cerebral infarction I69.321 Vitamin D insufficiency E55.9
[2024-06-24 09:02] LABS: Hematocrit (blood only) 48.3 % (42.0-52.0); Hemoglobin 16.2 g/dl (14.0-18.0); Mean Corpuscular Hemoglobin 29.5 pg (25.0-34.0); Mean Corpuscular Hgb Conc 33.5 g/dL (32.0-36.0); Mean Corpuscular Volume 87.8 fL (80.0-100.0); Mean Platelet Volume 9.8 fL (9.4-12.4); Platelet Count 218 K/uL (130-400); RDW Coefficient of Variation 13.8 % (11.5-14.5); RDW Standard Deviation 44.2 fL (36.4-46.3); White Blood Count 6.11 K/ul (4.8-10.8)
[2024-06-24 09:22] LABS: BUN Creatinine Ratio 22.7 (10-20); Calcium 9.3 mg/dl (8.6-10.3); Creatinine Clr Calc Pharmacy 84.1 ml/min; Potassium 4.1 mmol/L (3.5-5.1)
--- NOTE | 2024-06-24 17:09 | Hospitalist Progress Note ---
Date of Service June 24, 2024 Assessment & Plan (1) Discharge planning issues: Plan: social work continues to work diligently on his post-discharge placement numerous referrals have been sent to assisted living facilities throughout [facility] including the [place] system I appreciate social work assistance with this labs 06/24 reviewed - normal CBC Hgb 16.2, normal BMP except glucose 150 (2) Chronic pain: Plan: patient c/o right arm/right leg pain (neuropathic pain from prior stroke?) Was on gabapentin 800mg QID prior to admission; this fell off - not sure when; but reordered on 06/14/24; increased to 600mg TID 06/20 Continue Tylenol 650mg QID Continue Cymbalta 30 mg p.o. 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: Plan: cont easy to chew diet & honey thickened liquids he is a known aspirator Patient had aspiration event on 05/21/2024 Fortunately this did not lead to any pneumonia (12) Vitamin D insufficiency: Plan: 25-OH vit D level = 20 vitamin D supplementation - 5000 IU daily repeat level 2-3 months Plan DVT prophylaxis - Lovenox 40 mg subcutaneous daily Constipation - cont senna, cont miralax for maintenance Disposition - uncertain; multiple personal care homes are being investigated updated pt's brother Kevin by phone last on 06/16/24 Admission and Anticipated Discharge Date Admission Date: April 04, 2024 Subjective currently napping no events R hand pain has persisted Physical Exam Physical Exam: PHYSICAL EXAMINATION Last 24h vital signs reviewed, see documentation in flowsheet General: napping HEENT: moist mucus membranes Lungs: Normal respiratory effort. Clear to auscultation bilaterally. No RRW Heart: Regular rate and rhythm, no murmurs. No JVD Abdomen: Soft, ND Extremities: Warm, dry, well-perfused. No extremity edema. R hand without erythema warmth or deformity, no tenderness, muscle wasting present Neuro: napping Results & Data Results & Data Vital Signs (Past 12 Hours) Vital Signs Temp Pulse Resp BP Pulse Ox O2 Del Method 06/24/24 14:53 36.3 C L 50 L 20 147/76 H 95 Room Air 06/24/24 11:12 Room Air 06/24/24 08:15 36.4 C L 57 L 18 128/81 93 Room Air PG Care Time/CCT Total # of Minutes Spent Total Time Spent with Patient: Total time spent is greater than 50% in coordination of care (as documented) at patient's floor/unit and/or counseling patient: Coding Level of Care Code 42217 SUB INP/OBS CARE 2/35MIN Diagnoses Discharge planning issues Z75.8 Chronic pain G89.29 Aspiration pneumonia J69.0 H/O: CVA (cerebrovascular accident) Z86.73 Type 2 diabetes mellitus E11.9 Seizure disorder as sequela of cerebrovascular accident I69.398; G40.909 BPH (benign prostatic hyperplasia) N40.0 Essential (primary) hypertension I10 COPD (chronic obstructive pulmonary disease) J44.9 Aphasia following cerebral infarction I69.320 Dysphasia following cerebral infarction I69.321 Vitamin D insufficiency E55.9
--- NOTE | 2024-06-25 17:10 | Hospitalist Progress Note ---
Date of Service June 25, 2024 Assessment & Plan (1) Discharge planning issues: Plan: social work continues to work diligently on his post-discharge placement numerous referrals have been sent to assisted living facilities throughout [facility] including the [place] system I appreciate social work assistance with this labs 06/24 reviewed - normal CBC Hgb 16.2, normal BMP except glucose 150 (2) Chronic pain: Plan: patient c/o right arm/right leg pain (neuropathic pain from prior stroke?) Was on gabapentin 800mg QID prior to admission; this fell off - not sure when; but reordered on 06/14/24; increased to 600mg TID 06/20 Continue Tylenol 650mg QID Continue Cymbalta 30 mg p.o. 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: Plan: cont easy to chew diet & honey thickened liquids he is a known aspirator Patient had aspiration event on 05/21/2024 Fortunately this did not lead to any pneumonia (12) Vitamin D insufficiency: Plan: 25-OH vit D level = 20 vitamin D supplementation - 5000 IU daily repeat level 2-3 months Plan DVT prophylaxis - Lovenox 40 mg subcutaneous daily Constipation - cont senna, cont miralax for maintenance trial ketoconazole for facial rash Disposition - uncertain; multiple personal care homes are being investigated updated pt's brother Kevin by phone last on 06/16/24 Admission and Anticipated Discharge Date Admission Date: April 04, 2024 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 Clear to auscultation bilaterally. No RRW Heart: Regular rate and rhythm, no murmurs. No JVD Abdomen: Soft, nt, ND Extremities: Warm, dry, well-perfused. No extremity edema. Neuro: alert, answers questions nodding yes/no and with gestures. expressive aphasia. RUE>RLE weakness Results & Data Results & Data Vital Signs (Past 12 Hours) Vital Signs Temp Pulse Resp BP Pulse Ox O2 Del Method 06/25/24 15:19 36.6 C 60 18 147/81 H 96 Room Air 06/25/24 07:06 36.6 C 54 L 18 152/80 H 96 Room Air PG Care Time/CCT Total # of Minutes Spent Total Time Spent with Patient: Total time spent is greater than 50% in coordination of care (as documented) at patient's floor/unit and/or counseling patient: Coding Level of Care Code 35006 SUB INP/OBS CARE 2/35MIN Diagnoses Discharge planning issues Z75.8 Chronic pain G89.29 Aspiration pneumonia J69.0 H/O: CVA (cerebrovascular accident) Z86.73 Type 2 diabetes mellitus E11.9 Seizure disorder as sequela of cerebrovascular accident I69.398; G40.909 BPH (benign prostatic hyperplasia) N40.0 Essential (primary) hypertension I10 COPD (chronic obstructive pulmonary disease) J44.9 Aphasia following cerebral infarction I69.320 Dysphasia following cerebral infarction I69.321 Vitamin D insufficiency E55.9
[2024-06-25] MEDS: oxyCODONE HCL IR 5 MG TAB (IMMEDIATE RELEASE) PO STA (17:46)
[2024-06-25] MEDS: KETOCONAZOLE 2% CR 15 GM TUBE EXT SCH (20:44)
[2024-06-26] MEDS: DULoxetine HCL 60 MG CAP PO SCH (08:30)
[2024-06-26] MEDS: amLODIPine BESYLATE 5 MG TAB PO SCH (08:30)
--- NOTE | 2024-06-26 17:56 | Hospitalist Progress Note ---
Date of Service June 26, 2024 Assessment & Plan (1) Discharge planning issues: Plan: social work continues to work diligently on his post-discharge placement numerous referrals have been sent to assisted living facilities throughout [facility] including the [place] system I appreciate social work assistance with this labs 06/24 reviewed - normal CBC Hgb 16.2, normal BMP except glucose 150 (2) Chronic pain: Plan: patient c/o right arm/right leg pain (neuropathic pain from prior stroke?) Was on gabapentin 800mg QID prior to admission; this fell off - not sure when; but reordered on 06/14/24; increased to 600mg TID 06/20 Continue Tylenol 650mg QID Continue Cymbalta 60 mg p.o. 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 Has been here 84 days and no current acute issues, low risk for DVT Constipation - cont senna, cont miralax for maintenance trial ketoconazole for facial rash started 06/25 x 10d. Looks like michele derm Disposition - uncertain; multiple personal care homes are being investigated updated pt's brother Kevin by phone last on 06/16/24 Admission and Anticipated Discharge Date Admission Date: April 04, 2024 Subjective listening to football game no complaints, feels ok Physical Exam Physical Exam: PHYSICAL EXAMINATION Last 24h vital signs reviewed, see documentation in flowsheet General: awake and alert lying on side listening to headset HEENT: moist mucus membranes flaky skin and facial erythema improved a bit? Lungs: Normal respiratory effort. Clear to auscultation bilaterally. No RRW Heart: Regular rate and rhythm, no murmurs. No JVD Abdomen: Soft, nt, ND Extremities: Warm, dry, well-perfused. No extremity edema. Neuro: alert, answers questions nodding yes/no and with gestures. expressive aphasia. RUE>RLE weakness Results & Data Results & Data Vital Signs (Past 12 Hours) Vital Signs Temp Pulse Resp BP Pulse Ox O2 Del Method 06/26/24 14:46 36.3 C L 55 L 18 159/74 H 96 Room Air 06/26/24 08:00 36.3 C L 48 L 16 154/78 H 94 Room Air PG Care Time/CCT Total # of Minutes Spent Total Time Spent with Patient: Total time spent is greater than 50% in coordination of care (as documented) at patient's floor/unit and/or counseling patient: Coding Level of Care Code 43559 SUB INP/OBS CARE 09/18MIN Diagnoses Discharge planning issues Z75.8 Chronic pain G89.29 Aspiration pneumonia J69.0 H/O: CVA (cerebrovascular accident) Z86.73 Type 2 diabetes mellitus E11.9 Seizure disorder as sequela of cerebrovascular accident I69.398; G40.909 BPH (benign prostatic hyperplasia) N40.0 Essential (primary) hypertension I10 COPD (chronic obstructive pulmonary disease) J44.9 Aphasia following cerebral infarction I69.320 Dysphasia following cerebral infarction I69.321 Vitamin D insufficiency E55.9
[2024-06-27] MEDS: NICOTINE 7 MG/24 HR TDSY TD SCH (08:17)
--- NOTE | 2024-06-27 08:31 | Hospitalist Progress Note ---
Date of Service June 27, 2024 Assessment & Plan (1) Discharge planning issues: Plan: social work continues to work diligently on his post-discharge placement numerous referrals have been sent to assisted living facilities throughout [facility] including the [place] system I appreciate social work assistance with this labs 06/24 reviewed - normal CBC Hgb 16.2, normal BMP except glucose 150 (2) Chronic pain: Plan: patient c/o right arm/right leg pain (neuropathic pain from prior stroke?) Was on gabapentin 800mg QID prior to admission; this fell off - not sure when; but reordered on 06/14/24; increased to 600mg TID 06/20. Would not increase further, tends to be sleeping a lot. Continue Tylenol 650mg QID Continue Cymbalta 60 mg p.o. daily - recently increased Continue Lidocaine jelly TID Voltaren gel 4gm QID for L shoulder (previously evaluated by ortho - h/o shoulder replacement) Cont tramadol 100mg q6h prn bowel regimen due to narcotic use pain better with increased Cymbalta? 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 Decreased glargine from 13-->11u daily. (6) Seizure disorder as sequela of cerebrovascular accident: Plan: Continue valproic acid 500 mg p.o. 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 Has been here 84 days and no current acute issues, low risk for DVT Constipation - cont senna, cont miralax for maintenance trial ketoconazole for facial rash started 06/25 x 10d. Looks like michele derm. 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 Clear to auscultation bilaterally. No RRW Heart: Regular rate and rhythm, no murmurs. No JVD Abdomen: Soft, nt, ND Extremities: Warm, dry, well-perfused. No extremity edema. Neuro: alert, answers questions nodding yes/no and with gestures. expressive aphasia. RUE>RLE weakness. unchanged Results & Data Results & Data Vital Signs (Past 12 Hours) Vital Signs Temp Pulse Resp BP Pulse Ox O2 Del Method 06/27/24 07:37 36.3 C L 47 L 18 130/71 94 Room Air 06/27/24 07:36 36.3 C L 47 L 22 130/71 94 Room Air PG Care Time/CCT Total # of Minutes Spent Total Time Spent with Patient: Total time spent is greater than 50% in coordination of care (as documented) at patient's floor/unit and/or counseling patient: Coding Level of Care Code 71409 SUB INP/OBS CARE 2/35MIN Diagnoses Discharge planning issues Z75.8 Chronic pain G89.29 Aspiration pneumonia J69.0 H/O: CVA (cerebrovascular accident) Z86.73 Type 2 diabetes mellitus E11.9 Seizure disorder as sequela of cerebrovascular accident I69.398; G40.909 BPH (benign prostatic hyperplasia) N40.0 Essential (primary) hypertension I10 COPD (chronic obstructive pulmonary disease) J44.9 Aphasia following cerebral infarction I69.320 Dysphasia following cerebral infarction I69.321 Vitamin D insufficiency E55.9
[2024-06-27] MEDS: LANTUS PER UNIT CHARGE SQ SCH (20:55)
--- NOTE | 2024-06-28 15:47 | Hospitalist Progress Note ---
Date of Service June 28, 2024 Assessment & Plan (1) Discharge planning issues: Plan: social work continues to work diligently on his post-discharge placement numerous referrals have been sent to assisted living facilities throughout [facility] including the [place] system I appreciate social work assistance with this labs 06/24 reviewed - normal CBC Hgb 16.2, normal BMP except glucose 150 (2) Chronic pain: Plan: patient c/o right arm/right leg pain (neuropathic pain from prior stroke?) Was on gabapentin 800mg QID prior to admission; this fell off - not sure when; but reordered on 06/14/24; increased to 600mg TID 06/20. Would not increase further, tends to be sleeping a lot. Continue Tylenol 650mg QID Continue Cymbalta 60 mg p.o. daily - recently increased Continue Lidocaine jelly TID Voltaren gel 4gm QID for L shoulder (previously evaluated by ortho - h/o shoulder replacement) Cont tramadol 100mg q6h prn bowel regimen due to narcotic use pain better with increased Cymbalta? (3) COPD (chronic obstructive pulmonary disease): Plan: wheezing today because inhalers fell off medlist cont inhalers - reordered anoro and breo, prn albuterol assess response O2 sats wnl (4) Type 2 diabetes mellitus: Plan: cont basal-bolus insulin last a1c 7.7% early in 04/2024 continue glargine and Premeal aspart blood glucose reviewed 06/27 decreased glargine from 13-->11u daily. at goal. 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 Has been here 84 days and no current acute issues, low risk for DVT Constipation - cont senna, cont miralax for maintenance trial ketoconazole for facial rash started 06/25 x 10d. Looks like michele derm. Improving Disposition - uncertain; multiple personal care homes are being investigated. Application to [facility] in progress On 06/27 renewed meds through Aug updated pt's brother Kevin by phone 06/28 Admission and Anticipated Discharge Date Admission Date: April 04, 2024 Subjective doing well today except having some wheezing no chest pain, L shoulder hurts inhalers had fallen off medlist due to 30 day renewal Physical Exam Physical Exam: PHYSICAL EXAMINATION Last 24h vital signs reviewed, see documentation in flowsheet General: awake alert HEENT: moist mucus membranes flaky skin and facial erythema definitely improved Lungs: Normal WOB, bilateral exp wheezing Heart: Regular rate and rhythm, no murmurs. No JVD Abdomen: Soft, nt, ND Extremities: Warm, dry, well-perfused. No extremity edema. Neuro: alert, answers questions nodding yes/no and with gestures. expressive aphasia. RUE>RLE weakness. unchanged Results & Data Results & Data Vital Signs (Past 12 Hours) Vital Signs Temp Pulse Resp BP Pulse Ox O2 Del Method 06/28/24 14:31 36.3 C L 54 L 18 131/67 93 Room Air 06/28/24 07:32 36.5 C 54 L 20 142/74 H 93 Room Air 06/28/24 07:30 Room Air PG Care Time/CCT Total # of Minutes Spent Total Time Spent with Patient: Total time spent is greater than 50% in coordination of care (as documented) at patient's floor/unit and/or counseling patient: Coding Level of Care Code 66952 SUB INP/OBS CARE 2/35MIN Diagnoses Discharge planning issues Z75.8 Chronic pain G89.29 COPD (chronic obstructive pulmonary disease) J44.9 Type 2 diabetes mellitus E11.9 Aspiration pneumonia J69.0 H/O: CVA (cerebrovascular accident) Z86.73 Seizure disorder as sequela of cerebrovascular accident I69.398; G40.909 BPH (benign prostatic hyperplasia) N40.0 Essential (primary) hypertension I10 Aphasia following cerebral infarction I69.320 Dysphasia following cerebral infarction I69.321 Vitamin D insufficiency E55.9
[2024-06-28] MEDS ORDERED: ALBUTEROL HFA 8 GM INHALER INH PRN (17:34)
[2024-06-29] MEDS: FLUTICASONE FUROATE 100MCG 14 PUFFS/INHALER INH SCH (08:51)
[2024-06-29] MEDS: UMECLIDINIUM/VILANTEROL 62.5/25MCG 7 PUFFS/INHALER INH SCH (08:53)
[2024-06-29] MEDS ORDERED: FLUTICASONE/VILANTEROL 100/25MCG 14 PUFFS/INHALER INH SCH (09:00)
--- NOTE | 2024-06-29 18:54 | Hospitalist Progress Note ---
Date of Service June 29, 2024 Assessment & Plan (1) Discharge planning issues: Plan: social work continues to work diligently on his post-discharge placement numerous referrals have been sent to assisted living facilities throughout [facility] I appreciate social work assistance with this possibly to have a bed offer from [facility]?? (2) Chronic pain: Plan: patient c/o right arm/right leg pain (neuropathic pain from prior stroke??) Was on gabapentin 800mg QID prior to admission; this fell off - not sure when; but reordered on 06/14/24; increase to 600mg TID 06/20 consider increase to 800mg TID tomorrow Continue Tylenol 650mg QID Continue Cymbalta 60 mg p.o. 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 twice daily Levels in March 2024 were therapeutic (7) BPH (benign prostatic hyperplasia): Plan: cont flomax daily no LUTS (8) Essential (primary) hypertension: Plan: cont amlodipine 10mg daily cont flomax (9) COPD (chronic obstructive pulmonary disease): Plan: cont inhalers no flare at this time O2 sats wnl (10) Aphasia following cerebral infarction: Plan: 2nd to left MCA territory CVA in the past (11) Dysphasia following cerebral infarction: Plan: cont easy to chew diet & honey thickened liquids he is a known aspirator Patient had a repeat aspiration event on 05/21/2024 Fortunately this did not lead to any pneumonia (12) Vitamin D insufficiency: Plan: 25-OH vit D level = 20 start vitamin D supplementation - 5000 IU daily repeat level 2-3 months Plan DVT prophylaxis - Lovenox 40 mg subcutaneous daily - will reorder, fell off med list Constipation - cont senna, cont miralax for maintenance Disposition - [facility], but location uncertain (maybe [facility]??) Admission and Anticipated Discharge Date Admission Date: April 04, 2024 Subjective only complaint is his chronic L shoulder pain also c/o not sleeping well ?? very difficult to communicate with him today I encouraged him to write out his needs on paper Review of Systems Review of Systems: CV - no chest pain pulm - no dyspnea GI - no abd pain Physical Exam Physical Exam: gen - sitting at side of bed, NAD mouth - MMM neck - no JVD heart - RRR, s1 s2, no murmur lungs - CTA b/l today; no wheezes or rales abd - soft NT ND BS+ ext - no edema, pulses 2+ b/l feet neuro - right-sided hemiparesis - baseline; expressive aphasia but no receptive aphasia Results & Data Results & Data Vital Signs (Past 12 Hours) Vital Signs Temp Pulse Resp BP Pulse Ox O2 Del Method 06/29/24 15:18 36.5 C 53 L 18 122/64 93 Room Air 06/29/24 07:49 36.4 C L 50 L 18 154/80 H 94 Room Air 06/29/24 07:15 Room Air Laboratory Results Laboratory Results - last 24 hr 06/29/24 06/29/24 06/29/24 07:53 11:40 16:28 POC Glucose 82 111 H 144 H 06/29/24 20:27 POC Glucose 109 H PG Care Time/CCT Total # of Minutes Spent Total Time Spent with Patient: Total time spent is greater than 50% in coordination of care (as documented) at patient's floor/unit and/or counseling patient: Coding Level of Care Code 49976 SUB INP/OBS CARE 25MIN Diagnoses Discharge planning issues Z75.8 Chronic pain G89.29 Aspiration pneumonia J69.0 H/O: CVA (cerebrovascular accident) Z86.73 Type 2 diabetes mellitus E11.9 Seizure disorder as sequela of cerebrovascular accident I69.398; G40.909 BPH (benign prostatic hyperplasia) N40.0 Essential (primary) hypertension I10 COPD (chronic obstructive pulmonary disease) J44.9 Aphasia following cerebral infarction I69.320 Dysphasia following cerebral infarction I69.321 Vitamin D insufficiency E55.9
[2024-06-29] MEDS: LANTUS PER UNIT CHARGE SQ SCH (21:33)
[2024-06-30] MEDS: GABAPENTIN 800 MG TAB PO SCH (07:58)
[2024-06-30] MEDS: ENOXAPARIN INJ 40 MG/0.4 ML SYR SQ SCH (08:00)
--- NOTE | 2024-06-30 20:33 | Hospitalist Progress Note ---
Date of Service June 30, 2024 Assessment & Plan (1) Discharge planning issues: Plan: possibly to have a bed a [facility] in [place] next week I completed a medical form for [facility] today appreciate social work assistance with this complicated disposition (2) Chronic pain: Plan: patient c/o right arm/right leg pain (neuropathic pain from prior stroke??) Was on gabapentin 800mg QID prior to admission; this fell off - not sure when; but reordered on 06/14/24; increase to 800mg TID today Continue Tylenol 650mg QID Continue Cymbalta 60 mg p.o. daily Continue Lidocaine jelly TID Voltaren gel 4gm QID for L shoulder (previously evaluated by ortho - h/o shoulder replacement) Cont tramadol 100mg q6h prn Could consider extended release tramadol or nucynta since he has pain often cont bowel regimen due to narcotic use (3) Aspiration pneumonia: Plan: episode in April 2024 resolved clinically & radiographically no issues since cont thickened liquids & easy to chew diet to reduce risk of aspiration (4) H/O: CVA (cerebrovascular accident): Plan: left MCA territory stroke with resulting right-sided hemiparesis & dense expressive aphasia cont asa 81mg daily + lipitor 40mg daily for secondary prevention (5) Type 2 diabetes mellitus: Plan: cont basal-bolus insulin last a1c 7.7% early in 04/2024 AM BSGs improved after reducing lantus again (6) Seizure disorder as sequela of cerebrovascular accident: Plan: Continue valproic acid 500 mg p.o. twice daily Levels in March 2024 were therapeutic (7) BPH (benign prostatic hyperplasia): Plan: cont flomax daily no LUTS (8) Essential (primary) hypertension: Plan: cont amlodipine 10mg daily cont flomax (9) COPD (chronic obstructive pulmonary disease): Plan: cont inhalers no flare at this time O2 sats wnl (10) Aphasia following cerebral infarction: Plan: 2nd to left MCA territory CVA in the past (11) Dysphasia following cerebral infarction: Plan: cont easy to chew diet & honey thickened liquids he is a known aspirator Patient had a repeat aspiration event on 05/21/2024 Fortunately this did not lead to any pneumonia (12) Vitamin D insufficiency: Plan: 25-OH vit D level = 20 start vitamin D supplementation - 5000 IU daily repeat level 2-3 months Plan DVT prophylaxis - Lovenox 40 mg subcutaneous daily Constipation - cont senna, cont miralax Disposition - hopefully [facility] next week Admission and Anticipated Discharge Date Admission Date: April 04, 2024 Subjective no events pt's brother and a leather goods sales representative from [facility] were visiting with him today pt without any new complaints Review of Systems Review of Systems: psych - slept better last pm Physical Exam Physical Exam: gen - laying in bed comfortably, NAD mouth - MMM neck - no JVD heart - RRR, s1 s2, no murmur lungs - mild wheezes b/l; no rales; normal airation abd - soft NT ND BS+ ext - no edema, pulses 2+ b/l feet neuro - right-sided hemiparesis - baseline; expressive aphasia but no receptive aphasia Results & Data Results & Data Vital Signs (Past 12 Hours) Vital Signs Temp Pulse Resp BP Pulse Ox O2 Del Method 06/30/24 17:00 36.4 C L 56 L 18 147/68 H 96 Room Air Laboratory Results Laboratory Results - last 24 hr 06/30/24 06/30/24 06/30/24 07:36 11:30 17:02 POC Glucose 97 130 H 146 H PG Care Time/CCT Total # of Minutes Spent Total Time Spent with Patient: Total time spent is greater than 50% in coordination of care (as documented) at patient's floor/unit and/or counseling patient: Coding Level of Care Code 27011 SUB INP/OBS CARE 1/25MIN Diagnoses Discharge planning issues Z75.8 Chronic pain G89.29 Aspiration pneumonia J69.0 H/O: CVA (cerebrovascular accident) Z86.73 Type 2 diabetes mellitus E11.9 Seizure disorder as sequela of cerebrovascular accident I69.398; G40.909 BPH (benign prostatic hyperplasia) N40.0 Essential (primary) hypertension I10 COPD (chronic obstructive pulmonary disease) J44.9 Aphasia following cerebral infarction I69.320 Dysphasia following cerebral infarction I69.321 Vitamin D insufficiency E55.9
[2024-07-01 07:41] LABS: Hematocrit (blood only) 51.5 % (42.0-52.0); Hemoglobin 17.6 g/dl (14.0-18.0); Mean Corpuscular Hemoglobin 29.6 pg (25.0-34.0); Mean Corpuscular Hgb Conc 34.2 g/dL (32.0-36.0); Mean Corpuscular Volume 86.7 fL (80.0-100.0); Mean Platelet Volume 10.2 fL (9.4-12.4); Platelet Count 267 K/uL (130-400); RDW Coefficient of Variation 13.8 % (11.5-14.5); Red Blood Count 5.94 M/uL (4.70-6.10); White Blood Count 6.63 K/ul (4.8-10.8)
[2024-07-01 07:58] LABS: BUN Creatinine Ratio 23.1 (10-20); Calcium 10.2 mg/dl (8.6-10.3); Creatinine Clr Calc Pharmacy 78.5 ml/min; Potassium 4.1 mmol/L (3.5-5.1)
[2024-07-01 08:19] LABS: Ferritin 106.5 ng/ml (8-388)
--- NOTE | 2024-07-01 18:39 | Hospitalist Progress Note ---
Date of Service July 01, 2024 Assessment & Plan (1) Left shoulder pain: Plan: chronic, but has been complaining of the pain nearly daily for a while tramadol helps but still with pain seen by orthopedics 05/31/24 x-rays of L shoulder - intact prosthesis ortho advised conservative Rx no neck pain to suggest radicular pain from the cervical spine will check a doppler of LUE just to be complete otherwise cont pain meds prn, voltaren gel prn, etc. (2) Discharge planning issues: Plan: to have a bed a [facility] in [place] next week I completed a medical form for [facility] 06/30/24 appreciate social work assistance with this complicated disposition (3) Chronic pain: Plan: patient c/o right arm/right leg pain (neuropathic pain from prior stroke??) Was on gabapentin 800mg QID prior to admission; this fell off - not sure when; but reordered on 06/14/24; increased back to 800mg TID 06/30/24 also with left shoulder pain - see #1 above Continue Tylenol 650mg QID Continue Cymbalta 60 mg p.o. 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: Plan: cont easy to chew diet & honey thickened liquids he is a known aspirator Patient had a repeat aspiration event on 05/21/2024 Fortunately this did not lead to any pneumonia (13) Vitamin D insufficiency: Plan: 25-OH vit D level = 20 start vitamin D supplementation - 5000 IU daily repeat level 2-3 months Plan DVT prophylaxis - Lovenox 40 mg subcutaneous daily Constipation - cont senna, cont miralax - may need the miralax BID Disposition - hopefully [facility] next week pt's brother briefly updated on 06/30/24 at bedside Admission and Anticipated Discharge Date Admission Date: April 04, 2024 Subjective no events overnight continues to c/o left shoulder and left upper arm pain we talked about [facility] accepting him this facility is in [place] he was able to communicate to me that he is nervous about going last documented stool 06/27/24 Review of Systems Review of Systems: CV - no chest pain, no orthopnea pulm - no dyspnea GI - no abd pain Physical Exam Physical Exam: gen - laying in bed comfortably, NAD, anxious today mouth - MMM neck - no JVD heart - RRR, s1 s2, no murmur lungs - mild wheezes b/l; no rales; normal airation abd - soft NT ND BS+ ext - no edema, pulses 2+ b/l feet neuro - right-sided hemiparesis - baseline; expressive aphasia but no receptive aphasia musculo - left shoulder - passive ROM causes pain over the lateral shoulder; tender over the subacromial region; tender over the biceps; no palpable cords, no edema Results & Data Results & Data Vital Signs (Past 12 Hours) Vital Signs Temp Pulse Resp BP Pulse Ox O2 Del Method 07/01/24 16:08 36.4 C L 57 L 18 153/77 H 95 Room Air 07/01/24 08:00 36.8 C 52 L 18 133/70 93 Room Air Laboratory Results Laboratory Results - last 24 hr 06/30/24 07/01/24 07/01/24 20:35 06:55 07:57 WBC 6.63 RBC 5.94 Hgb 17.6 Hct 51.5 MCV 86.7 MCH 29.6 MCHC 34.2 RDW Std Deviation 44.0 RDW Coeff of Jessica 13.8 Plt Count 267 MPV 10.2 Sodium 138 Potassium 4.1 Chloride 101 Carbon Dioxide 28 Anion Gap 9 BUN 24 H Creatinine 1.04 Est Cr Clr Drug Dosing 78.5 eGFR 80.68 BUN/Creatinine Ratio 23.1 H Glucose 129 H POC Glucose 202 H 137 H Calcium 10.2 Iron 84 TIBC 363 Unsaturated IBC 279 Transferrin % Sat 23 Ferritin 106.5 Folate 8.70 07/01/24 07/01/24 12:06 16:29 WBC RBC Hgb Hct MCV MCH MCHC RDW Std Deviation RDW Coeff of Jessica Plt Count MPV Sodium Potassium Chloride Carbon Dioxide Anion Gap BUN Creatinine Est Cr Clr Drug Dosing eGFR BUN/Creatinine Ratio Glucose POC Glucose 232 H 119 H Calcium Iron TIBC Unsaturated IBC Transferrin % Sat Ferritin Folate PG Care Time/CCT Total # of Minutes Spent Total Time Spent with Patient: Total time spent is greater than 50% in coordination of care (as documented) at patient's floor/unit and/or counseling patient: Coding Level of Care Code 92803 SUB INP/OBS CARE 1/25MIN Diagnoses Left shoulder pain M25.512 Discharge planning issues Z75.8 Chronic pain G89.29 Aspiration pneumonia J69.0 H/O: CVA (cerebrovascular accident) Z86.73 Type 2 diabetes mellitus E11.9 Seizure disorder as sequela of cerebrovascular accident I69.398; G40.909 BPH (benign prostatic hyperplasia) N40.0 Essential (primary) hypertension I10 COPD (chronic obstructive pulmonary disease) J44.9 Aphasia following cerebral infarction I69.320 Dysphasia following cerebral infarction I69.321 Vitamin D insufficiency E55.9
--- NOTE | 2024-07-01 22:37 | Ultrasound Report ---
Exam(s): US VENOUS LEFT UPPER EXTREMITY EXAM: US Duplex Left Upper Extremity Veins CLINICAL HISTORY: Reason for exam: persistent pain biceps region. TECHNIQUE: Real-time duplex ultrasound scan of the left upper extremity veins integrating B-mode two-dimensional vascular structure, Doppler spectral analysis, color flow Doppler imaging and compression. COMPARISON: No relevant prior studies available. FINDINGS: Deep veins: No DVT in the internal jugular, subclavian, axillary, or brachial veins. The veins demonstrate normal color flow, are normally compressible, with normal phasic flow and/or augmentation response. No thrombus in the visualized basilic, cephalic, radial ro ulnar veins. Soft tissues: No acute abnormality. IMPRESSION: No evidence for deep venous thrombosis. Electronically signed by: Thony Gruber M.D. 07/01/24 22:36 PM
[2024-07-02] MEDS: HYDROCORTISONE 1% CRM 30 GM TUBE EXT PRN (08:04)
--- NOTE | 2024-07-02 20:32 | Hospitalist Progress Note ---
Date of Service July 02, 2024 Assessment & Plan (1) Left shoulder pain: Plan: chronic, but has been complaining of the pain nearly daily during this hospitalization tramadol helps but still with pain seen by orthopedics 05/31/24 x-rays of L shoulder - intact prosthesis ortho advised conservative Rx no neck pain to suggest radicular pain from the cervical spine doppler of LUE neg for DVT as noted cont pain meds prn, voltaren gel, etc. (2) Discharge planning issues: Plan: to have a bed a [facility] in [place] next week I completed a medical form for [facility] 06/30/24 appreciate social work assistance with this complicated disposition all prescriptions sent electronically to the [place] pharmacy including neb machine, glucometer and testing supplies, etc. (3) Chronic pain: Plan: L shoulder is the main source of the pain RUE/RLE pain (neuropathy?) Continue gabapentin 800mg TID Continue Tylenol 650mg QID Continue Cymbalta 60 mg p.o. 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: Plan: cont easy to chew diet & honey thickened liquids he is a known aspirator Patient had a repeat aspiration event on 05/21/2024 Fortunately this did not lead to any pneumonia (13) Vitamin D insufficiency: Plan: 25-OH vit D level = 20 start vitamin D supplementation - 5000 IU daily repeat level 2-3 months Plan DVT prophylaxis - Lovenox 40 mg subcutaneous daily Constipation - cont senna, cont miralax Disposition - [facility] next week pt's brother briefly updated on 06/30/24 at bedside Admission and Anticipated Discharge Date Admission Date: April 04, 2024 Subjective no events overnight feels well eating well had a stool today no changes in chronic L shoulder pain Review of Systems Review of Systems: CV - no chest pain pulm - no dyspnea GI - no abd pain Physical Exam Physical Exam: gen - laying in bed comfortably, NAD mouth - MMM neck - no JVD heart - RRR, s1 s2, no murmur lungs - CTA b/l, good airation today ext - no edema, pulses 2+ b/l feet neuro - mild right-sided hemiparesis - baseline; expressive aphasia present - at baseline Results & Data Results & Data Vital Signs (Past 12 Hours) Vital Signs Temp Pulse Resp BP Pulse Ox O2 Del Method 07/02/24 20:06 36.3 C L 60 12 155/81 H 96 Room Air 07/02/24 15:33 36.5 C 63 18 125/73 91 Room Air Laboratory Results Laboratory Results - last 48 hr 07/02/24 07/02/24 07/02/24 07:44 11:34 16:41 POC Glucose 160 H 134 H 117 H Diagnostic Findings Extremity Venous Study 07/01/24 17:06 Exam(s): US VENOUS LEFT UPPER EXTREMITY EXAM: US Duplex Left Upper Extremity Veins CLINICAL HISTORY: Reason for exam: persistent pain biceps region. TECHNIQUE: Real-time duplex ultrasound scan of the left upper extremity veins integrating B-mode two-dimensional vascular structure, Doppler spectral analysis, color flow Doppler imaging and compression. COMPARISON: No relevant prior studies available. FINDINGS: Deep veins: No DVT in the internal jugular, subclavian, axillary, or brachial veins. The veins demonstrate normal color flow, are normally compressible, with normal phasic flow and/or augmentation response. No thrombus in the visualized basilic, cephalic, radial ro ulnar veins. Soft tissues: No acute abnormality. IMPRESSION: No evidence for deep venous thrombosis. Electronically signed by: Thony Gruber M.D. 07/01/24 22:36 PM PG Care Time/CCT Total # of Minutes Spent Total Time Spent with Patient: Total time spent is greater than 50% in coordination of care (as documented) at patient's floor/unit and/or counseling patient: Coding Level of Care Code 99673 SUB INP/OBS CARE 2/35MIN Diagnoses Left shoulder pain M25.512 Discharge planning issues Z75.8 Chronic pain G89.29 Aspiration pneumonia J69.0 H/O: CVA (cerebrovascular accident) Z86.73 Type 2 diabetes mellitus E11.9 Seizure disorder as sequela of cerebrovascular accident I69.398; G40.909 BPH (benign prostatic hyperplasia) N40.0 Essential (primary) hypertension I10 COPD (chronic obstructive pulmonary disease) J44.9 Aphasia following cerebral infarction I69.320 Dysphasia following cerebral infarction I69.321 Vitamin D insufficiency E55.9
[2024-07-03] MEDS: LIDOCAINE 5% 1 PATCH TD STA (03:11)
--- NOTE | 2024-07-03 20:33 | Hospitalist Progress Note ---
Date of Service July 03, 2024 Assessment & Plan (1) Left shoulder pain: Plan: chronic, but has been complaining of the pain nearly daily during this hospitalization seen by orthopedics 05/31/24 x-rays of L shoulder - intact prosthesis ortho advised conservative Rx no neck pain to suggest radicular pain from the cervical spine doppler of LUE neg for DVT as noted cont pain meds prn, voltaren gel, etc. (2) Discharge planning issues: Plan: to have a bed a [facility] in [place] next week I completed a medical form for [facility] 06/30/24 appreciate social work assistance with this complicated disposition all prescriptions sent electronically to the [place] pharmacy including neb machine, glucometer and testing supplies, etc. (3) Chronic pain: Plan: * L shoulder is the main source of the pain * RUE/RLE pain (neuropathy?) Continue gabapentin 800mg TID Continue Tylenol 650mg QID Continue Cymbalta 60 mg p.o. 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: Plan: cont easy to chew diet & honey thickened liquids he is a known aspirator Patient had a repeat aspiration event on 05/21/2024 Fortunately this did not lead to any pneumonia (13) Vitamin D insufficiency: Plan: 25-OH vit D level = 20 start vitamin D supplementation - 5000 IU daily repeat level 2-3 months Plan DVT prophylaxis - Lovenox 40 mg subcutaneous daily Constipation - cont senna, cont miralax Had bowel movement yesterday per documentation from staff Disposition - [facility] next week pt's brother briefly updated on 06/30/24 at bedside will update pt's brother again tomorrow Admission and Anticipated Discharge Date Admission Date: April 04, 2024 Subjective patient tells me that he wants the pain meds 4 times/day for his left shoulder gestures this to me multiple times no other complaints eating well watching foot ball on TV Review of Systems Review of Systems: pulm - denies any dyspnea GI - denies any pain Physical Exam Physical Exam: gen - laying in bed comfortably, NAD mouth - MMM neck - no JVD heart - RRR, s1 s2, no murmur lungs - CTA b/l, good airation, no wheezes ext - no edema, pulses 2+ b/l feet neuro - mild right-sided hemiparesis - baseline; expressive aphasia present - at baseline Results & Data Results & Data Vital Signs (Past 12 Hours) Vital Signs Temp Pulse Resp BP Pulse Ox O2 Del Method 07/03/24 20:28 36.3 C L 55 L 14 94 Room Air 07/03/24 15:19 36.6 C 60 18 165/80 H 96 Room Air Laboratory Results Laboratory Results - last 24 hr 07/02/24 07/03/24 07/03/24 21:01 07:43 11:34 POC Glucose 147 H 172 H 100 H 07/03/24 16:43 POC Glucose 126 H PG Care Time/CCT Total # of Minutes Spent Total Time Spent with Patient: Total time spent is greater than 50% in coordination of care (as documented) at patient's floor/unit and/or counseling patient: Coding Level of Care Code 67114 SUB INP/OBS CARE 1/25MIN Diagnoses Left shoulder pain M25.512 Discharge planning issues Z75.8 Chronic pain G89.29 Aspiration pneumonia J69.0 H/O: CVA (cerebrovascular accident) Z86.73 Type 2 diabetes mellitus E11.9 Seizure disorder as sequela of cerebrovascular accident I69.398; G40.909 BPH (benign prostatic hyperplasia) N40.0 Essential (primary) hypertension I10 COPD (chronic obstructive pulmonary disease) J44.9 Aphasia following cerebral infarction I69.320 Dysphasia following cerebral infarction I69.321 Vitamin D insufficiency E55.9
--- NOTE | 2024-07-04 19:44 | Hospitalist Progress Note ---
Date of Service July 04, 2024 Assessment & Plan (1) Left shoulder pain: Plan: chronic no c/o pain today seen by orthopedics 05/31/24 x-rays of L shoulder - intact prosthesis ortho advised conservative Rx no neck pain to suggest radicular pain from the cervical spine doppler of LUE neg for DVT as noted cont pain meds prn has been refusing voltaren gel by report (2) Discharge planning issues: Plan: to have a bed a [facility] in [place] next week I completed a medical form for [facility] 06/30/24 appreciate social work assistance with this complicated disposition all prescriptions sent electronically to the [place] pharmacy including neb machine, glucometer and testing supplies, etc. (3) Chronic pain: Plan: * L shoulder is the main source of the pain * RUE/RLE pain (neuropathy?) Continue gabapentin 800mg TID Continue Tylenol 650mg QID Continue Cymbalta 60 mg p.o. 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: Plan: cont easy to chew diet & honey thickened liquids he is a known aspirator Patient had a repeat aspiration event on 05/21/2024 Fortunately this did not lead to any pneumonia (13) Vitamin D insufficiency: Plan: 25-OH vit D level = 20 start vitamin D supplementation - 5000 IU daily repeat level 2-3 months Plan DVT prophylaxis - Lovenox 40 mg subcutaneous daily Constipation - cont senna, cont miralax last BM 07/02/24 Disposition - [facility] this week pt's brother briefly updated on 06/30/24 at bedside Admission and Anticipated Discharge Date Admission Date: April 04, 2024 Subjective no events overnight denies any complaints eating well last documented stool - 07/02/24 Review of Systems Review of Systems: CV - no orthopnea pulm - no dyspnea at rest GI - no N/V/abd pain - no LUTS Physical Exam Physical Exam: gen - laying in bed comfortably, NAD; initially sleeping but woke up easily skin - seborrhea on face - moderate-severe mouth - MMM neck - no JVD heart - RRR, s1 s2, no murmur lungs - good airation, minimal wheezes b/l ext - no edema, pulses 2+ b/l feet neuro - mild right-sided hemiparesis - baseline; expressive aphasia present - at baseline Results & Data Results & Data Vital Signs (Past 12 Hours) Vital Signs Temp Pulse Resp BP Pulse Ox O2 Del Method 07/04/24 14:52 36.6 C 60 18 171/78 H 99 Room Air Laboratory Results Laboratory Results - last 24 hr 07/03/24 07/04/24 07/04/24 20:48 07:37 11:36 POC Glucose 138 H 104 H 131 H 07/04/24 16:44 POC Glucose 209 H PG Care Time/CCT Total # of Minutes Spent Total Time Spent with Patient: Total time spent is greater than 50% in coordination of care (as documented) at patient's floor/unit and/or counseling patient: Coding Level of Care Code 52981 SUB INP/OBS CARE 09/18MIN Diagnoses Left shoulder pain M25.512 Discharge planning issues Z75.8 Chronic pain G89.29 Aspiration pneumonia J69.0 H/O: CVA (cerebrovascular accident) Z86.73 Type 2 diabetes mellitus E11.9 Seizure disorder as sequela of cerebrovascular accident I69.398; G40.909 BPH (benign prostatic hyperplasia) N40.0 Essential (primary) hypertension I10 COPD (chronic obstructive pulmonary disease) J44.9 Aphasia following cerebral infarction I69.320 Dysphasia following cerebral infarction I69.321 Vitamin D insufficiency E55.9
[2024-07-05] MEDS: LOSARTAN POTASSIUM 25 MG TAB PO SCH (10:27)
--- NOTE | 2024-07-05 21:19 | Hospitalist Progress Note ---
Date of Service July 05, 2024 Assessment & Plan (1) Left shoulder pain: Plan: chronic no c/o pain today seen by orthopedics 05/31/24 x-rays of L shoulder - intact prosthesis ortho advised conservative Rx no neck pain to suggest radicular pain from the cervical spine doppler of LUE neg for DVT as noted cont pain meds prn has been refusing voltaren gel by report (2) Discharge planning issues: Plan: to have a bed a [facility] in [facility], 07/07/24 I completed a medical form for [facility] 06/30/24 appreciate social work assistance with this complicated disposition all prescriptions sent electronically to the [place] pharmacy including neb machine, glucometer and testing supplies, etc. oncoming MD - losartan (added today) will need to be sent to [place] pharmacy if he remains on such (3) Chronic pain: Plan: * L shoulder is the main source of the pain * RUE/RLE pain (neuropathy?) Continue gabapentin 800mg TID Continue Tylenol 650mg QID Continue Cymbalta 60 mg p.o. 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: Plan: cont easy to chew diet & honey thickened liquids he is a known aspirator Patient had a repeat aspiration event on 05/21/2024 Fortunately this did not lead to any pneumonia (13) Vitamin D insufficiency: Plan: 25-OH vit D level = 20 start vitamin D supplementation - 5000 IU daily repeat level 2-3 months Plan DVT prophylaxis - Lovenox 40 mg subcutaneous daily Constipation - cont senna, cont miralax -- increase to BID dosing last BM 07/02/24 Disposition - [facility] on 07/07/24 pt's brother briefly updated on 06/30/24 at bedside Admission and Anticipated Discharge Date Admission Date: April 04, 2024 Subjective no events overnight feeling well he again impresses upon me that he wants his pain meds 4x's daily (he holds up 4 fingers) no stool today eating well he is still not happy about leaving hospital potentially this Friday Review of Systems Review of Systems: CV - no chest pain, no orthopnea, no edema pulm - no dyspnea, occasional cough GI - no abd pain or N/V Physical Exam Physical Exam: gen - laying in bed comfortably, NAD skin - seborrhea on face mouth - MMM neck - no JVD heart - RRR, s1 s2, no murmur lungs - good airation, minimal wheezes b/l; no rales abd - soft, NT, ND, BS+; scar tissue left abdominal wall? ext - no edema, pulses 2+ b/l feet neuro - mild right-sided hemiparesis - baseline; expressive aphasia present - at baseline Results & Data Results & Data Vital Signs (Past 12 Hours) Vital Signs Temp Pulse Resp BP Pulse Ox O2 Del Method 07/05/24 19:36 36.4 C L 59 L 18 145/75 H 95 Room Air 07/05/24 15:37 36.6 C 63 18 126/62 96 Room Air Laboratory Results Laboratory Results 07/04/24 07/04/24 07/04/24 11:36 16:44 20:23 POC Glucose 131 H 209 H 119 H 07/05/24 07/05/24 07:27 11:23 POC Glucose 104 H 112 H PG Care Time/CCT Total # of Minutes Spent Total Time Spent with Patient: Total time spent is greater than 50% in coordination of care (as documented) at patient's floor/unit and/or counseling patient: Coding Level of Care Code 78096 SUB INP/OBS CARE 1/25MIN Diagnoses Left shoulder pain M25.512 Discharge planning issues Z75.8 Chronic pain G89.29 Aspiration pneumonia J69.0 H/O: CVA (cerebrovascular accident) Z86.73 Type 2 diabetes mellitus E11.9 Seizure disorder as sequela of cerebrovascular accident I69.398; G40.909 BPH (benign prostatic hyperplasia) N40.0 Essential (primary) hypertension I10 COPD (chronic obstructive pulmonary disease) J44.9 Aphasia following cerebral infarction I69.320 Dysphasia following cerebral infarction I69.321 Vitamin D insufficiency E55.9
[2024-07-06] MEDS: POLYETHYLENE (MIRALAX) 17 GM PACK PO SCH (11:31)
--- NOTE | 2024-07-06 18:04 | Hospitalist Progress Note ---
Date of Service July 06, 2024 Assessment & Plan (1) Left shoulder pain: Plan: chronic seen by orthopedics 05/31/24 x-rays of L shoulder - intact prosthesis ortho advised conservative Rx no neck pain to suggest radicular pain from the cervical spine doppler of LUE neg for DVT cont pain meds prn has been refusing voltaren gel by report (2) Discharge planning issues: Plan: to have a bed a [facility] in [facility], 07/07/24 discussed with care coord all prescriptions sent electronically to the [place] pharmacy including neb machine, glucometer and testing supplies, etc. still needs losartan Rx (3) Chronic pain: Plan: * L shoulder is the main source of the pain * RUE/RLE pain (neuropathy?) Continue gabapentin 800mg TID Continue Tylenol 650mg QID Continue Cymbalta 60 mg p.o. 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 twice daily Levels in March 2024 were therapeutic (8) BPH (benign prostatic hyperplasia): Plan: cont flomax daily no LUTS (9) Essential (primary) hypertension: Plan: cont amlodipine 10mg daily, losartan added. 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: Plan: cont easy to chew diet & honey thickened liquids he is a known aspirator Patient had a repeat aspiration event on 05/21/2024 Fortunately this did not lead to any pneumonia (13) Vitamin D insufficiency: Plan: 25-OH vit D level = 20 start vitamin D supplementation - 5000 IU daily repeat level 2-3 months Plan DVT prophylaxis - Lovenox 40 mg subcutaneous daily Constipation - cont senna, cont miralax bid Disposition - [facility] on 07/07/24 pt's brother briefly updated on 06/30/24 at bedside Admission and Anticipated Discharge Date Admission Date: April 04, 2024 Subjective sleeping Physical Exam Physical Exam: PHYSICAL EXAMINATION Last 24h vital signs reviewed, see documentation in flowsheet General: sleeping HEENT: moist mucus membranes flaky skin and facial erythema improved Lungs: resp nonlabored Heart: deferred Abdomen: nd Extremities: No extremity edema. Neuro: sleeping Results & Data Results & Data Vital Signs (Past 12 Hours) Vital Signs Temp Pulse Resp BP Pulse Ox O2 Del Method 07/06/24 15:28 36.8 C 59 L 16 138/70 94 Room Air 07/06/24 07:37 36.4 C L 52 L 16 155/76 H 93 Room Air PG Care Time/CCT Total # of Minutes Spent Total Time Spent with Patient: Total time spent is greater than 50% in coordination of care (as documented) at patient's floor/unit and/or counseling patient: Coding Level of Care Code 61385 SUB INP/OBS CARE 1/25MIN Diagnoses Left shoulder pain M25.512 Discharge planning issues Z75.8 Chronic pain G89.29 Aspiration pneumonia J69.0 H/O: CVA (cerebrovascular accident) Z86.73 Type 2 diabetes mellitus E11.9 Seizure disorder as sequela of cerebrovascular accident I69.398; G40.909 BPH (benign prostatic hyperplasia) N40.0 Essential (primary) hypertension I10 COPD (chronic obstructive pulmonary disease) J44.9 Aphasia following cerebral infarction I69.320 Dysphasia following cerebral infarction I69.321 Vitamin D insufficiency E55.9
[2024-07-07 07:41] VITALS: RESP 16; TEMP 97.5; O2SAT 94
[2024-07-07 10:45] VITALS: BP 141/74; PULSE 55
--- NOTE | 2024-07-07 18:07 | Discharge Summary ---
Discharge Summary Date of Service July 07, 2024 Principal Dx & Hospital Course #1 = Principal Diagnosis (1) Left shoulder pain: 63 y/o with previous history of L MCA stroke resulting in chronic R sided weakness and significant aphasia. He was admitted mainly for placement issues. Mild COPD exacerbation was treated early in hospital course which resolved. He had a prolonged stay due to lack of placement. Some non-hospital issues were addressed such as chronic L shoulder/arm pain. Has been stable for discharge for several months Left should/arm pain, sometimes L hand pain - chronic seen by orthopedics 05/31/24 x-rays of L shoulder - intact prosthesis ortho advised conservative Rx no neck pain to suggest radicular pain from the cervical spine doppler of LUE neg for DVT cont pain meds prn has been refusing voltaren gel by report (2) Chronic pain: * L shoulder is the main source of the pain * RUE/RLE pain (neuropathy?) Continue gabapentin 800mg TID Continue Tylenol 650mg QID Continue Cymbalta 60 mg p.o. 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 twice daily Levels in March 2024 were therapeutic (7) BPH (benign prostatic hyperplasia): cont flomax daily no LUTS (8) Essential (primary) hypertension: cont amlodipine 10mg daily, losartan added. 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 left MCA territory CVA in the past (11) Dysphasia following cerebral infarction: cont easy to chew diet & honey thickened liquids he is a known aspirator Patient had a repeat aspiration event on 05/21/2024 Fortunately this did not lead to any pneumonia (12) Vitamin D insufficiency: 25-OH vit D level = 20 start vitamin D supplementation - 5000 IU daily repeat level 2-3 months Notes For Next Care Provider recommend BMP on primary care follow up (newly started [facility]) repeat vitamin D level in 2-3 months Admission HPI Per Admitting Provider The patient is a 63-year-old male with a past medical history including CVA with residual right-sided weakness, BPH and LUTS, hypertension, COPD, aphasia following cerebral infarction. The patient was brought to the emergency department by his brother, due to difficulty in having the patient accepted at [facility] for inpatient care, as he thought the patient was going to be. The patient had been taken to [facility], however, when I saw his present state, they felt they could not take care of him properly there, and the patient was referred to the ED for assessment. The patient is aphasic, and not able to answer questions, other than to nod his head yes or no. Discharge Exam PHYSICAL EXAMINATION Last 24h vital signs reviewed, see documentation in flowsheet General: comfortable appearing, no distress, sitting up by the window eating breakfast HEENT: Normocephalic, atraumatic, pupils round and equal, sclerae anicteric, no conjunctival injection, moist mucus membranes Lungs: Normal respiratory effort. Clear to auscultation bilaterally. No RRW Heart: Regular rate and rhythm, no murmurs. No JVD Abdomen: Soft, nontender, nondistended. Bowel sounds present. Extremities: Warm, dry, well-perfused. No extremity edema. Neuro: Alert and has significant expressive aphasia, communicating mainly by nodding yes and no to questions, right-sided weakness especially right upper extremity is unchanged from baseline Psych: Normal affect and behavior Discharge Plan Discharge Items Patient Disposition: Personal Long-Term Reason For Visit: CONFUSION, WEAKNESS, ASTHMA, EX Discharge Diagnosis: Asthma/COPD exacerbation Activity: Resume your previous activity Non-emergency contact: Primary Care Provider Call non-emergency contact if: you have any medication questions, your symptoms worsen and you have a fever Follow-up/Referrals: [facility] [Primary Care Provider] - Diet: Other - See Diet Comment Liquid Consistency: Honey thick Diet Comment: Heart Healthy, Carb count / diabetic, easy to chew, honey thick liquids Addtl Attending Provider Instructions: Expressive aphasia and R sided weakness at baseline from stroke PT/OT Blood glucose check qAM and PRN Aspiration precautions Please establish primary care at the [facility]. Check BMP at primary care appointment (added losartan to meds recently) Pending Studies at Discharge: No Stand-Alone Forms: My [employer], Smoking Cessation Skilled Items Patient informed of condition?: Yes DNR: No Discharge Level of Care: Other Communicable Disease: No Discharge Prognosis: Stable Lines: None Urinary Catheter: No Medications and DC Order Prescriptions: New ketoconazole 2 % Cream 1 applic EXT BID Qty: 30 1RF Rx Instructions: apply to facial rash (forehead, cheeks, chin, etc) BID nicotine 7 mg/24 hr Patch 24 Hour 1 patch transdermal QAM Qty: 30 0RF diclofenac sodium [Voltaren Arthritis Pain] 1 % Gel 4 g EXT QID Qty: 100 2RF Rx Instructions: left shoulder sennosides [Senokot] 8.6 mg Tablet 17.2 mg PO QAM Qty: 60 2RF tramadol 50 mg Tablet 100 mg PO Q6H PRN (Reason: pain) Qty: 60 0RF duloxetine 60 mg Capsule,Delayed Release(Dr/Ec) 60 mg PO QAM Qty: 30 2RF cholecalciferol (vitamin D3) 125 mcg (5,000 unit) Tablet 125 mcg PO QAM Qty: 30 1RF insulin glargine [Lantus Solostar U-100 Insulin] 100 unit/mL (3 mL) insulin pen 10 unit subcut PM Qty: 15 1RF (DME) pen needle, diabetic, safety 32 gauge x 5/32" needle See Rx Instructions .Route Qty: 100 1RF Rx Instructions: As directed - use with lantus pen. (DME) nebulizers [facility] See Rx Instructions .Route Qty: 1 0RF Rx Instructions: As directed (DME) blood-glucose meter [OneTouch Verio Flex meter] [facility] See Rx Instructions .Route Qty: 1 0RF Rx Instructions: check blood sugars twice daily. (DME) OneTouch Verio test strips Strip See Rx Instructions .Route Qty: 100 2RF Rx Instructions: Check blood sugars twice daily. (DME) lancets 33 gauge misc See Rx Instructions .Route Qty: 100 2RF Rx Instructions: Check blood sugars twice daily losartan 25 mg Tablet 25 mg PO QAM Qty: 30 0RF Continued albuterol sulfate 2.5 mg /3 mL (0.083 %) Solution For Nebulization 2.5 mg INHALATION Q6H PRN (Reason: cough/wheeze/shortness of breath) Qty: 90 1RF aspirin 81 mg Tablet,Delayed Release (Dr/Ec) 81 mg PO DAILY Qty: 90 3RF tamsulosin 0.4 mg Capsule 0.4 mg PO HS Qty: 30 2RF rosuvastatin 20 mg Tablet 20 mg PO HS Qty: 30 2RF Asmanex HFA 100 mcg/actuation Hfa Aerosol Inhaler 2 puff INHALATION BID Qty: 13 2RF Rx Instructions: rinse mouth with water after use Stiolto Respimat 2.5-2.5 mcg/actuation Mist 2 puff INHALATION DAILY Qty: 4 2RF Changed polyethylene glycol 3350 [Miralax] 17 gram powder in packet 17 g PO DAILY Qty: 30 2RF melatonin 3 mg Tablet 6 mg PO HS Qty: 60 2RF gabapentin 800 mg Tablet 800 mg PO TID Qty: 90 2RF amlodipine 10 mg tablet 10 mg PO DAILY Qty: 30 2RF divalproex [Depakote ER] 500 mg Tablet Extended Release 24 Hr 500 mg PO BID Qty: 60 2RF acetaminophen 500 mg capsule 500 mg PO TID Qty: 90 2RF Discontinued guaifenesin [Evon-Tussin] 100 mg/5 mL Liquid 200 mg PO Q8H PRN (Reason: cough ) insulin aspart U-100 [Novolog U-100 Insulin aspart] 100 unit/mL Solution 4 unit SUBCUT TIDM Rx Instructions: PLUS SLIDING SCALE NEEDED hydroxyzine HCl 25 mg Tablet 25 mg PO Q8H PRN (Reason: Anxiety) hydrochlorothiazide 25 mg Tablet 25 mg PO DAILY albuterol sulfate 90 mcg/actuation Hfa Aerosol Inhaler 2 puff INHALATION Q6H PRN (Reason: COPD) insulin glargine [Lantus U-100 Insulin] 100 unit/mL solution 30 unit subcut HS Discharge Orders: Discharge Order (Routine); Ordered 11/13/24 Ordered By: Ysesenia Moses/Other Patient Handouts: Managing Type 2 Diabetes Admission Data Admit Date/Time: 04/04/24 23:08 Attending Provider: Yessenia Amos Admit Provider: Fletcher Suárez Primary Care Provider: Sammy Hernandez Other Providers: [facility]; [facility]; [facility]; [facility]; Fletcher Suárez; Wilder Mcnamara Other Interventions: Discharge Summary Assessment (RN) Last Done: 07/07/24 10:44 Hospital Stay Data Consultations 04/04/24 22:13 ED Decision to Admit Stat 06/01/24 16:56 Consult Orthopedic Surgery Routine Diagnostic Imagining Performed 04/04/24 20:59 CT head/brain wo con Stat 04/19/24 16:20 CT abd pelvis IV con only Urgent CT chest with contrast [CT chest diagnostic w con] Urgent 07/01/24 17:06 US venous doppler UE LT Routine Pending Results Patient Have Any Pending Studies at Discharge: No Discharge Instructions Given to Patient (Per Discharging Provider) Expressive aphasia and R sided weakness at baseline from stroke PT/OT Blood glucose check qAM and PRN Aspiration precautions [facility] at primary care appointment (added losartan to meds recently) Total Time Total Time Spent Total Time Spent (In Minutes): <30 Coding Level of Care Code 29305 IN/OBS DISCH 30 MIN/LESS Diagnoses Left shoulder pain M25.512 Chronic pain G89.29 Aspiration pneumonia J69.0 H/O: CVA (cerebrovascular accident) Z86.73 Type 2 diabetes mellitus E11.9 Seizure disorder as sequela of cerebrovascular accident I69.398; G40.909 BPH (benign prostatic hyperplasia) N40.0 Essential (primary) hypertension I10 COPD (chronic obstructive pulmonary disease) J44.9 Aphasia following cerebral infarction I69.320 Dysphasia following cerebral infarction I69.321 Vitamin D insufficiency E55.9
--- NOTE | 2024-07-08 13:58 | Coding Query ---
CODING QUERY To promote full compliance with coding requirements relating to patient care, provider participation is requested in all cases of production support supervisor uncertainty. Please assist us with the question(s) below: ED notes:Apparently the patient's been having more weakness than usual.His brother states he has been weaker than usual and not being able to walk as usual. HP:past medical history including CVA with residual right-sided weakness, BPH and LUTS, hypertension, COPD, aphasia following cerebral infarction. Weakness/need for residential care- Patient was being transferred from his present facility to [place], but when he got there was told that they could not take care of him there. Consult PT/OT Consult to geriatric social worker History of left MCA CVA- Patient is aphasic Coding Guidelines Each healthcare encounter should be coded to the level of certainty known for that encounter. Sign/symptoms are not coded if a definitive diagnosis has been established. Coding Question(s): Can you please further clarify the etiology of the patient's weakness? Pls flynn 'x' to any that may apply: [ ] Weakness d/t old stroke [ ] Asthma/COPD exac [ ] Failure to thrive [ x ] Other __weakness due to old stroke and asthma/COPD exacerbation [ ] Unable to determine Physician's Response(s): Thank you Louise Blankenship Principal Diagnosis: "that condition established after study, to be chiefly responsible for occasioning the admission of the patient to the hospital for care." Co-Existing Principal Diagnosis: "when two or more diagnoses equally meet the criteria for principal diagnosis as determined by the circumstances of admission, diagnostic work up, and/or therapy provided, and the Alphabetic Index, Tabular List, or another coding guideline does not provide sequencing direction, any one of the diagnoses may be sequenced first." "When the physician has documented what appears to be a current diagnosis in the body of the record, but has not included the diagnosis in the final diagnostic statement, the physician should be asked whether the diagnosis should be added." (Source Coding Clinic 2 QTR90. p3-4) [place]
== END 2024-07-07 12:22 | disposition home or self-care (01) | DRG 56 ==
LOC: ED 20:33 → SUATTDRO 23:08 → EDINP 23:08 → 2N 04-05 04:58 → 3N 05-04 22:04 → 4W 05-09 20:59 → 3W 05-12 17:33